=== PATIENT | female | born 1955 | race Caucasian/White ===

== ENCOUNTER 2016-03-30 08:15 | Inpatient (IN) | payer BC ==
--- NOTE | 2016-03-30 08:22 | ED ---
Psychiatric Complaint - HPI Summary HPI Summary: Patient presents with SI due to depression over the holidays. She denies having a current plan but has had thoughts in the past. She says the holidays are always hard for her and that she was in the hospital last year at this time for the same reason. She has a history of migraine and feels like she is beginning to get one now. This is accompanied with nausea. She denies recent illness, fever, chills or bodyaches. - History Of Current Complaint Hx Obtained From: Patient ?: No Onset/Duration: Gradual Onset Timing: Constant Severity Initially: Severe Severity Currently: Severe Character: Depressed Aggravating Factor(s): Recent Stress - Holidays Alleviating Factor(s): Nothing Associated Signs And Symptoms: Positive: Sleep Disturbance Related History: Positive For: Prior Psychiatric Issues Has Suicidal: Reports: Thoughts <Syd Macias - Last Filed: 04/02/16 11:55> <Sharmila Burdick - Last Filed: 04/04/16 07:20> - History Of Current Complaint Chief Complaint: EDMentalHealth Time Seen by Provider: 03/30/16 08:21 - Allergies/Home Medications Allergies/Adverse Reactions: Allergies Allergy/AdvReac Type Severity Reaction Status Date / Time Cyclobenzaprine Allergy Unknown Verified 03/30/16 09:13 Reaction Details Home Medications: Home Medications ALPRAZolam TAB* [Xanax TAB*] 0.5 mg PO BID PRN 03/30/16 [History Confirmed 03/30] Desvenlafaxine (NF) [Pristiq (NF)] 50 mg PO DAILY 03/30/16 [History Confirmed ] Propranolol LA CAP* [Inderal LA CAP*] 80 mg PO DAILY 03/30/16 [History Confirmed 03/30/16] oxyCODONE/Acetamin 10/325(NF) [Percocet 10/325 (NF)] 1 tab PO TID 03/30/16 [ History Confirmed 03/30/16] PMH/Surg Hx/FS Hx/Imm Hx Endocrine/Hematology History: Denies: Hx Diabetes Cardiovascular History: Reports: Hx Hypertension Denies: Hx Congestive Heart Failure GI History: Reports: Hx Gall Bladder Disease - with brea, Hx Irritable Bowel, Other GI Disorders - chronic diarrhea d/t gastric stapling History: Denies: Hx Dialysis, Hx Renal Disease Musculoskeletal History: Reports: Hx Arthritis Sensory History: Reports: Hx Contacts or Glasses Opthamlomology History: Reports: Hx Contacts or Glasses Neurological History: Reports: Hx Headaches, Hx Migraine Psychiatric History: Reports: Hx Anxiety, Hx Depression, Hx Panic Disorder, Hx Post Traumatic Stress Disorder, Hx Inpatient Treatment, Hx Community Mental Health Tx, Hx Suicide Attempt Denies: Hx Eating Disorder, Hx of Violent Episodes Against Others - Surgical History Surgery Procedure, Year, and Place: gastric stapling. cholecystectomy Hx Anesthesia Reactions: No - Immunization History Date of Tetanus Vaccine: Unknown - Family History Known Family History: Positive: Cardiac Disease, Hypertension - Social History Occupation: Unemployed Alcohol Use: None Substance Use Type: Reports: None Smoking Status (MU): Never Smoked Tobacco <Syd Macias - Last Filed: 04/02/16 11:55> Review of Systems Positive: Depressed All Other Systems Reviewed And Are Negative: Yes <Syd Macias - Last Filed: 04/02/16 11:55> Physical Exam Triage Information Reviewed: Yes Vital Signs Reviewed: Yes Appearance: Positive: Well-Appearing, No Pain Distress, Well-Nourished Skin: Positive: Warm, Skin Color Reflects Adequate Perfusion, Dry, Soft Head/Face: Positive: Normal Head/Face Inspection Eyes: Positive: EOMI, BILLIE, Conjunctiva Clear ENT: Positive: Hearing grossly normal Respiratory/Lung Sounds: Positive: Clear to Auscultation, Breath Sounds Present Cardiovascular: Positive: RRR Abdomen Description: Positive: Nontender, Soft. Negative: CVA Tenderness (R), CVA Tenderness (L), Distended, Guarding Bowel Sounds: Positive: Present Musculoskeletal: Positive: Strength/ROM Intact Neurological: Positive: Sensory/Motor Intact, Alert, Oriented to Person Place, Time, NV Bundle Intact Distally Psychiatric: Positive: Affect/Mood Appropriate AVPU Assessment: Alert <Syd Macias - Last Filed: 04/02/16 11:55> Vital Signs On Initial Exam: Initial Vitals Temp Pulse Resp BP Pulse Ox 98.0 F 115 16 144/77 93 03/30/16 08:25 03/30/16 08:25 03/30/16 08:25 03/30/16 08:25 03/30/16 08:25 <Sharmila Burdick - Last Filed: 04/04/16 07:20> Diagnostics - Laboratory Result Diagrams: 03/30/16 08:40 03/30/16 08:40 Lab Statement: Any lab studies that have been ordered have been reviewed, and results considered in the medical decision making process. <Syd Maciasher - Last Filed: 04/02/16 11:55> - Vital Signs Vital Signs Temp Pulse Resp BP Pulse Ox 03/30/16 16:18 99.1 F 78 16 123/73 98 03/30/16 11:42 18 03/30/16 10:00 97.5 F 84 16 127/66 96 03/30/16 08:25 98.0 F 115 16 144/77 93 - Laboratory Lab Results: Lab Results 03/30/16 03/30/16 03/30/16 Range/Units 08:40 08:40 08:40 WBC 6.4 (3.5-10.8) 10^3/ul RBC 4.26 (4.0-5.4) 10^6/ul Hgb 13.5 (12.0-16.0) g/dl Hct 41 (35-47) % MCV 97 (80-97) fL MCH 32 H (27-31) pg MCHC 33 (31-36) g/dl RDW 13 (10.5-15) % Plt Count 267 (150-450) 10^3/ul MPV 7 L (7.4-10.4) um3 Neut % (Auto) 77.4 (38-83) % Lymph % (Auto) 11.5 L (25-47) % [place] % (Auto) 4.7 (1-9) % Eos % (Auto) 1.9 (0-6) % Baso % (Auto) 4.5 H (0-2) % Absolute Neuts (auto) 4.9 (1.5-7.7) 10^3/ul Absolute Lymphs (auto) 0.7 L (1.0-4.8) 10^3/ul Absolute Monos (auto) 0.3 (0-0.8) 10^3/ul Absolute Eos (auto) 0.1 (0-0.6) 10^3/ul Absolute Basos (auto) 0.3 H (0-0.2) 10^3/ul Absolute Nucleated RBC 0 10^3/ul Nucleated RBC % 0 Sodium 136 (133-145) mmol/L Potassium 4.0 (3.5-5.0) mmol/L Chloride 107 (101-111) mmol/L Carbon Dioxide 22 (22-32) mmol/L Anion Gap 7 (2-11) mmol/L BUN 20 (6-24) mg/dL Creatinine 1.11 H (0.51-0.95) mg/dL Est GFR ( Amer) 64.5 (>60) Est GFR (Non-Af Amer) 50.1 (>60) BUN/Creatinine Ratio 18.0 (8-20) Glucose 99 (70-100) mg/dL Calcium 9.2 (8.6-10.3) mg/dL Total Bilirubin 0.50 (0.2-1.0) mg/dL AST 19 (13-39) U/L ALT 13 (7-52) U/L Alkaline Phosphatase 92 (34-104) U/L Total Protein 6.9 (6.4-8.9) g/dL Albumin 4.0 (3.2-5.2) g/dL Globulin 2.9 (2-4) g/dL Albumin/Globulin Ratio 1.4 (1-3) TSH 1.86 (0.34-5.60) mcIU/mL Urine Color Yellow Urine Appearance Cloudy Urine pH 5.0 (5-9) Ur Specific [place] 1.030 (1.010-1.030) Urine Protein 1+(30 mg/dl) H (Negative) Urine Ketones Trace H (Negative) Urine Blood Negative (Negative) Urine Nitrate Negative (Negative) Urine Bilirubin Negative (Negative) Urine Urobilinogen Negative (Negative) Ur Leukocyte Esterase 1+ H (Negative) Urine WBC (Auto) Trace(0-5/hpf) (Absent) Urine RBC (Auto) Absent (Absent) Ur Squamous Epith Cells Present H (Absent) Urine Bacteria Absent (Absent) Hyaline Casts Present H (Absent) Urine Glucose Negative (Negative) Salicylates < 2.50 (<30) mg/dL Urine Opiates Screen (None Detect) Acetaminophen < 15 mcg/mL Ur Barbiturates Screen (None Detect) Ur Phencyclidine Scrn (None Detect) Ur Amphetamines Screen (None Detect) U Benzodiazepines Scrn (None Detect) Urine Cocaine Screen (None Detect) U Cannabinoids Screen (None Detect) Serum Alcohol < 10 (<10) mg/dL 03/30/16 Range/Units 08:40 WBC (3.5-10.8) 10^3/ul RBC (4.0-5.4) 10^6/ul Hgb (12.0-16.0) g/dl Hct (35-47) % MCV (80-97) fL MCH (27-31) pg MCHC (31-36) g/dl RDW (10.5-15) % Plt Count (150-450) 10^3/ul MPV (7.4-10.4) um3 Neut % (Auto) (38-83) % Lymph % (Auto) (25-47) % Deuel % (Auto) (1-9) % Eos % (Auto) (0-6) % Baso % (Auto) (0-2) % Absolute Neuts (auto) (1.5-7.7) 10^3/ul Absolute Lymphs (auto) (1.0-4.8) 10^3/ul Absolute Monos (auto) (0-0.8) 10^3/ul Absolute Eos (auto) (0-0.6) 10^3/ul Absolute Basos (auto) (0-0.2) 10^3/ul Absolute Nucleated RBC 10^3/ul Nucleated RBC % Sodium (133-145) mmol/L Potassium (3.5-5.0) mmol/L Chloride (101-111) mmol/L Carbon Dioxide (22-32) mmol/L Anion Gap (2-11) mmol/L BUN (6-24) mg/dL Creatinine (0.51-0.95) mg/dL Est GFR ( Amer) (>60) Est GFR (Non-Af Amer) (>60) BUN/Creatinine Ratio (8-20) Glucose (70-100) mg/dL Calcium (8.6-10.3) mg/dL Total Bilirubin (0.2-1.0) mg/dL AST (13-39) U/L ALT (7-52) U/L Alkaline Phosphatase (34-104) U/L Total Protein (6.4-8.9) g/dL Albumin (3.2-5.2) g/dL Globulin (2-4) g/dL Albumin/Globulin Ratio (1-3) TSH (0.34-5.60) mcIU/mL Urine Color Urine Appearance Urine pH (5-9) Ur Specific [place] (1.010-1.030) Urine Protein (Negative) Urine Ketones (Negative) Urine Blood (Negative) Urine Nitrate (Negative) Urine Bilirubin (Negative) Urine Urobilinogen (Negative) Ur Leukocyte Esterase (Negative) Urine WBC (Auto) (Absent) Urine RBC (Auto) (Absent) Ur Squamous Epith Cells (Absent) Urine Bacteria (Absent) Hyaline Casts (Absent) Urine Glucose (Negative) Salicylates (<30) mg/dL Urine Opiates Screen None detected (None Detect) Acetaminophen mcg/mL Ur Barbiturates Screen None detected (None Detect) Ur Phencyclidine Scrn None detected (None Detect) Ur Amphetamines Screen Presumptive positive H (None Detect) U Benzodiazepines Scrn Presumptive positive H (None Detect) Urine Cocaine Screen None detected (None Detect) U Cannabinoids Screen None detected (None Detect) Serum Alcohol (<10) mg/dL Result Diagrams: 03/30/16 08:40 03/30/16 08:40 Lab Statement: Any lab studies that have been ordered have been reviewed, and results considered in the medical decision making process. <Sharmila Burdick - Last Filed: 04/04/16 07:20> Re-Evaluation - Re-Evaluation First Eval Re-Evaluation Time: 14:30 - Notified by [facility] unit that patient has a migraine and is requesting percocet. She will be given Sumatriptan. Change: Worse <Syd Macias - Last Filed: 04/02/16 11:55> Course/Dx - Differential Dx/Clinical Impression Differential Diagnosis/HQI/PQRI: Positive: Acute Psychosis, Anxiety, Depression , Schizophrenia, Suicidal Ideation - Physician Notifications Patient Is Medically Stable For: Psych Evaluation <Syd Macias - Last Filed: 04/02/16 11:55> <Sharmila Burdick - Last Filed: 04/04/16 07:20> - Differential Dx/Clinical Impression Provider Diagnosis: Persistent mood [affective] disorder, unspecified Discharge <Syd Macias - Last Filed: 04/02/16 11:55> <Sharmila Burdick - Last Filed: 04/04/16 07:20> - Discharge Plan Condition: Stable Disposition: ADMITTED TO [facility] Attestations Provider Attestation: I was available for consult. This patient was seen by the VERONICA. The patient was not presented to, seen by, or examined by me. - BRYAN <Sharmila Burdick - Last Filed: 04/04/16 07:20>
[2016-03-30 09:11] LABS: Hematocrit 41 % (35-47); Hemoglobin 13.5 g/dl (12.0-16.0); Mean Corpuscular HGB Conc 33 g/dl (31-36); Mean Corpuscular Hemoglobin 32 pg (27-31); Mean Corpuscular Volume 97 fL (80-97); Mean Platelet Volume 7 um3 (7.4-10.4); Red Blood Count 4.26 10^6/ul (4.0-5.4); Red Cell Distribution Width 13 % (10.5-15); White Blood Count 6.4 10^3/ul (3.5-10.8)
[2016-03-30] MEDS ORDERED: Ondansetron ODT TAB* 4 MG PO ONE (09:11)
[2016-03-30] MEDS ORDERED: Acetaminophen TAB* 325 MG PO ONE ×2 (09:11→11:36)
[2016-03-30] MEDS ORDERED: Ibuprofen TAB* 600 MG PO ONE (09:11)
[2016-03-30 09:16] LABS: Urine Bacteria Absent (Absent); Urine Bilirubin Negative (Negative); Urine Glucose Negative (Negative); Urine Nitrite Negative (Negative)
[2016-03-30 09:27] LABS: ALT 13 U/L (7-52); AST 19 U/L (13-39); Alkaline Phosphatase 92 U/L (34-104); Anion Gap 7 mmol/L (2-11); Benzodiazepine Urine Screen Presumptive Positive (None Detect); Blood Urea Nitrogen 20 mg/dL (6-24); CO2 Carbon Dioxide 22 mmol/L (22-32); Calcium 9.2 mg/dL (8.6-10.3); Chloride 107 mmol/L (101-111); EGFR African American 64.5 (>60); EGFR Non-African American 50.1 (>60); Globulin 2.9 g/dL (2-4); Glucose 99 mg/dL (70-100); Sodium 136 mmol/L (133-145); Total Protein 6.9 g/dL (6.4-8.9)
[2016-03-30 09:44] LABS: Acetaminophen < 15 mcg/mL; Alcohol < 10 mg/dL (<10); Salicylate < 2.50 mg/dL (<30)
[2016-03-30 09:54] LABS: TSH (Thyroid Stimulating Horm) 1.86 mcIU/mL (0.34-5.60)
[2016-03-30] MEDS ORDERED: LORazepam TAB(*) 1 MG PO ONE (11:36)
[2016-03-30] MEDS ORDERED: SUMAtriptan TAB* 50 MG PO ONE (14:34)
[2016-03-30] MEDS ORDERED: Nicotine GUM* 2 MG PO PRN (16:01)
[2016-03-30] MEDS ORDERED: Nicotine Inhaler* 10 MG AMP INH PRN (16:01)
[2016-03-30] MEDS ORDERED: Al Hydrox/Mg Hydrox/Simet LIQ* 30 ML UDC PO PRN (16:01)
[2016-03-30] MEDS ORDERED: Mouth Piece, Nicotine* 1 EACH CARTRIDGE INH SCH (16:01)
[2016-03-30] MEDS: Diphenoxylat/Atrop 2.5-0.025M* 1 TAB PO PRN (20:09)
[2016-03-30] MEDS: Zolpidem TAB* 10 MG PO PRN (20:09)
[2016-03-30] MEDS: Gabapentin CAP(*) 400 MG PO SCH (20:10)
[2016-03-31] MEDS: Acetaminophen TAB* 325 MG PO PRN ×3 (04:48→19:15)
[2016-03-31] MEDS: Diphenoxylat/Atrop 2.5-0.025M* 1 TAB PO PRN ×2 (07:45→20:05)
[2016-03-31] MEDS: FLUoxetine CAP* 20 MG PO SCH (07:45)
[2016-03-31] MEDS: buPROPion SR TAB.SR* 150 MG PO SCH (07:46)
[2016-03-31] MEDS: Gabapentin CAP(*) 400 MG PO SCH ×3 (07:46→19:14)
[2016-03-31] MEDS: Vitamin THERAPEUTIC TAB PO SCH (10:18)
[2016-03-31] MEDS: hydrOXYzine HCL TAB* 50 MG PO SCH ×3 (10:36→19:14)
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
--- NOTE | 2016-03-31 13:30 | PN ---
MHU: Group Therapy Note - Service Type Service Type: 34312 Psychotherapy - Met with patient for supportive psychotherapy. Landy describes suicidal rumination in the context of recurring headaches during the past 5 days. She discussed the news of her son' s , describing feeling excited to get to hold a baby again, but current depression and pain depletes her of positive affect or attitudes. Landy terminated discussion to take prn for headache.
--- NOTE | 2016-03-31 15:53 | PN ---
Progress Note - Progress Note Note: Left a VM for pt's PMD Samantha Rubi with request to discuss migraine mgt.
[2016-03-31] MEDS: Zolpidem TAB* 10 MG PO PRN (20:05)
[2016-04-01] MEDS ORDERED: guanFACINE TAB* 1 MG ONE (04:49)
[2016-04-01] MEDS ORDERED: chlorproMAZINE TAB* 100 MG ONE (04:49)
[2016-04-01] MEDS ORDERED: guanFACINE TAB* 1 MG PO PRN (06:00)
[2016-04-01] MEDS ORDERED: guanFACINE TAB* 1 MG PO ONE (06:00)
--- NOTE | 2016-04-01 08:58 | PN ---
Subjective - Subjective Service Type: 12569 Hosp care 15 min low complexity Subjective: Landy says her migraine prevents her from doing anything but lie in bed. Said she really likes Thorazine for calming effect and "sleeping it off." Said she is basically safe, expecting to to more clinical work, and make progress, when headache passes. Objective - Appearance Appearance: Well Developed/Nourished Hygiene: Normal Grooming: Fairly Well Kept - Behavior Psychomotor Activities: Abnormal-Decreased - Attitude and Relatedness Attitude and Relatedness: Cooperative Eye Contact: Good - Speech Quality: Unpressured Latencies: Normal Quantity: Terse - Mood Patient's Decription of Mood: "Okay" - Affect Observed Affect: Non-labile Affect Consistent with: Dysphoria - mild - Thought Process Patient's Thought Process: Coherent, Impoverished Thought Content: No Passive Wish, No Suicidal Planning, No Homicidal Ideation, No Paranoid Ideation - Sensorium Experiencing Hallucinations: No, Sensorium is Clear - Level of Consciousness Level of Consciousness: Alert - Impulse Control Impulse Control: Intact - Insight and Judgement Insight and Judgement: Fair Assessment - Assessment Merits Inpatient Hospitalization: For Stabilization, To Initiate Treatment, For Ongoing Evaluation, For Discharge Planning Inpatient DSM-IV Dx: 1. Borderline personality disorder. 2. Depressive disorder, not otherwise specified. 3. Substance use disorder, not otherwise specified. Clinical Impression: 60-year-old female with borderline personality disorder, history of suicidal behavior, multiple psychiatric hospitalizations, social isolation. She presented in crisis with report of recent loss of medication supply, unexpected positive amphetamine screen on urine-drug test, psychosocial stressors of conflicts with her son, and somatic concerns of recent yeast infection and migraine. She had elevated distress and suicidal ideation. Settling into the unit. Expressing distress around migraine symptoms. I left a for pt's PMD S. Elicia 03/31. Safe on checks, free of active suicidal ideation. Medication management involves restarting the outpatient medication but with lower more typical dose of Wellbutrin, and avoiding drugs of high abuse potential (particularly in light of standard recent "red flags" of stolen medication and failed drug test) so we will not provide Xanax or narcotic analgesics. Plan - Plan Treatment Plan: Name: LANDY BALL Birthdate: 1955 [id number] Continued Medication Management: Continue Outpt Medication Medications: Current Medications Acetaminophen (Tylenol Tab*) 650 mg PO Q4H PRN PRN Reason: PAIN or TEMP > 101 F Last Admin: 03/31/16 19:15 Dose: 650 mg Al Hydrox/Mg Hydrox/Simethicone (Maalox Plus*) 30 ml PO Q4H PRN PRN Reason: INDIGESTION Bupropion HCl (Wellbutrin Sr Tab*) 300 mg PO QAM [facility] Last Admin: 03/31/16 07:46 Dose: 300 mg Chlorpromazine HCl (Thorazine Tab*) 100 mg PO Q2H PRN PRN Reason: AGITATION Device (Nicotine Mouth Piece*) 1 each INH .CARTRIDGE [facility] Diphenoxylate HCl/Atropine (Lomotil Tab*) 2 tab PO BID PRN PRN Reason: DIARRHEA Last Admin: 03/31/16 20:05 Dose: 2 tab Fluoxetine HCl (Prozac Cap*) 20 mg PO DAILY [facility] Last Admin: 03/31/16 07:45 Dose: 20 mg Gabapentin (Neurontin Cap(*)) 400 mg PO TID [facility] Last Admin: 03/31/16 19:14 Dose: 400 mg Hydroxyzine HCl (Atarax Tab*) 50 mg PO TID [facility] Last Admin: 03/31/16 19:14 Dose: 50 mg Multivitamins (Theragran Tab*) 1 tab PO DAILY [facility] Last Admin: 03/31/16 10:18 Dose: Not Given Nicotine (Nicotine Inhaler*) 10 mg INH Q2H PRN PRN Reason: CRAVING Nicotine Polacrilex (Nicotine Gum*) 2 mg PO Q2H PRN PRN Reason: CRAVING Zolpidem Tartrate (Ambien Tab*) 10 mg PO BEDTIME PRN PRN Reason: SLEEP Last Admin: 03/31/16 20:05 Dose: 10 mg - Discharge Plan Discharge Plan: Outpatient Follow Up
[2016-04-01] MEDS: Gabapentin CAP(*) 400 MG PO SCH ×2 (09:48→14:02)
[2016-04-01] MEDS: buPROPion SR TAB.SR* 150 MG PO SCH (09:49)
[2016-04-01] MEDS: hydrOXYzine HCL TAB* 50 MG PO SCH ×2 (09:49→15:03)
[2016-04-01] MEDS: Vitamin THERAPEUTIC TAB PO SCH (09:49)
[2016-04-01] MEDS: FLUoxetine CAP* 20 MG PO SCH (09:49)
[2016-04-01] MEDS: chlorproMAZINE TAB* 100 MG PO PRN ×3 (11:55→18:26)
[2016-04-01] MEDS ORDERED: hydrOXYzine HCL TAB* 50 MG ONE (15:02)
[2016-04-01] MEDS: Diphenoxylat/Atrop 2.5-0.025M* 1 TAB PO PRN (16:42)
[2016-04-01] MEDS: Acetaminophen TAB* 325 MG PO PRN (23:43)
[2016-04-01] MEDS: Zolpidem TAB* 10 MG PO PRN (23:43)
[2016-04-02] MEDS: Gabapentin CAP(*) 400 MG PO SCH ×4 (01:20→20:02)
[2016-04-02] MEDS: hydrOXYzine HCL TAB* 50 MG PO SCH ×4 (01:21→20:03)
[2016-04-02] MEDS: chlorproMAZINE TAB* 100 MG PO PRN ×5 (06:14→20:50)
[2016-04-02] MEDS: buPROPion SR TAB.SR* 150 MG PO SCH (09:31)
[2016-04-02] MEDS: FLUoxetine CAP* 20 MG PO SCH (09:31)
[2016-04-02] MEDS: Vitamin THERAPEUTIC TAB PO SCH (09:32)
[2016-04-02] MEDS: Diphenoxylat/Atrop 2.5-0.025M* 1 TAB PO PRN ×2 (09:33→20:50)
--- NOTE | 2016-04-02 11:27 | PN ---
Subjective - Subjective Service Type: [id number] Hosp care 15 min low complexity Subjective: Landy reports progress: less anxious, less nauseated. Says mood improvement will come later, is satisfied with plan. I let her know about VM exchange with Dr. Rubi, and current guidance to avoid antibiotics. Objective - Appearance Appearance: Well Developed/Nourished Hygiene: Normal Grooming: Fairly Well Kept - Behavior Psychomotor Activities: Abnormal-Decreased - Attitude and Relatedness Attitude and Relatedness: Superficially Cooperative Eye Contact: Good - Speech Quality: Unpressured Latencies: Normal Quantity: Terse - Mood Patient's Decription of Mood: "Okay" - Affect Observed Affect: Non-labile Affect Consistent with: Euthymia - Thought Process Patient's Thought Process: Coherent, Impoverished Thought Content: No Passive Wish, No Suicidal Planning, No Homicidal Ideation, No Paranoid Ideation - Sensorium Experiencing Hallucinations: No, Sensorium is Clear - Level of Consciousness Level of Consciousness: Alert - Impulse Control Impulse Control: Intact - Insight and Judgement Insight and Judgement: Fair Assessment - Assessment Merits Inpatient Hospitalization: For Stabilization, To Initiate Treatment, For Ongoing Evaluation, Consolidate Improvements Inpatient DSM-IV Dx: 1. Borderline personality disorder. 2. Depressive disorder, not otherwise specified. 3. Substance use disorder, not otherwise specified. Clinical Impression: 60-year-old female with borderline personality disorder, history of suicidal behavior, multiple psychiatric hospitalizations, social isolation. She presented in crisis with report of recent loss of medication supply, unexpected positive amphetamine screen on urine-drug test, psychosocial stressors of conflicts with her son, and somatic concerns of recent yeast infection and migraine. She had elevated distress and suicidal ideation. Stabilizing here. Improving, with reduced distress level and anxiety, and milder overt mood symptoms. Continues with somatic concern around migraine symptoms. I left another VM for pt's PMD SYanira Rubi 04/02. Landy is safe on checks, free of active suicidal ideation. Medication management involved restarting the outpatient medication but with lower more typical dose of Wellbutrin, and avoiding drugs of high abuse potential (particularly in light of standard recent "red flags" of stolen medication and failed drug test) - we will not provide Xanax or narcotic analgesics. Plan - Plan Treatment Plan: Name: LANDY BALL Birthdate: 1955 [id number] Continued Medication Management: Continue Outpt Medication Medications: Current Medications Acetaminophen (Tylenol Tab*) 650 mg PO Q4H PRN PRN Reason: PAIN or TEMP > 101 F Last Admin: 04/01/16 23:43 Dose: 650 mg Al Hydrox/Mg Hydrox/Simethicone (Maalox Plus*) 30 ml PO Q4H PRN PRN Reason: INDIGESTION Bupropion HCl (Wellbutrin Sr Tab*) 300 mg PO QAM COUNTS INCLUDE 234 BEDS AT THE [facility] Last Admin: 04/02/16 09:31 Dose: 300 mg Chlorpromazine HCl (Thorazine Tab*) 100 mg PO Q2H PRN PRN Reason: AGITATION Last Admin: 04/02/16 09:33 Dose: 100 mg Device (Nicotine Mouth Piece*) 1 each INH .CARTRIDGE COUNTS INCLUDE 234 BEDS AT THE [facility] Diphenoxylate HCl/Atropine (Lomotil Tab*) 2 tab PO BID PRN PRN Reason: DIARRHEA Last Admin: 04/02/16 09:33 Dose: 2 tab Fluoxetine HCl (Prozac Cap*) 20 mg PO DAILY COUNTS INCLUDE 234 BEDS AT THE [facility] Last Admin: 04/02/16 09:31 Dose: 20 mg Gabapentin (Neurontin Cap(*)) 400 mg PO TID COUNTS INCLUDE 234 BEDS AT THE [facility] Last Admin: 04/02/16 09:31 Dose: 400 mg Hydroxyzine HCl (Atarax Tab*) 50 mg PO TID COUNTS INCLUDE 234 BEDS AT THE [facility] Last Admin: 04/02/16 09:32 Dose: 50 mg Multivitamins (Theragran Tab*) 1 tab PO DAILY COUNTS INCLUDE 234 BEDS AT THE [facility] Last Admin: 04/02/16 09:32 Dose: 1 tab Nicotine (Nicotine Inhaler*) 10 mg INH Q2H PRN PRN Reason: CRAVING Nicotine Polacrilex (Nicotine Gum*) 2 mg PO Q2H PRN PRN Reason: CRAVING Zolpidem Tartrate (Ambien Tab*) 10 mg PO BEDTIME PRN PRN Reason: SLEEP Last Admin: 04/01/16 23:43 Dose: 10 mg - Discharge Plan Discharge Plan: Outpatient Follow Up
[2016-04-02] MEDS: Acetaminophen TAB* 325 MG PO PRN (19:05)
[2016-04-02] MEDS: Zolpidem TAB* 10 MG PO PRN (20:05)
[2016-04-03] MEDS: chlorproMAZINE TAB* 100 MG PO PRN ×6 (01:26→20:19)
[2016-04-03] MEDS: Gabapentin CAP(*) 400 MG PO SCH ×3 (09:39→20:18)
[2016-04-03] MEDS: hydrOXYzine HCL TAB* 50 MG PO SCH ×3 (09:39→20:19)
[2016-04-03] MEDS: FLUoxetine CAP* 20 MG PO SCH (09:39)
[2016-04-03] MEDS: Diphenoxylat/Atrop 2.5-0.025M* 1 TAB PO PRN ×2 (09:40→20:18)
[2016-04-03] MEDS: Vitamin THERAPEUTIC TAB PO SCH (09:40)
[2016-04-03] MEDS: buPROPion SR TAB.SR* 150 MG PO SCH (09:40)
[2016-04-03] MEDS: Acetaminophen TAB* 325 MG PO PRN ×3 (11:26→21:48)
--- NOTE | 2016-04-03 13:11 | PN ---
Subjective - Subjective Service Type: [id number] Hosp care 15 min low complexity Subjective: Landy reports feeling like she's making more progress. Mood/outlook is "okay." She asks for a provider to check her genitals for rash/infection and I agreed to get a consultation. Objective - Appearance Appearance: Well Developed/Nourished Hygiene: Normal Grooming: Disheveled - Behavior Psychomotor Activities: Abnormal-Decreased - Attitude and Relatedness Attitude and Relatedness: Superficially Cooperative Eye Contact: Good - Speech Quality: Unpressured Latencies: Normal Quantity: Terse - Mood Patient's Decription of Mood: "Okay" - Affect Observed Affect: Non-labile Affect Consistent with: Euthymia - Thought Process Patient's Thought Process: Goal Directed, Impoverished Thought Content: No Passive Wish, No Suicidal Planning, No Homicidal Ideation, No Paranoid Ideation - Sensorium Experiencing Hallucinations: No, Sensorium is Clear - Level of Consciousness Level of Consciousness: Alert - Impulse Control Impulse Control: Intact - Insight and Judgement Insight and Judgement: Fair Assessment - Assessment Inpatient DSM-IV Dx: 1. Borderline personality disorder. 2. Depressive disorder, not otherwise specified. 3. Substance use disorder, not otherwise specified. Clinical Impression: 60-year-old female with borderline personality disorder, history of suicidal behavior, multiple psychiatric hospitalizations, social isolation. She presented in crisis with report of recent loss of medication supply, unexpected positive amphetamine screen on urine-drug test, psychosocial stressors of conflicts with her son, and somatic concerns of recent yeast infection and migraine. She had elevated distress and suicidal ideation. Stabilizing here. Improving, with reduced distress level and anxiety, and milder overt mood symptoms. Landy is safe on checks, free of active suicidal ideation. Medication management involved restarting the outpatient medication but with lower more typical dose of Wellbutrin, and avoiding drugs of high abuse potential (particularly in light of standard recent "red flags" of stolen medication and failed drug test) - we will not provide Xanax or narcotic analgesics. Urinary/genital itching continue, with recent bacterial presence in urine - hospitalist consultation requested (Dr. Patel) - her initial guidance also was to restart propranolol for migraine proph. Plan - Plan Treatment Plan: Name: LANDY BALL Birthdate: 1955 [id number] Continued Medication Management: Continue Outpt Medication Medications: Current Medications Acetaminophen (Tylenol Tab*) 650 mg PO Q4H PRN PRN Reason: PAIN or TEMP > 101 F Last Admin: 04/03/16 11:26 Dose: 650 mg Al Hydrox/Mg Hydrox/Simethicone (Maalox Plus*) 30 ml PO Q4H PRN PRN Reason: INDIGESTION Bupropion HCl (Wellbutrin Sr Tab*) 300 mg PO QAM [facility] Last Admin: 04/03/16 09:40 Dose: 300 mg Chlorpromazine HCl (Thorazine Tab*) 100 mg PO Q2H PRN PRN Reason: AGITATION Last Admin: 04/03/16 11:26 Dose: 100 mg Device (Nicotine Mouth Piece*) 1 each INH .CARTRIDGE [facility] Diphenoxylate HCl/Atropine (Lomotil Tab*) 2 tab PO BID PRN PRN Reason: DIARRHEA Last Admin: 04/03/16 09:40 Dose: 2 tab Fluoxetine HCl (Prozac Cap*) 20 mg PO DAILY [facility] Last Admin: 04/03/16 09:39 Dose: 20 mg Gabapentin (Neurontin Cap(*)) 400 mg PO TID [facility] Last Admin: 04/03/16 09:39 Dose: 400 mg Hydroxyzine HCl (Atarax Tab*) 50 mg PO TID [facility] Last Admin: 04/03/16 09:39 Dose: 50 mg Multivitamins (Theragran Tab*) 1 tab PO DAILY [facility] Last Admin: 04/03/16 09:40 Dose: 1 tab Nicotine (Nicotine Inhaler*) 10 mg INH Q2H PRN PRN Reason: CRAVING Nicotine Polacrilex (Nicotine Gum*) 2 mg PO Q2H PRN PRN Reason: CRAVING Zolpidem Tartrate (Ambien Tab*) 10 mg PO BEDTIME PRN PRN Reason: SLEEP Last Admin: 04/02/16 20:05 Dose: 10 mg - Discharge Plan Discharge Plan: Outpatient Follow Up
[2016-04-03] MEDS: Propranolol LA CAP* 80 MG PO SCH (14:52)
[2016-04-03] MEDS: Cyanocobalamin TAB* 500 MCG PO SCH (17:08)
[2016-04-03] MEDS: Zolpidem TAB* 10 MG PO PRN (20:19)
[2016-04-03] MEDS: Amoxicillin/Clavulanate TAB* 500 MG PO SCH (21:49)
[2016-04-03] MEDS: Clotrimazole 1% VAGINAL CREAM* 45 GM VAGINAL SCH (21:51)
--- NOTE | 2016-04-03 22:51 | CONS ---
CONTINUATION ADDENDUM NOW INCLUDED ON THIS REPORT CONSULTATION REPORT: DATE OF CONSULT: 04/03/16 PRIMARY CARE PROVIDER: Dr. Mcrae. PHYSICIAN REQUESTING THE EVALUATION: Dr. Colmenares from Psychiatry. REASON FOR CONSULT: "Genital problem." HISTORY OF PRESENT ILLNESS: Mrs. Zimmerman is a 60-year-old female with a history of recurrent diarrhea, hypertension, personality disorder with depression and suicidal ideation in the past as well as chronic migraines who presented to the hospital and was admitted to our facility in our mental health unit on 03/31/16 for suicidal ideation. For further details of patient's presentation, please see Dr. Colmenares's history and physical dictated at admission. The patient has a history of chronic headaches and today she stated that her headache is actually pretty well controlled. Furthermore, she stated that she stated that she has had problems with genital symptoms that initially involved vaginal discharge that so far almost resolved. She also has some nonspecific further complaints of vaginal dryness and "grittiness." She denies symptoms of dysuria per se. The patient's urine cultures were positive for Enterococcal faecalis of over 100 ,000 colonies at admission. An evaluation was requested in regards to that. PAST MEDICAL HISTORY: 1. Status post gastric bypass surgery. 2. History of chronic diarrhea. 3. History of chronic migraine headaches. 4. History of depression with multiple psychiatric hospitalizations in the past. 5. Treatment for suicidal ideation. 6. Cholecystectomy. 7. Tonsillectomy. CURRENT MEDICATIONS: The patient is receiving during the hospital stay included : 1. Lomotil 2 tablets b.i.d. p.r.n. 2. Fluoxetine 20 mg daily. 3. Gabapentin 400 mg 3 times a day. 4. Nicotine gum and inhaler. 5. Propranolol 80 mg daily. 6. Multivitamin 1 tablet daily. 7. Ambien 10 mg at bedtime p.r.n. 8. Bupropion SR 300 mg q.a.m. 9. Thorazine 100 mg every 2 hours p.r.n. agitation. 10. Hydroxyzine 50 mg 3 times a day scheduled. ALLERGIES TO MEDICATIONS: Include FLEXERIL. FAMILY HISTORY: Positive for heart disease in both parents. SOCIAL HISTORY: The patient lists her son, who lives in [place], as the surrogate. CONTINUATION ADDENDUM: SOCIAL HISTORY: The patient denies smoking or drug use. She has 2 children. She list her son as the surrogate and person to contact . REVIEW OF SYSTEMS: The patient complains of daily headache. Today's headache is "not as bad." She has chronic loose bowel movements after her bypass surgery. She also states that she has dry skin and she calls it as "psoriasis." Otherwise, the rest of review of systems as mentioned in the history of present illness. All the remaining 12 systems were reviewed and were otherwise negative. PHYSICAL EXAM: Vitals: Blood pressure of 108/65, heart rate of 64 and regular , respiratory rate of 16, oxygen saturation 94% on room air, temperature 98.6. General: The patient is a pleasant 60-year-old female, who is in no acute distress. The patient is alert, awake, and oriented x3. HEENT: Head: Atraumatic, normocephalic. Eyes: Pupils are equal and reactive to light and accommodation. Oropharynx is clear. Mucosa moist. Neck: Supple. No JVD. No bruits bilaterally. Cardiovascular: Regular rate and rhythm. No murmurs. Respiratory: Clear to auscultation bilaterally. Abdomen: Soft, nontender. Bowel sounds present in all 4 quadrants. Extremities: There is no edema. Pulses +2 bilaterally. No clubbing or cyanosis. On evaluation of the skin, very dry with lesions that appeared to be more related to pityriasis rosea on the upper back. Neuro Evaluation: Speech is clear. Cranial nerves II through XII grossly intact. Motor strength is 5/5 bilaterally. DIAGNOSTIC STUDIES/LAB DATA: Most recent laboratory data obtained from shows sodium of 136, potassium 4.0, chloride 107, carbon dioxide 22, BUN 20, creatinine 1.1. Liver function tests were unremarkable. TSH of 1.86. CBC: White blood cell count of 6.4, hemoglobin of 13.5, hematocrit of 41, and platelets of 267. Urine cultures were positive for over 100,000 colonies of Enterococcus faecalis. ASSESSMENT AND PLAN: Urinary tract infection in a patient who has rather vague genitourinary symptoms. At this point, I elected to treat the patient with 5- day course of Augmentin according to sensitivities obtained from Microbiology of the patient's urine cultures. In regards to the possibility of yeast infection. At this point, I think it is a good idea to treat the patient at least preventatively with clotrimazole vaginal cream for 7 days on a nightly basis. I explained to the patient how to use the cream and the reason for using it continuously for 7 days. I also suspect the patient may have vaginal dryness due to postmenopausal symptoms and she may need an estrogen cream. For that, I referred her to see an outpatient sharepoint administrator for further evaluation and treatment. In regards to patient's chronic migraine headaches, the patient was today restarted on her propranolol for headache prevention. That is to be continued. At this point, the patient is also on Neurontin on a daily basis and fluoxetine. She does not appear to be in marked discomfort and describes her today's headache as "usual." In regards to her depression and suicidal ideation, I defer to treatment to the psychiatrist. At this point, I will sign off and we will see the patient as needed. Thank you very much for allowing me to see patient in consultation. Please do not hesitate to call with any other questions or problems arise. Approximately 55 minutes were spent on the patient's consult. CC: Dr. Colmenares; Dr. Mcrae * [id number] #: [id number] #: [id number] MARIANO
--- NOTE | 2016-04-03 23:16 | CONS ---
CC: Dr. Colmenares; Dr. Mcrae CONSULTATION REPORT: * ADDENDUM: SOCIAL HISTORY: The patient denies smoking or drug use. She has 2 children. She list her son as the surrogate and person to contact . REVIEW OF SYSTEMS: The patient complains of daily headache. Today's headache is "not as bad." She has chronic loose bowel movements after her bypass surgery. She also states that she has dry skin and she calls it as "psoriasis." Otherwise, the rest of review of systems as mentioned in the history of present illness. All the remaining 12 systems were reviewed and were otherwise negative. PHYSICAL EXAM: Vitals: Blood pressure of 108/65, heart rate of 64 and regular , respiratory rate of 16, oxygen saturation 94% on room air, temperature 98.6. General: The patient is a pleasant 60-year-old female, who is in no acute distress. The patient is alert, awake, and oriented x3. HEENT: Head: Atraumatic, normocephalic. Eyes: Pupils are equal and reactive to light and accommodation. Oropharynx is clear. Mucosa moist. Neck: Supple. No JVD. No bruits bilaterally. Cardiovascular: Regular rate and rhythm. No murmurs. Respiratory: Clear to auscultation bilaterally. Abdomen: Soft, nontender. Bowel sounds present in all 4 quadrants. Extremities: There is no edema. Pulses +2 bilaterally. No clubbing or cyanosis. On evaluation of the skin, very dry with lesions that appeared to be more related to pityriasis rosea on the upper back. Neuro Evaluation: Speech is clear. Cranial nerves II through XII grossly intact. Motor strength is 5/5 bilaterally. DIAGNOSTIC STUDIES/LAB DATA: Most recent laboratory data obtained from shows sodium of 136, potassium 4.0, chloride 107, carbon dioxide 22, BUN 20, creatinine 1.1. Liver function tests were unremarkable. TSH of 1.86. CBC: White blood cell count of 6.4, hemoglobin of 13.5, hematocrit of 41, and platelets of 267. Urine cultures were positive for over 100,000 colonies of Enterococcus faecalis. ASSESSMENT AND PLAN: Urinary tract infection in a patient who has rather vague genitourinary symptoms. At this point, I elected to treat the patient with 5- day course of Augmentin according to sensitivities obtained from Microbiology of the patient's urine cultures. In regards to the possibility of yeast infection. At this point, I think it is a good idea to treat the patient at least preventatively with clotrimazole vaginal cream for 7 days on a nightly basis. I explained to the patient how to use the cream and the reason for using it continuously for 7 days. I also suspect the patient may have vaginal dryness due to postmenopausal symptoms and she may need an estrogen cream. For that, I referred her to see an outpatient alarm operator for further evaluation and treatment. In regards to patient's chronic migraine headaches, the patient was today restarted on her propranolol for headache prevention. That is to be continued. At this point, the patient is also on Neurontin on a daily basis and fluoxetine. She does not appear to be in marked discomfort and describes her today's headache as "usual." In regards to her depression and suicidal ideation, I defer to treatment to the psychiatrist. At this point, I will sign off and we will see the patient as needed. Thank you very much for allowing me to see patient in consultation. Please do not hesitate to call with any other questions or problems arise. Approximately 55 minutes were spent on the patient's consult. [id number]/CPS #: [id number] MARIANO
[2016-04-04] MEDS: chlorproMAZINE TAB* 100 MG PO PRN ×4 (04:02→22:12)
[2016-04-04] MEDS: Acetaminophen TAB* 325 MG PO PRN ×4 (04:03→19:18)
[2016-04-04] MEDS: hydrOXYzine HCL TAB* 50 MG PO SCH ×3 (09:09→20:05)
[2016-04-04] MEDS: Vitamin THERAPEUTIC TAB PO SCH (09:09)
[2016-04-04] MEDS: buPROPion SR TAB.SR* 150 MG PO SCH (09:09)
[2016-04-04] MEDS: Amoxicillin/Clavulanate TAB* 500 MG PO SCH ×2 (09:09→20:05)
[2016-04-04] MEDS: Gabapentin CAP(*) 400 MG PO SCH ×3 (09:10→20:05)
[2016-04-04] MEDS: FLUoxetine CAP* 20 MG PO SCH (09:10)
[2016-04-04] MEDS: Cyanocobalamin TAB* 500 MCG PO SCH (09:10)
[2016-04-04] MEDS: Diphenoxylat/Atrop 2.5-0.025M* 1 TAB PO PRN ×2 (09:14→20:07)
[2016-04-04] MEDS: Propranolol LA CAP* 80 MG PO SCH (10:03)
[2016-04-04] MEDS: Zolpidem TAB* 10 MG PO PRN (20:07)
[2016-04-04] MEDS: Clotrimazole 1% VAGINAL CREAM* 45 GM VAGINAL SCH (22:23)
[2016-04-05] MEDS: Acetaminophen TAB* 325 MG PO PRN ×3 (08:47→18:15)
[2016-04-05] MEDS: Gabapentin CAP(*) 400 MG PO SCH ×3 (08:47→20:05)
[2016-04-05] MEDS: Cyanocobalamin TAB* 500 MCG PO SCH (08:47)
[2016-04-05] MEDS: Vitamin THERAPEUTIC TAB PO SCH (08:48)
[2016-04-05] MEDS: buPROPion SR TAB.SR* 150 MG PO SCH (08:48)
[2016-04-05] MEDS: Amoxicillin/Clavulanate TAB* 500 MG PO SCH ×2 (08:48→23:08)
[2016-04-05] MEDS: FLUoxetine CAP* 20 MG PO SCH (08:48)
[2016-04-05] MEDS: hydrOXYzine HCL TAB* 50 MG PO SCH ×3 (08:48→20:05)
[2016-04-05] MEDS: Diphenoxylat/Atrop 2.5-0.025M* 1 TAB PO PRN ×2 (08:49→20:07)
[2016-04-05] MEDS: Propranolol LA CAP* 80 MG PO SCH (08:50)
[2016-04-05] MEDS: chlorproMAZINE TAB* 100 MG PO PRN ×2 (12:47→18:16)
--- NOTE | 2016-04-05 13:47 | PN ---
Subjective - Subjective Service Type: 62958 Hosp care 15 min low complexity Subjective: I reviewed Dr Colmenares's sign-out and notes since Wednesday. Staff note she was seclusive on Wednesday afternoon. Staff note improved mood and activity level yesterday. Mood this morning has been described as dysphoric and she has been complaining of a headache. She was seen by Medicine Consult on Wednesday. Pt found at [facility] and just got Tylenol for COPPOLA and thorazine for anxiety. We briefly reviewed events leading to hospitalization. Mood is "crappy " b/c her daughter didn't contact her yesterday (her b-day) and it's been exactly 6 years since they last talked. In general, the holidays and her b-day are "tough times of the year." She rates both her depression and anxiety as 8/ 10 (10 being the worst). She is glad she was hospitalized for her b-day. Slept "great" last night. Notes improved appetite and energy level since hospitalized. Reports continued migraine, which she says is a daily occurrence. Denies SI or thoughts of self-harm. Objective - Appearance Appearance: Obese Dysmorphic Features: No Grooming: Fairly Well Kept - Behavior Psychomotor Activities: Normal Exhibits Abnormal Movement: No - Attitude and Relatedness Attitude and Relatedness: Cooperative Eye Contact: Fair - Speech Quality: Unpressured Latencies: Normal Quantity: Terse - Mood Patient's Decription of Mood: "crappy" - Affect Observed Affect: Fair Affect Consistent with: Dysphoria - blunted but smiles - Thought Process Patient's Thought Process: Coherent, Goal Directed, Impoverished Thought Content: No Passive Wish, No Suicidal Planning, No Homicidal Ideation, No Paranoid Ideation - Sensorium Experiencing Hallucinations: No, Sensorium is Clear - Level of Consciousness Level of Consciousness: Alert Orientation: Yes Intact, Yes Orientated to Time, Yes Orientated to Place, Yes Orientated to Person - Impulse Control Impulse Control: Tenuous - Insight and Judgement Insight and Judgement: Poor - Additional Observations Comments: Vital Signs - 24 hr 04/04/16 04/04/16 04/04/16 14:56 17:55 20:05 Temperature Pulse Rate Respiratory 18 18 18 Rate Blood Pressure (mmHg) O2 Sat by Pulse Oximetry 04/04/16 04/04/16 04/05/16 20:07 22:12 00:12 Temperature Pulse Rate Respiratory 18 18 16 Rate Blood Pressure (mmHg) O2 Sat by Pulse Oximetry 04/05/16 04/05/16 04/05/16 02:12 07:37 08:47 Temperature 99.2 F Pulse Rate 61 Respiratory 16 16 16 Rate Blood Pressure 90/44 (mmHg) O2 Sat by Pulse 98 Oximetry 04/05/16 04/05/16 04/05/16 08:49 10:47 12:47 Temperature Pulse Rate Respiratory 16 16 16 Rate Blood Pressure (mmHg) O2 Sat by Pulse Oximetry 04/05/16 14:12 Temperature Pulse Rate Respiratory 14 Rate Blood Pressure (mmHg) O2 Sat by Pulse Oximetry Assessment - Assessment Merits Inpatient Hospitalization: Consolidate Improvements, For Discharge Planning, Pending Safe DC Plan Inpatient DSM-IV Dx: 1. Borderline personality disorder. 2. Depressive disorder, not otherwise specified. 3. Substance use disorder, not otherwise specified. Clinical Impression: 61yo female with a hx of borderline personality d/o, suicidal behavior, multiple psychiatric hospitalizations admitted for SI with increased distress, depression and anxiety. Plan - Plan Treatment Plan: Name: KATT BALL Birthdate: 1955 [id number] - to continue current medication regime. Medications: Current Medications Acetaminophen (Tylenol Tab*) 650 mg PO Q4H PRN PRN Reason: PAIN or TEMP > 101 F Last Admin: 04/05/16 12:47 Dose: 650 mg Al Hydrox/Mg Hydrox/Simethicone (Maalox Plus*) 30 ml PO Q4H PRN PRN Reason: INDIGESTION Amoxicillin/Clavulanate Potassium (Augmentin Tab*) 500 mg PO BID [facility] Stop: 04/08/16 23:59 Last Admin: 04/05/16 08:48 Dose: 500 mg Bupropion HCl (Wellbutrin Sr Tab*) 300 mg PO QAM [facility] Last Admin: 04/05/16 08:48 Dose: 300 mg Chlorpromazine HCl (Thorazine Tab*) 100 mg PO Q2H PRN PRN Reason: AGITATION Last Admin: 04/05/16 12:47 Dose: 100 mg Clotrimazole (Gyne-Lotrimin 1% Vaginal Cream*) 1 applic VAGINAL BEDTIME [facility] Stop: 04/10/16 23:59 Last Admin: 04/04/16 22:23 Dose: 1 applic Cyanocobalamin (Vitamin B12 Tab*) 500 mcg PO DAILY [facility] Last Admin: 04/05/16 08:47 Dose: 500 mcg Device (Nicotine Mouth Piece*) 1 each INH .CARTRIDGE [facility] Diphenoxylate HCl/Atropine (Lomotil Tab*) 2 tab PO BID PRN PRN Reason: DIARRHEA Last Admin: 04/05/16 08:49 Dose: 2 tab Fluoxetine HCl (Prozac Cap*) 20 mg PO DAILY [facility] Last Admin: 04/05/16 08:48 Dose: 20 mg Gabapentin (Neurontin Cap(*)) 400 mg PO TID [facility] Last Admin: 04/05/16 08:47 Dose: 400 mg Hydroxyzine HCl (Atarax Tab*) 50 mg PO TID [facility] Last Admin: 04/05/16 08:48 Dose: 50 mg Multivitamins (Theragran Tab*) 1 tab PO DAILY [facility] Last Admin: 04/05/16 08:48 Dose: 1 tab Nicotine (Nicotine Inhaler*) 10 mg INH Q2H PRN PRN Reason: CRAVING Nicotine Polacrilex (Nicotine Gum*) 2 mg PO Q2H PRN PRN Reason: CRAVING Propranolol HCl (Inderal La Cap*) 80 mg PO DAILY [facility] Last Admin: 04/05/16 08:50 Dose: 80 mg Zolpidem Tartrate (Ambien Tab*) 10 mg PO BEDTIME PRN PRN Reason: SLEEP Last Admin: 04/04/16 20:07 Dose: 10 mg
[2016-04-05] MEDS: Zolpidem TAB* 10 MG PO PRN (20:07)
[2016-04-05] MEDS: Clotrimazole 1% VAGINAL CREAM* 45 GM VAGINAL SCH (20:12)
[2016-04-06] MEDS: Propranolol LA CAP* 80 MG PO SCH (08:16)
[2016-04-06] MEDS: FLUoxetine CAP* 20 MG PO SCH (08:16)
[2016-04-06] MEDS: Gabapentin CAP(*) 400 MG PO SCH ×3 (08:16→20:39)
[2016-04-06] MEDS: Vitamin THERAPEUTIC TAB PO SCH (08:16)
[2016-04-06] MEDS: Amoxicillin/Clavulanate TAB* 500 MG PO SCH ×2 (08:17→20:39)
[2016-04-06] MEDS: hydrOXYzine HCL TAB* 50 MG PO SCH ×3 (08:17→20:39)
[2016-04-06] MEDS: Cyanocobalamin TAB* 500 MCG PO SCH (08:17)
[2016-04-06] MEDS: buPROPion SR TAB.SR* 150 MG PO SCH (08:18)
[2016-04-06] MEDS: Diphenoxylat/Atrop 2.5-0.025M* 1 TAB PO PRN ×2 (08:19→20:40)
[2016-04-06] MEDS: Acetaminophen TAB* 325 MG PO PRN ×3 (09:39→17:50)
[2016-04-06] MEDS: chlorproMAZINE TAB* 100 MG PO PRN ×2 (09:39→13:59)
--- NOTE | 2016-04-06 11:06 | PN ---
Subjective - Subjective Service Type: 95019 Hosp care 15 min low complexity Subjective: Landy notes some ups and downs over the weekend (had mixed feelings of celebrating birthday here, and was ruminating on losses). But notes overall progress in mood, anxiety and somatic concerns. Expects to be ready to go home this week. Agreed 100mg thorazine is good for emergency distress but overkill for routine use. Objective - Appearance Appearance: Well Developed/Nourished Hygiene: Normal Grooming: Well Kept - Behavior Psychomotor Activities: Abnormal-Decreased - Attitude and Relatedness Attitude and Relatedness: Needy Eye Contact: Good - Speech Quality: Unpressured Latencies: Normal Quantity: Appropriate - Mood Patient's Decription of Mood: "Okay" - Affect Observed Affect: Non-labile Affect Consistent with: Dysphoria - mild - Thought Process Patient's Thought Process: Coherent Thought Content: No Passive Wish, No Suicidal Planning, No Homicidal Ideation, No Paranoid Ideation - Sensorium Experiencing Hallucinations: No, Sensorium is Clear - Level of Consciousness Level of Consciousness: Alert - Impulse Control Impulse Control: Intact - Insight and Judgement Insight and Judgement: Fair Assessment - Assessment Merits Inpatient Hospitalization: To Initiate Treatment, For Ongoing Evaluation , Consolidate Improvements, For Discharge Planning Inpatient DSM-IV Dx: 1. Borderline personality disorder. 2. Depressive disorder, not otherwise specified. 3. Substance use disorder, not otherwise specified. Clinical Impression: 60-year-old female with borderline personality disorder, history of suicidal behavior, multiple psychiatric hospitalizations, social isolation. She presented in crisis with report of recent loss of medication supply, unexpected positive amphetamine screen on urine-drug test, psychosocial stressors of conflicts with her son, and somatic concerns of recent yeast infection and migraine. She had elevated distress and suicidal ideation. Stabilized here. Improving, with reduced distress level and anxiety, and milder overt mood symptoms. Landy is safe on checks, free of active suicidal ideation. Medication management involved restarting the outpatient medication but with lower more typical dose of Wellbutrin, and avoiding drugs of high abuse potential (particularly in light of standard recent "red flags" of stolen medication and failed drug test) - we will not provide Xanax or narcotic analgesics. Hospitalist consultation was obtained (Dr. Patel) for urinary symptoms and antibiotics and topical antifungals were started. Plan - Plan Treatment Plan: Name: LANDY BALL Birthdate: 1955 [id number] Continued Medication Management: Continue Outpt Medication Medications: Current Medications Acetaminophen (Tylenol Tab*) 650 mg PO Q4H PRN PRN Reason: PAIN or TEMP > 101 F Last Admin: 04/06/16 09:39 Dose: 650 mg Al Hydrox/Mg Hydrox/Simethicone (Maalox Plus*) 30 ml PO Q4H PRN PRN Reason: INDIGESTION Amoxicillin/Clavulanate Potassium (Augmentin Tab*) 500 mg PO BID [facility] Stop: 04/08/16 23:59 Last Admin: 04/06/16 08:17 Dose: 500 mg Bupropion HCl (Wellbutrin Sr Tab*) 300 mg PO QAM [facility] Last Admin: 04/06/16 08:18 Dose: 300 mg Chlorpromazine HCl (Thorazine Tab*) 100 mg PO Q2H PRN PRN Reason: AGITATION Last Admin: 04/06/16 09:39 Dose: 100 mg Clotrimazole (Gyne-Lotrimin 1% Vaginal Cream*) 1 applic VAGINAL BEDTIME [facility] Stop: 04/10/16 23:59 Last Admin: 04/05/16 20:12 Dose: 1 applic Cyanocobalamin (Vitamin B12 Tab*) 500 mcg PO DAILY [facility] Last Admin: 04/06/16 08:17 Dose: 500 mcg Device (Nicotine Mouth Piece*) 1 each INH .[facility] Diphenoxylate HCl/Atropine (Lomotil Tab*) 2 tab PO BID PRN PRN Reason: DIARRHEA Last Admin: 04/06/16 08:19 Dose: 2 tab Fluoxetine HCl (Prozac Cap*) 20 mg PO DAILY [facility] Last Admin: 04/06/16 08:16 Dose: 20 mg Gabapentin (Neurontin Cap(*)) 400 mg PO TID [facility] Last Admin: 04/06/16 08:16 Dose: 400 mg Hydroxyzine HCl (Atarax Tab*) 50 mg PO TID [facility] Last Admin: 04/06/16 08:17 Dose: 50 mg Multivitamins (Theragran Tab*) 1 tab PO DAILY [facility] Last Admin: 04/06/16 08:16 Dose: 1 tab Nicotine (Nicotine Inhaler*) 10 mg INH Q2H PRN PRN Reason: CRAVING Nicotine Polacrilex (Nicotine Gum*) 2 mg PO Q2H PRN PRN Reason: CRAVING Propranolol HCl (Inderal La Cap*) 80 mg PO DAILY [facility] Last Admin: 04/06/16 08:16 Dose: 80 mg Zolpidem Tartrate (Ambien Tab*) 10 mg PO BEDTIME PRN PRN Reason: SLEEP Last Admin: 04/05/16 20:07 Dose: 10 mg - Discharge Plan Discharge Plan: Outpatient Follow Up
[2016-04-06] MEDS: Zolpidem TAB* 10 MG PO PRN (20:39)
[2016-04-06] MEDS: Clotrimazole 1% VAGINAL CREAM* 45 GM VAGINAL SCH (20:39)
[2016-04-07] MEDS: Acetaminophen TAB* 325 MG PO PRN ×4 (04:21→18:30)
[2016-04-07] MEDS: chlorproMAZINE TAB* 100 MG PO PRN ×3 (04:21→18:30)
[2016-04-07] MEDS: Amoxicillin/Clavulanate TAB* 500 MG PO SCH ×2 (08:26→20:45)
[2016-04-07] MEDS: buPROPion SR TAB.SR* 150 MG PO SCH (08:26)
[2016-04-07] MEDS: Gabapentin CAP(*) 400 MG PO SCH ×3 (08:26→20:45)
[2016-04-07] MEDS: hydrOXYzine HCL TAB* 50 MG PO SCH ×3 (08:26→20:46)
[2016-04-07] MEDS: Vitamin THERAPEUTIC TAB PO SCH (08:27)
[2016-04-07] MEDS: FLUoxetine CAP* 20 MG PO SCH (08:27)
[2016-04-07] MEDS: Cyanocobalamin TAB* 500 MCG PO SCH (08:27)
[2016-04-07] MEDS: Diphenoxylat/Atrop 2.5-0.025M* 1 TAB PO PRN ×2 (08:28→20:47)
[2016-04-07] MEDS: Propranolol LA CAP* 80 MG PO SCH (09:01)
--- NOTE | 2016-04-07 13:45 | PN ---
[facility]: Group Therapy Note - Service Type Service Type: 63040 Group Psychotherapy - Cognitive Behavioral Group Therapy ( CBT):Patient was attentive and participatory in CBT programming this morning, and remained in good behavioral control. Patient expressed positive insights regarding relevant treatment interventions and goals.
[2016-04-07] MEDS: Zolpidem TAB* 10 MG PO PRN (20:48)
[2016-04-07] MEDS: Clotrimazole 1% VAGINAL CREAM* 45 GM VAGINAL SCH (21:40)
[2016-04-08] MEDS: Acetaminophen TAB* 325 MG PO PRN ×2 (03:50→11:17)
[2016-04-08] MEDS: chlorproMAZINE TAB* 25 MG PO PRN ×2 (03:50→09:38)
[2016-04-08 07:43] VITALS: BP 90/55
[2016-04-08] MEDS: Gabapentin CAP(*) 400 MG PO SCH (09:33)
[2016-04-08] MEDS: buPROPion SR TAB.SR* 150 MG PO SCH (09:34)
[2016-04-08] MEDS: Cyanocobalamin TAB* 500 MCG PO SCH (09:34)
[2016-04-08] MEDS: Amoxicillin/Clavulanate TAB* 500 MG PO SCH (09:34)
[2016-04-08] MEDS: hydrOXYzine HCL TAB* 50 MG PO SCH (09:34)
[2016-04-08] MEDS: Propranolol LA CAP* 80 MG PO SCH (09:34)
[2016-04-08] MEDS: FLUoxetine CAP* 20 MG PO SCH (09:34)
[2016-04-08] MEDS: Vitamin THERAPEUTIC TAB PO SCH (09:34)
[2016-04-08] MEDS: Diphenoxylat/Atrop 2.5-0.025M* 1 TAB PO PRN (09:35)
--- NOTE | 2016-04-08 09:47 | DS ---
Subjective - Subjective Service Types: 49121 Hosp DC Day Mgmt simple under 30 min Discharge Date: 04/08/16 Subjective: Landy agreed with discharge, noted sustained progress, and expressed appreciation for care. She denied wishes, current unmanageable emotional pain, suicidal plans. On symptom review she only noted anticipatory anxiety about going home. We reviewed medications (agreed to 7 day Ambien supply, mentioned completed ABX course, and overview of other meds.). She said she sees no barriers to routine care or emergency help. Objective - Appearance Appearance: Obese Hygiene: Normal Grooming: Well Kept - Behavior Psychomotor Activities: Normal - Attitude and Relatedness Attitude and Relatedness: Cooperative Eye Contact: Good - Speech Quality: Unpressured Latencies: Normal Quantity: Terse - Mood Patient's Decription of Mood: "Good" - Affect Observed Affect: Non-labile Affect Consistent with: Euthymia - Thought Process Patient's Thought Process: Coherent, Goal Directed Thought Content: No Passive Wish, No Suicidal Planning, No Homicidal Ideation, No Paranoid Ideation - Sensorium Experiencing Hallucinations: No, Sensorium is Clear - Level of Consciousness Level of Consciousness: Alert - Impulse Control Impulse Control: Intact - Insight and Judgement Insight and Judgement: Fair Treatment Course & Assessment Clinical Course & Impression: 60-year-old female with borderline personality disorder, history of suicidal behavior, multiple psychiatric hospitalizations, social isolation. She presented in crisis with report of recent loss of medication supply, unexpected positive amphetamine screen on urine-drug test, psychosocial stressors of conflicts with her son, and somatic concerns of recent yeast infection and migraine. She had elevated distress and suicidal ideation. 04/08/16 Clear for release. Landy stabilized here. Clinically she is much improved. She attained major reduction in distress level and anxiety, and much milder reported and overt mood symptoms. Impairment is corrected. Landy was safe on checks, free of active suicidal ideation. She struggled with somatic symptoms (nausea/headache/migraine/gential-urinary symptoms) earlier in her course. These all improved. Medication management involved restarting the outpatient medication but with lower more typical dose of Wellbutrin, and avoiding drugs of high abuse potential (particularly in light of standard recent "red flags" of stolen medication and failed drug test) - we did not provide Xanax or narcotic analgesics and recommend against their ongoing use. In compromise with pt. I allowed Ambien and a 7 day Rx. for home use (CSI check Reference #: [id number]). Hospitalist consultation was obtained (Dr. Patel) for urinary symptoms and antibiotics and topical antifungals were started (discussed case again, medical clearance given, 04/08). Pt. completed a 10 dose course of Augmentin. Given her status now, she is appropriate for discharge. Risk concern centered on suicide risk. It is assessed as low acutely on basis of pt's low symptom burden, absence of impairment, and benign recent behavior/ ideation. Chronically in Kandace's case, it is elevated due to her history, profile and conditions. Clear for Discharge: Adequate Clinical Respons, Acceptable Safety Profile, Low Utility of Inpt Care Inpatient DSM-IV Dx: 1. Borderline personality disorder. 2. Depressive disorder, not otherwise specified. 3. Substance use disorder, not otherwise specified. Discharge Planning - Discharge Planning Discharge Plan: Outpatient Follow Up - [facility] Recommendations for Continuing Care: Medication Management, Psychotherapy, Substance Abuse Counseling, Primary Care Followup Medications: Current Medications Bupropion HCl (Wellbutrin Sr Tab*) 300 mg PO QAM [facility] Last Admin: 04/08/16 09:34 Dose: 300 mg Clotrimazole (Gyne-Lotrimin 1% Vaginal Cream*) 1 applic VAGINAL BEDTIME [facility] Stop: 04/10/16 23:59 Last Admin: 04/07/16 21:40 Dose: 1 applic Cyanocobalamin (Vitamin B12 Tab*) 500 mcg PO DAILY [facility] Last Admin: 04/08/16 09:34 Dose: 500 mcg Diphenoxylate HCl/Atropine (Lomotil Tab*) 2 tab PO BID PRN PRN Reason: DIARRHEA Last Admin: 04/08/16 09:35 Dose: 2 tab Fluoxetine HCl (Prozac Cap*) 20 mg PO DAILY [facility] Last Admin: 04/08/16 09:34 Dose: 20 mg Gabapentin (Neurontin Cap(*)) 400 mg PO TID [facility] Last Admin: 04/08/16 09:33 Dose: 400 mg Hydroxyzine HCl (Atarax Tab*) 50 mg PO TID [facility] Last Admin: 04/08/16 09:34 Dose: 50 mg Multivitamins (Theragran Tab*) 1 tab PO DAILY [facility] Last Admin: 04/08/16 09:34 Dose: 1 tab Nicotine (Nicotine Inhaler*) 10 mg INH Q2H PRN PRN Reason: CRAVING Nicotine Polacrilex (Nicotine Gum*) 2 mg PO Q2H PRN PRN Reason: CRAVING Propranolol HCl (Inderal La Cap*) 80 mg PO DAILY [facility] Last Admin: 04/08/16 09:34 Dose: 80 mg Zolpidem Tartrate (Ambien Tab*) 10 mg PO BEDTIME PRN PRN Reason: SLEEP Last Admin: 04/07/16 20:48 Dose: 10 mg Discharge Planning: Prescriptions provided for discharge [x] Yes [] No Follow up care details as per social work arrangements. Patient response to discharge plan: [] eager for discharge [x] agreeable with discharge plan [] ambivalent about discharge [] disagrees with discharge today
== END 2016-04-08 11:45 | disposition home or self-care (01) | DRG 752 ==
LOC: ED 08:15 → BSU 16:35
PROVIDERS: ADMIT Psychiatry & Neurology Psychiatry; ATTEND Psychiatry & Neurology Psychiatry
DX: F60.3 Borderline personality disorder (principal); N39.0 Urinary tract infection, site not specified; F32.9 Major depressive disorder, single episode, unspecified; K58.9 Irritable bowel syndrome, unspecified; F19.90 Other psychoactive substance use, unspecified, uncomplicated; B95.2 Enterococcus as the cause of diseases classified elsewhere; G43.909 Migraine, unspecified, not intractable, without status migrainosus; Z98.84 Bariatric surgery status; Z79.891 Long term (current) use of opiate analgesic; Z79.899 Other long term (current) drug therapy; Z82.49 Family history of ischemic heart disease and other diseases of the circulatory system
CPT/HCPCS: 36415; 80053; 80307; 80320; 80329; 81003; 81015; 84443; 85025; 87077; 87086; 87186; 90853; 96102; 99222; 99231; 99238; 99285; A9270-GY; G0480

== ENCOUNTER 2016-06-18 06:50 | Inpatient (IN) | payer BC ==
[2016-06-18 08:05] LABS: Hematocrit 37 % (35-47); Hemoglobin 12.2 g/dl (12.0-16.0); Mean Corpuscular HGB Conc 33 g/dl (31-36); Mean Corpuscular Hemoglobin 31 pg (27-31); Mean Corpuscular Volume 94 fL (80-97); Mean Platelet Volume 7 um3 (7.4-10.4); Red Blood Count 3.93 10^6/ul (4.0-5.4); Red Cell Distribution Width 15 % (10.5-15); White Blood Count 5.1 10^3/ul (3.5-10.8)
[2016-06-18 08:26] LABS: ALT 10 U/L (7-52); AST 17 U/L (13-39); Albumin 3.9 g/dL (3.2-5.2); Alkaline Phosphatase 91 U/L (34-104); Anion Gap 7 mmol/L (2-11); BUN/Creatinine Ratio 11.9 (8-20); Blood Urea Nitrogen 12 mg/dL (6-24); CO2 Carbon Dioxide 24 mmol/L (22-32); Calcium 9.1 mg/dL (8.6-10.3); Chloride 105 mmol/L (101-111); EGFR African American 71.7 (>60); EGFR Non-African American 55.7 (>60); Glucose 92 mg/dL (70-100); Potassium 4.3 mmol/L (3.5-5.0); Sodium 136 mmol/L (133-145); Total Protein 6.9 g/dL (6.4-8.9)
[2016-06-18 08:32] LABS: Acetaminophen 16 mcg/mL; Alcohol < 10 mg/dL (<10); Salicylate < 2.50 mg/dL (<30)
[2016-06-18 08:42] LABS: TSH (Thyroid Stimulating Horm) 1.66 mcIU/mL (0.34-5.60)
[2016-06-18 08:44] LABS: Benzodiazepine Urine Screen Presumptive Positive (None Detect)
[2016-06-18 08:48] LABS: Urine Bacteria Absent (Absent); Urine Bilirubin Negative (Negative); Urine Glucose Negative (Negative); Urine Nitrite Negative (Negative)
[2016-06-18] MEDS: Gabapentin CAP(*) 400 MG PO SCH (10:00)
[2016-06-18] MEDS ORDERED: Acetaminophen TAB* 325 MG PO ONE (10:07)
[2016-06-18] MEDS ORDERED: ALPRAZolam TAB* 0.5 MG PO ONE (10:07)
[2016-06-18] MEDS ORDERED: Ondansetron ODT TAB* 4 MG PO ONE (14:24)
[2016-06-18] MEDS ORDERED: hydrOXYzine HCL TAB* 25 MG PO ONE (14:24)
[2016-06-18] MEDS ORDERED: Diphenoxylat/Atrop 2.5-0.025M* 1 TAB PO ONE (15:55)
--- NOTE | 2016-06-18 17:15 | ED ---
Arturo Charles Salem, scribed for Luis Carlos Wren MD on 06/18/16 at 0757 . Psychiatric Complaint - HPI Summary HPI Summary: Patient is a 61 y/o female who presents to the ED with SI without a plan. She reports not feeling well for a couple of weeks now. She also reports loss of appetite and trouble sleeping, but denies rhinorrhea, cough, or dysuria. Pt states she is receiving counseling. Pt is medically clear for mental health evaluation @ 0815 - History Of Current Complaint Chief Complaint: EDMentalHealth Time Seen by Provider: 06/18/16 07:34 Hx Obtained From: Patient Onset/Duration: Gradual Onset, Lasting Weeks Severity Initially: Moderate Severity Currently: Moderate Character: Depressed Aggravating Factor(s): Nothing Alleviating Factor(s): Nothing Associated Signs And Symptoms: Positive: Negative Has Suicidal: Reports: Thoughts. Denies: With A Plan - Allergies/Home Medications Allergies/Adverse Reactions: Allergies Allergy/AdvReac Type Severity Reaction Status Date / Time No Known Allergies Allergy Verified 04/06/16 17:10 Home Medications: Home Medications Bupropion HCl [Bupropion HCl Xl] 150 mg PO QPM 06/18/16 [History Confirmed 06/18] Ondansetron HCl [Zofran 8 MG TAB] 8 mg PO BID PRN 06/18/16 [History Confirmed ] Promethazine HCl 25 mg PO BID PRN 06/18/16 [History Confirmed 06/18/16] PMH/Surg Hx/FS Hx/Imm Hx Endocrine/Hematology History: Denies: Hx Diabetes Cardiovascular History: Reports: Hx Hypertension Denies: Hx Angina, Hx Auto Implanted Cardiovert Defib, Hx Cardiac Arrest, Hx Congestive Heart Failure, Hx Pacemaker/ICD Respiratory History: Denies: Hx Asthma, Hx Chronic Obstructive Pulmonary Disease (COPD) GI History: Reports: Hx Gall Bladder Disease - with brea, Hx Irritable Bowel, Other GI Disorders - chronic diarrhea d/t gastric stapling Denies: Hx Cirrhosis, Hx Gastroesophageal Reflux Disease History: Denies: Hx Acute Renal Failure, Hx Dialysis, Hx Renal Disease Musculoskeletal History: Reports: Hx Arthritis Denies: Hx Gout Sensory History: Reports: Hx Contacts or Glasses Denies: Hx Deafness Opthamlomology History: Reports: Hx Contacts or Glasses Neurological History: Reports: Hx Headaches, Hx Migraine Denies: Hx Seizures Psychiatric History: Reports: Hx Anxiety, Hx Depression, Hx Panic Disorder, Hx Post Traumatic Stress Disorder, Hx Inpatient Treatment, Hx Community Mental Health Tx, Hx Suicide Attempt Denies: Hx Eating Disorder, Hx of Violent Episodes Against Others - Surgical History Surgery Procedure, Year, and Place: gastric stapling. cholecystectomy Hx Anesthesia Reactions: No - Immunization History Date of Tetanus Vaccine: Unknown Infectious Disease History: No Infectious Disease History: Denies: Traveled Outside the [place] in Last 30 Days - Family History Known Family History: Positive: Cardiac Disease, Hypertension - Social History Alcohol Use: None Substance Use Type: Reports: None Smoking Status (MU): Never Smoked Tobacco Review of Systems Positive: Other - Trouble sleeping. Loss of appetite. . Negative: Fever Negative: Nasal Discharge Negative: Cough Negative: dysuria All Other Systems Reviewed And Are Negative: Yes Physical Exam - Summary Physical Exam Summary: The patient is well-nourished in no acute distress and in no acute pain. The skin is warm and dry and skin color reflects adequate perfusion. No signs of trauma. HEENT: The head is normocephalic and atraumatic. The pupils are equal and reactive. The conjunctivae are clear and without drainage. Nares are patent and without drainage. Mouth reveals moist mucous membranes and the throat is without erythema and exudate. Neck is supple with full range of motion and non-tender. Cardiovascular: There is no peripheral edema. Abdomen: The abdomen is soft and non-tender. There are normal bowel sounds heard in all four quadrants and there is no organomegaly palpated. Musculoskeletal: Extremities are non-tender with full range of motion. There is good capillary refill. There is no peripheral edema or calf tenderness elicited. Neurological: Patient is alert and oriented to person, place and time. The patient has symmetrical motor strength in all four extremities. Psychiatric: The patient is severely depressed and demonstrates decreased rigor. Triage Information Reviewed: Yes Vital Signs On Initial Exam: Initial Vitals Temp Pulse Resp BP Pulse Ox 98.0 F 87 20 127/83 98 06/18/16 07:03 06/18/16 07:03 06/18/16 07:03 06/18/16 07:03 06/18/16 07:03 Vital Signs Reviewed: Yes Diagnostics - Vital Signs Vital Signs Temp Pulse Resp BP Pulse Ox 06/18/16 07:03 98.0 F 87 20 127/83 98 - Laboratory Lab Results: Lab Results 06/18/16 06/18/16 06/18/16 Range/Units 07:19 07:19 07:45 WBC 5.1 (3.5-10.8) 10^3/ul RBC 3.93 L (4.0-5.4) 10^6/ul Hgb 12.2 (12.0-16.0) g/dl Hct 37 (35-47) % MCV 94 (80-97) fL MCH 31 (27-31) pg MCHC 33 (31-36) g/dl RDW 15 (10.5-15) % Plt Count 270 (150-450) 10^3/ul MPV 7 L (7.4-10.4) um3 Neut % (Auto) 72.7 (38-83) % Lymph % (Auto) 18.6 L (25-47) % Roberts % (Auto) 5.7 (1-9) % Eos % (Auto) 2.0 (0-6) % Baso % (Auto) 1.0 (0-2) % Absolute Neuts (auto) 3.7 (1.5-7.7) 10^3/ul Absolute Lymphs (auto) 0.9 L (1.0-4.8) 10^3/ul Absolute Monos (auto) 0.3 (0-0.8) 10^3/ul Absolute Eos (auto) 0.1 (0-0.6) 10^3/ul Absolute Basos (auto) 0.1 (0-0.2) 10^3/ul Absolute Nucleated RBC 0 10^3/ul Nucleated RBC % 0 Sodium (133-145) mmol/L Potassium (3.5-5.0) mmol/L Chloride (101-111) mmol/L Carbon Dioxide (22-32) mmol/L Anion Gap (2-11) mmol/L BUN (6-24) mg/dL Creatinine (0.51-0.95) mg/dL Est GFR ( Amer) (>60) Est GFR (Non-Af Amer) (>60) BUN/Creatinine Ratio (8-20) Glucose (70-100) mg/dL Calcium (8.6-10.3) mg/dL Total Bilirubin (0.2-1.0) mg/dL AST (13-39) U/L ALT (7-52) U/L Alkaline Phosphatase (34-104) U/L Total Protein (6.4-8.9) g/dL Albumin (3.2-5.2) g/dL Globulin (2-4) g/dL Albumin/Globulin Ratio (1-3) TSH (0.34-5.60) mcIU/mL Urine Color Yellow Urine Appearance Cloudy Urine pH 5.0 (5-9) Ur Specific [place] 1.018 (1.010-1.030) Urine Protein Negative (Negative) Urine Ketones Negative (Negative) Urine Blood Negative (Negative) Urine Nitrate Negative (Negative) Urine Bilirubin Negative (Negative) Urine Urobilinogen Negative (Negative) Ur Leukocyte Esterase 2+ H (Negative) Urine WBC (Auto) 1+(6-10/hpf) H (Absent) Urine RBC (Auto) 2+(6-10/hpf) H (Absent) Ur Squamous Epith Cells Present H (Absent) Urine Bacteria Absent (Absent) Hyaline Casts Present H (Absent) Urine Glucose Negative (Negative) Salicylates (<30) mg/dL Urine Opiates Screen Presumptive positive H (None Detect) Acetaminophen mcg/mL Ur Barbiturates Screen None detected (None Detect) Ur Phencyclidine Scrn None detected (None Detect) Ur Amphetamines Screen None detected (None Detect) U Benzodiazepines Scrn Presumptive positive H (None Detect) Urine Cocaine Screen None detected (None Detect) U Cannabinoids Screen None detected (None Detect) Serum Alcohol (<10) mg/dL 06/18/16 Range/Units 07:45 WBC (3.5-10.8) 10^3/ul RBC (4.0-5.4) 10^6/ul Hgb (12.0-16.0) g/dl Hct (35-47) % MCV (80-97) fL MCH (27-31) pg MCHC (31-36) g/dl RDW (10.5-15) % Plt Count (150-450) 10^3/ul MPV (7.4-10.4) um3 Neut % (Auto) (38-83) % Lymph % (Auto) (25-47) % Roberts % (Auto) (1-9) % Eos % (Auto) (0-6) % Baso % (Auto) (0-2) % Absolute Neuts (auto) (1.5-7.7) 10^3/ul Absolute Lymphs (auto) (1.0-4.8) 10^3/ul Absolute Monos (auto) (0-0.8) 10^3/ul Absolute Eos (auto) (0-0.6) 10^3/ul Absolute Basos (auto) (0-0.2) 10^3/ul Absolute Nucleated RBC 10^3/ul Nucleated RBC % Sodium 136 (133-145) mmol/L Potassium 4.3 (3.5-5.0) mmol/L Chloride 105 (101-111) mmol/L Carbon Dioxide 24 (22-32) mmol/L Anion Gap 7 (2-11) mmol/L BUN 12 (6-24) mg/dL Creatinine 1.01 H (0.51-0.95) mg/dL Est GFR ( Amer) 71.7 (>60) Est GFR (Non-Af Amer) 55.7 (>60) BUN/Creatinine Ratio 11.9 (8-20) Glucose 92 (70-100) mg/dL Calcium 9.1 (8.6-10.3) mg/dL Total Bilirubin 0.50 (0.2-1.0) mg/dL AST 17 (13-39) U/L ALT 10 (7-52) U/L Alkaline Phosphatase 91 (34-104) U/L Total Protein 6.9 (6.4-8.9) g/dL Albumin 3.9 (3.2-5.2) g/dL Globulin 3.0 (2-4) g/dL Albumin/Globulin Ratio 1.3 (1-3) TSH 1.66 (0.34-5.60) mcIU/mL Urine Color Urine Appearance Urine pH (5-9) Ur Specific [place] (1.010-1.030) Urine Protein (Negative) Urine Ketones (Negative) Urine Blood (Negative) Urine Nitrate (Negative) Urine Bilirubin (Negative) Urine Urobilinogen (Negative) Ur Leukocyte Esterase (Negative) Urine WBC (Auto) (Absent) Urine RBC (Auto) (Absent) Ur Squamous Epith Cells (Absent) Urine Bacteria (Absent) Hyaline Casts (Absent) Urine Glucose (Negative) Salicylates < 2.50 (<30) mg/dL Urine Opiates Screen (None Detect) Acetaminophen 16 mcg/mL Ur Barbiturates Screen (None Detect) Ur Phencyclidine Scrn (None Detect) Ur Amphetamines Screen (None Detect) U Benzodiazepines Scrn (None Detect) Urine Cocaine Screen (None Detect) U Cannabinoids Screen (None Detect) Serum Alcohol < 10 (<10) mg/dL Result Diagrams: 06/18/16 07:45 06/18/16 07:45 Lab Statement: Any lab studies that have been ordered have been reviewed, and results considered in the medical decision making process. Course/Dx - Differential Dx/Clinical Impression Differential Diagnosis/HQI/PQRI: Positive: Anxiety, Depression, Suicidal Ideation Provider Diagnosis: Depression, Suicidal ideations Discharge - Discharge Plan Condition: Stable [place] [place]: Samantha Mcrae MD [Primary Care Provider] - The documentation as recorded by the Arturo coulter Salem accurately reflects the service I personally performed and the decisions made by me, Luis Carlos Wren MD.
[2016-06-18] MEDS ORDERED: Nicotine Inhaler* 10 MG AMP INH PRN (17:21)
[2016-06-18] MEDS ORDERED: Acetaminophen TAB* 325 MG ONE (18:43)
[2016-06-18] MEDS: hydrOXYzine HCL TAB* 25 MG PO SCH (21:50)
[2016-06-18] MEDS: Zolpidem TAB* 10 MG PO PRN (21:50)
[2016-06-19] MEDS: Ondansetron TAB* 4 MG PO PRN (07:00)
[2016-06-19] MEDS: FLUoxetine CAP* 20 MG PO SCH (07:29)
[2016-06-19] MEDS: Diphenoxylat/Atrop 2.5-0.025M* 1 TAB PO PRN ×2 (07:30→20:24)
[2016-06-19] MEDS: hydrOXYzine HCL TAB* 25 MG PO SCH ×3 (07:30→20:23)
[2016-06-19] MEDS: Gabapentin CAP(*) 400 MG PO SCH ×3 (07:30→20:23)
[2016-06-19] MEDS: Vitamin THERAPEUTIC TAB PO SCH (07:30)
[2016-06-19] MEDS: Acetaminophen TAB* 325 MG PO PRN ×2 (09:16→13:22)
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
[2016-06-19] MEDS: Propranolol LA CAP* 80 MG PO SCH (12:10)
[2016-06-19] MEDS ORDERED: Fluconazole 100 MG TAB* TAB PO ONE (13:49)
[2016-06-19] MEDS ORDERED: buPROPion SR TAB.SR* 200 MG PO ONE (14:00)
[2016-06-19] MEDS: BuPROPion XL* 150 MG TAB.XL PO SCH (17:57)
[2016-06-19] MEDS: Zolpidem TAB* 10 MG PO PRN (20:24)
[2016-06-20] MEDS: Promethazine TAB* 25 MG PO PRN (05:55)
[2016-06-20] MEDS: Acetaminophen TAB* 325 MG PO PRN ×2 (05:55→13:57)
--- NOTE | 2016-06-20 07:19 | PN ---
Subjective - Subjective Service Type: 73819 Hosp care 15 min low complexity Subjective: Landy cites frustration at her lack of in home support services as the reason she is admitted. She affirms she is safe now. She says she is no longer able to meet her own basic needs at home, doing things like cleaning, and that she isolates for days at a time and sometimes spends the whole day on the couch. She complained of anxiety and asked for extra availability of hydroxyzine on a prn basis. Objective - Appearance Appearance: Obese Hygiene: Normal Grooming: Fairly Well Kept - Behavior Psychomotor Activities: Abnormal-Decreased - Attitude and Relatedness Attitude and Relatedness: Superficially Cooperative Eye Contact: Good - Speech Quality: Unpressured Latencies: Normal Quantity: Terse - Mood Patient's Decription of Mood: "Sad" - Affect Observed Affect: Constricted Affect Consistent with: Dysphoria - Thought Process Patient's Thought Process: Coherent, Goal Directed Thought Content: No Passive Wish, No Suicidal Planning, No Homicidal Ideation, No Paranoid Ideation - Sensorium Experiencing Hallucinations: No, Sensorium is Clear - Level of Consciousness Level of Consciousness: Alert - Impulse Control Impulse Control: Intact - Insight and Judgement Insight and Judgement: Fair Assessment - Assessment Merits Inpatient Hospitalization: For Stabilization, To Initiate Treatment, For Ongoing Evaluation, For Discharge Planning Inpatient DSM-IV Dx: Depressive disorder Clinical Impression: 61-year-old female with borderline personality disorder, history of suicidal behavior, multiple psychiatric hospitalizations, social isolation. She presented to ED by law enforcement reporting an increase in suicidal ideation, citing stress of having to care for herself in the setting of arthritis and more difficulty functioning. Settling into the unit. Safe on checks, free of active suicidal ideation. Continues to report distress and inability to cope, with somatic symptoms as seen previously. Medmgt. continues her regimen, which she interrupted for a few days, and provides a little extra hydroxizine for acute anxiety (PRN). Plan - Plan Treatment Plan: Name: LANDY BALL Birthdate: 1955 [id number] Continued Medication Management: Continue Outpt Medication Medications: Current Medications Acetaminophen (Tylenol Tab*) 650 mg PO Q4H PRN PRN Reason: PAIN Last Admin: 06/20/16 05:55 Dose: 650 mg Bupropion HCl (Wellbutrin Xl *) 150 mg PO QPM [facility] PRN Reason: Protocol Last Admin: 06/19/16 17:57 Dose: 150 mg Bupropion HCl (Wellbutrin Sr Tab*) 300 mg PO DAILY [facility] Diphenoxylate HCl/Atropine (Lomotil Tab*) 2 tab PO BID PRN PRN Reason: DIARRHEA Last Admin: 06/19/16 20:24 Dose: 2 tab Fluoxetine HCl (Prozac Cap*) 20 mg PO DAILY [facility] Last Admin: 06/19/16 07:29 Dose: 20 mg Gabapentin (Neurontin Cap(*)) 400 mg PO TID [facility] Last Admin: 06/19/16 20:23 Dose: 400 mg Hydroxyzine HCl (Atarax Tab*) 50 mg PO TID [facility] Last Admin: 06/19/16 20:23 Dose: 50 mg Hydroxyzine HCl (Atarax Tab*) 25 mg PO Q4H PRN PRN Reason: ANXIETY Multivitamins (Theragran Tab*) 1 tab PO DAILY [facility] Last Admin: 06/19/16 07:30 Dose: 1 tab Nicotine (Nicotine Inhaler*) 10 mg INH Q2H PRN PRN Reason: CRAVING Ondansetron HCl (Zofran Tab*) 8 mg PO BID PRN PRN Reason: NAUSEA Last Admin: 06/19/16 07:00 Dose: 8 mg Promethazine HCl (Phenergan Tab*) 25 mg PO BID PRN PRN Reason: NAUSEA Last Admin: 06/20/16 05:55 Dose: 25 mg Propranolol HCl (Inderal La Cap*) 80 mg PO DAILY [facility] Last Admin: 06/19/16 12:10 Dose: 80 mg Zolpidem Tartrate (Ambien Tab*) 10 mg PO BEDTIME PRN PRN Reason: SLEEP Last Admin: 06/19/16 20:24 Dose: 10 mg - Discharge Plan Discharge Plan: Outpatient Follow Up
[2016-06-20] MEDS: hydrOXYzine HCL TAB* 25 MG PO PRN ×3 (07:38→17:48)
[2016-06-20] MEDS: FLUoxetine CAP* 20 MG PO SCH (09:14)
[2016-06-20] MEDS: Vitamin THERAPEUTIC TAB PO SCH (09:14)
[2016-06-20] MEDS: Gabapentin CAP(*) 400 MG PO SCH ×3 (09:14→20:08)
[2016-06-20] MEDS: buPROPion SR TAB.SR* 150 MG PO SCH (09:15)
[2016-06-20] MEDS: hydrOXYzine HCL TAB* 25 MG PO SCH ×3 (09:16→20:08)
[2016-06-20] MEDS: Propranolol LA CAP* 80 MG PO SCH (09:17)
[2016-06-20] MEDS: Diphenoxylat/Atrop 2.5-0.025M* 1 TAB PO PRN ×2 (09:18→20:09)
[2016-06-20] MEDS: Ondansetron TAB* 4 MG PO PRN (13:57)
[2016-06-20] MEDS: BuPROPion XL* 150 MG TAB.XL PO SCH ×2 (18:44→18:45)
[2016-06-20] MEDS: Zolpidem TAB* 10 MG PO PRN (20:09)
[2016-06-21] MEDS: Acetaminophen TAB* 325 MG PO PRN ×3 (04:02→16:14)
[2016-06-21] MEDS: hydrOXYzine HCL TAB* 25 MG PO PRN ×4 (04:02→18:16)
[2016-06-21] MEDS: Ondansetron TAB* 4 MG PO PRN ×3 (04:02→16:14)
[2016-06-21] MEDS: buPROPion SR TAB.SR* 150 MG PO SCH (08:47)
[2016-06-21] MEDS: Vitamin THERAPEUTIC TAB PO SCH (08:47)
[2016-06-21] MEDS: Diphenoxylat/Atrop 2.5-0.025M* 1 TAB PO PRN ×2 (08:47→20:21)
[2016-06-21] MEDS: Gabapentin CAP(*) 400 MG PO SCH ×4 (08:48→20:19)
[2016-06-21] MEDS: Propranolol LA CAP* 80 MG PO SCH (08:48)
[2016-06-21] MEDS: FLUoxetine CAP* 20 MG PO SCH (08:49)
[2016-06-21] MEDS: hydrOXYzine HCL TAB* 25 MG PO SCH ×4 (08:49→20:19)
[2016-06-21] MEDS: BuPROPion XL* 150 MG TAB.XL PO SCH (18:16)
[2016-06-21] MEDS: Zolpidem TAB* 10 MG PO PRN (20:22)
[2016-06-22] MEDS: Acetaminophen TAB* 325 MG PO PRN ×4 (03:24→17:33)
[2016-06-22] MEDS: Ondansetron TAB* 4 MG PO PRN ×2 (03:24→18:56)
[2016-06-22] MEDS: hydrOXYzine HCL TAB* 25 MG PO PRN ×2 (06:18→15:31)
[2016-06-22] MEDS: Promethazine TAB* 25 MG PO PRN (09:08)
[2016-06-22] MEDS: Vitamin THERAPEUTIC TAB PO SCH (09:09)
[2016-06-22] MEDS: hydrOXYzine HCL TAB* 25 MG PO SCH ×3 (09:10→20:13)
[2016-06-22] MEDS: Propranolol LA CAP* 80 MG PO SCH (09:11)
[2016-06-22] MEDS: buPROPion SR TAB.SR* 150 MG PO SCH (09:11)
[2016-06-22] MEDS: Gabapentin CAP(*) 400 MG PO SCH ×3 (09:11→20:12)
[2016-06-22] MEDS: FLUoxetine CAP* 20 MG PO SCH (09:12)
--- NOTE | 2016-06-22 10:54 | PN ---
Subjective - Subjective Service Type: 88608 Hosp care 15 min low complexity Subjective: Landy reports "feeling shaky inside" and says on that basis she needs hospital care. She denied other concerns. Landy Serra's primary care doctor, called and recommends re-checking Prolactin level (was 79, elevated) and then consider an MRI brain if elevated. Objective - Appearance Appearance: Obese Hygiene: Normal Grooming: Well Kept - Behavior Psychomotor Activities: Normal - Attitude and Relatedness Attitude and Relatedness: Needy Eye Contact: Good - Speech Quality: Unpressured Latencies: Normal Quantity: Appropriate - Mood Patient's Decription of Mood: "Anxious" - Affect Observed Affect: Non-labile Affect Consistent with: Euthymia - Thought Process Patient's Thought Process: Coherent Thought Content: No Passive Wish, No Suicidal Planning, No Homicidal Ideation, No Paranoid Ideation - Sensorium Experiencing Hallucinations: No, Sensorium is Clear - Level of Consciousness Level of Consciousness: Alert - Impulse Control Impulse Control: Intact - Insight and Judgement Insight and Judgement: Fair Assessment - Assessment Merits Inpatient Hospitalization: For Stabilization, To Initiate Treatment, For Ongoing Evaluation, Consolidate Improvements Inpatient DSM-IV Dx: Depressive disorder Clinical Impression: 61-year-old female with borderline personality disorder, history of suicidal behavior, multiple psychiatric hospitalizations, social isolation. She presented to ED by law enforcement reporting an increase in suicidal ideation, citing stress of having to care for herself in the setting of arthritis and more difficulty functioning. Stabilizing on the unit. Is safe on checks, free of active suicidal ideation. Continues to report distress (anxiety now) and inability to cope - overt symptoms are very mild and she is framing anxiety as "inside." Medmgt. continues her regimen, which she interrupted for a few days, and provides a little extra hydroxizine for acute anxiety (PRN). Landy Serra's primary care doctor, recommends re-checking Prolactin level (was 79, elevated) and then consider an MRI brain if elevated. Discharge planning re-establishes pt's connection to case management. Plan - Plan Treatment Plan: Name: LANDY BALL Birthdate: 1955 [id number] Continued Medication Management: Continue Outpt Medication Medications: Current Medications Acetaminophen (Tylenol Tab*) 650 mg PO Q4H PRN PRN Reason: PAIN Last Admin: 06/22/16 09:09 Dose: 650 mg Bupropion HCl (Wellbutrin Xl *) 150 mg PO QPM [facility] PRN Reason: Protocol Last Admin: 06/21/16 18:16 Dose: 150 mg Bupropion HCl (Wellbutrin Sr Tab*) 300 mg PO DAILY [facility] Last Admin: 06/22/16 09:11 Dose: 300 mg Diphenoxylate HCl/Atropine (Lomotil Tab*) 2 tab PO BID PRN PRN Reason: DIARRHEA Last Admin: 06/21/16 20:21 Dose: 2 tab Fluoxetine HCl (Prozac Cap*) 20 mg PO DAILY [facility] Last Admin: 06/22/16 09:12 Dose: 20 mg Gabapentin (Neurontin Cap(*)) 400 mg PO TID [facility] Last Admin: 06/22/16 09:11 Dose: 400 mg Hydroxyzine HCl (Atarax Tab*) 50 mg PO TID [facility] Last Admin: 06/22/16 09:10 Dose: 50 mg Hydroxyzine HCl (Atarax Tab*) 25 mg PO Q4H PRN PRN Reason: ANXIETY Last Admin: 06/22/16 06:18 Dose: 25 mg Multivitamins (Theragran Tab*) 1 tab PO DAILY [facility] Last Admin: 06/22/16 09:09 Dose: 1 tab Nicotine (Nicotine Inhaler*) 10 mg INH Q2H PRN PRN Reason: CRAVING Ondansetron HCl (Zofran Tab*) 8 mg PO BID PRN PRN Reason: NAUSEA Last Admin: 06/22/16 03:24 Dose: 8 mg Promethazine HCl (Phenergan Tab*) 25 mg PO BID PRN PRN Reason: NAUSEA Last Admin: 06/22/16 09:08 Dose: 25 mg Propranolol HCl (Inderal La Cap*) 80 mg PO DAILY [facility] Last Admin: 06/22/16 09:11 Dose: 80 mg Zolpidem Tartrate (Ambien Tab*) 10 mg PO BEDTIME PRN PRN Reason: SLEEP Last Admin: 06/21/16 20:22 Dose: 10 mg - Discharge Plan Discharge Plan: Outpatient Follow Up
--- NOTE | 2016-06-22 14:09 | PN ---
MHU: Group Therapy Note - Service Type Service Type: [id number] Group Psychotherapy - Cognitive Behavioral Group Therapy ( CBT):Patient attended CBT programming this morning and presented with flat affect that did not vary with discussion. Although responsive to direct prompts to respond to questions, patient did not engage in spontaneous conversation.
[2016-06-22] MEDS: BuPROPion XL* 150 MG TAB.XL PO SCH (17:33)
[2016-06-22] MEDS: Diphenoxylat/Atrop 2.5-0.025M* 1 TAB PO PRN (20:12)
[2016-06-22] MEDS: Zolpidem TAB* 10 MG PO PRN (20:14)
[2016-06-23] MEDS: hydrOXYzine HCL TAB* 25 MG PO PRN ×4 (05:26→17:40)
[2016-06-23] MEDS: Acetaminophen TAB* 325 MG PO PRN ×3 (05:27→17:39)
[2016-06-23] MEDS: FLUoxetine CAP* 20 MG PO SCH (08:56)
[2016-06-23] MEDS: Vitamin THERAPEUTIC TAB PO SCH (08:56)
[2016-06-23] MEDS: Gabapentin CAP(*) 400 MG PO SCH ×3 (08:56→20:08)
[2016-06-23] MEDS: Diphenoxylat/Atrop 2.5-0.025M* 1 TAB PO PRN ×2 (08:56→20:09)
[2016-06-23] MEDS: hydrOXYzine HCL TAB* 25 MG PO SCH ×3 (08:56→20:08)
[2016-06-23] MEDS: buPROPion SR TAB.SR* 150 MG PO SCH (08:56)
[2016-06-23] MEDS: Propranolol LA CAP* 80 MG PO SCH (09:10)
--- NOTE | 2016-06-23 10:06 | PN ---
Subjective - Subjective Service Type: [id number] Hosp care 15 min low complexity Subjective: Landy initially refused to meet with me, playfully saying "no, I am busy" But she was only teasing, and did agree to meet. She was directive, saying "no decisions will be made without Manoj here." I tried to explore her concern, but she provided nothing to clarify whether she felt she is not being treated properly, or whether she had concerns about decisions made on her behalf. I reflected back that perhaps she is referring to a discharge decision, and she reacted as if offended, but did not deny; and walked away. Objective - Appearance Appearance: Obese Hygiene: Normal Grooming: Well Kept - Behavior Psychomotor Activities: Normal - Attitude and Relatedness Attitude and Relatedness: Manipulative Eye Contact: Good - Speech Quality: Unpressured Latencies: Short Quantity: Terse - Mood Patient's Decription of Mood: "Irritable" - Affect Observed Affect: Labile Affect Consistent with: Dysphoria - Thought Process Patient's Thought Process: Goal Directed, Impoverished Thought Content: No Passive Wish, No Suicidal Planning, No Homicidal Ideation, No Paranoid Ideation - Sensorium Experiencing Hallucinations: No, Sensorium is Clear - Level of Consciousness Level of Consciousness: Alert - Impulse Control Impulse Control: Intact - Insight and Judgement Insight and Judgement: Poor Assessment - Assessment Merits Inpatient Hospitalization: To Initiate Treatment, For Ongoing Evaluation , Consolidate Improvements, For Discharge Planning, Pending Safe DC Plan Inpatient DSM-IV Dx: Depressive disorder Clinical Impression: 61-year-old female with borderline personality disorder, history of suicidal behavior, multiple psychiatric hospitalizations, social isolation. She presented to ED by law enforcement reporting an increase in suicidal ideation, citing stress of having to care for herself in the setting of arthritis and more difficulty functioning. Stabilized on the unit. Is safe on checks, free of active suicidal ideation. Has continued to report distress and difficulty coping - overt symptoms appear very mild, and she does not appear impaired. Medmgt. continues her regimen, which she interrupted for a few days, and provides a little extra hydroxizine for acute anxiety (PRN). Dr. Mcrae, Landy's primary care doctor, recommended re-checking Prolactin level (was 79, elevated, was 6.4, normal on 06/22). Dr. Crowe said to consider an MRI brain only if elevated. Discharge planning re-establishes pt's connection to case management. At this time Landy is posturing in a way that defers or avoids "decisions" and I suspect is is because she appreciates that she is nearing discharge readiness and wants to delay or avoid it - she is still getting valuable emotional support here and is expecting ongoing subjective support deficits in the community. It is appropriate to involve Manoj as she request but it seems an impractical suggestion that he mediate every clinical or discharge planning conversation. Plan - Plan Treatment Plan: Name: LANDY BALL Birthdate: 1955 [id number] Medications: Current Medications Acetaminophen (Tylenol Tab*) 650 mg PO Q4H PRN PRN Reason: PAIN Last Admin: 06/23/16 05:27 Dose: 650 mg Bupropion HCl (Wellbutrin Xl *) 150 mg PO QPM [facility] PRN Reason: Protocol Last Admin: 06/22/16 17:33 Dose: 150 mg Bupropion HCl (Wellbutrin Sr Tab*) 300 mg PO DAILY [facility] Last Admin: 06/23/16 08:56 Dose: 300 mg Diphenoxylate HCl/Atropine (Lomotil Tab*) 2 tab PO BID PRN PRN Reason: DIARRHEA Last Admin: 06/23/16 08:56 Dose: 2 tab Fluoxetine HCl (Prozac Cap*) 20 mg PO DAILY [facility] Last Admin: 06/23/16 08:56 Dose: 20 mg Gabapentin (Neurontin Cap(*)) 400 mg PO TID [facility] Last Admin: 06/23/16 08:56 Dose: 400 mg Hydroxyzine HCl (Atarax Tab*) 50 mg PO TID [facility] Last Admin: 06/23/16 08:56 Dose: 50 mg Hydroxyzine HCl (Atarax Tab*) 25 mg PO Q4H PRN PRN Reason: ANXIETY Last Admin: 06/23/16 08:55 Dose: 25 mg Multivitamins (Theragran Tab*) 1 tab PO DAILY [facility] Last Admin: 06/23/16 08:56 Dose: 1 tab Nicotine (Nicotine Inhaler*) 10 mg INH Q2H PRN PRN Reason: CRAVING Ondansetron HCl (Zofran Tab*) 8 mg PO BID PRN PRN Reason: NAUSEA Last Admin: 06/22/16 18:56 Dose: 8 mg Promethazine HCl (Phenergan Tab*) 25 mg PO BID PRN PRN Reason: NAUSEA Last Admin: 06/22/16 09:08 Dose: 25 mg Propranolol HCl (Inderal La Cap*) 80 mg PO DAILY [facility] Last Admin: 06/23/16 09:10 Dose: 80 mg Zolpidem Tartrate (Ambien Tab*) 10 mg PO BEDTIME PRN PRN Reason: SLEEP Last Admin: 06/22/16 20:14 Dose: 10 mg - Discharge Plan Discharge Plan: Outpatient Follow Up
[2016-06-23] MEDS: BuPROPion XL* 150 MG TAB.XL PO SCH (17:39)
[2016-06-23] MEDS: Zolpidem TAB* 10 MG PO PRN (20:08)
[2016-06-24] MEDS: hydrOXYzine HCL TAB* 25 MG PO PRN ×2 (01:20→06:03)
[2016-06-24] MEDS: Promethazine TAB* 25 MG PO PRN (01:20)
[2016-06-24] MEDS: Acetaminophen TAB* 325 MG PO PRN ×4 (01:20→17:11)
[2016-06-24] MEDS: Diphenoxylat/Atrop 2.5-0.025M* 1 TAB PO PRN ×2 (08:57→20:16)
[2016-06-24] MEDS: FLUoxetine CAP* 20 MG PO SCH (08:58)
[2016-06-24] MEDS: Propranolol LA CAP* 80 MG PO SCH (08:58)
[2016-06-24] MEDS: hydrOXYzine HCL TAB* 25 MG PO SCH ×3 (08:58→20:15)
[2016-06-24] MEDS: Vitamin THERAPEUTIC TAB PO SCH (08:58)
[2016-06-24] MEDS: Gabapentin CAP(*) 400 MG PO SCH ×3 (08:58→20:15)
[2016-06-24] MEDS: buPROPion SR TAB.SR* 150 MG PO SCH (08:58)
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
--- NOTE | 2016-06-24 12:00 | PN ---
MHU: Group Therapy Note - Service Type Service Type: [id number] Group Psychotherapy - Cognitive Behavioral Group Therapy ( CBT):Patient attended CBT programming this morning and presented with flat affect that did not vary with discussion. Although responsive to direct prompts to respond to questions, patient did not engage in spontaneous conversation.
--- NOTE | 2016-06-24 16:05 | PN ---
Subjective - Subjective Service Type: 05785 Hosp care 15 min low complexity Subjective: Landy reports feeling safe and ready for discharge home tomorrow. She has no physical complaints. Objective - Appearance Appearance: Healthy Appearing Dysmorphic Features: No Hygiene: Normal Grooming: Well Kept - Behavior Psychomotor Activities: Normal Exhibits Abnormal Movement: No - Attitude and Relatedness Attitude and Relatedness: Cooperative Eye Contact: Good - Speech Quality: Unpressured Latencies: Normal Quantity: Appropriate - Mood Patient's Decription of Mood: "Okay" - Affect Observed Affect: Fair Affect Consistent with: Euthymia - Thought Process Patient's Thought Process: Coherent, Goal Directed Thought Content: No Passive Wish, No Suicidal Planning, No Homicidal Ideation, No Paranoid Ideation - Sensorium Experiencing Hallucinations: No, Sensorium is Clear Type of Hallucinations: Visual: No, Auditory: No, Command: No - Level of Consciousness Level of Consciousness: Alert Orientation: Yes Intact, Yes Orientated to Time, Yes Orientated to Place, Yes Orientated to Person - Impulse Control Impulse Control: Intact - Insight and Judgement Insight and Judgement: Fair - Group Participation Particating in Group Activities: Yes - Medication Management Medication Management Adherence: Yes Assessment - Assessment Merits Inpatient Hospitalization: Consolidate Improvements, For Discharge Planning Inpatient DSM-IV Dx: Depressive disorder Clinical Impression: Landy is a 61 year-old woman admitted for report that she would be unable to keep herself safe from urge to cut herself to kill herself. She has reported full remission of SI and has agreed to discharge tomorrow. Plan - Plan Treatment Plan: Name: LANDY BALL Birthdate: 1955 [id number] Continue current meds. Monitor MS and safety. Prepare for discharge tomorrow. Medications: Current Medications Acetaminophen (Tylenol Tab*) 650 mg PO Q4H PRN PRN Reason: PAIN Last Admin: 06/24/16 12:55 Dose: 650 mg Bupropion HCl (Wellbutrin Xl *) 150 mg PO QPM SUBHA PRN Reason: Protocol Last Admin: 06/23/16 17:39 Dose: 150 mg Bupropion HCl (Wellbutrin Sr Tab*) 300 mg PO DAILY SUBHA Last Admin: 06/24/16 08:58 Dose: 300 mg Diphenoxylate HCl/Atropine (Lomotil Tab*) 2 tab PO BID PRN PRN Reason: DIARRHEA Last Admin: 06/24/16 08:57 Dose: 2 tab Fluoxetine HCl (Prozac Cap*) 20 mg PO DAILY [facility] Last Admin: 06/24/16 08:58 Dose: 20 mg Gabapentin (Neurontin Cap(*)) 400 mg PO TID [facility] Last Admin: 06/24/16 12:55 Dose: 400 mg Hydroxyzine HCl (Atarax Tab*) 50 mg PO TID [facility] Last Admin: 06/24/16 12:55 Dose: 50 mg Hydroxyzine HCl (Atarax Tab*) 25 mg PO Q4H PRN PRN Reason: ANXIETY Last Admin: 06/24/16 06:03 Dose: 25 mg Multivitamins (Theragran Tab*) 1 tab PO DAILY [facility] Last Admin: 06/24/16 08:58 Dose: 1 tab Nicotine (Nicotine Inhaler*) 10 mg INH Q2H PRN PRN Reason: CRAVING Ondansetron HCl (Zofran Tab*) 8 mg PO BID PRN PRN Reason: NAUSEA Last Admin: 06/22/16 18:56 Dose: 8 mg Promethazine HCl (Phenergan Tab*) 25 mg PO BID PRN PRN Reason: NAUSEA Last Admin: 06/24/16 01:20 Dose: 25 mg Propranolol HCl (Inderal La Cap*) 80 mg PO DAILY [facility] Last Admin: 06/24/16 08:58 Dose: 80 mg Zolpidem Tartrate (Ambien Tab*) 10 mg PO BEDTIME PRN PRN Reason: SLEEP Last Admin: 06/23/16 20:08 Dose: 10 mg - Discharge Plan Discharge Plan: Outpatient Follow Up
[2016-06-24] MEDS: BuPROPion XL* 150 MG TAB.XL PO SCH (17:11)
[2016-06-24] MEDS: Zolpidem TAB* 10 MG PO PRN (20:15)
[2016-06-25] MEDS: hydrOXYzine HCL TAB* 25 MG PO PRN ×2 (02:09→06:09)
[2016-06-25] MEDS: Acetaminophen TAB* 325 MG PO PRN (02:09)
[2016-06-25 07:52] VITALS: BP 115/61
[2016-06-25] MEDS: buPROPion SR TAB.SR* 150 MG PO SCH (08:27)
[2016-06-25] MEDS: Propranolol LA CAP* 80 MG PO SCH (08:27)
[2016-06-25] MEDS: Diphenoxylat/Atrop 2.5-0.025M* 1 TAB PO PRN (08:27)
[2016-06-25] MEDS: Gabapentin CAP(*) 400 MG PO SCH (08:28)
[2016-06-25] MEDS: hydrOXYzine HCL TAB* 25 MG PO SCH (08:29)
[2016-06-25] MEDS: Vitamin THERAPEUTIC TAB PO SCH (08:30)
[2016-06-25] MEDS: FLUoxetine CAP* 20 MG PO SCH (08:30)
--- NOTE | 2016-06-25 10:53 | DS ---
Subjective - Subjective Service Types: 07148 [facility] Day Mgmt simple under 30 min Discharge Date: 06/25/16 Subjective: Landy reports feeling safe and ready for discharge today, with sustained remission of suicidal ideation. She denies any psychosis or other dangerous symptoms. She reports continued mild anxiety. Objective - Appearance Appearance: Healthy Appearing Dysmorphic Features: No Hygiene: Normal Grooming: Well Kept - Behavior Psychomotor Activities: Normal Exhibits Abnormal Movement: No - Attitude and Relatedness Attitude and Relatedness: Well Related Eye Contact: Good - Speech Quality: Unpressured Latencies: Normal Quantity: Appropriate - Mood Patient's Decription of Mood: "Anxious" - "a little ~" - Affect Observed Affect: Fair Affect Consistent with: Euthymia - Thought Process Patient's Thought Process: Coherent, Goal Directed Thought Content: No Passive Wish, No Suicidal Planning, No Homicidal Ideation, No Paranoid Ideation - Sensorium Experiencing Hallucinations: No, Sensorium is Clear Type of Hallucinations: Visual: No, Auditory: No, Command: No - Level of Consciousness Level of Consciousness: Alert Orientation: Yes Intact, Yes Orientated to Time, Yes Orientated to Place, Yes Orientated to Person - Impulse Control Impulse Control: Intact - Insight and Judgement Insight and Judgement: Fair - Group Participation Particating in Group Activities: No - Medication Management Medication Management Adherence: Yes Treatment Course & Assessment Clinical Course & Impression: Landy is a 61 year-old woman admitted for report that she would be unable to keep herself safe from urge to cut herself to kill herself. She has reported full remission of SI and has agreed to discharge tomorrow. 06.25.16 Landy has for several days now reported sustained remission of suicidal ideation. She reports feeling safe and ready for discharge today. She is cleared for discharge today. She is assessed as at no acutely increased risk of harm to self or others and capable of adequate self-care to avoid harm. She remains at elevated chronic risk of harm due to her chronic mental illness with many psychiatric hospitalizations, and reportedly 4 suicide attempts in the past 6 years. She can reduce her chronic risk by complying with aftercare plans. She will return to care with providers at [facility], and with her PCP for care of her migraines, IBS and hypertension. Merits Inpatient Hospitalization: No Clear for Discharge: Adequate Clinical Respons, Acceptable Safety Profile, Low Utility of Inpt Care Inpatient DSM-IV Dx: Borderline Personality Disorder. Depressive disorder NOS. Substance Use Disorder NOS - Dodge II MR and Personality Disorder: Borderline Personality Disorder - Dodge III Medical Illness: Migraines, IBS, HTN, s/p gastric bypass - Dodge IV Stressors: estrangement from family Family: son supportive but with difficulty maintaining boundaries Primary Support Group: Professional providers - Dodge V EIX-Kgavca-Jiwum: 65 Estimate of Highest-Past Year: 65 Discharge Planning - Discharge Planning Discharge Plan: Outpatient Follow Up Outpatient Program: [facility] Recommendations for Continuing Care: Medication Management, Psychotherapy Medications: Landy reports a good supply at home of the following medications. No substantive changes were made to her medication regimen during this hospitalization. Bupropion HCl (Wellbutrin Xl *) 150 mg PO QPM SUBHA PRN Reason: Protocol Last Admin: 06/24/16 17:11 Dose: 150 mg Bupropion HCl (Wellbutrin Sr Tab*) 300 mg PO DAILY [facility] Last Admin: 06/25/16 08:27 Dose: 300 mg Diphenoxylate HCl/Atropine (Lomotil Tab*) 2 tab PO BID PRN PRN Reason: DIARRHEA Last Admin: 06/25/16 08:27 Dose: 2 tab Fluoxetine HCl (Prozac Cap*) 20 mg PO DAILY [facility] Last Admin: 06/25/16 08:30 Dose: 20 mg Gabapentin (Neurontin Cap(*)) 400 mg PO TID SUBHA Last Admin: 06/25/16 08:28 Dose: 400 mg Hydroxyzine HCl (Atarax Tab*) 50 mg PO TID [facility] Last Admin: 06/25/16 08:29 Dose: 50 mg Ondansetron HCl (Zofran Tab*) 8 mg PO BID PRN PRN Reason: NAUSEA Last Admin: 06/22/16 18:56 Dose: 8 mg Promethazine HCl (Phenergan Tab*) 25 mg PO BID PRN PRN Reason: NAUSEA Last Admin: 06/24/16 01:20 Dose: 25 mg Propranolol HCl (Inderal La Cap*) 80 mg PO DAILY [facility] Last Admin: 06/25/16 08:27 Dose: 80 mg Zolpidem Tartrate CR (Ambien CR Tab*) 12.5 mg PO BEDTIME PRN PRN Reason: SLEEP Discharge Planning: Prescriptions provided for discharge [] Yes [x] No, as she reports a good supply of medications from her outpatient providers. Follow up care details as per social work arrangements. Patient response to discharge plan: [x] eager for discharge [x] agreeable with discharge plan [] ambivalent about discharge [] disagrees with discharge today
== END 2016-06-25 11:00 | disposition home or self-care (01) | DRG 754 ==
LOC: ED 06:50 → BSU 21:03
PROVIDERS: ADMIT Psychiatry & Neurology Psychiatry; ATTEND Psychiatry & Neurology Psychiatry
PROC: GZHZZZZ Group Psychotherapy (ICD-10-PCS; principal; 2016-06-22)
PROC: GZ58ZZZ Individual Psychotherapy, Cognitive-Behavioral (ICD-10-PCS; 2016-06-24)
DX: F32.9 Major depressive disorder, single episode, unspecified (principal); I10 Essential (primary) hypertension; B37.3 Candidiasis of vulva and vagina; F19.90 Other psychoactive substance use, unspecified, uncomplicated; E66.9 Obesity, unspecified; G43.909 Migraine, unspecified, not intractable, without status migrainosus; K58.9 Irritable bowel syndrome, unspecified; F60.3 Borderline personality disorder; Z62.810 Personal history of physical and sexual abuse in childhood; M19.90 Unspecified osteoarthritis, unspecified site; F41.0 Panic disorder [episodic paroxysmal anxiety]; F43.10 Post-traumatic stress disorder, unspecified; Z90.49 Acquired absence of other specified parts of digestive tract; Z98.84 Bariatric surgery status; Z91.5 Personal history of self-harm; Z82.49 Family history of ischemic heart disease and other diseases of the circulatory system; Z88.8 Allergy status to other drugs, medicaments and biological substances; Z68.26 Body mass index [BMI] 26.0-26.9, adult
CPT/HCPCS: 36415; 80053; 80307; 80320; 80329; 81003; 81015; 84146; 84443; 85025; 87086; 90853; 99222; 99231; 99238; A9270-GY; G0480

== ENCOUNTER 2016-11-05 19:44 | Inpatient (IN) | payer BC, MEDICARE, MEDICAID ==
[2016-11-05] MEDS ORDERED: Morphine INJ* 2 MG/ML 1 ML SYRINGE IV ONE (20:39)
[2016-11-05 20:58] LABS: Hematocrit 33 % (35-47); Hemoglobin 10.5 g/dl (12.0-16.0); Mean Corpuscular HGB Conc 32 g/dl (31-36); Mean Corpuscular Hemoglobin 31 pg (27-31); Mean Corpuscular Volume 96 fL (80-97); Mean Platelet Volume 7 um3 (7.4-10.4); Red Blood Count 3.42 10^6/ul (4.0-5.4); Red Cell Distribution Width 15 % (10.5-15); White Blood Count 7.6 10^3/ul (3.5-10.8)
[2016-11-05 21:15] LABS: BUN/Creatinine Ratio 18.1 (8-20); Calcium 8.2 mg/dL (8.6-10.3); EGFR African American 89.9 (>60); EGFR Non-African American 69.9 (>60); Potassium 4.2 mmol/L (3.5-5.0)
--- NOTE | 2016-11-05 21:29 | ED ---
Jyoti Charles Edward, scribed for Edy Milligan MD on 11/05/16 at 2042 . Adult Trauma - HPI Summary HPI Summary: 61 y/o female EVONNE from [facility] c/o severe, sudden onset L shoulder pain s/p fall earlier today. Pt tripped in a parking lot and fell on her L shoulder with immediate onset L shoulder pain. Pt still has pain in the ED. Pt states she has been falling more frequently recently. Per history from [facility], pt denies hitting her head and denies LOC. XR at [place] shows L clavicle fx. - History of Current Complaint Chief Complaint: EDExtremityUpper Stated Complaint: LT SHOULDER INJURY Time Seen by Provider: 11/05/16 20:32 Hx Obtained From: Patient Mechanism of Injury: Fall Loss of Consciousness: no loss of consciousness Onset/Duration: Started Hours Ago Onset Severity: Severe Current Severity: Severe Location: Extremities - L shoulder Associated Signs & Symptoms: Positive: Other: - Falling more frequently recently - Additional Pertinent History Primary Care Physician: SABRA - Allergy/Home Medications Allergies/Adverse Reactions: Allergies Allergy/AdvReac Type Severity Reaction Status Date / Time No Known Allergies Allergy Verified 11/05/16 20:45 Home Medications: Home Medications ALPRAZolam TAB* [Xanax TAB*] 0.5 mg PO TID PRN 11/05/16 [History Confirmed 11/05] Clotrimazole/Betamethasone* [Lotrisone Cream*] 1 applic TOPICAL BID 11/05/16 [ History Confirmed 11/05/16] Diphenoxylat/Atrop 2.5-0.025M* [Lomotil TAB*] 1 tab PO QID MDD 4 11/05/16 [ History Confirmed 11/05/16] FLUoxetine CAP* [Prozac CAP*] 40 mg PO DAILY 11/05/16 [History Confirmed ] Promethazine TAB* [Phenergan TAB*] 25 mg PO BID PRN 11/05/16 [History Confirmed 11/05/16] Ranitidine TAB (NF) [Zantac TAB (NF)] 150 mg PO DAILY 11/05/16 [History Confirmed 11/05/16] hydrOXYzine HCL TAB* [Atarax 25 MG TAB*] 25 mg PO BID 11/05/16 [History Confirmed 11/05/16] oxyCODONE/Acetamin 10/325(NF) [Percocet 10/325 (NF)] 1 tab PO Q6H PRN 11/05/16 [ History Confirmed 11/05/16] PMH/Surg Hx/FS Hx/Imm Hx Previously Healthy: No Endocrine/Hematology History: Denies: Hx Diabetes Cardiovascular History: Reports: Hx Hypertension Denies: Hx Angina, Hx Auto Implanted Cardiovert Defib, Hx Cardiac Arrest, Hx Congestive Heart Failure, Hx Pacemaker/ICD Respiratory History: Denies: Hx Asthma, Hx Chronic Obstructive Pulmonary Disease (COPD) GI History: Reports: Hx Gall Bladder Disease - cholcystectomy in 1992, Hx Irritable Bowel, Other GI Disorders - Gastric Stapling in 1995 Denies: Hx Cirrhosis, Hx Gastroesophageal Reflux Disease History: Denies: Hx Acute Renal Failure, Hx Dialysis, Hx Renal Disease Musculoskeletal History: Reports: Hx Arthritis Denies: Hx Gout Sensory History: Reports: Hx Contacts or Glasses Denies: Hx Deafness, Hx Hearing Aid Opthamlomology History: Reports: Hx Contacts or Glasses Neurological History: Reports: Hx Headaches, Hx Migraine Denies: Hx Seizures Psychiatric History: Reports: Hx Anxiety, Hx Depression, Hx Panic Disorder, Hx Post Traumatic Stress Disorder, Hx Inpatient Treatment, Hx Community Mental Health Tx, Hx Suicide Attempt Denies: Hx Eating Disorder, Hx of Violent Episodes Against Others - Surgical History Surgery Procedure, Year, and Place: gastric stapling- 1995. cholecystectomy- 1992 Hx Anesthesia Reactions: No - Immunization History Date of Tetanus Vaccine: Unknown Infectious Disease History: Denies: Traveled Outside the [place] in Last 30 Days - Family History Known Family History: Positive: Cardiac Disease, Hypertension - Social History Alcohol Use: None Substance Use Type: Reports: None Smoking Status (MU): Never Smoked Tobacco Review of Systems Constitutional: Negative Eyes: Negative ENT: Negative Cardiovascular: Negative Respiratory: Negative Gastrointestinal: Negative Genitourinary: Negative Positive: Arthralgia - L shoulder pain Skin: Negative Neurological: Other - Falling more frequently recently Psychological: Normal All Other Systems Reviewed And Are Negative: Yes Physical Exam Triage Information Reviewed: Yes Vital Signs Reviewed: Yes Appearance: Positive: Pain Distress - mild discomfort, Thin Skin: Positive: Warm Head/Face: Positive: Normal Head/Face Inspection Eyes: Positive: BILLIE ENT: Positive: Hearing grossly normal Neck: Positive: Supple, Other: - obvious lt clavicle deformity Respiratory/Lung Sounds: Positive: Clear to Auscultation, Breath Sounds Present Cardiovascular: Positive: RRR Abdomen Description: Positive: Soft Musculoskeletal: Positive: Other - lt clavicle deformity Diagnostics - Laboratory Result Diagrams: 11/05/16 20:50 11/05/16 20:50 Lab Statement: Any lab studies that have been ordered have been reviewed, and results considered in the medical decision making process. - Radiology CXR Xray Interpretation: Positive (See Comments) - CLAVICLE FRACTURE Radiology Interpretation Completed By: ED Physician Adult Trauma Course/Dx - Course Assessment/Plan: 61 y/o female BIBA from [facility] c/o severe, sudden onset L shoulder pain s/p fall earlier today. Pt tripped in a parking lot and fell on her L shoulder with immediate onset L shoulder pain. Pt still has pain in the ED. Pt states she has been falling more frequently recently. Per history from [facility], pt denies hitting her head and denies LOC. XR done at [place] shows L clavicle fx. CXR IN ED COURSE CONFIRMS CLAVICLE FX. Discussed with Dr. Kraus (ortho) - recommended admission; will see pt in the morning. Dr. Jimenez accepted the pt for admission at 21:50. - Diagnoses Provider Diagnoses: Clavicle fracture - Physician Notifications Discussed Care Of Patient With: Raffy Kraus Time Discussed With Above Provider: 21:45 Instructed by Provider To: Admit As Inpatient Discharge - Discharge Plan Condition: Fair Disposition: ADMITTED TO [facility] The documentation as recorded by the Jyoti coulter Edward accurately reflects the service I personally performed and the decisions made by me, Edy Milligan MD.
--- NOTE | 2016-11-05 21:59 | RAD ---
INDICATION: Left shoulder injury COMPARISON: None TECHNIQUE: PA and lateral views of the chest were obtained. FINDINGS: The heart and mediastinum are normal in size and contour. The lungs are grossly clear. There is no evidence of large pleural effusion. There is a minimally displaced and shortened left clavicle fracture. There is no radiographic evidence of free air beneath the diaphragm IMPRESSION: 1. NO RADIOGRAPHIC EVIDENCE OF ACUTE CARDIOPULMONARY DISEASE. 2. MINIMALLY DISPLACED LEFT CLAVICLE FRACTURE.
[2016-11-05] MEDS: oxyCODONE/Acetamin 5/325 MG* TAB PO PRN (23:41)
[2016-11-05] MEDS: NS 0.9% 1000 ML* 1,000 ML IV SCH (23:42)
[2016-11-06] MEDS: Diphenoxylat/Atrop 2.5-0.025M* 1 TAB PO SCH ×7 (00:03→20:19)
[2016-11-06] MEDS: Zolpidem TAB* 10 MG PO PRN ×2 (00:03→22:05)
--- NOTE | 2016-11-06 00:19 | HP ---
CC: Dr. Samantha Mcrae; Dr. Raffy Kraus * HISTORY AND PHYSICAL: DATE OF ADMISSION: 11/05/16 CHIEF COMPLAINT: Shoulder pain. HISTORY OF PRESENT ILLNESS: The patient is a 61-year-old woman, who was on her way to a mental health visit today at [facility] when she slipped in the parking lot and hit her left shoulder. She said she was just walking very fast and felt she was out of control and tripped when she fell. She did not lose consciousness. She had no chest pain, shortness of breath, or palpitations. She was not lightheaded, but she knew she had done something serious because the pain was excruciating. She went into the mental health unit and called an ambulance and sent her to [facility]. There they found, she had a left clavicular fracture. The pain was 10/10 in severity. Apparently, they called the orthopedist on-call, who asked her to be transferred to [facility]. The orthopedist has asked the hospitalist service to admit the patient. PAST MEDICAL HISTORY: Significant for migraines, depression, anxiety. PAST SURGICAL HISTORY: Significant for a gastric bypass repair with dumping syndrome and chronic diarrhea post surgery. MEDICATIONS: Include: 1. Hydroxyzine 25 mg twice daily. 2. Promethazine 25 mg twice a day as needed. 3. Bupropion 300 mg in the morning and 150 mg in the evening. 4. Zolpidem 12.5 mg at bedtime as needed. 5. Ranitidine 150 mg daily. 6. Lomotil 1 tab 4 times a day. 7. Lotrisone cream to apply topically twice daily. 8. Percocet 10/325 one tab every 6 hours as needed. 9. Fluoxetine 40 mg daily. 10. Gabapentin 400 mg 3 times a day. 11. Alprazolam 0.5 mg 3 times a day as needed. ALLERGIES: She has no known drug allergies. FAMILY HISTORY: Reviewed and noncontributory. SOCIAL HISTORY: No tobacco, alcohol, or recreational drug use. She is on disability. She is . She has 2 children. Her son, Manoj Zimmerman, is her healthcare proxy. REVIEW OF SYSTEMS: A 14-point review of systems was completed with the patient. All pertinent positives and negative are in the history of present illness, otherwise it is negative. PHYSICAL EXAMINATION GENERAL: Pleasant woman lying in bed, in no acute distress. VITAL SIGNS: Heart rate 81 beats per minute, respiratory rate 14 breaths per minute, pulse ox 93%, blood pressure 102/66, temperature 98 degrees. HEENT: Normocephalic and atraumatic. Pupils are equal, round, and reactive to light. Moist mucous membranes. NECK: Supple. No JVD, bruits, palpable thyroid, or lymphadenopathy. CHEST: Decreased breath sounds bilaterally. CARDIOVASCULAR: S1, S2 appreciated. Regular rate and rhythm. ABDOMEN: Positive bowel sounds in all 4 quadrants. Soft, nontender, and nondistended. EXTREMITIES: No cyanosis, clubbing, or edema. Left clavicular fracture. Left arm in sling. NEURO: Alert and oriented x3. Moves all extremities except left shoulder because of pain. SKIN: No rashes or abnormalities. DIAGNOSTIC STUDIES/LAB DATA: White count 7.6, hemoglobin 10.5, hematocrit 33, and platelets are 215. Sodium was 139, potassium 4.2, chloride 109, CO2 25, BUN 15, creatinine 0.83, glucose 92. X-ray from [place] showed left clavicular fracture. ASSESSMENT AND PLAN: 1. Left clavicular fracture. Admit to short stay. Orthopedist to see in the morning. Dilaudid p.r.n. for pain. Zofran p.r.n. for nausea. May or may not need surgery. The patient appears to be a low risk for surgery. RCRI index is only 0.4. 2. Anxiety and depression. Continue current medications. No adjustment necessary at this time. 3. Insomnia. Continue Ambien p.r.n. 4. DVT prophylaxis. Heparin subcu. Hold in the morning if going for surgery. 5. FEN. N.p.o., normal saline 100 cc. 6. The patient is a full code. TIME SPENT: Over 75 minutes was spent on this H and P, more than 40 minutes of which was spent in direct [id number] contact with the patient in evaluation, physical exam, counseling, and coordination of care. [id number]/CPS #: [id number] MTDD
[2016-11-06] MEDS: HYDROmorphone* 1 MG/ML 1 ML SYR IV SLOW PU PRN ×5 (02:38→23:40)
[2016-11-06] MEDS: ALPRAZolam TAB* 0.5 MG PO PRN ×2 (04:51→13:27)
[2016-11-06] MEDS: Heparin VIAL(*) 5000 UNITS/ML VIAL (FIVE THOUSAND) SUBCUT SCH ×3 (04:52→22:05)
[2016-11-06] MEDS ORDERED: Heparin VIAL(*) 5000 UNITS/ML VIAL (FIVE THOUSAND) SUBCUT SCH (06:00)
[2016-11-06] MEDS: Famotidine TAB* 20 MG PO SCH (09:00)
[2016-11-06] MEDS: FLUoxetine CAP* 20 MG PO SCH (09:00)
[2016-11-06] MEDS: hydrOXYzine HCL TAB* 25 MG PO SCH ×2 (09:00→20:20)
[2016-11-06] MEDS: Clotrimazole/Betamethasone CREAM* 15 GM TOPICAL SCH ×2 (09:02→20:24)
[2016-11-06] MEDS: NS 0.9% 1000 ML* 1,000 ML IV SCH ×2 (10:19→20:46)
--- NOTE | 2016-11-06 11:42 | CONS ---
ORTHOPEDIC CONSULTATION DATE OF CONSULT: 11/06/2016. PROVIDER: Dr. Raffy Kraus. CHIEF COMPLAINT: Left shoulder pain. HISTORY OF PRESENT ILLNESS: The patient is a pleasant, 61-year-old female who slipped in a parking lot while at her visit at [facility] and injured her left shoulder and left elbow. She states it was a mechanical fall and denies any loss of consciousness, lightheadedness or dizziness. She was seen at [facility] and then transferred to [facility]. Chest x-ray taken on 11/05/2016 at 2039 showed a minimally displaced left clavicle fracture. PAST MEDICAL HISTORY: Significant for migraines, depression, anxiety, dumping syndrome. PAST SURGICAL HISTORY: Gastric bypass repair with dumping syndrome and chronic diarrhea. MEDICATIONS: 1. Hydralazine 25 mg twice daily. 2. Promethazine 25 mg twice daily as needed. 3. Bupropion 300 mg in the morning, 150 mg in the evening. 4. Zolpidem 12.5 mg p.o. at bedtime prn. 5. Ranitidine 150 mg p.o. daily. 6. Lomotil one tab 4 times daily. 7. Lotrisone cream topically twice daily. 8. Percocet 10/325 one tab every 6 hours as needed. 9. Fluoxetine 40 mg p.o. daily. 10. Gabapentin 400 mg 3 times daily. 11. Alprazolam 0.5 mg 3 times a day as needed. ALLERGIES: No history of known drug allergies. FAMILY HISTORY: Negative for any bone disorders, bleeding disorders, or clotting diseases. SOCIAL HISTORY: No tobacco, alcohol or drug use. Currently on disability. REVIEW OF SYSTEMS: Positive for migraines, chronic diarrhea, generalized osteoarthritis at multiple joints, depression, and anxiety. Negative for cardiopulmonary disease. No history of bleeding disorders or clotting diseases , no history of DVT, no history of neurological complaints. PHYSICAL EXAM: General: Female appearing stated age with anxiety, resting comfortably. Vital Signs: Temperature 98.4, heart rate 92, oxygen rate 16, oxygen saturation 96 percent on room air, blood pressure 122/59. Neuro: Alert and oriented times three. Sensation grossly intact to bilateral upper and lower extremities. Musculoskeletal: Positive dorsiflexion and plantarflexion bilateral lower extremities. No tenderness to palpation throughout the knees, bilateral lower extremities. Upper extremities: Borematic Operator strength 5/5 bilaterally. Full range of motion of all digits. Radial ulnar pulses 2+ bilaterally. Full range of motion of bilateral wrists with no tenderness upon palpation of the wrist. Decreased elbow motion of left extremity due to sling and patient's refusal due to possible shoulder pain. Minimal tenderness diffusely throughout the elbow. No edema noted. No tenderness with palpation of humerus, radius or ulna. Positive tenderness with minimal palpation over mid clavicle region with ecchymosis seen over mid clavicle. Positive edema noted. The patient is able to slightly shrug shoulder; however, refuses to do any other range of motion due to increased pain. DIAGNOSTIC STUDIES/LAB DATA: Chest x-ray taken 11/05/2016 at 2039 shows a left minimally displaced clavicle fracture. CT exam ordered for today. ASSESSMENT AND PLAN: 1. Left clavicular fracture. The patient is currently admitted and is NPO pending surgical fixation which will either occur today or tomorrow by Dr. Kraus. Dr. Kraus met with the patient to discuss the surgery which would include ORIF of the clavicle. A CT examination of the clavicle was ordered today for further evaluation of fracture fragments. The patient was in agreement with this plan. She will remain NPO until early this afternoon to determine if the surgery will be able to occur today. 2. Anxiety/depression: Continue patient's outpatient medications. Continue follow-up as an outpatient with her mental nikki therapist. Social Work was consulted with regards to any psychosocial postoperative issues. 3. DVT prophylaxis: Heparin SQ held prior to surgery. ACOSTA PIMENTEL [id number]/[facility] #: [id number] MARIANO
--- NOTE | 2016-11-06 12:09 | PN ---
Subjective Date of Service: 11/06/16 Interval History: Patient seen this morning after return from CT scan. Reports L shoulder pain, understands plans for surgery either today or tomorrow. Says she has been having episodes of light-headedness that have led to falls, says she has been falling more than once a month and less than once a week. Reports hx of vertigo as well. Family History: Unchanged from Admission Social History: Unchanged from Admission Past Medical History: Unchanged from Admission Objective Active Medications: Alprazolam (Xanax Tab*) 0.5 mg PO TID PRN Betamethasone/Clotrimazole (Lotrisone Cream*) 1 applic TOPICAL BID SUBHA Bupropion HCl (Wellbutrin Xl *) 150 mg PO QPM SUBHA Bupropion HCl (Bupropion Xl*) 300 mg PO QAM SUBHA Diphenoxylate HCl/Atropine (Lomotil Tab*) 1 tab PO QID SUBHA Famotidine (Pepcid Tab*) 20 mg PO DAILY SUBHA Fluoxetine HCl (Prozac Cap*) 40 mg PO DAILY SUBHA Heparin Sodium (Porcine) (Heparin Vial(*)) 5,000 units SUBCUT Q8HR SUBHA Hydromorphone HCl (Dilaudid Iv*) 1 mg IV SLOW PU Q4H PRN Hydroxyzine HCl (Atarax Tab*) 25 mg PO BID SUBHA Sodium Chloride (Ns 0.9% 1000 Ml*) 1,000 mls @ 100 mls/hr IV PER RATE SUBHA Ondansetron HCl (Zofran Inj*) 4 mg IV Q4H PRN Oxycodone/Acetaminophen (Percocet 5/325 Tab*) 2 tab PO Q6H PRN Promethazine HCl (Phenergan Tab*) 25 mg PO BID PRN Zolpidem Tartrate (Ambien Tab*) 10 mg PO BEDTIME PRN Vital Signs 11/05/16 11/05/16 11/05/16 23:00 23:31 23:41 Temperature 98.2 F Pulse Rate 83 84 Respiratory 18 18 18 Rate Blood Pressure 115/59 (mmHg) O2 Sat by Pulse 94 98 Oximetry 11/06/16 11/06/16 11/06/16 00:03 00:28 01:41 Temperature Pulse Rate Respiratory 18 18 16 Rate Blood Pressure (mmHg) O2 Sat by Pulse Oximetry 11/06/16 11/06/16 11/06/16 02:38 03:38 03:54 Temperature 98.4 F Pulse Rate 92 Respiratory 18 16 16 Rate Blood Pressure 122/59 (mmHg) O2 Sat by Pulse 96 Oximetry 11/06/16 11/06/16 11/06/16 04:51 06:41 06:51 Temperature Pulse Rate Respiratory 18 18 18 Rate Blood Pressure (mmHg) O2 Sat by Pulse Oximetry 11/06/16 11/06/16 11/06/16 07:41 08:00 10:19 Temperature Pulse Rate Respiratory 18 18 18 Rate Blood Pressure (mmHg) O2 Sat by Pulse Oximetry 11/06/16 11/06/16 10:59 11:19 Temperature 98.6 F Pulse Rate 84 Respiratory 15 18 Rate Blood Pressure 106/41 (mmHg) O2 Sat by Pulse 95 Oximetry Oxygen Devices in Use Now: None Appearance: Middle-aged, F, laying in bed in NAD Eyes: No Scleral Icterus Ears/Nose/Mouth/Throat: Mucous Membranes Moist Neck: NL Appearance and Movements; NL JVP Respiratory: Symmetrical Chest Expansion and Respiratory Effort, Clear to Auscultation Cardiovascular: NL Sounds; No Murmurs; No JVD, RRR Abdominal: NL Sounds; No Tenderness; No Distention Lymphatic: No Cervical Adenopathy Extremities: - - LUE in sling, bruising on superior L shoulder, able to wiggle fingers on L hand, sensation intact Skin: No Rash or Ulcers Neurological: Alert and Oriented x 3, - - mild tardive dyskinesia Result Diagrams: 11/05/16 20:50 11/05/16 20:50 Assess/Plan/Problems-Billing Assessment: L clavicular fx after fall in a 61 yo F with hx of depression, anxiety, migraines - Patient Problems (1) Closed left clavicular fracture Current Visit: Yes Comment: Appreciate orthopedic assistance, CT done, pending read. Plans for OR later today or tomorrow. [place]. (2) Falls Current Visit: Yes Comment: ?orthostatics or vertigo. Will work-up and get PT eval after surgery. (3) Depression Current Visit: No Comment: Continue home medications. (4) DVT prophylaxis Current Visit: Yes Comment: HSQ Status and Disposition: Change to inpatient for planned surgery
--- NOTE | 2016-11-06 13:10 | RAD ---
Indication: LEFT clavicle fracture. Evaluate for fragments. Comparison: November 05, 2016 radiographs. Technique: Noncontrast CT LEFT clavicle and shoulder. Multiplanar reformation. There is a severely comminuted fracture involving the distal segment of the clavicle without visualized extension to the acromioclavicular articular surface. The fracture is both impacted and with up to one bone width inferior displacement of the dominant distal fragments. The fracture occurs at the expected origin of the coracohumeral clavicular ligaments. No additional fractures evident within the [id number]. Normal sternoclavicular, acromioclavicular, and glenohumeral joint alignment. Negative for LEFT apical pneumothorax. Diffuse soft tissue edema about the dorsal and anterior aspects of the clavicular region. No loculated soft tissue plane hematoma evident. Report: Comminuted impacted displaced nonarticular distal LEFT clavicular fracture with probable compromise of the origin of the coracoclavicular ligaments.
[2016-11-06] MEDS: oxyCODONE/Acetamin 5/325 MG* TAB PO PRN ×2 (13:26→20:19)
[2016-11-06] MEDS: BuPROPion XL* 300 MG TAB.XL PO SCH (13:35)
[2016-11-06] MEDS: BuPROPion XL* 150 MG TAB.XL PO SCH (17:21)
[2016-11-06] MEDS: Sulfacetamide 10 % OPTH.SOL BOTH EYES SCH ×2 (17:24→20:20)
[2016-11-07] MEDS: ALPRAZolam TAB* 0.5 MG PO PRN ×2 (01:34→15:01)
[2016-11-07] MEDS: oxyCODONE/Acetamin 5/325 MG* TAB PO PRN ×3 (02:44→21:35)
[2016-11-07] MEDS: HYDROmorphone* 1 MG/ML 1 ML SYR IV SLOW PU PRN (04:13)
[2016-11-07] MEDS: NS 0.9% 1000 ML* 1,000 ML IV SCH (06:50)
[2016-11-07] MEDS: Heparin VIAL(*) 5000 UNITS/ML VIAL (FIVE THOUSAND) SUBCUT SCH ×3 (07:26→21:34)
[2016-11-07] MEDS ORDERED: Bupivacaine 0.5% W/EPI SDV* 10 ML VIAL INJ ONE (08:29)
[2016-11-07] MEDS ORDERED: Cisatracurium* 2 MG/ML MDV 5 ML ONE (08:33)
[2016-11-07] MEDS ORDERED: Dexamethasone IV* 4 MG/ML 1 ML (4 MG) ONE (08:33)
[2016-11-07] MEDS ORDERED: Ketorolac INJ* 30 MG/ML 1 ML VIAL ONE (08:33)
[2016-11-07] MEDS ORDERED: Ondansetron INJ* 2 MG/ML VIAL ONE ×2 (08:33→12:13)
[2016-11-07] MEDS ORDERED: Propofol* 10 MG/ML 20 ML BTL IV PUSH ONE (08:33)
[2016-11-07] MEDS ORDERED: KETAMINE HCL* 50 MG/ML 10 ML VIAL ONE (08:33)
[2016-11-07] MEDS ORDERED: fentaNYL* 50 MCG/ML 5 ML VIAL (250 MCG VIAL) ONE (08:33)
[2016-11-07] MEDS ORDERED: Lidocaine 2% PF * 5 ML VIAL ONE (08:33)
[2016-11-07] MEDS ORDERED: Midazolam* 1 MG/ML 10 ML VIAL (10 MG) ONE (08:34)
--- NOTE | 2016-11-07 08:44 | PN ---
Progress Note - Progress Note Date of Service: 11/07/16 SOAP: Subjective: Pain in left shoulder. No new complaints. Seen by social work yesterday. I saw the patient yesterday (11/06/16) on the floor, but haven't yet been able to add to Sharon Zhou's note for technical/software reasons. Patient & I discussed yesterday at length treatment for lateral clavicle fractures, non-operative and operative. We discussed that there is a non-union rate as high as 50%, but that many of these are non-painful. I told patient about standard risks/complications of clavicle surgery, told her that she is at greatly increased risk of catastrophic complication of hardware (fracture of clavicle/acromion, nerve/ blood vessel injury) if she falls again onto the left shoulder. She acknowledges that she has fallen regularly, but is willing to use a walker and take any steps necessary to avoid a fall. She is also at risk of acromion wear and rotator cuff injury from the acromion hook plate. She is aware that she will need this plate to be taken out 4-6 months postoperatively, requiring another procedure. I told her my preference in her would be for 6 months post- op. Objective: NAD No dentition LUE: - Ecchymosis about left shoulder. - Wrinkling possible of skin. - TTP clavicle and AC joint - NVID - No TTP humerus, elbow, forearm, wrist Selected Entries 11/07/16 07:39 Temperature 98.7 F Pulse Rate 91 Respiratory 14 Rate Blood Pressure 131/58 (mmHg) O2 Sat by Pulse 94 Oximetry Laboratory Tests 11/05/16 11/05/16 20:50 20:50 WBC 7.6 Hct 33 L Creatinine 0.83 x-rays left clavicle: lateral clavicle fracture, type 2, with displacement. It appears likely that lateral-most fragment is itself comminuted CT left shoulder: lateral clavicle fracture, type 2, with severe comminution and displacement including of lateral-most fragment Assessment: Left lateral clavicle fracture, type 2, severely comminuted Plan: - to OR for ORIF left lateral clavicle fracture with an acromion hook plate - I will have suture/tape in the room to supplement fixation & ligament repair as needed - Sling post-op
[2016-11-07] MEDS: BuPROPion XL* 300 MG TAB.XL PO SCH (09:00)
[2016-11-07] MEDS: Diphenoxylat/Atrop 2.5-0.025M* 1 TAB PO SCH ×4 (09:00→21:32)
[2016-11-07] MEDS: FLUoxetine CAP* 20 MG PO SCH ×2 (09:00→15:01)
[2016-11-07] MEDS: Clotrimazole/Betamethasone CREAM* 15 GM TOPICAL SCH ×2 (09:00→20:30)
[2016-11-07] MEDS: Sulfacetamide 10 % OPTH.SOL BOTH EYES SCH ×3 (09:00→21:34)
[2016-11-07] MEDS: Famotidine TAB* 20 MG PO SCH (09:00)
[2016-11-07] MEDS: hydrOXYzine HCL TAB* 25 MG PO SCH ×2 (09:00→21:33)
[2016-11-07] MEDS ORDERED: Phenylephrine INJ* 10 MG/ML 1 ML VIAL (10 MG) ONE (09:51)
[2016-11-07] MEDS ORDERED: Phenylephrine IV* 40 MCG/ML 10 ML SYRINGE ONE (09:51)
[2016-11-07] MEDS ORDERED: Ondansetron INJ* 2 MG/ML VIAL IV PRN (10:23)
[2016-11-07] MEDS ORDERED: fentaNYL* 50 MCG/ML 2 ML VIAL (100 MCG VIAL) ONE ×3 (12:17→13:30)
[2016-11-07] MEDS: fentaNYL* 50 MCG/ML 2 ML VIAL (100 MCG VIAL) IV PRN ×4 (12:18→13:12)
[2016-11-07] MEDS ORDERED: diPHENhydraMINE IV* 50 MG/ML 1 ml VIAL (BENADRYL) ONE (12:37)
[2016-11-07] MEDS ORDERED: DiMENhydriNATE IV* 50 MG/ML VIAL IV PUSH ONE (12:45)
[2016-11-07] MEDS: Gabapentin CAP(*) 400 MG PO SCH ×2 (14:52→21:32)
[2016-11-07] MEDS: Cephalexin CAP* 500 MG PO SCH ×2 (14:53→21:32)
--- NOTE | 2016-11-07 15:01 | RAD ---
CPT II Codes: 6045F INDICATION: Left clavicle fracture. 37 seconds of fluoroscopy time was used. Fluoroscopic services provided for referring physician for internal fixation of a depressed left clavicle fracture. 10 spot images are reviewed. IMPRESSION: Fluoroscopic services provided for referring physician for internal fixation left clavicle fracture.
--- NOTE | 2016-11-07 15:36 | PN ---
Subjective Date of Service: 11/07/16 Interval History: Patient seen after operative repair. Feeling well, not much pain. Had lunch. Family History: Unchanged from Admission Social History: Unchanged from Admission Past Medical History: Unchanged from Admission Objective Active Medications: Alprazolam (Xanax Tab*) 0.5 mg PO TID PRN Betamethasone/Clotrimazole (Lotrisone Cream*) 1 applic TOPICAL BID SUBHA Bupropion HCl (Wellbutrin Xl *) 150 mg PO QPM SUBHA Bupropion HCl (Bupropion Xl*) 300 mg PO QAM SUBHA Cephalexin HCl (Keflex Cap*) 500 mg PO TID SUBHA Diphenoxylate HCl/Atropine (Lomotil Tab*) 1 tab PO QID SUBHA Famotidine (Pepcid Tab*) 20 mg PO DAILY SUBHA Fluoxetine HCl (Prozac Cap*) 40 mg PO DAILY SUBHA Gabapentin (Neurontin Cap(*)) 400 mg PO TID SUBHA Heparin Sodium (Porcine) (Heparin Vial(*)) 5,000 units SUBCUT Q8HR SUBHA Hydromorphone HCl (Dilaudid Iv*) 1 mg IV SLOW PU Q4H PRN Hydroxyzine HCl (Atarax Tab*) 25 mg PO BID SUBHA Sodium Chloride (Ns 0.9% 1000 Ml*) 1,000 mls @ 100 mls/hr IV PER RATE SUBHA Ondansetron HCl (Zofran Inj*) 4 mg IV Q4H PRN Oxycodone/Acetaminophen (Percocet 5/325 Tab*) 2 tab PO Q6H PRN Promethazine HCl (Phenergan Tab*) 25 mg PO BID PRN Sulfacetamide Sodium (Sulamyd 10% Opth*) 1 drop BOTH EYES TID SUBHA Zolpidem Tartrate (Ambien Tab*) 10 mg PO BEDTIME PRN Vital Signs 11/07/16 11/07/16 11/07/16 01:34 02:44 03:34 Temperature Pulse Rate Respiratory 20 18 16 Rate Blood Pressure (mmHg) O2 Sat by Pulse Oximetry 11/07/16 11/07/16 11/07/16 12:44 12:45 13:00 Temperature 99.1 F Pulse Rate 101 99 Respiratory 16 16 16 Rate Blood Pressure 130/72 139/74 (mmHg) O2 Sat by Pulse 96 94 Oximetry 11/07/16 11/07/1611/07/17 14:53 15:01 15:05 Temperature 99.2 F Pulse Rate 107 Respiratory 16 18 16 Rate Blood Pressure 118/77 (mmHg) O2 Sat by Pulse 96 Oximetry Oxygen Devices in Use Now: None Appearance: Middle-aged, F, laying in bed in NAD Eyes: No Scleral Icterus Ears/Nose/Mouth/Throat: Mucous Membranes Moist Neck: NL Appearance and Movements; NL JVP Respiratory: Symmetrical Chest Expansion and Respiratory Effort, Clear to Auscultation Cardiovascular: NL Sounds; No Murmurs; No JVD, RRR Abdominal: NL Sounds; No Tenderness; No Distention Lymphatic: No Cervical Adenopathy Extremities: - - LUE in a sling, dressing in place, c/d/i Skin: No Rash or Ulcers Neurological: Alert and Oriented x 3 Result Diagrams: 11/05/16 20:50 11/05/16 20:50 Assess/Plan/Problems-Billing Assessment: L clavicular fx after fall in a 61 yo F with hx of depression, anxiety, migraines - Patient Problems (1) Closed left clavicular fracture Current Visit: Yes Comment: Appreciate orthopedic assistance, OR with Dr. Shore on 11/07 for ORIF with acromion hook plate. PT ordered. Post-op sling. (2) Falls Current Visit: Yes Comment: ?orthostatics or vertigo. PT eval pending. (3) Depression Current Visit: No Comment: Continue home medications. (4) DVT prophylaxis Current Visit: Yes Comment: HSQ Status and Disposition: Inpatient
[2016-11-07] MEDS: BuPROPion XL* 150 MG TAB.XL PO SCH (17:26)
[2016-11-07] MEDS: Promethazine TAB* 25 MG PO PRN (19:13)
[2016-11-07] MEDS: Zolpidem TAB* 10 MG PO PRN (21:35)
[2016-11-07] MEDS: Ondansetron INJ* 2 MG/ML VIAL IV PRN (21:37)
[2016-11-08] MEDS: ALPRAZolam TAB* 0.5 MG PO PRN ×2 (01:26→11:03)
[2016-11-08] MEDS: oxyCODONE/Acetamin 5/325 MG* TAB PO PRN ×4 (03:42→22:03)
[2016-11-08 07:11] LABS: Hematocrit 27 % (35-47); Hemoglobin 8.7 g/dl (12.0-16.0)
[2016-11-08 07:24] LABS: BUN/Creatinine Ratio 17.9 (8-20); Calcium 8.2 mg/dL (8.6-10.3); EGFR African American 115.1 (>60); EGFR Non-African American 89.5 (>60); Potassium 3.9 mmol/L (3.5-5.0)
[2016-11-08] MEDS: Ondansetron INJ* 2 MG/ML VIAL IV PRN (07:30)
[2016-11-08] MEDS: Heparin VIAL(*) 5000 UNITS/ML VIAL (FIVE THOUSAND) SUBCUT SCH ×3 (07:30→21:49)
--- NOTE | 2016-11-08 07:39 | OP ---
OPERATIVE REPORT: DATE OF OPERATION: 11/07/16 DATE OF : 55 SURGEON: Raffy Kraus MD [facility] TECHNICIAN: ACOSTA Roberto A physician delinquent tax collector assistant was required through the length of this procedure for retraction and manipulation. ANESTHESIOLOGIST: Andrea Rivera MD ANESTHESIA: General anesthesia, local anesthesia with 7 cc of 0.5% Marcaine with epinephrine. PRE-OP DIAGNOSIS: Left lateral clavicle fracture, displaced. POST-OP DIAGNOSIS: Left lateral clavicle fracture, displaced. OPERATIVE PROCEDURE: Open reduction internal fixation, left lateral clavicle fracture with an acromion hook plate. INDICATIONS: The patient is a 61-year-old woman, who lives alone, with a psychiatric history as well as a history of substance abuse, who presented as a transfer from [facility] late on the night of , 11/05/16. The patient slipped in a parking lot on 11/05/16 while at her visit at the [facility]. She landed on her left shoulder and it hurt. There was a much swelling and bruising that developed. The patient went to the [facility] Emergency Department. I was on-call on the evening of 11/05/16 for [facility] and [facility]. I received a call from the physician delinquent tax collector assistant in the emergency department at [facility]. She shared the images and clinical scenario with me. I recommended that the patient be discharged home and follow up with me as an outpatient. The physician delinquent tax collector assistant then shared with me concerns, multiple, regarding sending the patient home. This included concerns about the patient's safety and debility to take care of herself while one arm would be in a sling given that she lives alone and has had some functional issues in the past. Another concern was that she not be sent home with narcotics as that she could conceivably take too many of them as that was a suggested behavior by the ER physician delinquent tax collector assistant. There were also some psychiatric concerns just because the patient has had some psychiatric admissions in the past. For these reasons, I suggested that the patient be transferred from [facility] to [facility] so that she could be examined by the hospitalist service regarding any medical or psychiatric concerns and so that the following day, 02/12, my team and I could evaluate her shoulder for the appropriate nonoperative versus operative treatment. The patient was indeed transferred from emergency department to emergency department. She was then admitted to the hospitalist service. On 11/06/16, ACOSTA Marrufo, from my team obtained a history and physical of the patient. I also saw the patient that day, although I have not been able to add my physical exam and plan to ACOSTA Marrufo, for some reason, technical glitch. The patient's surgery was scheduled for the morning of 11/07/16. Hardware, special, acromion hook plates had to be obtained for procedure. When I saw the patient on 11/06/16, we discussed nonoperative and operative management of the patient's type 2, displaced, lateral clavicle fracture. I described a 50% nonunion rate with this fracture but that most of the time especially in older patients, the nonunions are not painful. I also went to great length to describe risks and potential complications of the procedure, including nerve and blood vessel injury, acromion fracture. I spoke to the patient about the possibility of a fall postoperatively causing severe damage including nerve or blood vessel injury, clavicle refracture, or acromion fracture. The patient was very interested in surgery, acknowledged the risks, but wanted to proceed despite them. She acknowledged my concern that this injury might become much worse if she were to fall again on to this left shoulder. The patient was adamant that she would use any assistive device necessary to avoid a postoperative fall. I obtained a preoperative CT scan on 11/06/16. My rationale for this was that I suspected a good deal of comminution in the lateral most fragment of the clavicle, making a standard clavicle plate with coracoclavicular tape fixation an unlikely solution. However, I was hoping for any excuse to do this procedure as it would not require a second procedure. CT scan confirmed my suspicion based on x-ray that the lateral most fragment of the clavicle was indeed severely comminuted. This, in my mind, necessitated an acromion hook plate rather than a standard superior clavicle plate with coracoclavicular tape fixation. The patient was optimized and cleared for surgery by the hospitalist service. The patient also acknowledged that she would require a second procedure to remove the acromion hook plate, 4 to 6 months postoperatively, it would be my preference for it to stay for 6 months given her age. ANTIBIOSIS: 2 g Ancef IV. IV FLUIDS: See Anesthesia note. COMPLICATIONS: None. ESTIMATED BLOOD LOSS: Minimal. IMPLANTS: Synthes 7-hole plate, acromion hook with 2 nonlocking and 5 locking screws placed through the plate. DESCRIPTION OF PROCEDURE: Preoperative written consent was obtained in preoperative holding. I reviewed many of the possible risks and complications, many of which were mentioned above in this dictation. Operative extremity was marked in preoperative holding. The patient was taken back to the operating room and placed supine on the operating room table. The patient was placed in a beach chair position with a head attachment to the table. Three pillows were placed underneath her thighs. The head of the table was elevated and the table was also placed in to Trendelenburg. The body was well secured with a belt. A contralateral right arm bruno was placed. The neck and head rested in a comfortable position with regards to flexion and extension. The head was slightly turned towards the right with some lateral rotation, but it was comfortably placed with a head rest. C-arm was brought in from directly behind the operative left shoulder. A good AP view of the left clavicle and several oblique views were obtained. C-arm was brought out. The left shoulder was prepped and draped. A surgical time- out was performed. Antibiotic had been infused. Using a marking pen, I marked the different clavicle fracture fragments as well as the acromion as I palpated them through the skin. I then marked my surgical incision, over the superior aspect of the clavicle and acromion, transverse in shape but with an S shape to it, slight. Deep knife was continued through the superficial subcutaneous tissue. I then used Bovie electrocautery to continue dissection through deltotrapezial fascia on to clavicle. Hemostasis was acquired with the Bovie electrocautery as I went through subcutaneous, platysmal , and deltotrapezial fascial layers. I encountered the medial most clavicular fragment that had displaced superiorly. I encountered several other clavicular fragments more laterally. These seemed too small for a standard superior clavicle plate. I used a spinal needle to rajiv where I thought the acromioclavicular joint was to minimize any dissection overlying this joint. I placed a spinal needle through what I thought was the acromioclavicular joint and then I brought the C- arm in. C- arm confirmed that the spinal needle was placed in the AC joint. This was an important marker, anatomical, and stayed in place for most of the surgical procedure. I then opened up the fracture site, irrigated it, debrided a minimal fibrous tissue interposed with small rongeur. I was able to manually reduce the different bone fragments mostly by pushing down on the medial most clavicular fracture fragment. I then made my slit in the deltotrapezial fascia, just posterior to the acromioclavicular joint and to the distal most, lateral most clavicle. This would be the space through which the hook component of the acromial hook plate would be passed. I then placed sizers on the clavicle. I sized with the 12-mm, 15-mm, and 18-mm offset acromial hook plates. 12 mm was clearly not deep enough as it did not allow the 4-hole sizing guide to sit flat on the clavicle. I brought the C-arm in to determine quality of reduction with the 15- and 18-mm plates. I decided that the reduction was better with the 15-mm offset plate and felt that I was able to reduce the plate to bone nicely. Note that this reduction with the 15- mm offset plate did require significant superior translation through the humerus and inferior translatory force on the clavicular sizing plate to attain that reduction. This was certainly a reis reduction and at times it was difficult to see any lucency of clavicle on C-arm imaging. Once I had decided to pick a 15-mm offset plate, I judged what length plate to choose. Options include 4 through 7-hole plates. I chose the 7-hole plate as it would give me 4 holes medial to the medial most fracture line. I was certain that it would provide 3 and thought that it would most likely provide a 4th screw, medial to the medial most fracture, although each one of these holes in the plate actually does have an option for nonlocking or locking screws. Plate was opened. Plate was placed. A robust reduction maneuver was performed by myself and physician delinquent tax collector assistant. Plate was put into place and a nonlocking screw was placed through the plate medially. C-arm was brought in and then AP and multiple oblique views were obtained of the clavicle. They showed excellent reduction, excellent plate placement on the clavicle as well as on the undersurface of the acromion. It should be noted that when I was trialing different plates, when I trialed both the 15- and the 18-mm offset guides, I found that the shoulder range of motion passively was somewhat limited. While external rotation was proximally 80 and internal rotation approximately 70 degrees, I found forward flexion to be limited to approximately 90 degrees. However, when I then took the guides off the clavicle and tested the patient's passive range of motion without hardware, the forward flexion was the same. It was limited to approximately 90 degrees of forward flexion, possibly symptomatic of pre-existing left shoulder stiffness. After confirming good plate placement with [address], I then placed an additional nonlocking screw medial to the medial most fracture line. I then filled in the plate with 2 more locking screws medial and 3 locking screws lateral. I then obtained final films, a true AP, multiple oblique views, and axillary lateral or the closest to an axillary lateral, I could obtain given the C-arm position. It showed excellent reduction of clavicle and acromioclavicular joint as well as excellent placement of plate. The hook of the plate appeared nicely snug against the undersurface of the chromium, which will minimize the possibility of any rotator cuff injury. I then did a range of motion testing with the final plate in place. Surprisingly, while the external and internal rotation were similar to previous , approximately 80 and 70 degrees, the forward flexion of the shoulder had improved compared to its baseline without hardware or with the sizing guides. I obtained approximately 130 to 140 degrees of forward flexion. It should be noted on x-ray that the second spinal needle was placed at one point in the procedure. This was to confirm that the lateral most part of the plate was nowhere near the acromioclavicular joint itself and this was indeed confirmed. Irrigation. There were no obvious coracoclavicular ligaments or others that needed repairing. I then closed the deltotrapezial fascial layer with figure-of -8 stitches using Vicryl 0 suture. I placed some more superficial figure-of-8 stitches in the more superficial deltotrapezial fascia and platysma using Vicryl 2- 0 sutures. I then closed the subcutaneous tissue with buried simple stitches using Vicryl 3-0 suture. We closed the subcuticular layer with a running stitch using Monocryl 4-0 suture. Mastisol was applied followed by Steri-Strips. 4x4's and then a Tegaderm. The patient's left shoulder was placed in an UltraSling sling. The patient was awakened and extubated. Transferred to a sling. She was transferred to PACU. DISPOSITION: The patient was to be returned to the inpatient short surgery stay for when medically stable. Percocet as needed for pain control. Keflex antibiosis for 7 days orally to prevent infection. Sling left upper extremity at all times except for range of motion exercises occasionally, elbow, forearm, wrist, and fingers left arm. Dressing is to stay in place for 3 days and then be changed daily for 7 days. With regards to her disposition, a Social Work consult had been called preoperatively and the trimming caser on the floor had seen the patient preoperatively, although I asked for repeat consults and I came by and spoke to the nursing staff on the floor and told them that from a surgical standpoint, the patient could be discharged immediately following surgery and that her exit from the hospital will depend on her functional status and independence whether she is able to go home with services, without services, or to a skilled nursing facility. I will see the patient in 10 to 14 days postoperatively in clinic. [id number]/[facility] #: [id number] MARIANO
--- NOTE | 2016-11-08 08:18 | PN ---
Progress Note - Progress Note Date of Service: 11/08/16 SOAP: Subjective: Doing well. L shoulder aches. She has been moving it a little bit in the sling. Objective: LUE: - Sling in place - Dressing c/d/i, no drainage - NVID including RA pulse + except decrease sensation just distal to incision as expected Selected Entries 11/08/16 04:14 Temperature 97.6 F Pulse Rate 75 Respiratory 16 Rate Blood Pressure 111/60 (mmHg) O2 Sat by Pulse 92 Oximetry Laboratory Tests 11/05/16 11/08/16 20:50 06:41 Hct 33 L 27 L Assessment: POD 1 L lateral clavicle fracture ORIF Social/psych issues Plan: - Reviewed postop instructions with the patient - Percocet prn while in the hospital. Patient should be sent home on Tylenol and Naproxen as she has a history of narcotic abuse. - Case management/social work looking a disposition possibilities - PT/OT consult today. Patient requests walker for balance and I would like instruction on her moving her elbow/forearm/wrist to prevent stiffness - Continue ASA as per preop - Keflex as prophylaxis
[2016-11-08] MEDS: FLUoxetine CAP* 20 MG PO SCH (08:25)
[2016-11-08] MEDS: Gabapentin CAP(*) 400 MG PO SCH ×3 (08:26→21:49)
[2016-11-08] MEDS: Diphenoxylat/Atrop 2.5-0.025M* 1 TAB PO SCH ×4 (08:26→21:48)
[2016-11-08] MEDS: Famotidine TAB* 20 MG PO SCH (08:27)
[2016-11-08] MEDS: hydrOXYzine HCL TAB* 25 MG PO SCH ×2 (08:27→21:48)
[2016-11-08] MEDS: Cephalexin CAP* 500 MG PO SCH ×3 (08:27→21:49)
[2016-11-08] MEDS: Sulfacetamide 10 % OPTH.SOL BOTH EYES SCH ×2 (08:28→13:42)
[2016-11-08] MEDS: BuPROPion XL* 300 MG TAB.XL PO SCH (09:46)
[2016-11-08] MEDS: Clotrimazole/Betamethasone CREAM* 15 GM TOPICAL SCH ×2 (09:48→20:14)
--- NOTE | 2016-11-08 14:39 | PN ---
Subjective Date of Service: 11/08/16 Interval History: Patient seen this afternoon. Pain well controlled, worked with PT earlier today , did well but reports lots of fatigue afterwards. Now with migraine. Very concerned about going home, wondering if she will be able to take care of herself. She is hoping 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s can be arranged. Family History: Unchanged from Admission Social History: Unchanged from Admission Past Medical History: Unchanged from Admission Objective Active Medications: Alprazolam (Xanax Tab*) 0.5 mg PO TID PRN Betamethasone/Clotrimazole (Lotrisone Cream*) 1 applic TOPICAL BID SUBHA Bupropion HCl (Wellbutrin Xl *) 150 mg PO QPM SUBHA Bupropion HCl (Bupropion Xl*) 300 mg PO QAM SUBHA Cephalexin HCl (Keflex Cap*) 500 mg PO TID SUBHA Diphenoxylate HCl/Atropine (Lomotil Tab*) 1 tab PO QID SUBHA Famotidine (Pepcid Tab*) 20 mg PO DAILY SUBHA Fluoxetine HCl (Prozac Cap*) 40 mg PO DAILY SUBHA Gabapentin (Neurontin Cap(*)) 400 mg PO TID SUBHA Heparin Sodium (Porcine) (Heparin Vial(*)) 5,000 units SUBCUT Q8HR SUBHA Hydromorphone HCl (Dilaudid Iv*) 1 mg IV SLOW PU Q4H PRN Hydroxyzine HCl (Atarax Tab*) 25 mg PO BID SUBHA Ondansetron HCl (Zofran Inj*) 4 mg IV Q4H PRN Oxycodone/Acetaminophen (Percocet 5/325 Tab*) 2 tab PO Q6H PRN Promethazine HCl (Phenergan Tab*) 25 mg PO BID PRN Sulfacetamide Sodium (Sulamyd 10% Opth*) 1 drop BOTH EYES TID SUBHA Zolpidem Tartrate (Ambien Tab*) 10 mg PO BEDTIME PRN Vital Signs 11/07/16 11/07/16 11/07/16 17:44 19:25 20:27 Temperature 98.0 F 98.1 F Pulse Rate 82 86 Respiratory 17 16 16 Rate Blood Pressure 119/62 107/76 (mmHg) O2 Sat by Pulse 95 97 Oximetry 11/08/16 11/08/16 11/08/16 11:16 11:47 13:03 Temperature 98.1 F Pulse Rate 75 Respiratory 16 16 18 Rate Blood Pressure 99/86 (mmHg) O2 Sat by Pulse 97 Oximetry Oxygen Devices in Use Now: None Appearance: Middle-aged, F, laying in bed in NAD Eyes: No Scleral Icterus Ears/Nose/Mouth/Throat: Mucous Membranes Moist Neck: NL Appearance and Movements; NL JVP Respiratory: Symmetrical Chest Expansion and Respiratory Effort, Clear to Auscultation Cardiovascular: NL Sounds; No Murmurs; No JVD, RRR Abdominal: NL Sounds; No Tenderness; No Distention Lymphatic: No Cervical Adenopathy Extremities: No Edema, - - LUE in sling, dressing in place, cryounit Skin: No Rash or Ulcers Neurological: Alert and Oriented x 3 Result Diagrams: 11/08/16 06:41 11/08/16 06:41 Assess/Plan/Problems-Billing Assessment: L clavicular fx after fall in a 61 yo F with hx of depression, anxiety, migraines - Patient Problems (1) Closed left clavicular fracture Current Visit: Yes Comment: Appreciate orthopedic assistance, OR with Dr. Shore on 11/07 for ORIF with acromion hook plate. Post-op sling. PT eval done, OT eval pending. Post-op anemia, monitor CBC. (2) Falls Current Visit: Yes Comment: ?orthostatics or vertigo. Did well with PT. Check orthostatics. (3) Depression Current Visit: No Comment: Continue home medications. (4) DVT prophylaxis Current Visit: Yes Comment: HSQ Status and Disposition: Inpatient, awaiting OT eval
[2016-11-08] MEDS: Promethazine TAB* 25 MG PO PRN (15:15)
[2016-11-08] MEDS: BuPROPion XL* 150 MG TAB.XL PO SCH (18:37)
[2016-11-08] MEDS: HYDROmorphone* 1 MG/ML 1 ML SYR IV SLOW PU PRN (18:53)
[2016-11-08] MEDS: Zolpidem TAB* 10 MG PO PRN (21:49)
[2016-11-09] MEDS: oxyCODONE/Acetamin 5/325 MG* TAB PO PRN ×4 (03:27→22:20)
[2016-11-09] MEDS: Sulfacetamide 10 % OPTH.SOL BOTH EYES SCH ×4 (03:40→20:13)
[2016-11-09] MEDS: Heparin VIAL(*) 5000 UNITS/ML VIAL (FIVE THOUSAND) SUBCUT SCH ×3 (05:46→22:05)
[2016-11-09] MEDS: HYDROmorphone* 1 MG/ML 1 ML SYR IV SLOW PU PRN ×2 (05:47→10:01)
[2016-11-09] MEDS: Ondansetron INJ* 2 MG/ML VIAL IV PRN ×3 (06:06→19:16)
[2016-11-09 06:45] LABS: Hematocrit 30 % (35-47); Hemoglobin 9.4 g/dl (12.0-16.0)
[2016-11-09] MEDS: Diphenoxylat/Atrop 2.5-0.025M* 1 TAB PO SCH ×4 (08:47→20:12)
[2016-11-09] MEDS: Cephalexin CAP* 500 MG PO SCH ×3 (08:48→20:12)
[2016-11-09] MEDS: Gabapentin CAP(*) 400 MG PO SCH ×3 (08:48→20:12)
[2016-11-09] MEDS: Famotidine TAB* 20 MG PO SCH (08:50)
[2016-11-09] MEDS: hydrOXYzine HCL TAB* 25 MG PO SCH ×2 (08:51→20:12)
[2016-11-09] MEDS: FLUoxetine CAP* 20 MG PO SCH (08:51)
[2016-11-09] MEDS: BuPROPion XL* 300 MG TAB.XL PO SCH (08:51)
[2016-11-09] MEDS: Clotrimazole/Betamethasone CREAM* 15 GM TOPICAL SCH ×2 (08:55→20:13)
--- NOTE | 2016-11-09 09:56 | PN ---
Progress Note - Progress Note Date of Service: 11/09/16 SOAP: Subjective: []Patient seen at bedside. Sling donned on LUE. Cryo on. Having some more pain in left shoulder region today but overall tolerable. Denies SOB, CP, dizziness. Objective: [] Laboratory Results - last 24 hr 11/09/16 06:19 Hgb 9.4 L Hct 30 L Vital Signs Temp 98.2 F 11/09/16 07:36 Pulse 83 11/09/16 07:36 Resp 16 11/09/16 08:48 BP 134/60 11/09/16 07:36 Pulse Ox 93 11/09/16 07:36 Intake & Output 11/08/16 11/09/16 11/09/16 18:59 06:59 18:59 Intake Total 900 860 Output Total 1550 600 Balance -650 260 Intake: Oral 900 860 Output: Urine 1550 600 Left UE dressings removed, scant old bloody drainage on 4x4s, moderate ecchymosis, mild diffuse edema, steri strips intact without active drainage moving all digits well, sensation intact distally, 2+ radial pulse LUE new 2x2s and tega derm applied to clavicular incision Assessment: []s/p ORIF left clavicle POD #2 Plan: []Awaiting coordination with out patient residential case manager for discharge disposition NWB LUE Cane RUE for balance AROM LUE out of sling BID to prevent stiffness
[2016-11-09] MEDS: ALPRAZolam TAB* 0.5 MG PO PRN ×2 (10:11→14:22)
--- NOTE | 2016-11-09 13:15 | PN ---
Subjective Date of Service: 11/09/16 Interval History: Patient seen this afternoon. Was unsteady with PT and she has concerns about going home, agreeable to rehab. She says she is not sure what causes her instability, reports hx of vertigo but never had sensation of room-spinning/ nausea. She denies EtOH use but apparently her bilingual case manager thinks her falls are due to substance abuse, possibly EtOH in addition to prescribed narcotics. Family History: Unchanged from Admission Social History: Unchanged from Admission Past Medical History: Unchanged from Admission Objective Active Medications: Alprazolam (Xanax Tab*) 0.5 mg PO TID PRN Betamethasone/Clotrimazole (Lotrisone Cream*) 1 applic TOPICAL BID SUBHA Bupropion HCl (Wellbutrin Xl *) 150 mg PO QPM SUBHA Bupropion HCl (Bupropion Xl*) 300 mg PO QAM SUBHA Cephalexin HCl (Keflex Cap*) 500 mg PO TID SUBHA Diphenoxylate HCl/Atropine (Lomotil Tab*) 1 tab PO QID SUBHA Famotidine (Pepcid Tab*) 20 mg PO DAILY SUBHA Fluoxetine HCl (Prozac Cap*) 40 mg PO DAILY SUBHA Gabapentin (Neurontin Cap(*)) 400 mg PO TID SUBHA Heparin Sodium (Porcine) (Heparin Vial(*)) 5,000 units SUBCUT Q8HR SUBHA Hydromorphone HCl (Dilaudid Iv*) 1 mg IV SLOW PU Q4H PRN Hydroxyzine HCl (Atarax Tab*) 25 mg PO BID SUBHA Ondansetron HCl (Zofran Inj*) 4 mg IV Q4H PRN Oxycodone/Acetaminophen (Percocet 5/325 Tab*) 2 tab PO Q6H PRN Promethazine HCl (Phenergan Tab*) 25 mg PO BID PRN Sulfacetamide Sodium (Sulamyd 10% Opth*) 1 drop BOTH EYES TID SUBHA Zolpidem Tartrate (Ambien Tab*) 10 mg PO BEDTIME PRN Vital Signs 11/08/16 11/08/16 11/08/16 13:40 13:41 15:39 Temperature 98.3 F Pulse Rate 87 Respiratory 16 18 16 Rate Blood Pressure 101/40 (mmHg) O2 Sat by Pulse 98 Oximetry 11/09/16 11/09/16 11/09/16 07:36 08:47 08:48 Temperature 98.2 F Pulse Rate 83 Respiratory 14 16 16 Rate Blood Pressure 134/60 (mmHg) O2 Sat by Pulse 93 Oximetry 11/09/16 11/09/16 11/09/16 11:47 11:50 12:11 Temperature Pulse Rate 73 Respiratory 14 16 18 Rate Blood Pressure 102/52 (mmHg) O2 Sat by Pulse 92 Oximetry Oxygen Devices in Use Now: None Appearance: Middle-aged, F, laying in chair in NAD Eyes: No Scleral Icterus Ears/Nose/Mouth/Throat: Mucous Membranes Moist Neck: NL Appearance and Movements; NL JVP Respiratory: Symmetrical Chest Expansion and Respiratory Effort, Clear to Auscultation Cardiovascular: NL Sounds; No Murmurs; No JVD, RRR Abdominal: NL Sounds; No Tenderness; No Distention Lymphatic: No Cervical Adenopathy Extremities: - - LUE in sling Neurological: Alert and Oriented x 3 Result Diagrams: 11/09/16 06:19 11/08/16 06:41 Assess/Plan/Problems-Billing Assessment: L clavicular fx after fall in a 61 yo F with hx of depression, anxiety, migraines - Patient Problems (1) Closed left clavicular fracture Current Visit: Yes Comment: Appreciate orthopedic assistance, OR with Dr. Shore on 11/07 for ORIF with acromion hook plate. Post-op sling. Will need KATE. (2) Falls Current Visit: Yes Comment: Orthostatics negative. Will get CT head, check B12. ?chronic EtOH use. (3) Depression Current Visit: No Comment: Continue home medications. (4) DVT prophylaxis Current Visit: Yes Comment: HSQ Status and Disposition: Inpatient, will need KATE
[2016-11-09] MEDS: Promethazine TAB* 25 MG PO PRN (14:22)
--- NOTE | 2016-11-09 15:14 | RAD ---
HISTORY: Recurrent falls, imbalance issues COMPARISONS: None TECHNIQUE: Multiple contiguous axial CT scans were obtained of the head without intravenous contrast. FINDINGS: HEMORRHAGE/INFARCT: There is no hemorrhage or acute infarct. MASSES/SHIFT: There is no mass or shift. EXTRA-AXIAL SPACES: There are no extra-axial fluid collections. SULCI AND VENTRICLES: The sulci and ventricles are normal in size and position for the patient's stated age. CEREBRUM: There are no focal parenchymal abnormalities. BRAINSTEM: There are no focal parenchymal abnormalities. CEREBELLUM: There are no focal parenchymal abnormalities. VESSELS: The vessels are grossly normal. PARANASAL SINUSES: The paranasal sinuses are clear. ORBITS: The orbits are unremarkable. BONES AND SOFT TISSUE: No bone or soft tissue abnormalities are noted. OTHER: None IMPRESSION: NO ACUTE INTRACRANIAL PATHOLOGY.
[2016-11-09] MEDS: BuPROPion XL* 150 MG TAB.XL PO SCH (17:37)
[2016-11-09] MEDS: Zolpidem TAB* 10 MG PO PRN (20:15)
[2016-11-10] MEDS: oxyCODONE/Acetamin 5/325 MG* TAB PO PRN ×5 (02:55→22:09)
[2016-11-10] MEDS: Ondansetron INJ* 2 MG/ML VIAL IV PRN ×3 (02:55→18:58)
[2016-11-10 05:00] LABS: Hematocrit 27 % (35-47)
[2016-11-10] MEDS: Heparin VIAL(*) 5000 UNITS/ML VIAL (FIVE THOUSAND) SUBCUT SCH ×3 (05:39→22:08)
[2016-11-10] MEDS: ALPRAZolam TAB* 0.5 MG PO PRN ×3 (05:49→17:31)
[2016-11-10] MEDS: Diphenoxylat/Atrop 2.5-0.025M* 1 TAB PO SCH ×4 (07:32→20:19)
[2016-11-10] MEDS: Cephalexin CAP* 500 MG PO SCH ×3 (07:32→20:19)
[2016-11-10] MEDS: FLUoxetine CAP* 20 MG PO SCH (07:32)
[2016-11-10] MEDS: Gabapentin CAP(*) 400 MG PO SCH ×3 (07:32→20:20)
[2016-11-10] MEDS: BuPROPion XL* 300 MG TAB.XL PO SCH (07:33)
[2016-11-10] MEDS: Famotidine TAB* 20 MG PO SCH (07:33)
[2016-11-10] MEDS: hydrOXYzine HCL TAB* 25 MG PO SCH ×2 (07:33→20:21)
[2016-11-10] MEDS: Sulfacetamide 10 % OPTH.SOL BOTH EYES SCH ×3 (07:34→20:19)
[2016-11-10] MEDS: Clotrimazole/Betamethasone CREAM* 15 GM TOPICAL SCH ×2 (07:37→20:34)
--- NOTE | 2016-11-10 09:26 | PN ---
Progress Note - Progress Note Date of Service: 11/10/16 SOAP: Subjective: []Patient seen OOB in chair, finishing breakfast. Complains of some pain left shoulder, also had a migraine earlier today. Percocet given for shoulder pain and migraine. Alluding that she wants something stronger for the shoulder. Objective: [] Vital Signs Temp 98.0 F 11/10/16 07:44 Pulse 75 11/10/16 07:44 Resp 18 11/10/16 08:00 BP 103/57 11/10/16 07:44 Pulse Ox 94 11/10/16 08:00 Intake & Output 11/09/16 11/10/16 11/10/16 18:59 06:59 18:59 Intake Total 360 860 Output Total 400 700 300 Balance -40 160 -300 Intake: Oral 360 860 Output: Urine 400 700 300 Laboratory Results - last 24 hr 11/09/16 11/10/16 06:19 04:51 Hgb 9.0 L Hct 27 L Vitamin B12 429 Sling donbrandie BEATTY Left clavicle dressing remains completely dry +ecchymosis around incision remains neuro intact distally with 2+ radial pulse, full sensation and easy movement of all fingers, no edema Assessment: []s/p ORIF left clavicle POD #3 Plan: []PT/OT, out of sling daily to work on ROM as ordered CT head negative in w/u of frequent unsteadiness and falls Do not recommend stronger narcotics w current history of probable substance abuse SNF rehab placement- ortho stable Follow up with Dr. Kraus 7-10 days
[2016-11-10] MEDS ORDERED: Senna TAB PO PRN (09:37)
[2016-11-10] MEDS ORDERED: Magnesium Hydroxide LIQ* 30 ML UDC PO PRN (09:37)
[2016-11-10] MEDS: Docusate CAP* 100 MG PO SCH ×2 (10:26→20:21)
--- NOTE | 2016-11-10 12:45 | DS ---
CC: Dr. Samantha Mcrae; Dr. Kraus; [facility] * DATE OF ADMISSION: 11/05/2016. DATE OF DISCHARGE: 11/10/2016. DISCHARGE DIAGNOSES: 1. Left clavicular fracture, status post ORIF in 11/07/2016. 2. Frequent falls. SECONDARY DIAGNOSES: 1. Migraines. 2. Depression. 3. Anxiety. 4. 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 5. Chronic pain. MEDICATIONS: 1. Sulfacetamide 10% one drop to both eyes 3 times a day. 2. Hydroxyzine 25 mg p.o. b.i.d. 3. Promethazine 25 mg p.o. b.i.d. as needed for nausea. 4. Bupropion XL 150 mg p.o. q.p.m. 5. Bupropion SR 300 mg p.o. q.a.m. 6. Ranitidine 150 mg p.o. daily. 7. Fluoxetine 40 mg p.o. daily. 8. Alprazolam 0.5 mg p.o. t.i.d. as needed for anxiety. 9. Zolpidem 12.5 mg p.o. at bedtime as needed for insomnia. 10. Gabapentin 400 mg p.o. t.i.d. 11. Oxycodone/acetaminophen 5/325 mg two tablets p.o. q.4 hours as needed for pain, maximum 12 tablets a day. 12. Senna two tablets p.o. at bedtime as needed for constipation. 13. Milk of Magnesia 30 ml p.o. b.i.d. as needed for constipation. 14. Colace 100 mg p.o. b.i.d. 15. Cephalexin 500 mg p.o. t.i.d. to be completed on November 12. HOSPITAL COURSE: Ms. Zimmerman is a 61-year-old lady with a past medical history as stated above who presented to the emergency room on November 05 with complaints of shoulder pain. She was on her way to a mental health visit at [facility] when she slipped in the parking lot and hit her left shoulder. There was no report of loss of consciousness, chest pain, shortness of breath or palpitations. It appeared it was a mechanical fall as she was walking very fast and tripped. She was found to have a left clavicular fracture and transferred to [facility] for Orthopedic evaluation. For more details about her presentation, I refer you to her history and physical. The patient had a chest x-ray that showed a nearly displaced left clavicle fracture. No radiographic evidence of acute cardiopulmonary disease. Upper extremity CT showed a comminuted, impacted, displaced, nonarticular distal left clavicular fracture with probable compromise of the origin of the coracoclavicular ligaments. The patient was seen in consultation by Orthopedics (Dr. Kraus) and the plan was for surgical repair. Dr. Kraus took her to the OR on November 07 and she underwent open reduction internal fixation of the left lateral clavicular fracture with an acromion hook plate. His recommendation was for Cephalexin for antibiotic prophylaxis for five days and this will be completed on November 12. The patient did well postop and her pain was controlled with Percocet. It was felt she would not be able to manage independently at home with her nonweightbearing status on her left upper extremity. She was felt to have PT/ OT needs and was offered a bed at [facility] to continue her rehabilitation process. The patient has a CT of the brain without contrast that showed no acute intracranial pathology. Orthostatic vital signs were also negative. As per Dr. 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 The patient denies alcohol use to me. The patient is medically stable for discharge at this time. PHYSICAL EXAMINATION: General: The patient is a pleasant lady, lying in bed, in no acute distress. Vital Signs: Temperature 98.0, heart rate 84, respiratory rate 18, oxygen saturation 94 percent on room air, blood pressure 103/57. CVS: Normal S1, S2. Regular rate and rhythm. Chest: Breath sounds present bilaterally with no added sounds. Abdomen: Soft, bowel sounds are present. Extremities: Left upper extremity in a sling. She has good pulses, capillary refill on the extremity. No sensory deficit. Neuro: She is alert and oriented times three, able to move all four extremities. DIET: Regular diet. ACTIVITY: Nonweightbearing to the left upper extremity. Other activities as tolerated. DISPOSITION: To [facility] for rehab. STATUS WHILE IN THE HOSPITAL: Inpatient. The patient's initial Percocet dose as an outpatient was 5/325, one tablet p.o. q.6 hours as needed for pain and the idea would be to wean her back down to her usual dose as her pain continues to improve. Please keep in mind this is a summarized version of this patient's hospital stay. If you need more information, please feel free to call me at or please obtain the full medical records. Approximately 45 minutes were spent to complete this discharge. [id number]/[facility] #: [id number] MARIANO
[2016-11-10] MEDS: BuPROPion XL* 150 MG TAB.XL PO SCH (16:13)
[2016-11-10] MEDS: Zolpidem TAB* 10 MG PO PRN (20:19)
[2016-11-11] MEDS: oxyCODONE/Acetamin 5/325 MG* TAB PO PRN ×3 (02:26→10:29)
[2016-11-11] MEDS: Ondansetron INJ* 2 MG/ML VIAL IV PRN ×2 (02:32→06:32)
[2016-11-11] MEDS: Heparin VIAL(*) 5000 UNITS/ML VIAL (FIVE THOUSAND) SUBCUT SCH ×2 (06:27→13:28)
[2016-11-11 07:02] LABS: Hematocrit 29 % (35-47); Hemoglobin 9.2 g/dl (12.0-16.0)
[2016-11-11] MEDS: Clotrimazole/Betamethasone CREAM* 15 GM TOPICAL SCH (08:06)
[2016-11-11] MEDS: Famotidine TAB* 20 MG PO SCH (08:11)
[2016-11-11] MEDS: Gabapentin CAP(*) 400 MG PO SCH ×2 (08:11→13:27)
[2016-11-11] MEDS: Docusate CAP* 100 MG PO SCH (08:11)
[2016-11-11] MEDS: Cephalexin CAP* 500 MG PO SCH ×2 (08:12→13:26)
[2016-11-11] MEDS: FLUoxetine CAP* 20 MG PO SCH (08:12)
[2016-11-11] MEDS: hydrOXYzine HCL TAB* 25 MG PO SCH (08:12)
[2016-11-11] MEDS: BuPROPion XL* 300 MG TAB.XL PO SCH (08:12)
[2016-11-11] MEDS: Sulfacetamide 10 % OPTH.SOL BOTH EYES SCH ×2 (08:12→13:28)
[2016-11-11] MEDS: Diphenoxylat/Atrop 2.5-0.025M* 1 TAB PO SCH ×2 (08:12→13:27)
[2016-11-11] MEDS: Promethazine TAB* 25 MG PO PRN (10:31)
--- NOTE | 2016-11-11 10:35 | PN ---
Progress Note - Progress Note Date of Service: 11/11/16 SOAP: Subjective: []Patient has a bed at [facility], was scheduled for discharge yesterday, but reportedly said "she was not ready to go" and her discharge was held. Now, patient states she "fell" on her right shoulder while reaching for her purse on her nightstand and now has increased left shoulder pain. She is wearing her immobilizer and does not appear to be currently in pain. Objective: [] Vital Signs Temp 98.9 F 11/11/16 07:28 Pulse 79 11/11/16 07:28 Resp 18 11/11/16 10:29 BP 107/59 11/11/16 07:28 Pulse Ox 95 11/11/16 08:00 Intake & Output 11/10/16 11/11/16 11/11/16 18:59 06:59 18:59 Intake Total 1450 1190 100 Output Total 1300 1300 300 Balance 150 -110 -200 Intake: Oral 1450 1190 100 Output: Urine 1300 1300 300 Other: # Bowel Movements 0 Laboratory Results - last 24 hr 11/11/16 06:50 Hgb 9.2 L Hct 29 L Left clavicle dressings remain dry, ecchymosis and edema are improving no obvious deformity at left clavicle continues to have full ROM of her fingers without edema sensation and circulation intact Assessment: []s/p ORIF Left clavicle POD #4 Plan: []Will order STAT portable clavicle xray, if remains satisfactory , she [facility]. Follow up with Dr. Shore in 7- 10 days in office.
[2016-11-11] MEDS: ALPRAZolam TAB* 0.5 MG PO PRN (11:02)
--- NOTE | 2016-11-11 11:22 | RAD ---
HISTORY: Status post left clavicle internal fixation, history of traumatic clavicle fracture COMPARISONS: October 28, 2016 VIEWS: 2, frontal and frontal oblique views of left clavicle FINDINGS: BONE DENSITY: Normal. BONES: The patient is status post internal fixation of the left clavicle. There is no hardware failure or osteolysis. JOINTS: There is no arthropathy. ALIGNMENT: There is no dislocation. SOFT TISSUES: Unremarkable. OTHER FINDINGS: None. IMPRESSION: STATUS POST LEFT CLAVICLE INTERNAL FIXATION
--- NOTE | 2016-11-11 11:31 | PN ---
Progress Note - Progress Note Date of Service: 11/11/16 Note: Xray of the left clavicle shows fracture to be well aligned and well fixated without change in position. She may be discharged to rehab from the orthopedic standpoint.
[2016-11-11 12:40] VITALS: BP 112/55
== END 2016-11-11 13:40 | DRG 320 ==
LOC: ED 19:44 → SSU 22:49 → OBSVTOIN 11-06 12:11
PROVIDERS: ADMIT Internal Medicine; ATTEND Internal Medicine
PROC: 0PSB04Z Reposition Left Clavicle with Internal Fixation Device, Open Approach (ICD-10-PCS; principal; 2016-11-07 08:00)
DX: S42.032A Displaced fracture of lateral end of left clavicle, initial encounter for closed fracture (principal); I10 Essential (primary) hypertension; W01.0XXA Fall on same level from slipping, tripping and stumbling without subsequent striking against object, initial encounter; G43.909 Migraine, unspecified, not intractable, without status migrainosus; K52.89 Other specified noninfective gastroenteritis and colitis; G47.00 Insomnia, unspecified; K58.9 Irritable bowel syndrome, unspecified; F41.0 Panic disorder [episodic paroxysmal anxiety]; F43.10 Post-traumatic stress disorder, unspecified; R29.6 Repeated falls; D64.9 Anemia, unspecified; M15.9 Polyosteoarthritis, unspecified; F31.9 Bipolar disorder, unspecified; R74.0 Nonspecific elevation of levels of transaminase and lactic acid dehydrogenase [LDH]; G89.29 Other chronic pain; Y92.481 Parking lot as the place of occurrence of the external cause; Z98.84 Bariatric surgery status; Z90.49 Acquired absence of other specified parts of digestive tract; Z91.5 Personal history of self-harm; Z82.49 Family history of ischemic heart disease and other diseases of the circulatory system; Z87.898 Personal history of other specified conditions
CPT/HCPCS: 36415; 70450; 71020; 76000; 80048; 82607; 85014; 85018; 85025; 94760; A9270-GY; C1713; C1776; G0378; J0690; J1100; J1170; J1200; J1644; J1885; J2250; J2270; J2405; J2704; J3010

== ENCOUNTER 2016-11-15 07:22 | Emergency (ER) | payer BC, MEDICARE, MEDICAID ==
[2016-11-15] MEDS ORDERED: HYDROmorphone* 1 MG/ML 1 ML SYR IV ONE ×3 (07:37→09:31)
[2016-11-15] MEDS ORDERED: Ondansetron INJ* 2 MG/ML VIAL IV ONE (07:37)
[2016-11-15] MEDS ORDERED: NS 0.9% 1000 ML* 1,000 ML IV SCH (07:45)
[2016-11-15 07:59] LABS: Hematocrit 32 % (35-47); Hemoglobin 10.5 g/dl (12.0-16.0); Mean Corpuscular HGB Conc 33 g/dl (31-36); Mean Corpuscular Hemoglobin 31 pg (27-31); Mean Corpuscular Volume 94 fL (80-97); Red Blood Count 3.35 10^6/ul (4.0-5.4); Red Cell Distribution Width 16 % (10.5-15)
[2016-11-15 08:10] LABS: Add Diff/Slide Review? Manual Diff Added; Comments Flag Yes
[2016-11-15 08:13] LABS: ALT 14 U/L (7-52); Albumin 3.6 g/dL (3.2-5.2); Alkaline Phosphatase 95 U/L (34-104); BUN/Creatinine Ratio 15.1 (8-20); Blood Urea Nitrogen 11 mg/dL (6-24); C Reactive Protein 9.25 mg/L (< 5.00); CO2 Carbon Dioxide 27 mmol/L (22-32); Chloride 105 mmol/L (101-111); Creatine Kinase 57 U/L (10-223); EGFR African American 104.2 (>60); Globulin 2.8 g/dL (2-4); Glucose 83 mg/dL (70-100); Sodium 136 mmol/L (133-145); Total Protein 6.4 g/dL (6.4-8.9)
[2016-11-15 08:14] LABS: Troponin I 0.01 ng/mL (<0.04)
[2016-11-15 08:44] LABS: Eosinophils % 5 % (0-6); Neutrophil % 59 % (38-83); Reactive Lymph % 1 % (0-6)
[2016-11-15 08:45] LABS: Add Path Review? YES; RBC Morphology Normal (Normal)
[2016-11-15 08:50] LABS: Anion Gap 4 mmol/L (2-11)
[2016-11-15 08:54] LABS: Mean Platelet Volume 7 um3 (7.4-10.4)
[2016-11-15] MEDS ORDERED: Iohexol 350* (CONTRAST) 500 ML MDV IV ONE (09:43)
--- NOTE | 2016-11-15 10:22 | RAD ---
INDICATION: Chest pain. Short of breath. Evaluate for pulmonary embolus. Elevated d-dimer. Recent left clavicular fracture. COMPARISON: Chest x-ray 2016 TECHNIQUE: Axial source images were obtained from the thoracic inlet to the hemidiaphragms following administration of [address] angiographic technique was utilized. Coronal and sagittal reconstructed images were acquired. CHEST FINDINGS: Neck/thyroid: The visualized neck to include the thyroid appear normal. Chest wall: There are subacute, nondisplaced, left seventh through ninth rib fractures. There is open reduction internal fixation of the recent left clavicular fracture. The history and imaging findings can account for elevated d-dimer. There is no supraclavicular, infraclavicular, or axillary lymphadenopathy. Lungs : There is a solitary, 1 cm, right upper lobe mass there are no focal infiltrates. The pulmonary interstitium appears normal. There are no endobronchial lesions. Cardiomediastinal structures: There is no CT evidence of acute pulmonary embolic disease. The heart is normal in size. There is no pericardial effusion. There is no evidence of aortic aneurysm or dissection. There is mild distal adenopathy with lymph nodes measuring up to 1.5 cm. These are located in the aorticopulmonary window, pretracheal, and subcarinal locations.. The esophagus appears normal. Pleura : There are no pleural-based masses or effusions. Other: Limited views the upper abdomen show cholecystectomy. There is bariatric surgery. IMPRESSION: 1. No CT evidence of acute pulmonary embolic disease. 2. Mild mediastinal lymphadenopathy. 3. Solitary 1 cm right upper lobe mass. The bronchogenic carcinoma is not excluded. In light of the mediastinal lymphadenopathy and the small size of the lesion, consider PET imaging. 4. Subacute left-sided rib fractures. ORIF left clavicular fracture. 5. Cholecystectomy. Bariatric surgery.
--- NOTE | 2016-11-15 11:34 | RAD ---
INDICATION: ORIF left clavicular fracture COMPARISON: CTA chest same date; left clavicle November 11, 2016 TECHNIQUE: AP and lateral views were obtained. FINDINGS: There is ORIF of the left clavicular fracture without interval change since the recent November 11, 2016 exam. IMPRESSION: ORIF LEFT CLAVICLE. NO EVIDENCE OF HARDWARE FAILURE.
[2016-11-15] MEDS ORDERED: oxyCODONE/Acetamin 5/325 MG* TAB PO ONE (12:21)
--- NOTE | 2016-11-15 14:49 | ED ---
Jyoti Charles Edward, scribed for Epifanio Ortiz MD on 11/15/16 at 0727 . Upper Extremity Pain - HPI Summary HPI Summary: 61 y/o female EVONNE c/o sudden onset, severe L shoulder pain starting at 01:00 this morning, waking the patient up at night. The pain is described as a "twisting" pain, located in her L shoulder. The pain radiates down her L arm. It is rated 10/10 in severity currently. The pain was at a 7/10 yesterday but was getting better since her shoulder surgery 8 days ago. Associated sx: nausea with the pain, SOB aggravated with movement. SHx L shoulder surgery 8 days ago. PMHx L clavicular fx. Pt states this is "the worst pain she's ever had." Pt has been taking Percocet and Ativan since the surgery. Denies PMHx blood clots. - History of Current Complaint Stated Complaint: PAIN IN SHOULDER Time Seen by Provider: 11/15/16 07:24 Hx Obtained From: Patient Onset/Duration: Started Hours Ago, Still Present Severity Initially: Severe Severity Currently: Severe Pain Location: Shoulder - L Associated Signs & Symptoms: Positive: SOB, Nausea - Allergies/Home Medications Allergies/Adverse Reactions: Allergies Allergy/AdvReac Type Severity Reaction Status Date / Time No Known Allergies Allergy Verified 11/05/16 20:45 PMH/Surg Hx/FS Hx/Imm Hx Previously Healthy: No Endocrine/Hematology History: Denies: Hx Bone Marrow Disease, Hx Diabetes, Hx Sickle Cell Disease, Hx Anemia Cardiovascular History: Reports: Hx Hypertension Denies: Hx Angina, Hx Auto Implanted Cardiovert Defib, Hx Cardiac Arrest, Hx Congestive Heart Failure, Hx Pacemaker/ICD Respiratory History: Denies: Hx Asthma, Hx Chronic Obstructive Pulmonary Disease (COPD) GI History: Reports: Hx Gall Bladder Disease - cholcystectomy in 1992, Hx Irritable Bowel, Other GI Disorders - Gastric Stapling in 1995 Denies: Hx Cirrhosis, Hx Gastroesophageal Reflux Disease History: Denies: Hx Acute Renal Failure, Hx Dialysis, Hx Renal Disease Musculoskeletal History: Reports: Hx Arthritis Denies: Hx Gout Sensory History: Reports: Hx Contacts or Glasses Denies: Hx Deafness, Hx Hearing Aid Opthamlomology History: Reports: Hx Contacts or Glasses Neurological History: Reports: Hx Headaches, Hx Migraine Denies: Hx Seizures Psychiatric History: Reports: Hx Anxiety, Hx Depression, Hx Panic Disorder, Hx Post Traumatic Stress Disorder, Hx Inpatient Treatment, Hx Community Mental Health Tx, Hx Schizophrenia, Hx Bipolar Disorder, Hx Suicide Attempt Denies: Hx Eating Disorder, Hx of Violent Episodes Against Others - Surgical History Surgery Procedure, Year, and Place: gastric stapling- 1995. cholecystectomy- 1992 Hx Anesthesia Reactions: No - Immunization History Date of Tetanus Vaccine: Unknown - Family History Known Family History: Positive: Cardiac Disease, Hypertension - Social History Alcohol Use: None Hx Substance Use: No Substance Use Type: Reports: None Hx Tobacco Use: No Smoking Status (MU): Never Smoked Tobacco Review of Systems Constitutional: Negative Eyes: Negative ENT: Negative Cardiovascular: Negative Positive: Shortness Of Breath Positive: Nausea Genitourinary: Negative Positive: Arthralgia - L shoulder pain radiating down the arm. Skin: Negative Neurological: Negative Psychological: Normal All Other Systems Reviewed And Are Negative: Yes Physical Exam Triage Information Reviewed: Yes Vital Signs On Initial Exam: Initial Vitals Temp Pulse Resp BP Pulse Ox 98.5 F 76 18 110/73 94 11/15/16 07:26 11/15/16 07:26 11/15/16 07:26 11/15/16 07:26 11/15/16 07:26 Vital Signs Reviewed: Yes Appearance: Positive: Well-Appearing, Pain Distress - Moderate Skin: Positive: Warm, Skin Color Reflects Adequate Perfusion, Dry, Other - Dressing intact - clean and dry. Head/Face: Positive: Normal Head/Face Inspection Eyes: Positive: EOMI, BILLIE ENT: Positive: Normal ENT inspection Neck: Positive: Supple, Nontender Respiratory/Lung Sounds: Positive: Clear to Auscultation, Breath Sounds Present Cardiovascular: Positive: RRR, Other - Good radial pulses L side. Abdomen Description: Positive: Nontender, Soft Bowel Sounds: Positive: Present Musculoskeletal: Positive: Other - Tender @ whole L clavicle and into the L upper arm Neurological: Positive: Normal, Sensory/Motor Intact, Alert, Oriented to Person Place, Time Psychiatric: Positive: Normal, Affect/Mood Appropriate Diagnostics - Vital Signs Vital Signs Temp Pulse Resp BP Pulse Ox 11/15/16 13:03 18 11/15/16 13:00 74 92 11/15/16 12:30 71 99/60 93 11/15/16 12:00 73 109/60 88 11/15/16 11:30 95/73 11/15/16 11:00 71 92/50 96 11/15/16 10:46 78 90 11/15/16 10:45 100/26 11/15/16 10:40 16 11/15/16 09:00 74 116/60 91 11/15/16 08:51 18 11/15/16 08:30 74 104/56 91 11/15/16 08:00 69 126/64 94 11/15/16 07:55 18 11/15/16 07:53 68 117/60 93 11/15/16 07:33 79 96 11/15/16 07:26 98.5 F 76 18 110/73 94 - Laboratory Lab Results: Lab Results 11/15/16 11/15/16 11/15/16 Range/Units 07:47 07:47 07:47 WBC 8.0 (3.5-10.8) 10^3/ul RBC 3.35 L (4.0-5.4) 10^6/ul Hgb 10.5 L (12.0-16.0) g/dl Hct 32 L (35-47) % MCV 94 (80-97) fL MCH 31 (27-31) pg MCHC 33 (31-36) g/dl RDW 16 H (10.5-15) % Plt Count 328 (150-450) 10^3/ul MPV 7 L (7.4-10.4) um3 Absolute Neuts (auto) 4.1 (1.5-7.7) 10^3/ul Absolute Lymphs (auto) 2.5 (1.0-4.8) 10^3/ul Absolute Monos (auto) 0.8 (0-0.8) 10^3/ul Absolute Eos (auto) 0.4 (0-0.6) 10^3/ul Absolute Basos (auto) 0.1 (0-0.2) 10^3/ul Absolute Nucleated RBC 0 10^3/ul Neutrophils % 59 (38-83) % Lymphocytes % 28 (25-47) % Reactive Lymphs % 1 (0-6) % Monocytes % 6 (0-13) % Eosinophils % 5 (0-6) % Basophils % 1 (0-2) % Normal RBC Morphology Normal (Normal) Hem Pathologist Commnt Pending INR (Anticoag Therapy) 0.94 (0.89-1.11) APTT 23.1 L (26.0-36.3) seconds D-Dimer, Quantitative 783 H (Less Than 230) ng/mL Sodium 136 (133-145) mmol/L Potassium TNP Chloride 105 (101-111) mmol/L Carbon Dioxide 27 (22-32) mmol/L Anion Gap 4 (2-11) mmol/L BUN 11 (6-24) mg/dL Creatinine 0.73 (0.51-0.95) mg/dL Est GFR ( Amer) 104.2 (>60) Est GFR (Non-Af Amer) 81.0 (>60) BUN/Creatinine Ratio 15.1 (8-20) Glucose 83 (70-100) mg/dL Lactic Acid (0.5-2.0) mmol/L Calcium 9.0 (8.6-10.3) mg/dL Total Bilirubin 0.40 (0.2-1.0) mg/dL AST TNP ALT 14 (7-52) U/L Alkaline Phosphatase 95 (34-104) U/L Total Creatine Kinase 57 (10-223) U/L CK-MB (CK-2) 1.2 (0.6-6.3) ng/mL Troponin I 0.01 (<0.04) ng/mL C-Reactive Protein 9.25 H (< 5.00) mg/L Total Protein 6.4 (6.4-8.9) g/dL Albumin 3.6 (3.2-5.2) g/dL Globulin 2.8 (2-4) g/dL Albumin/Globulin Ratio 1.3 (1-3) 11/15/16 11/15/16 Range/Units 07:47 10:50 WBC (3.5-10.8) 10^3/ul RBC (4.0-5.4) 10^6/ul Hgb (12.0-16.0) g/dl Hct (35-47) % MCV (80-97) fL MCH (27-31) pg MCHC (31-36) g/dl RDW (10.5-15) % Plt Count (150-450) 10^3/ul MPV (7.4-10.4) um3 Absolute Neuts (auto) (1.5-7.7) 10^3/ul Absolute Lymphs (auto) (1.0-4.8) 10^3/ul Absolute Monos (auto) (0-0.8) 10^3/ul Absolute Eos (auto) (0-0.6) 10^3/ul Absolute Basos (auto) (0-0.2) 10^3/ul Absolute Nucleated RBC 10^3/ul Neutrophils % (38-83) % Lymphocytes % (25-47) % Reactive Lymphs % (0-6) % Monocytes % (0-13) % Eosinophils % (0-6) % Basophils % (0-2) % Normal RBC Morphology (Normal) Hem Pathologist Commnt INR (Anticoag Therapy) (0.89-1.11) APTT (26.0-36.3) seconds D-Dimer, Quantitative (Less Than 230) ng/mL Sodium (133-145) mmol/L Potassium 4.1 Chloride (101-111) mmol/L Carbon Dioxide (22-32) mmol/L Anion Gap (2-11) mmol/L BUN (6-24) mg/dL Creatinine (0.51-0.95) mg/dL Est GFR ( Amer) (>60) Est GFR (Non-Af Amer) (>60) BUN/Creatinine Ratio (8-20) Glucose (70-100) mg/dL Lactic Acid 0.6 (0.5-2.0) mmol/L Calcium (8.6-10.3) mg/dL Total Bilirubin (0.2-1.0) mg/dL AST 18 ALT (7-52) U/L Alkaline Phosphatase (34-104) U/L Total Creatine Kinase (10-223) U/L CK-MB (CK-2) (0.6-6.3) ng/mL Troponin I (<0.04) ng/mL C-Reactive Protein (< 5.00) mg/L Total Protein (6.4-8.9) g/dL Albumin (3.2-5.2) g/dL Globulin (2-4) g/dL Albumin/Globulin Ratio (1-3) Result Diagrams: 11/15/16 07:47 11/15/16 10:50 Lab Statement: Any lab studies that have been ordered have been reviewed, and results considered in the medical decision making process. - Radiology L CLAVICLE XR Xray Interpretation: Positive (See Comments) - ORIF LEFT CLAVICLE. NO EVIDENCE OF HARDWARE FAILURE. Radiology Interpretation Completed By: Radiologist - CT CHEST/THORAX CTA CT Interpretation: Positive (See Comments) - 1. No CT evidence of acute pulmonary embolic disease. 2. Mild mediastinal lymphadenopathy. 3. Solitary 1 cm right upper lobe mass. The bronchogenic carcinoma is not excluded. In light of the mediastinal lymphadenopathy and the small size of the lesion, consider PET imaging. 4. Subacute left-sided rib fractures. ORIF left clavicular fracture. 5. Cholecystectomy. Bariatric surgery. CT Interpretation Completed By: Radiologist - EKG 1 Cardiac Rate: NL EKG Rhythm: Sinus Rhythm - @ [address] Segment: Normal Ectopy: None EKG Interpretation: 09:31 Re-Evaluation - Re-Evaluation 1 Re-Evaluation Time: 10:45 Comment: Discussed CT results Course/Dx - Course Course Of Treatment: DR KHANNA SAW PATIENT IN ED. PAIN IMPROVED IN ED. - Diagnoses Provider Diagnoses: Shoulder pain - Physician Notifications Discussed Care of Patient With: Raffy Kraus Time Discussed With Above Provider: 10:38 Discharge - Discharge Plan Condition: Stable Disposition: HOME Patient Education Materials: Shoulder Pain (ED) Referrals: Thor SARABIA,Samantha Serrano [Primary Care Provider] - Additional Instructions: FOLLOW UP WITH YOUR DOCTOR. RETURN TO THE EMERGENCY DEPARTMENT FOR ANY WORSENING OF YOUR CONDITION OR QUESTIONS OR CONCERNS. The documentation as recorded by the Jyoti coulter Edward accurately reflects the service I personally performed and the decisions made by me, Epifanio Ortiz MD.
[2016-11-15 15:14] VITALS: BP 109/58
--- NOTE | 2016-11-16 01:46 | CONS ---
CONSULTATION REPORT: DATE OF CONSULT: 11/15/16 - EMERGENCY DEPT REASON FOR CONSULT: Left shoulder pain. HISTORY OF PRESENT ILLNESS: The patient is a 61-year-old woman, 8 days status post 11/07/16 open reduction and internal fixation in the left distal clavicle with an acromion hook plate, performed by me, who presents from [facility], complaining of increased left shoulder pain starting last night in the middle of the night. As I reviewed, the patient was transferred from [facility] to [facility] with the above-mentioned injury because of concerns about the patient's ability to manage the injury at home, a history of narcotic abuse, history of falls and some concerns about the safety of sending the patient home on her own. Therefore, the patient was admitted to [facility] and the procedure was done as an inpatient. Procedure and immediate postoperative course were entirely uncomplicated. The patient was then transferred to [facility]. The patient described sudden onset left shoulder pain at 1 a.m. waking the patient up at night, a twisting type pain about the superior and posterior left shoulder radiating slightly down the left upper arm. When she met the ER staff , she described this as 10/10 in severity. She stated that it was associated with nausea and shortness of breath. She described it to ER staff as the worst pain she has ever had. By the time I saw her, her pain was described as being similar to what it has been postoperatively. No recent falls since the surgery. PAST MEDICAL HISTORY: Migraines, depression, anxiety, chronic pain. PAST SURGICAL HISTORY: Open reduction and internal fixation, left lateral clavicle, 11/07/16, gastric bypass. MEDICATIONS: 1. Sulfacetamide. 2. Hydroxyzine. 3. Promethazine. 4. Bupropion XL. 5. Bupropion SR. 6. Ranitidine. 7. Fluoxetine. 8. Alprazolam. 9. Zolpidem. 10. Gabapentin. 11. Percocet p.r.n. 12. Senna p.r.n. 13. Milk of magnesia p.r.n. 14. Colace. 15. Keflex, completed on 11/12/16, so no longer taking. REVIEW OF SYSTEMS: The patient described some nausea and shortness of breath earlier in the day and overnight secondary to her discomfort. No skipped heartbeat. PHYSICAL EXAM: Vital sings at 7:26 a.m.; temperature 98.5 degrees Fahrenheit, pulse 76, blood pressure 110/73, respirations 18, pulse ox similarly shows 94% on room air. No acute distress, alert and oriented, appropriate mood and affect. Appropriate dress and hygiene. Non-antalgic gait. Well-coordinated bilateral upper and lower extremities. Left upper extremity is in a sling. The left incision was covered with a Tegaderm bandage. I removed this and the incision site is clean, dry and intact. Steri- Strips in place. No gapping of the surgical incision. No significant tenderness to palpation about the surgical incision. No erythema or warmth about the shoulder. One I got the patient to relax, I was able to rotate , range the shoulder to 20 degrees in each direction with no significant pain. Left upper extremity is neurovascularly intact distally with the exception of some decreased sensation just distal to the incision scar. The patient points to the posterosuperior shoulder as the location of her pain in that location. There is no soft tissue swelling or bruising nor is there soft tissue swelling or bruising elsewhere about the left shoulder or upper extremities. The patient seems comfortable in no acute distress whatsoever. DIAGNOSTIC STUDIES/LAB DATA: C-reactive protein 9.25, creatine kinase 57, CK- MB 1.2. White blood cell count 10.3. EKG showed normal sinus rhythm, was interpreted by the emergency department staff. Two x-ray views of the left shoulder or specifically, the left clavicle demonstrate hardware in place, correctly and fracture well reduced. A CT arteriogram was performed to evaluate for pulmonary embolus. It shows no pulmonary embolus. It showed mild mediastinal lymphadenopathy and a solitary 1 cm right upper lobe mass, subacute left-sided rib fractures and a plated clavicle fracture. Describes subacute nondisplaced 7th through 9th rib fractures. ASSESSMENT: 1. Recent left clavicle, lateral, open reduction internal fixation. 2. Chronic pain syndrome. PLAN: 1. Patient reassurance. 2, Continue sling at all times, although come out of it several times a day to move the elbow, forearm and wrist. 3. The patient should follow up with me in clinic approximately 2 weeks postoperatively for x-rays and a wound check. 4. The patient will continue taking Percocet as needed for pain. I have discussed with the ER staff that the patient can supplement this with oxycodone tablet as needed for breakthrough pain. 5. The patient will be discharged from the ED to [facility]. 6. No clear medical or orthopedic cause of the patient's current pain spike. [id number]/[facility] #: [id number] MTDD
== END 2016-11-15 15:14 | disposition home or self-care (01) ==
LOC: ED 07:22
DX: M25.512 Pain in left shoulder (principal); R06.02 Shortness of breath; R11.0 Nausea
CPT/HCPCS: 36415; 71275; 80053; 82550; 82553; 83605; 84484; 85025; 85060; 85379; 85610; 85730; 86140; 93005; 96374; 96375; 99283; A9270-GY; J1170; J2405; Q9967

== ENCOUNTER 2016-12-26 05:50 | Inpatient (IN) | payer BC, MEDICARE, MEDICAID ==
[2016-12-26] MEDS ORDERED: oxyCODONE/Acetamin 5/325 MG* TAB PO ONE ×2 (06:05→10:37)
[2016-12-26] MEDS ORDERED: NS 0.9% 1000 ML* 1,000 ML IV ONE (07:28)
[2016-12-26] MEDS ORDERED: Ketorolac INJ* 30 MG/ML 1 ML VIAL IV ONE (07:28)
--- NOTE | 2016-12-26 07:33 | RAD ---
INDICATION: Left shoulder injury COMPARISON: None TECHNIQUE: Multiple views were obtained. FINDINGS: There is no acute bony change. There is internal fixation of the left clavicle. There is no evidence of hardware failure. IMPRESSION: ORIF LEFT CLAVICULAR FRACTURE. NO EVIDENCE OF HARDWARE FAILURE.
[2016-12-26 08:00] LABS: Hematocrit 34 % (35-47); Hemoglobin 11.3 g/dl (12.0-16.0); Mean Corpuscular HGB Conc 33 g/dl (31-36); Mean Corpuscular Hemoglobin 30 pg (27-31); Mean Corpuscular Volume 90 fL (80-97); Mean Platelet Volume 7 um3 (7.4-10.4); Red Cell Distribution Width 15 % (10.5-15); White Blood Count 5.7 10^3/ul (3.5-10.8)
--- NOTE | 2016-12-26 08:11 | RAD ---
INDICATION: Dizziness COMPARISON: Chest x-ray 2016; CTA chest June 15, 2016 TECHNIQUE: An AP portable view obtained at 0758 hours is submitted. FINDINGS: Bones/Soft Tissues: There are no acute bony findings. There is ORIF of a left clavicle fracture Cardiomediastinal: The cardiomediastinal silhouette is normal. Lungs: There are no infiltrates. There is a 1 cm nodule in the right upper lobe as also described on the recent CT. Pleura: There are no pleural effusions. Other: None IMPRESSION: NO ACUTE FINDINGS. 1 CM RIGHT UPPER LOBE NODULE, UNCHANGED. PLEASE REFER TO EARLIER CT REPORT.
[2016-12-26 08:12] LABS: ALT 12 U/L (7-52); AST 22 U/L (13-39); Albumin 3.4 g/dL (3.2-5.2); Alkaline Phosphatase 105 U/L (34-104); Anion Gap 6 mmol/L (2-11); Blood Urea Nitrogen 9 mg/dL (6-24); C Reactive Protein 3.67 mg/L (< 5.00); CO2 Carbon Dioxide 25 mmol/L (22-32); Calcium 8.6 mg/dL (8.6-10.3); Chloride 107 mmol/L (101-111); Creatine Kinase 86 U/L (10-223); EGFR African American 111.2 (>60); EGFR Non-African American 86.5 (>60); Globulin 2.8 g/dL (2-4); Glucose 93 mg/dL (70-100); Lipase 30 U/L (11.0-82.0); Magnesium 1.8 mg/dL (1.9-2.7); Sodium 138 mmol/L (133-145); Total Protein 6.2 g/dL (6.4-8.9)
[2016-12-26 08:15] LABS: Troponin I 0.01 ng/mL (<0.04)
[2016-12-26 08:17] LABS: Acetaminophen < 15 mcg/mL; Alcohol < 10 mg/dL (<10)
--- NOTE | 2016-12-26 08:25 | RAD ---
INDICATION: Dizziness. Fall. COMPARISON: CT brain November 09, 2016 TECHNIQUE: Noncontrast axial source images were acquired from the skull base to the vertex. FINDINGS: Ventricles/sulci: The ventricles and cisterns are normal in size and configuration for age. Brain parenchyma: There is no acute focal parenchymal finding, evidence of intracranial mass, or intracranial mass effect. There is a subtle hypodensity in the anterior limb of the internal capsule on the right which could be secondary to a prior vascular insult. This is unchanged. Intracranial hemorrhage:None. Extra-axial spaces: There are no abnormal extra axial fluid collections or evidence of extra-axial mass. Calvarium: There is no calvarial fracture or other calvarial abnormality. Scalp: There is no evidence of scalp or extracalvarial soft tissue abnormality. Paranasal sinuses/mastoid: The paranasal sinuses and mastoid air cells are clear. Other: None. IMPRESSION: No acute findings.
[2016-12-26 08:32] LABS: TSH (Thyroid Stimulating Horm) 0.82 mcIU/mL (0.34-5.60)
[2016-12-26 09:00] LABS: Urine Bacteria Absent (Absent); Urine Bilirubin Negative (Negative); Urine Glucose Negative (Negative); Urine Nitrite Negative (Negative)
[2016-12-26] MEDS ORDERED: Gabapentin CAP(*) 400 MG PO ONE (10:36)
[2016-12-26] MEDS ORDERED: oxyCODONE/Acetamin 5/325 MG* TAB PO PRN (12:29)
[2016-12-26] MEDS ORDERED: Magnesium Sulfate 2 GM IV* 2 GM/50 ML BAG IVPB ONE (13:42)
[2016-12-26] MEDS: Gabapentin CAP(*) 400 MG PO SCH ×2 (13:59→20:29)
[2016-12-26] MEDS ORDERED: Sulfacetamide 10 % OPTH.SOL SCH (14:00)
[2016-12-26] MEDS: ALPRAZolam TAB* 0.5 MG PO PRN ×2 (14:33→20:27)
[2016-12-26] MEDS: Heparin VIAL(*) 5000 UNITS/ML VIAL (FIVE THOUSAND) SUBCUT SCH ×2 (14:36→21:28)
--- NOTE | 2016-12-26 15:43 | HP ---
CC: Dr. Rosario * HISTORY AND PHYSICAL: DATE OF ADMISSION: 12/26/16 PRIMARY CARE PROVIDER: Dr. Mcrae ATTENDING PHYSICIAN WHILE IN THE HOSPITAL: Elvia Orozco DO * (report dictated by Murphy Gray NP) CHIEF COMPLAINT: Fall. HISTORY OF PRESENT ILLNESS: Ms. Zimmerman is a 61-year-old female patient that in the middle of October was here with a fall thought maybe secondary to substance use. 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 She did not pass out. She had no chest pain prior to or after, but she fell and landed right on her left shoulder. She became anxious, was concerned, was able to get her phone and call 911 because she was instructed by her orthopedist that if she were to have any injury to this extremity, she should have it evaluated immediately, so she came into the ER today. She says that she has a significant amount of pain in the left shoulder which is the operative arm. She denies having any abdominal pain. She says that she does feel pretty anxious. She does state that the last couple of days she has had a headache, migraine, which she normally takes Percocet and Phenergan for and when she does get her migraines, she becomes nauseated and she has been having difficult times taking her pain medications. She again was evaluated in the ED. There was concern that the patient felt that she was not safe to go home. She signed half-way care paperwork and we were asked to evaluate for admission. PAST MEDICAL HISTORY: Significant for: 1. Migraines. 2. Depression. 3. Anxiety. 4. Chronic pain. PAST SURGICAL HISTORY: 1. She has had a gastric bypass with revision. 2. She has had an ORIF of the left clavicle. HOME MEDICATIONS: According to the last discharge and the patient states they have not changed since then included: 1. Bupropion 150 mg at bedtime and 300 mg in the morning. 2. Xanax 0.5 mg p.o. t.i.d. as needed. 3. Senna 2 tablets p.o. at bedtime as needed. 4. Zantac 150 mg p.o. daily. 5. Phenergan 25 mg p.o. b.i.d. as needed. 6. Milk of mag 30 mL p.o. b.i.d. as needed. 7. Neurontin 400 mg t.i.d. 8. Prozac 40 mg daily. 9. Colace 100 mg p.o. b.i.d. 10. Percocet 2 tablets every 4 hours as needed. 11. Atarax 25 mg p.o. b.i.d. 12. Ambien 12.5 mg p.o. at bedtime as needed. 13. Sulfacetamide 10% ophthalmic solution 1 drop t.i.d. to both eyes. ALLERGIES TO MEDICATIONS: Include no known drug allergies. FAMILY HISTORY: Both her parents had a heart attack. SOCIAL HISTORY: She does not smoke. She does not drink. She lives alone. Surrogate decision maker is her son, Manoj. REVIEW OF SYSTEMS: There is no documented fever. She denied any significant weight change. There was no double vision. She denies having any ear discharge. There was no rhinorrhea. No sore throat. No thyroid enlargement. Denies having any chest pain. There was no orthopnea. No nausea. No vomiting. No dysuria. There was no frequency. There was no loss of consciousness. There was no pruritus and no skin ulcerations. Review of 14 systems completed, all others were negative. PHYSICAL EXAMINATION GENERAL: At this time, Ms. Zimmerman is a 61-year-old female patient. She is sitting in the hospital bed. She does not appear to be in any acute distress. VITAL SIGNS: Blood pressure 141/68, pulse 84, respirations 18, O2 sat 96%, temperature 98.3. HEENT: Head is atraumatic, normocephalic. Eyes: EOMs are intact. Sclerae anicteric, not pale. NECK: Supple. Throat: Oral mucosa appears to be moist. No oropharyngeal erythema. LUNGS: Clear to auscultation. No wheezes, rales or rhonchi. HEART: Sounds S1 and S2. Regular rate and rhythm. No murmurs, rubs or gallops. ABDOMEN: Soft, flat. Nontender. Bowel sounds are present. EXTREMITIES: Pulses 2+ throughout. Distal CSM checks were intact to the left upper extremity. She had 5/5 strength with her handgrips bilaterally. She had no peripheral edema. NEUROLOGIC: She is awake, alert, she is oriented x3. Technology Adoption Manager are equal. She had no gross focal deficits. SKIN: Intact. She does have an incision to the left shoulder which is again well healed, approximated and clean, dry and intact. No erythema. LABORATORY DATA/IMAGING: Her labs today revealed WBC of 5.7, RBC of 3.0, hemoglobin 11.3, hematocrit 34, platelet count 269,000. INR 0.91, PTT of 31.3. Sodium was 138, potassium 4, chloride of 107, bicarb 25, BUN was 9, creatinine of 0.69, glucose 93, lactate 0.6, calcium 8.6, mag 1.8, total bilirubin 0.3, AST 22, ALT 12. Alk phos 105. CK 86, CK-MB 1. Troponin 0.01. BNP 52, albumin was 3.4. Urine showed 3+ leukocyte esterase, 1+ wbc. Toxicology was negative. She had multiple imaging in the ED. She had a brain CT obtained today which revealed no acute findings. She did have a chest x-ray as well which revealed no acute findings, 1 cm right upper lobe nodule unchanged. Please refer to prior CT imaging. She had a shoulder x-ray today as well, which showed ORIF left clavicular fracture and no evidence of hardware failure. Old medical records reviewed. ASSESSMENT AND PLAN: Ms. Zimmerman is a 61-year-old female patient presenting to our emergency department today with complaints of mechanical fall. While there , there was difficulty with pain control. In addition to this, there were safety issues for the patient. She felt like she was unsafe to go home and because of this, the patient requested being sent to the nursing facility. We were asked to evaluate the patient in admission. She will be admitted under half-way care for: 1. Status post fall. Again, it sounds like this is a mechanical fall. I do think that she will need evaluation from PT/OT which I did place for the patient. She will need continued followup with Orthopedics. We can touch base with Dr. Kraus on Wednesday at this point, as the x-ray appears to be benign. We will continue with pain control with her Percocet and we will continue again PT/OT efforts. 2. Migraines. Continue her meds as prescribed. She takes Percocet and Phenergan, I have ordered. 3. Anxiety, depression. Continue meds as prescribed. 4. History of chronic pain. I have ordered her medications. 5. DVT prophylaxis. She is high risk and will be placed on heparin subcu for prophylaxis. 6. Code status. Full code. 7. Low magnesium. I will replace this. TIME SPENT: Time spent on the admission was 60 minutes, greater than half the time was spent face to face with the patient obtaining my history and physical, the other half of the time was spent on going over the plan of care with the patient and implementing the plan of care. I did discuss the plan of care with my attending Dr. Orozco, she is in agreement. MURPHY GRAY, RENA [id number]/[facility] #: [id number] MARIANO
[2016-12-26] MEDS: BuPROPion XL* 150 MG TAB.XL PO SCH (16:46)
[2016-12-26] MEDS: oxyCODONE/Acetamin 5/325 MG* TAB PO PRN ×2 (16:46→20:28)
[2016-12-26] MEDS: Promethazine TAB* 25 MG PO PRN (18:34)
[2016-12-26] MEDS: Docusate CAP* 100 MG PO SCH (20:26)
[2016-12-26] MEDS: Zolpidem TAB* 10 MG PO PRN (20:27)
[2016-12-26] MEDS: hydrOXYzine HCL TAB* 25 MG PO SCH (20:28)
[2016-12-27] MEDS: oxyCODONE/Acetamin 5/325 MG* TAB PO PRN ×6 (01:48→21:59)
[2016-12-27] MEDS: Heparin VIAL(*) 5000 UNITS/ML VIAL (FIVE THOUSAND) SUBCUT SCH ×3 (06:04→21:59)
[2016-12-27] MEDS: ALPRAZolam TAB* 0.5 MG PO PRN ×3 (06:04→20:42)
[2016-12-27 06:11] LABS: Hematocrit 34 % (35-47); Hemoglobin 11.1 g/dl (12.0-16.0); Mean Corpuscular HGB Conc 32 g/dl (31-36); Mean Corpuscular Hemoglobin 30 pg (27-31); Mean Corpuscular Volume 92 fL (80-97); Mean Platelet Volume 7 um3 (7.4-10.4); Red Blood Count 3.75 10^6/ul (4.0-5.4); Red Cell Distribution Width 15 % (10.5-15)
[2016-12-27 06:38] LABS: BUN/Creatinine Ratio 14.3 (8-20); Calcium 8.5 mg/dL (8.6-10.3); EGFR African American 80.8 (>60); EGFR Non-African American 62.8 (>60)
[2016-12-27] MEDS: FLUoxetine CAP* 20 MG PO SCH (08:53)
[2016-12-27] MEDS: Gabapentin CAP(*) 400 MG PO SCH ×3 (08:53→20:42)
[2016-12-27] MEDS: Famotidine TAB* 20 MG PO SCH (08:53)
[2016-12-27] MEDS: hydrOXYzine HCL TAB* 25 MG PO SCH ×2 (08:54→20:42)
[2016-12-27] MEDS: BuPROPion XL* 300 MG TAB.XL PO SCH (08:54)
[2016-12-27] MEDS: Docusate CAP* 100 MG PO SCH ×2 (08:56→20:42)
[2016-12-27] MEDS: Diphenoxylat/Atrop 2.5-0.025M* 1 TAB PO PRN (09:00)
[2016-12-27] MEDS: Promethazine TAB* 25 MG PO PRN (10:20)
--- NOTE | 2016-12-27 15:57 | PN ---
Subjective Date of Service: 12/27/16 Interval History: Patient has no acute complaints overnight. Patient states he pain is stable and the current regimen is adequate. Patient understands that she is still admitted longterm and would like to talk to Dr Shore tomorrow before she goes home. Patient states she has a migraine which has been going on since and has been diminishing and has switched sides of he head from the right to the left which usually means it is almost complete in her experience. Family History: Unchanged from Admission Social History: Unchanged from Admission Past Medical History: Unchanged from Admission Objective Active Medications: Acetaminophen (Tylenol Tab*) 650 mg PO Q4H PRN PRN Reason: FEVER/PAIN Alprazolam (Xanax Tab*) 0.5 mg PO TID PRN PRN Reason: ANXIETY Last Admin: 12/27/16 13:58 Dose: 0.5 mg Bupropion HCl (Wellbutrin Xl *) 150 mg PO QPM [facility] PRN Reason: Protocol Last Admin: 12/26/16 16:46 Dose: 150 mg Bupropion HCl (Bupropion Xl*) 300 mg PO QAM [facility] Last Admin: 12/27/16 08:54 Dose: 300 mg Diphenoxylate HCl/Atropine (Lomotil Tab*) 2 tab PO BID PRN PRN Reason: DIARRHEA Last Admin: 12/27/16 09:00 Dose: 2 tab Docusate Sodium (Colace Cap*) 100 mg PO BID [facility] Last Admin: 12/27/16 08:56 Dose: Not Given Famotidine (Pepcid Tab*) 20 mg PO DAILY [facility] PRN Reason: Protocol Last Admin: 12/27/16 08:53 Dose: 20 mg Fluoxetine HCl (Prozac Cap*) 40 mg PO DAILY [facility] Last Admin: 12/27/16 08:53 Dose: 40 mg Gabapentin (Neurontin Cap(*)) 400 mg PO TID [facility] Last Admin: 12/27/16 13:58 Dose: 400 mg Heparin Sodium (Porcine) (Heparin Vial(*)) 5,000 units SUBCUT Q8HR [facility] Last Admin: 12/27/16 13:59 Dose: 5,000 units Hydroxyzine HCl (Atarax Tab*) 25 mg PO BID [facility] Last Admin: 12/27/16 08:54 Dose: 25 mg Ondansetron HCl (Zofran Inj*) 4 mg IV Q6H PRN PRN Reason: NAUSEA Oxycodone/Acetaminophen (Percocet 5/325 Tab*) 2 tab PO Q4H PRN PRN Reason: PAIN Last Admin: 12/27/16 13:57 Dose: 2 tab Promethazine HCl (Phenergan Tab*) 25 mg PO BID PRN PRN Reason: NAUSEA Last Admin: 12/27/16 10:20 Dose: 25 mg Zolpidem Tartrate (Ambien Tab*) 10 mg PO BEDTIME PRN PRN Reason: INSOMNIA Last Admin: 12/26/16 20:27 Dose: 10 mg Vital Signs 12/26/16 12/26/16 12/26/16 15:50 16:46 19:10 Temperature 98.1 F Pulse Rate 70 Respiratory 16 18 16 Rate Blood Pressure 113/59 (mmHg) O2 Sat by Pulse 94 Oximetry 12/26/16 12/26/16 12/26/16 20:00 20:11 20:27 Temperature 98.0 F Pulse Rate 73 Respiratory 16 18 106 Rate Blood Pressure 99/48 (mmHg) O2 Sat by Pulse 97 Oximetry 12/26/16 12/26/16 12/26/16 20:28 20:29 22:27 Temperature Pulse Rate Respiratory 16 16 16 Rate Blood Pressure (mmHg) O2 Sat by Pulse Oximetry 12/26/16 12/26/16 12/27/16 22:28 23:42 00:00 Temperature 98.3 F Pulse Rate 81 Respiratory 16 16 Rate Blood Pressure 98/49 (mmHg) O2 Sat by Pulse 95 95 Oximetry 12/27/16 12/27/16 12/27/16 01:48 03:26 03:48 Temperature 98.2 F Pulse Rate 80 Respiratory 16 16 16 Rate Blood Pressure 102/35 (mmHg) O2 Sat by Pulse 95 Oximetry 12/27/16 12/27/16 12/27/16 06:04 06:05 08:00 Temperature Pulse Rate Respiratory 18 18 20 Rate Blood Pressure (mmHg) O2 Sat by Pulse Oximetry 12/27/16 12/27/16 12/27/16 08:30 08:45 08:53 Temperature 98.2 F 97.8 F Pulse Rate 72 71 Respiratory 14 14 20 Rate Blood Pressure 97/75 93/51 (mmHg) O2 Sat by Pulse 95 96 Oximetry 10/04/1412/27/16 12/27/16 09:00 09:19 09:58 Temperature Pulse Rate Respiratory 20 18 Rate Blood Pressure (mmHg) O2 Sat by Pulse 96 Oximetry 12/27/16 12/27/16 12/27/16 11:50 12:00 13:57 Temperature 99.3 F Pulse Rate 71 Respiratory 18 14 20 Rate Blood Pressure 91/58 (mmHg) O2 Sat by Pulse 96 Oximetry 12/27/16 13:58 Temperature Pulse Rate Respiratory 20 Rate Blood Pressure (mmHg) O2 Sat by Pulse Oximetry Oxygen Devices in Use Now: None Appearance: Patient is a 61yo female who appears stated age and is anxiously sitting in the bed with constant fidgeting movement. Eyes: No Scleral Icterus, PERRLA Ears/Nose/Mouth/Throat: NL Teeth, Lips, Gums, Clear Oropharnyx, Mucous Membranes Moist Neck: NL Appearance and Movements; NL JVP, Trachea Midline Respiratory: Symmetrical Chest Expansion and Respiratory Effort, Clear to Auscultation Cardiovascular: NL Sounds; No Murmurs; No JVD, No Edema Abdominal: NL Sounds; No Tenderness; No Distention, No Hepatosplenomegaly Lymphatic: No Cervical Adenopathy Extremities: No Edema, No Clubbing, Cyanosis Skin: No Rash or Ulcers, - - Well healed surgical incision over left clavicle without deformity or inflammation or ecchymosis. Severe pain with palpation. Neurological: Alert and Oriented x 3, NL Sensation, NL Muscle Strength and Tone Result Diagrams: 12/27/16 05:56 12/27/16 05:56 Additional Lab and Data: 12/26/16 12/26/16 12/26/16 07:32 07:32 07:32 WBC RBC Hgb Hct MCV MCH MCHC RDW Plt Count MPV Neut % (Auto) Lymph % (Auto) [place] % (Auto) Eos % (Auto) Baso % (Auto) Absolute Neuts (auto) Absolute Lymphs (auto) Absolute Monos (auto) Absolute Eos (auto) Absolute Basos (auto) Absolute Nucleated RBC Nucleated RBC % INR (Anticoag Therapy) 0.91 APTT 31.3 Sodium 138 Potassium 4.0 Chloride 107 Carbon Dioxide 25 Anion Gap 6 BUN 9 Creatinine 0.69 Est GFR ( Amer) 111.2 Est GFR (Non-Af Amer) 86.5 BUN/Creatinine Ratio 13.0 Glucose 93 Lactic Acid Calcium 8.6 Magnesium 1.8 L Total Bilirubin 0.30 AST 22 ALT 12 Alkaline Phosphatase 105 H Total Creatine Kinase 86 CK-MB (CK-2) 1.0 Troponin I 0.01 C-Reactive Protein 3.67 B-Natriuretic Peptide 52 Total Protein 6.2 L Albumin 3.4 Globulin 2.8 Albumin/Globulin Ratio 1.2 Lipase 30 TSH 0.82 Urine Color Urine Appearance Urine pH Ur Specific [place] Urine Protein Urine Ketones Urine Blood Urine Nitrate Urine Bilirubin Urine Urobilinogen Ur Leukocyte Esterase Urine WBC (Auto) Urine RBC (Auto) Ur Squamous Epith Cells Urine Bacteria Urine Glucose Acetaminophen < 15 Serum Alcohol < 10 12/26/16 12/26/16 12/26/16 07:32 07:32 08:06 WBC 5.7 RBC 3.80 L Hgb 11.3 L Hct 34 L MCV 90 MCH 30 MCHC 33 RDW 15 Plt Count 269 MPV 7 L Neut % (Auto) 69.5 Lymph % (Auto) 20.3 L [place] % (Auto) 7.9 Eos % (Auto) 1.9 Baso % (Auto) 0.4 Absolute Neuts (auto) 3.9 Absolute Lymphs (auto) 1.1 Absolute Monos (auto) 0.4 Absolute Eos (auto) 0.1 Absolute Basos (auto) 0 Absolute Nucleated RBC 0 Nucleated RBC % 0 INR (Anticoag Therapy) APTT Sodium Potassium Chloride Carbon Dioxide Anion Gap BUN Creatinine Est GFR ( Amer) Est GFR (Non-Af Amer) BUN/Creatinine Ratio Glucose Lactic Acid 0.6 Calcium Magnesium Total Bilirubin AST ALT Alkaline Phosphatase Total Creatine Kinase CK-MB (CK-2) Troponin I C-Reactive Protein B-Natriuretic Peptide Total Protein Albumin Globulin Albumin/Globulin Ratio Lipase TSH Urine Color Yellow Urine Appearance Clear Urine pH 7.0 Ur Specific [place] 1.010 Urine Protein Negative Urine Ketones Negative Urine Blood Negative Urine Nitrate Negative Urine Bilirubin Negative Urine Urobilinogen Negative Ur Leukocyte Esterase 3+ H Urine WBC (Auto) 1+(6-10/hpf) H Urine RBC (Auto) Trace(0-2/hpf) Ur Squamous Epith Cells Present H Urine Bacteria Absent Urine Glucose Negative Acetaminophen Serum Alcohol 12/26/16 12/27/16 12/27/16 16:46 05:56 05:56 WBC 8.0 RBC 3.75 L Hgb 11.1 L Hct 34 L MCV 92 MCH 30 MCHC 32 RDW 15 Plt Count 272 MPV 7 L Neut % (Auto) 79.1 Lymph % (Auto) 14.7 L [place] % (Auto) 4.4 Eos % (Auto) 1.4 Baso % (Auto) 0.4 Absolute Neuts (auto) 6.3 Absolute Lymphs (auto) 1.2 Absolute Monos (auto) 0.4 Absolute Eos (auto) 0.1 Absolute Basos (auto) 0 Absolute Nucleated RBC 0 Nucleated RBC % 0 INR (Anticoag Therapy) APTT 33.9 Sodium 140 Potassium 4.0 Chloride 108 Carbon Dioxide 28 Anion Gap 4 BUN 13 Creatinine 0.91 Est GFR ( Amer) 80.8 Est GFR (Non-Af Amer) 62.8 BUN/Creatinine Ratio 14.3 Glucose 83 Lactic Acid Calcium 8.5 L Magnesium Total Bilirubin AST ALT Alkaline Phosphatase Total Creatine Kinase CK-MB (CK-2) Troponin I C-Reactive Protein B-Natriuretic Peptide Total Protein Albumin Globulin Albumin/Globulin Ratio Lipase TSH Urine Color Urine Appearance Urine pH Ur Specific [place] Urine Protein Urine Ketones Urine Blood Urine Nitrate Urine Bilirubin Urine Urobilinogen Ur Leukocyte Esterase Urine WBC (Auto) Urine RBC (Auto) Ur Squamous Epith Cells Urine Bacteria Urine Glucose Acetaminophen Serum Alcohol Assess/Plan/Problems-Billing Assessment: Patient is S/P fall on previously repaired clavicle with increased pain but no damage per CT scan. Patient is admitted longterm because she would like to talk to Dr. Shore tomorrow. - Patient Problems (1) Closed left clavicular fracture Current Visit: No Status: Acute Code(s): S42.002A - FRACTURE OF UNSP PART OF LEFT CLAVICLE, INIT FOR CLOS FX SNOMED Code(s): 77362340 Comment: No signs of deformity or damage on exam or CT scan. Will hopefully see Dr. Shore tomorrow and then be able to feel safe with discharge home. (2) Falls Current Visit: No Status: Acute Comment: Most recent fall mechanical with a significant workup showing no new injury. Status and Disposition: Patient is longterm and will hopefully be able to be discharged tomorrow.
[2016-12-27] MEDS: BuPROPion XL* 150 MG TAB.XL PO SCH (17:49)
[2016-12-27] MEDS: Zolpidem TAB* 10 MG PO PRN (21:59)
[2016-12-28] MEDS: Promethazine TAB* 25 MG PO PRN ×2 (00:34→10:59)
[2016-12-28] MEDS: oxyCODONE/Acetamin 5/325 MG* TAB PO PRN ×5 (01:59→20:22)
[2016-12-28] MEDS: Ondansetron INJ* 2 MG/ML VIAL IV PRN (04:05)
[2016-12-28] MEDS: ALPRAZolam TAB* 0.5 MG PO PRN ×2 (05:14→13:18)
[2016-12-28] MEDS: Heparin VIAL(*) 5000 UNITS/ML VIAL (FIVE THOUSAND) SUBCUT SCH ×3 (05:54→20:23)
[2016-12-28] MEDS: BuPROPion XL* 300 MG TAB.XL PO SCH (10:58)
[2016-12-28] MEDS: Famotidine TAB* 20 MG PO SCH (10:59)
[2016-12-28] MEDS: hydrOXYzine HCL TAB* 25 MG PO SCH ×2 (10:59→20:22)
[2016-12-28] MEDS: FLUoxetine CAP* 20 MG PO SCH (10:59)
[2016-12-28] MEDS: Gabapentin CAP(*) 400 MG PO SCH ×3 (11:00→20:22)
[2016-12-28] MEDS: Docusate CAP* 100 MG PO SCH ×2 (11:01→20:22)
[2016-12-28] MEDS: Diphenoxylat/Atrop 2.5-0.025M* 1 TAB PO PRN (11:10)
[2016-12-28] MEDS: BuPROPion XL* 150 MG TAB.XL PO SCH (17:42)
--- NOTE | 2016-12-28 18:18 | PN ---
Subjective Date of Service: 12/28/16 Interval History: Talked with patient and she states she is still insisting on talking with Dr. Shore in person before she will make a decision on Home vs [facility] vs SNF. Patient states this is because of decreased ROM and increased pain in shoulder. Patient insists this meeting be in person. Talked to Dr. Shore and he said he will attempt to get in to see the patient, but will see her at the latest on Wednesday. Patient states she would like to stay long term care until she sees him even if it means waiting until wednesday. Patient is very anxious about making this decision. Patient fell in the morning when getting up without help because her "legs gave out from under her" and hit tailbone and left leg but has no new complaints or pain. Family History: Unchanged from Admission Social History: Unchanged from Admission Past Medical History: Unchanged from Admission Objective Active Medications: Acetaminophen (Tylenol Tab*) 650 mg PO Q4H PRN PRN Reason: FEVER/PAIN Alprazolam (Xanax Tab*) 0.5 mg PO TID PRN PRN Reason: ANXIETY Last Admin: 12/28/16 13:18 Dose: 0.5 mg Bupropion HCl (Wellbutrin Xl *) 150 mg PO QPM [facility] PRN Reason: Protocol Last Admin: 12/28/16 17:42 Dose: 150 mg Bupropion HCl (Bupropion Xl*) 300 mg PO QAM [facility] Last Admin: 12/28/16 10:58 Dose: 300 mg Diphenoxylate HCl/Atropine (Lomotil Tab*) 2 tab PO BID PRN PRN Reason: DIARRHEA Last Admin: 12/28/16 11:10 Dose: 2 tab Docusate Sodium (Colace Cap*) 100 mg PO BID [facility] Last Admin: 12/28/16 11:01 Dose: Not Given Famotidine (Pepcid Tab*) 20 mg PO DAILY [facility] PRN Reason: Protocol Last Admin: 12/28/16 10:59 Dose: 20 mg Fluoxetine HCl (Prozac Cap*) 40 mg PO DAILY [facility] Last Admin: 12/28/16 10:59 Dose: 40 mg Gabapentin (Neurontin Cap(*)) 400 mg PO TID [facility] Last Admin: 12/28/16 13:18 Dose: 400 mg Heparin Sodium (Porcine) (Heparin Vial(*)) 5,000 units SUBCUT Q8HR [facility] Last Admin: 12/28/16 13:23 Dose: 5,000 units Hydroxyzine HCl (Atarax Tab*) 25 mg PO BID [facility] Last Admin: 12/28/16 10:59 Dose: 25 mg Ondansetron HCl (Zofran Inj*) 4 mg IV Q6H PRN PRN Reason: NAUSEA Last Admin: 12/28/16 04:05 Dose: 4 mg Oxycodone/Acetaminophen (Percocet 5/325 Tab*) 2 tab PO Q4H PRN PRN Reason: PAIN Last Admin: 12/28/16 15:52 Dose: 2 tab Promethazine HCl (Phenergan Tab*) 25 mg PO BID PRN PRN Reason: NAUSEA Last Admin: 12/28/16 10:59 Dose: 25 mg Zolpidem Tartrate (Ambien Tab*) 10 mg PO BEDTIME PRN PRN Reason: INSOMNIA Last Admin: 12/27/16 21:59 Dose: 10 mg Vital Signs 12/27/16 12/27/16 12/27/16 19:49 20:00 20:16 Temperature 98.2 F Pulse Rate 73 Respiratory 18 18 24 Rate Blood Pressure 101/49 (mmHg) O2 Sat by Pulse 99 Oximetry 12/27/16 12/27/16 12/27/16 20:42 21:59 22:42 Temperature Pulse Rate Respiratory 18 16 18 Rate Blood Pressure (mmHg) O2 Sat by Pulse Oximetry 12/27/16 12/27/16 12/28/16 23:45 23:59 01:59 Temperature 98.0 F Pulse Rate 67 Respiratory 16 18 16 Rate Blood Pressure 95/45 (mmHg) O2 Sat by Pulse 96 Oximetry 12/28/16 12/28/16 12/28/16 03:59 05:14 05:55 Temperature Pulse Rate Respiratory 16 16 18 Rate Blood Pressure (mmHg) O2 Sat by Pulse Oximetry 12/28/16 12/28/16 12/28/16 07:14 07:55 07:59 Temperature 98.0 F Pulse Rate 67 Respiratory 16 12 18 Rate Blood Pressure 101/41 (mmHg) O2 Sat by Pulse 98 Oximetry 12/28/16 12/28/16 12/28/16 08:10 10:58 11:00 Temperature 98.0 F Pulse Rate 74 Respiratory 16 16 16 Rate Blood Pressure 102/68 (mmHg) O2 Sat by Pulse Oximetry 12/28/16 12/28/16 12/28/16 11:10 12:58 13:00 Temperature Pulse Rate Respiratory 14 13 12 Rate Blood Pressure (mmHg) O2 Sat by Pulse Oximetry 12/28/16 12/28/16 12/28/16 13:10 13:18 15:18 Temperature Pulse Rate Respiratory 16 16 14 Rate Blood Pressure (mmHg) O2 Sat by Pulse Oximetry 12/28/16 15:52 Temperature Pulse Rate Respiratory 18 Rate Blood Pressure (mmHg) O2 Sat by Pulse Oximetry Oxygen Devices in Use Now: None Appearance: Patient is a 61yo female who appears stated age, is sitting with a left arm immobilizer sling on, is constantly fidgeting and appears visibly anxious. Eyes: No Scleral Icterus, PERRLA Ears/Nose/Mouth/Throat: NL Teeth, Lips, Gums, Clear Oropharnyx, Mucous Membranes Moist Respiratory: Symmetrical Chest Expansion and Respiratory Effort, Clear to Auscultation Cardiovascular: NL Sounds; No Murmurs; No JVD, RRR, No Edema Abdominal: NL Sounds; No Tenderness; No Distention, No Hepatosplenomegaly Extremities: No Edema, No Clubbing, Cyanosis Skin: - - Well healed surgical scar on left clavicle stable from yesterday. Neurological: Alert and Oriented x 3 Result Diagrams: 12/27/16 05:56 12/27/16 05:56 Additional Lab and Data: 12/26/16 12/26/16 12/26/16 07:32 07:32 07:32 WBC RBC Hgb Hct MCV MCH MCHC RDW Plt Count MPV Neut % (Auto) Lymph % (Auto) [place] % (Auto) Eos % (Auto) Baso % (Auto) Absolute Neuts (auto) Absolute Lymphs (auto) Absolute Monos (auto) Absolute Eos (auto) Absolute Basos (auto) Absolute Nucleated RBC Nucleated RBC % INR (Anticoag Therapy) 0.91 APTT 31.3 Sodium 138 Potassium 4.0 Chloride 107 Carbon Dioxide 25 Anion Gap 6 BUN 9 Creatinine 0.69 Est GFR ( Amer) 111.2 Est GFR (Non-Af Amer) 86.5 BUN/Creatinine Ratio 13.0 Glucose 93 Lactic Acid Calcium 8.6 Magnesium 1.8 L Total Bilirubin 0.30 AST 22 ALT 12 Alkaline Phosphatase 105 H Total Creatine Kinase 86 CK-MB (CK-2) 1.0 Troponin I 0.01 C-Reactive Protein 3.67 B-Natriuretic Peptide 52 Total Protein 6.2 L Albumin 3.4 Globulin 2.8 Albumin/Globulin Ratio 1.2 Lipase 30 TSH 0.82 Urine Color Urine Appearance Urine pH Ur Specific [place] Urine Protein Urine Ketones Urine Blood Urine Nitrate Urine Bilirubin Urine Urobilinogen Ur Leukocyte Esterase Urine WBC (Auto) Urine RBC (Auto) Ur Squamous Epith Cells Urine Bacteria Urine Glucose Acetaminophen < 15 Serum Alcohol < 10 12/26/16 12/26/16 12/26/16 07:32 07:32 08:06 WBC 5.7 RBC 3.80 L Hgb 11.3 L Hct 34 L MCV 90 MCH 30 MCHC 33 RDW 15 Plt Count 269 MPV 7 L Neut % (Auto) 69.5 Lymph % (Auto) 20.3 L [place] % (Auto) 7.9 Eos % (Auto) 1.9 Baso % (Auto) 0.4 Absolute Neuts (auto) 3.9 Absolute Lymphs (auto) 1.1 Absolute Monos (auto) 0.4 Absolute Eos (auto) 0.1 Absolute Basos (auto) 0 Absolute Nucleated RBC 0 Nucleated RBC % 0 INR (Anticoag Therapy) APTT Sodium Potassium Chloride Carbon Dioxide Anion Gap BUN Creatinine Est GFR ( Amer) Est GFR (Non-Af Amer) BUN/Creatinine Ratio Glucose Lactic Acid 0.6 Calcium Magnesium Total Bilirubin AST ALT Alkaline Phosphatase Total Creatine Kinase CK-MB (CK-2) Troponin I C-Reactive Protein B-Natriuretic Peptide Total Protein Albumin Globulin Albumin/Globulin Ratio Lipase TSH Urine Color Yellow Urine Appearance Clear Urine pH 7.0 Ur Specific [place] 1.010 Urine Protein Negative Urine Ketones Negative Urine Blood Negative Urine Nitrate Negative Urine Bilirubin Negative Urine Urobilinogen Negative Ur Leukocyte Esterase 3+ H Urine WBC (Auto) 1+(6-10/hpf) H Urine RBC (Auto) Trace(0-2/hpf) Ur Squamous Epith Cells Present H Urine Bacteria Absent Urine Glucose Negative Acetaminophen Serum Alcohol 12/26/16 12/27/16 12/27/16 16:46 05:56 05:56 WBC 8.0 RBC 3.75 L Hgb 11.1 L Hct 34 L MCV 92 MCH 30 MCHC 32 RDW 15 Plt Count 272 MPV 7 L Neut % (Auto) 79.1 Lymph % (Auto) 14.7 L [place] % (Auto) 4.4 Eos % (Auto) 1.4 Baso % (Auto) 0.4 Absolute Neuts (auto) 6.3 Absolute Lymphs (auto) 1.2 Absolute Monos (auto) 0.4 Absolute Eos (auto) 0.1 Absolute Basos (auto) 0 Absolute Nucleated RBC 0 Nucleated RBC % 0 INR (Anticoag Therapy) APTT 33.9 Sodium 140 Potassium 4.0 Chloride 108 Carbon Dioxide 28 Anion Gap 4 BUN 13 Creatinine 0.91 Est GFR ( Amer) 80.8 Est GFR (Non-Af Amer) 62.8 BUN/Creatinine Ratio 14.3 Glucose 83 Lactic Acid Calcium 8.5 L Magnesium Total Bilirubin AST ALT Alkaline Phosphatase Total Creatine Kinase CK-MB (CK-2) Troponin I C-Reactive Protein B-Natriuretic Peptide Total Protein Albumin Globulin Albumin/Globulin Ratio Lipase TSH Urine Color Urine Appearance Urine pH Ur Specific [place] Urine Protein Urine Ketones Urine Blood Urine Nitrate Urine Bilirubin Urine Urobilinogen Ur Leukocyte Esterase Urine WBC (Auto) Urine RBC (Auto) Ur Squamous Epith Cells Urine Bacteria Urine Glucose Acetaminophen Serum Alcohol Assess/Plan/Problems-Billing Assessment: Patient is S/P fall on previously repaired clavicle with increased pain but no damage per X ray. Patient is admitted long term because she would like to talk to Dr. Shore when available despite him saying he is happy with how her shoulder looks on the Xray and the reports from the ED and hospital. - Patient Problems (1) Closed left clavicular fracture Current Visit: No Status: Acute Code(s): S42.002A - FRACTURE OF UNSP PART OF LEFT CLAVICLE, INIT FOR CLOS FX SNOMED Code(s): 97689393 Comment: No signs of deformity or damage on exam or CT scan. Will hopefully see Dr. Shore tomorrow and then be able to feel safe with discharge home. (2) Falls Current Visit: No Status: Acute Comment: New fall today with no new injury from "legs giving out from under her." Leg strength preserved on exam. Possibly related to anxiety. Would recommend STR or assisted living for patient. Status and Disposition: Patient is long term and is currently fixated on talking to Dr. Shore before making any discharge decisions. Will hopefully be able to come into hospital in next couple days and patient will be able to make a decision about discharge.
[2016-12-28] MEDS: Zolpidem TAB* 10 MG PO PRN (20:22)
--- NOTE | 2016-12-28 23:10 | CONS ---
CONSULTATION NOTE: DATE OF CONSULT/DICTATION: 12/28/16 REASON FOR CONSULTATION: The patient requested to see me, recent fall with left shoulder pain. HISTORY: The patient is a 61-year-old woman with a past medical history significant for depression, anxiety, chronic pain and migraines, who is 7 weeks and 1 day status post 11/07/16 open reduction internal fixation left lateral clavicle fracture with an acromial hook plate, performed by me, who presented to [facility] on 12/26/16, two days ago, was admitted to the hospitalist service, and specifically requested to see me, not wanting to be discharged and in fact refusing to be discharged prior to seeing me. Review, the patient lives alone with history of psychiatric problems as well as substance abuse problems. She injured herself on 11/05/16 and the patient could not be admitted to [facility] because of her medical and psychiatric problems. Therefore, she was transferred to [facility] where she was an inpatient. I saw the patient in consultation, discussed nonoperative versus operative treatment and we decided to proceed forward with operative treatment. The procedure occurred on 11/07/16 without complications and the patient was discharged on 11/10/16 to [facility] for rehabilitation stay. The patient has seen me in the office for postoperative followup where I have had no concerns regarding the patient's plate position or wound. The patient was actually scheduled to see me in clinic this morning. She missed that appointment. Epifanio Tomlinson, physician central supply assistant for the hospitalist service, called me this morning and informed me that the patient had been admitted over the weekend after a fall and that she was explicitly requesting to see me. I offered my cell phone number to speak to the patient by phone and the patient refused. She wanted me to see me in person and speak with me about her shoulder. The patient ambulates with a cane. The patient states that on 12/26/16, while reaching to grab her cane while in the vicinity of the toilet, the patient lost her balance and fell, directly on to the left shoulder. The patient called 911 and presented to the emergency department. The patient did not feel that she was safe to go home. Upon being asked about it today, the patient states that her legs just gave out without warning. There was not necessarily a trip or mechanical nature to the fall. The patient felt that she was unsafe and that she would sustain additional falls at home. The patient was admitted for PT and OT evaluations. She was continued on her migraine, anxiety and depression meds. She was placed on heparin subcu for DVT prophylaxis, made full code, magnesium was replaced. The patient was given Toradol for pain control in the emergency department and on the floor, was given Percocet. The patient reports that with physical therapy, her range of motion and level of pain had improved significantly prior to this fall, but that she feels increased pain since the fall as well as decreased range of motion. PAST MEDICAL HISTORY: Migraines, depression, anxiety, chronic pain, substance abuse. PAST SURGICAL HISTORY: Gastric bypass with revision, open reduction and internal fixation, left clavicle with acromion hook plate. HOME MEDICATIONS: 1. Bupropion. 2. Xanax as needed. 3. Senna as needed. 4. Zantac. 5. Phenergan p.r.n. 6. Milk of magnesia p.r.n. 7. Neurontin. 8. Prozac. 9. Colace. 10. Percocet p.r.n. 11. Atarax. 12. Ambien p.r.n. 13. Sulfacetamide 10% ophthalmic solution. ALLERGIES: No known drug allergies. SOCIAL HISTORY: The patient does not smoke, does not drink. Her surrogate decision maker is her son, Manoj. REVIEW OF SYSTEMS: The patient denies any current headache, fever, sweats, chills, chest pain, palpitations, shortness of breath, nausea, vomiting or diarrhea or abdominal pain. PHYSICAL EXAMINATION: Vitals at 8:10 a.m. on 12/28/16 were temperature 98.0 degrees Fahrenheit, pulse 74, respiratory rate 16, blood pressure 102/68, respiratory rate more recently at 3:52 p.m. was 18. No acute distress. The patient appears comfortable. She is lying in a bed on a patient floor. Appropriate dress and hygiene for an inpatient, appropriate mood and affect, I did not assess patient's gait as she was lying supine and then seated in bed. Left shoulder exam shows no significant soft tissue swelling or bruising. The surgical incision scar is barely visible. There is no opening to it or drainage. No significant tenderness to palpation about the fracture site, although there is some generalized mild global tenderness to palpation about the shoulder. Passive range of motion of the shoulder and some discomfort but I was able to get the patient to 120 degrees of forward flexion, 90 degrees of external and 80 degrees of internal rotation. Neurovascularly intact distally. IMAGING STUDIES: I reviewed x-rays of the left shoulder and clavicle from 12/26. They show acromion hook plate in place. There is no clear fracture of the acromion, of course my first worry. There is still lucency visible at the fracture site. Some of the views certainly worried me for possible hook displacement superiorly but other views that were more clearly AP views of the shoulder and clavicle showed hook firmly in place inferior to the acromion. ASSESSMENT: 1. Status post open reduction internal fixation left lateral clavicle fracture with acromion hook plate. 2. Left shoulder contusion. PLAN: 1. Reassurance. I told the patient that the acromion hook plate still appears to be in place. 2. I am concerned about the patient's recurrent falls despite using a cane and her possibility for additional falls on to the left shoulder that might eventually lead to something such as an acromion fracture, for which there is no good treatment, something I have discussed with the patient since preoperative discussions. Therefore, if the patient needs a walker, I think it would be an excellent idea for her to use a walker rather than a cane. I am okay with her being partial weight-bearing, left upper extremity as tolerated by discomfort. 3. The patient can wean out of her sling, left upper extremity as tolerated as she is now over 6 weeks postoperative. 4. I would like to see the patient in clinic in 2 weeks with 2 x-rays of the left clavicle. 5. I discussed the timeline for plate removal, which I told the patient would be 5 to 6 months postoperative after the first procedure. 6. I deferred to the patient, occupational therapy and the hospitalist service regarding placement of this patient, whether her being discharged to home or to a nursing facility would be safest given her multiple medical and psychiatric problems and her current fall risk. [id number]/CPS #: [id number] MARIANO
[2016-12-29] MEDS: oxyCODONE/Acetamin 5/325 MG* TAB PO PRN ×5 (00:59→18:31)
[2016-12-29] MEDS: Promethazine TAB* 25 MG PO PRN (02:43)
[2016-12-29] MEDS: Heparin VIAL(*) 5000 UNITS/ML VIAL (FIVE THOUSAND) SUBCUT SCH ×3 (05:08→20:23)
[2016-12-29 05:30] LABS: Hematocrit 32 % (35-47); Hemoglobin 10.4 g/dl (12.0-16.0); Mean Corpuscular HGB Conc 33 g/dl (31-36); Mean Corpuscular Hemoglobin 30 pg (27-31); Mean Corpuscular Volume 91 fL (80-97); Mean Platelet Volume 7 um3 (7.4-10.4); Red Blood Count 3.46 10^6/ul (4.0-5.4); Red Cell Distribution Width 14 % (10.5-15); White Blood Count 5.7 10^3/ul (3.5-10.8)
[2016-12-29] MEDS: hydrOXYzine HCL TAB* 25 MG PO SCH ×2 (07:40→20:23)
[2016-12-29] MEDS: Famotidine TAB* 20 MG PO SCH (07:40)
[2016-12-29] MEDS: FLUoxetine CAP* 20 MG PO SCH (07:40)
[2016-12-29] MEDS: Gabapentin CAP(*) 400 MG PO SCH ×3 (07:40→20:23)
[2016-12-29] MEDS: BuPROPion XL* 300 MG TAB.XL PO SCH (07:41)
[2016-12-29] MEDS: Docusate CAP* 100 MG PO SCH ×2 (07:41→20:16)
[2016-12-29] MEDS: ALPRAZolam TAB* 0.5 MG PO PRN ×2 (07:52→16:31)
[2016-12-29] MEDS: BuPROPion XL* 150 MG TAB.XL PO SCH (16:31)
[2016-12-29] MEDS: Zolpidem TAB* 10 MG PO PRN (22:23)
[2016-12-30] MEDS: oxyCODONE/Acetamin 5/325 MG* TAB PO PRN ×6 (01:10→23:34)
[2016-12-30] MEDS: Heparin VIAL(*) 5000 UNITS/ML VIAL (FIVE THOUSAND) SUBCUT SCH ×3 (06:09→21:17)
[2016-12-30] MEDS: Docusate CAP* 100 MG PO SCH ×2 (09:52→20:29)
[2016-12-30] MEDS: BuPROPion XL* 300 MG TAB.XL PO SCH (10:10)
[2016-12-30] MEDS: Promethazine TAB* 25 MG PO PRN ×2 (10:10→21:17)
[2016-12-30] MEDS: Gabapentin CAP(*) 400 MG PO SCH ×3 (10:10→20:35)
[2016-12-30] MEDS: ALPRAZolam TAB* 0.5 MG PO PRN ×2 (10:10→18:17)
[2016-12-30] MEDS: Famotidine TAB* 20 MG PO SCH (10:10)
[2016-12-30] MEDS: FLUoxetine CAP* 20 MG PO SCH (10:10)
[2016-12-30] MEDS: hydrOXYzine HCL TAB* 25 MG PO SCH ×2 (10:10→20:35)
[2016-12-30] MEDS: BuPROPion XL* 150 MG TAB.XL PO SCH (18:15)
[2016-12-31] MEDS: oxyCODONE/Acetamin 5/325 MG* TAB PO PRN ×4 (05:39→17:59)
[2016-12-31] MEDS: Heparin VIAL(*) 5000 UNITS/ML VIAL (FIVE THOUSAND) SUBCUT SCH ×3 (05:40→22:06)
[2016-12-31] MEDS: ALPRAZolam TAB* 0.5 MG PO PRN ×3 (05:40→22:07)
[2016-12-31] MEDS: FLUoxetine CAP* 20 MG PO SCH (10:23)
[2016-12-31] MEDS: BuPROPion XL* 300 MG TAB.XL PO SCH (10:24)
[2016-12-31] MEDS: hydrOXYzine HCL TAB* 25 MG PO SCH ×2 (10:24→22:08)
[2016-12-31] MEDS: Famotidine TAB* 20 MG PO SCH (10:24)
[2016-12-31] MEDS: Docusate CAP* 100 MG PO SCH ×2 (10:24→22:12)
[2016-12-31] MEDS: Gabapentin CAP(*) 400 MG PO SCH ×3 (10:25→22:07)
[2016-12-31] MEDS: Ondansetron INJ* 2 MG/ML VIAL IV PRN (14:13)
--- NOTE | 2016-12-31 16:33 | PN ---
Subjective Date of Service: 12/31/16 Interval History: This is a 61 yo female admitted to halfway status after a fall without significant injury who is pending a discharge decision to assisted living, subacute rehab or returning home. Patient was upset that her Ambien was discontinued. Nursing notes reflected a significant change in behavior after administering Ambien the last several nights. She would become confused, impulsive and was extremely unsteady on her feet. After discussion regarding the concerns for her safety, patient was willing to avoid taking additional Percocet after the dinner hour, trialing a lower dose of Ambien and keeping a walker at bedside. She reports that she has trialed multiple alternate medications in past without positive effect. Objective Active Medications: Acetaminophen (Tylenol Tab*) 650 mg PO Q4H PRN PRN Reason: FEVER/PAIN Alprazolam (Xanax Tab*) 0.5 mg PO TID PRN PRN Reason: ANXIETY Last Admin: 12/31/16 12:08 Dose: 0.5 mg Bupropion HCl (Wellbutrin Xl *) 150 mg PO QPM [facility] PRN Reason: Protocol Last Admin: 12/30/16 18:15 Dose: 150 mg Bupropion HCl (Bupropion Xl*) 300 mg PO QAM [facility] Last Admin: 12/31/16 10:24 Dose: 300 mg Diphenoxylate HCl/Atropine (Lomotil Tab*) 2 tab PO BID PRN PRN Reason: DIARRHEA Last Admin: 12/28/16 11:10 Dose: 2 tab Docusate Sodium (Colace Cap*) 100 mg PO BID [facility] Last Admin: 12/31/16 10:24 Dose: 100 mg Famotidine (Pepcid Tab*) 20 mg PO DAILY [facility] PRN Reason: Protocol Last Admin: 12/31/16 10:24 Dose: 20 mg Fluoxetine HCl (Prozac Cap*) 40 mg PO DAILY [facility] Last Admin: 12/31/16 10:23 Dose: 40 mg Gabapentin (Neurontin Cap(*)) 400 mg PO TID [facility] Last Admin: 12/31/16 14:17 Dose: 400 mg Heparin Sodium (Porcine) (Heparin Vial(*)) 5,000 units SUBCUT Q8HR [facility] Last Admin: 12/31/16 14:16 Dose: 5,000 units Hydroxyzine HCl (Atarax Tab*) 25 mg PO BID [facility] Last Admin: 10/05/17 10:24 Dose: 25 mg Ondansetron HCl (Zofran Inj*) 4 mg IV Q6H PRN PRN Reason: NAUSEA Last Admin: 12/31/16 14:13 Dose: 4 mg Oxycodone/Acetaminophen (Percocet 5/325 Tab*) 2 tab PO Q4H PRN PRN Reason: PAIN Last Admin: 12/31/16 14:18 Dose: 2 tab Promethazine HCl (Phenergan Tab*) 25 mg PO BID PRN PRN Reason: NAUSEA Last Admin: 12/30/16 21:17 Dose: 25 mg Zolpidem Tartrate (Ambien Tab*) 5 mg PO BEDTIME PRN PRN Reason: INSOMNIA Vital Signs: Temp Pulse Resp BP Pulse Ox 98.0 F 72 16 98/63 94 12/31/16 07:25 12/31/16 07:25 12/31/16 14:18 12/31/16 07:25 12/31/16 15:36 Oxygen Devices in Use Now: None Appearance: Well appearing 61 yo female in NAD Neurological: Alert and Oriented x 3, NL Muscle Strength and Tone Result Diagrams: 12/29/16 04:52 12/27/16 05:56 Additional Lab and Data: . Assess/Plan/Problems-Billing Assessment: Patient is S/P fall on previously repaired clavicle with increased pain but no damage per X ray. Patient is admitted halfway because she would like to talk to Dr. Shore when available despite him saying he is happy with how her shoulder looks on the Xray and the reports from the ED and hospital. - Patient Problems (1) Closed left clavicular fracture Comment: s/p ORIF 11/07/16 No signs of deformity or damage on exam or CT scan after recent fall Appreciate time and consultation from Dr Shore (2) Falls Comment: Patient has had multiple falls at home and at least one in the hospital Pending DC decision to MASSIEL v KATE Concern for safety with use of Ambien. Patient agrees to lower dose and taking no additional Percocet after 6p Cont PT (3) Depressive disorder (4) DVT prophylaxis Comment: HSQ (5) Full code status Status and Disposition: Patient is halfway. Awaiting decision from patient regarding KATE v MASSIEL v dc to home
[2016-12-31] MEDS: BuPROPion XL* 150 MG TAB.XL PO SCH (17:59)
[2016-12-31] MEDS: Zolpidem TAB* 5 MG PO PRN (22:08)
[2017-01-01] MEDS: Heparin VIAL(*) 5000 UNITS/ML VIAL (FIVE THOUSAND) SUBCUT SCH ×3 (07:07→22:08)
[2017-01-01] MEDS: Famotidine TAB* 20 MG PO SCH (07:57)
[2017-01-01] MEDS: hydrOXYzine HCL TAB* 25 MG PO SCH ×2 (07:57→22:08)
[2017-01-01] MEDS: FLUoxetine CAP* 20 MG PO SCH (07:57)
[2017-01-01] MEDS: BuPROPion XL* 300 MG TAB.XL PO SCH (07:57)
[2017-01-01] MEDS: Gabapentin CAP(*) 400 MG PO SCH ×3 (07:58→22:05)
[2017-01-01] MEDS: oxyCODONE/Acetamin 5/325 MG* TAB PO PRN ×3 (07:58→16:35)
[2017-01-01] MEDS: Docusate CAP* 100 MG PO SCH ×2 (07:58→22:06)
[2017-01-01] MEDS: ALPRAZolam TAB* 0.5 MG PO PRN ×3 (08:05→22:07)
[2017-01-01] MEDS: Promethazine TAB* 25 MG PO PRN (11:05)
[2017-01-01] MEDS: BuPROPion XL* 150 MG TAB.XL PO SCH (16:35)
--- NOTE | 2017-01-01 16:47 | PN ---
Subjective Date of Service: 01/01/17 Interval History: Patient states she feels horrible today with headache and nausea that is not responsive to medication. Patient has been lying with ice pack over face all day. Patient becomes visibly upset whenever discharge is discussed. Family History: Unchanged from Admission Social History: Unchanged from Admission Past Medical History: Unchanged from Admission Objective Active Medications: Acetaminophen (Tylenol Tab*) 650 mg PO Q4H PRN PRN Reason: FEVER/PAIN Alprazolam (Xanax Tab*) 0.5 mg PO TID PRN PRN Reason: ANXIETY Last Admin: 01/01/17 14:35 Dose: 0.5 mg Bupropion HCl (Wellbutrin Xl *) 150 mg PO QPM [facility] PRN Reason: Protocol Last Admin: 01/01/17 16:35 Dose: 150 mg Bupropion HCl (Bupropion Xl*) 300 mg PO QAM [facility] Last Admin: 01/01/17 07:57 Dose: 300 mg Diphenoxylate HCl/Atropine (Lomotil Tab*) 2 tab PO BID PRN PRN Reason: DIARRHEA Last Admin: 12/28/16 11:10 Dose: 2 tab Docusate Sodium (Colace Cap*) 100 mg PO BID [facility] Last Admin: 01/01/17 07:58 Dose: 100 mg Famotidine (Pepcid Tab*) 20 mg PO DAILY [facility] PRN Reason: Protocol Last Admin: 01/01/17 07:57 Dose: 20 mg Fluoxetine HCl (Prozac Cap*) 40 mg PO DAILY [facility] Last Admin: 01/01/17 07:57 Dose: 40 mg Gabapentin (Neurontin Cap(*)) 400 mg PO TID [facility] Last Admin: 01/01/17 14:36 Dose: 400 mg Heparin Sodium (Porcine) (Heparin Vial(*)) 5,000 units SUBCUT Q8HR [facility] Last Admin: 01/01/17 14:37 Dose: 5,000 units Hydroxyzine HCl (Atarax Tab*) 25 mg PO BID [facility] Last Admin: 01/01/17 07:57 Dose: 25 mg Ondansetron HCl (Zofran Inj*) 4 mg IV Q6H PRN PRN Reason: NAUSEA Last Admin: 12/31/16 14:13 Dose: 4 mg Oxycodone/Acetaminophen (Percocet 5/325 Tab*) 2 tab PO Q4H PRN PRN Reason: PAIN Last Admin: 01/01/17 16:35 Dose: 2 tab Promethazine HCl (Phenergan Tab*) 25 mg PO BID PRN PRN Reason: NAUSEA Last Admin: 01/01/17 11:05 Dose: 25 mg Zolpidem Tartrate (Ambien Tab*) 5 mg PO BEDTIME PRN PRN Reason: INSOMNIA Last Admin: 12/31/16 22:08 Dose: 5 mg Vital Signs 12/31/16 12/31/16 12/31/16 17:59 19:59 20:00 Temperature Pulse Rate Respiratory 18 20 20 Rate Blood Pressure (mmHg) O2 Sat by Pulse Oximetry 12/31/16 01/01/17 01/01/17 22:07 00:07 07:16 Temperature 98.2 F Pulse Rate 82 Respiratory 20 18 20 Rate Blood Pressure 127/64 (mmHg) O2 Sat by Pulse 98 Oximetry 01/01/17 01/01/17 01/01/17 07:58 08:00 08:05 Temperature Pulse Rate Respiratory 20 20 20 Rate Blood Pressure (mmHg) O2 Sat by Pulse 98 Oximetry 01/01/17 01/01/17 01/01/17 09:58 12:16 14:16 Temperature Pulse Rate Respiratory 18 16 18 Rate Blood Pressure (mmHg) O2 Sat by Pulse Oximetry 01/01/17 01/01/17 01/01/17 14:35 14:36 16:00 Temperature Pulse Rate Respiratory 18 16 Rate Blood Pressure (mmHg) O2 Sat by Pulse 98 Oximetry 01/01/17 16:35 Temperature Pulse Rate Respiratory 18 Rate Blood Pressure (mmHg) O2 Sat by Pulse Oximetry Oxygen Devices in Use Now: None Appearance: Patient is a 61yo female who appears stated age and is sitting in the hospital bed anxiously. Eyes: No Scleral Icterus, PERRLA Ears/Nose/Mouth/Throat: NL Teeth, Lips, Gums, Clear Oropharnyx, Mucous Membranes Moist Neck: NL Appearance and Movements; NL JVP Respiratory: Symmetrical Chest Expansion and Respiratory Effort, Clear to Auscultation Cardiovascular: NL Sounds; No Murmurs; No JVD, RRR, No Edema Abdominal: NL Sounds; No Tenderness; No Distention, No Hepatosplenomegaly Lymphatic: No Cervical Adenopathy Extremities: No Edema, No Clubbing, Cyanosis Skin: No Rash or Ulcers, - - Well healed surgical incision on Left collarbone without signs of inflammation. Neurological: Alert and Oriented x 3, - - Patient is visibly distraught throughout interview and is making repeated lip smacking movements. Result Diagrams: 12/29/16 04:52 12/27/16 05:56 Additional Lab and Data: . Assess/Plan/Problems-Billing Assessment: Patient is S/P fall on previously repaired clavicle with increased pain but no damage per X ray. Patient is admitted long-term because she would like to talk to Dr. Shore when available despite him saying he is happy with how her shoulder looks on the Xray and the reports from the ED and hospital. - Patient Problems (1) Closed left clavicular fracture Current Visit: No Status: Acute Code(s): S42.002A - FRACTURE OF UNSP PART OF LEFT CLAVICLE, INIT FOR CLOS FX SNOMED Code(s): 32220480 Comment: s/p ORIF 11/07/16 No signs of deformity or damage on exam or CT scan after recent fall Appreciate time and consultation from Dr Shore (2) Falls Current Visit: No Status: Acute Comment: Patient has had multiple falls at home and at least one in the hospital There is a strong home safety plan in place with VNS, PT and social work program coordinator assistance to help her avoid falling. Concern for safety with use of Ambien. Patient agrees to lower dose and taking no additional Percocet after 6p Cont PT (3) Borderline personality disorder Current Visit: No Status: Acute Code(s): F60.3 - BORDERLINE PERSONALITY DISORDER SNOMED Code(s): 78541327 Comment: Patient is exhibiting attention seeking behaviors, possibly related to her daughter's wedding this weekend that she was not invited to. Concern about patient's behavior if she were to return home this weekend. Appreciate Psychiatry Consult. Status and Disposition: Patient is long-term. Will discharge Wednesday to PCP office per patient's request.
[2017-01-01] MEDS: Zolpidem TAB* 5 MG PO PRN (22:08)
[2017-01-01] MEDS: Diphenoxylat/Atrop 2.5-0.025M* 1 TAB PO PRN (22:13)
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
[2017-01-02] MEDS: oxyCODONE/Acetamin 5/325 MG* TAB PO PRN ×3 (05:36→14:30)
[2017-01-02] MEDS: Heparin VIAL(*) 5000 UNITS/ML VIAL (FIVE THOUSAND) SUBCUT SCH ×3 (05:41→23:01)
[2017-01-02] MEDS: Gabapentin CAP(*) 400 MG PO SCH ×3 (08:34→21:00)
[2017-01-02] MEDS: hydrOXYzine HCL TAB* 25 MG PO SCH ×2 (08:34→22:00)
[2017-01-02] MEDS: BuPROPion XL* 300 MG TAB.XL PO SCH (08:34)
[2017-01-02] MEDS: ALPRAZolam TAB* 0.5 MG PO PRN ×3 (08:34→21:00)
[2017-01-02] MEDS: Famotidine TAB* 20 MG PO SCH (08:34)
[2017-01-02] MEDS: FLUoxetine CAP* 20 MG PO SCH (08:34)
[2017-01-02] MEDS: Docusate CAP* 100 MG PO SCH ×3 (08:34→23:00)
[2017-01-02] MEDS: Diphenoxylat/Atrop 2.5-0.025M* 1 TAB PO PRN (15:25)
[2017-01-02] MEDS: BuPROPion XL* 150 MG TAB.XL PO SCH (18:08)
[2017-01-02] MEDS: Acetaminophen TAB* 325 MG PO PRN ×2 (18:08→21:00)
[2017-01-02] MEDS: Zolpidem TAB* 5 MG PO PRN (21:00)
[2017-01-02] MEDS: Promethazine TAB* 25 MG PO PRN (21:00)
[2017-01-02] MEDS ORDERED: Ondansetron ODT TAB* 4 MG SL PRN (21:26)
[2017-01-03] MEDS: oxyCODONE/Acetamin 5/325 MG* TAB PO PRN ×4 (06:01→17:32)
[2017-01-03] MEDS: Heparin VIAL(*) 5000 UNITS/ML VIAL (FIVE THOUSAND) SUBCUT SCH ×3 (06:03→21:44)
[2017-01-03] MEDS: ALPRAZolam TAB* 0.5 MG PO PRN ×2 (06:11→21:42)
[2017-01-03] MEDS: hydrOXYzine HCL TAB* 25 MG PO SCH ×2 (09:33→21:43)
[2017-01-03] MEDS: FLUoxetine CAP* 20 MG PO SCH (09:33)
[2017-01-03] MEDS: Gabapentin CAP(*) 400 MG PO SCH ×3 (09:33→21:42)
[2017-01-03] MEDS: Docusate CAP* 100 MG PO SCH ×2 (09:33→22:57)
[2017-01-03] MEDS: BuPROPion XL* 300 MG TAB.XL PO SCH (09:33)
[2017-01-03] MEDS: Famotidine TAB* 20 MG PO SCH (09:33)
[2017-01-03] MEDS: Promethazine TAB* 25 MG PO PRN (10:52)
--- NOTE | 2017-01-03 15:40 | PN ---
Hospitalist Progress Note Patient in good spirits today, accepts the fact that she will be discharged tomorrow.
[2017-01-03] MEDS: BuPROPion XL* 150 MG TAB.XL PO SCH (17:33)
[2017-01-03] MEDS: Diphenoxylat/Atrop 2.5-0.025M* 1 TAB PO PRN (17:40)
[2017-01-03] MEDS: Zolpidem TAB* 5 MG PO PRN (21:43)
[2017-01-03] MEDS: Acetaminophen TAB* 325 MG PO PRN (21:43)
[2017-01-04] MEDS: oxyCODONE/Acetamin 5/325 MG* TAB PO PRN ×2 (05:28→09:23)
[2017-01-04] MEDS: ALPRAZolam TAB* 0.5 MG PO PRN ×2 (05:28→09:23)
[2017-01-04] MEDS: Heparin VIAL(*) 5000 UNITS/ML VIAL (FIVE THOUSAND) SUBCUT SCH (05:29)
[2017-01-04 08:52] VITALS: BP 101/55
[2017-01-04] MEDS: Gabapentin CAP(*) 400 MG PO SCH (08:53)
[2017-01-04] MEDS: hydrOXYzine HCL TAB* 25 MG PO SCH (08:54)
[2017-01-04] MEDS: Diphenoxylat/Atrop 2.5-0.025M* 1 TAB PO PRN (08:54)
[2017-01-04] MEDS: BuPROPion XL* 300 MG TAB.XL PO SCH (08:55)
[2017-01-04] MEDS: FLUoxetine CAP* 20 MG PO SCH (08:55)
[2017-01-04] MEDS: Famotidine TAB* 20 MG PO SCH (08:55)
[2017-01-04] MEDS: Docusate CAP* 100 MG PO SCH (08:56)
--- NOTE | 2017-01-05 05:11 | DS ---
CC: Dr. Samantha Mcrae * DATE OF ADMISSION: 12/26/16 DATE OF DISCHARGE: 01/04/17 PRIMARY CARE PROVIDER: Dr. Samantha Mcrae. MY ATTENDING WHILE IN THE HOSPITAL: Virginie Richardson MD * (DICTATED BY ACOSTA BALDWIN) PRIMARY DISCHARGE DIAGNOSES: 1. Fall. 2. Mcc Care. 3. Borderline personality disorder. 4. Anxiety. SECONDARY DISCHARGE DIAGNOSES: 1. Migraines. 2. Depression. 3. Chronic pain. STUDIES DONE WHILE IN THE HOSPITAL: Shoulder x-ray read as ORIF of left clavicular fracture, no evidence of hardware failure. Chest x-ray from 12/26/16 read as no acute findings, 1 cm right upper lobe nodule, unchanged. Brain CT read as no acute findings. MEDICATIONS AT DISCHARGE: 1. Bupropion 300 mg p.o. q.a.m. 2. Gabapentin 400 mg p.o. t.i.d. 3. Ambien 12.5 mg p.o. at bedtime. 4. Bupropion 150 mg p.o. q.p.m. 5. Promethazine 25 mg p.o. b.i.d. p.r.n. 6. Zantac 150 mg p.o. daily. 7. Alprazolam 0.5 mg p.o. t.i.d. 8. Hydroxyzine 25 mg p.o. b.i.d. 9. Fluoxetine 40 mg p.o. daily. 10. Sulfacetamide 10% ophthalmic solution 1 drop each eye t.i.d. 11. Docusate 100 mg p.o. b.i.d. 12. Milk of magnesia 30 mg p.o. b.i.d. p.r.n. 13. Senokot 2 tabs p.o. bedtime. 14. Percocet 5/325 mg 2 tabs p.o. q.4 hours as needed for pain. HOSPITAL COURSE: For more detail please see the history and physical from Murphy Gray on 12/26/16. In brief, Ms. Zimmerman is a 61-year-old female with a past medical history significant for migraines, depression, anxiety, chronic pain, and clavicular fracture with ORIF in October, who presented to the Emergency Department on 12/26/16 because of fall and increased pain in her left shoulder. The patient had x-rays done of her shoulder that showed no changes. The patient, however, was convinced that there was something wrong with the surgery and refused to be discharged from the Emergency Department without seeing Dr. Kraus first, her surgeon. Patient was admitted custodially and evaluated by Physical Therapy and Occupational Therapy and deemed to have needs consistent with the need for subacute rehab versus assisted living. Patient was seen by Dr. Kraus, who also reviewed the films of the shoulder, and he stated there was nothing to be done and that her shoulder was musculoskeletally intact, and the increased pain was not of great concern. The patient then took several days conferring with Social Work and her son regarding whether or not she would go into a senior care for short-term rehab or go to assisted living facility. Patient eventually decided against both options as she wanted to go [place] and she would do so at her own pace. Patient was informed she had no other reason to be here and was informed that she will be discharged on Wednesday01/01/17. Patient then absolutely refused to leave stating that she did not want to be home alone and that she was terrified. Psychiatry was consulted and they believe that this anxiety was related to her daughter getting on 01/03/17, and that she would be a danger to herself if sent home on 01/01/17, and that it should probably be okay to be sent home on 01/04/17, as she requested. Hospital and the patient were in agreement with this plan. Patient had an appointment to see primary care doctor, Dr. Mcrae, anyway on 01/04/17 and had no other way to get her prescriptions before then. It had been arranged for the patient to have home physical therapy and occupational therapy as well as a Social Work support and 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s to assist with house work. Patient also was arranged to have a walker. Patient had a previous fall while in the hospital on 12/28/16, sustaining no other injuries. Patient was in good spirits on 01/04/17, and was amenable to discharge. PHYSICAL EXAMINATION ON DAY OF DISCHARGE: General: Patient is a 61-year-old female who appears stated age and is sitting on the exam bed, fully dressed in her cloths, with her left arm in a sling, in no acute distress. Vital Signs: Temperature 98.0, pulse rate 70, respiratory rate 21, oxygen saturation 97% on room air, blood pressure 101/55. HEENT: Head normocephalic, atraumatic. Eyes : Sclerae anicteric. No conjunctival injection. Pharynx not erythematous. Mucous membranes moist. Neck: Supple, nontender. No lymphadenopathy. No carotid bruits auscultated. Cardiac: Regular rate and rhythm. No clicks, murmurs, gallops, or rubs. Dorsalis pedis, posterior tibialis, and radial pulses 2+ bilaterally. No edema. Respiratory: Clear to auscultation bilaterally. No wheezes, rales or rhonchi. Good air exchange bilaterally. Abdomen: Soft, nontender, nondistended, bowel sounds present and normoactive in all 4 quadrants. No hepatosplenomegaly. Skin: Clean, dry, and intact. There is a nicely healed surgical incision over the left clavicle, with no signs of inflammation or infection. There is no ecchymosis or erythema. The patient complains of tenderness over the left deltoid muscle. Neuro: Cranial nerves II through XII grossly intact. Normal gait when using the walker. Psychiatric: Patient is pleasant and cooperative today. No signs of weeping or self-injurious behavior. DISCHARGE PLAN: Patient will be discharged directly to her primary care doctor' s office to receive prescriptions as primary care doctor feels appropriate. Patient will have followup, as described above, with home PT/OT, Social Work, and home healthcare aides. The plan is for the patient to eventually to move to assisted living facility and closer to her son where she will have more support from her family. The patient should follow up with Dr. Kraus in 1 to 2 weeks to follow up on the healing of her wound from her surgery. ACTIVITY: As tolerated using the walker and working with Physical Therapy and Occupational Therapy at home. DIET: Regular. TIME SPENT: Approximately 60 minutes were spent on this discharge, 30 of which was spent [id number] with the patient obtaining history and physical and discussing the treatment plan. This is a brief summary of the hospital course. For more detail please see the complete medical record. ACOSTA BALDWIN [id number]/[facility] [place] #: [id number] MARIANO
--- NOTE | 2017-01-06 04:12 | ED ---
Dora Charles Thomas, scribed for Epifanio Ortiz MD on 12/26/16 at 0618 . Upper Extremity Pain - HPI Summary HPI Summary: The pt is a 61 y/o F presenting to the ED c/o L shoulder pain s/p a fall that occurred this AM at approximately 05:00 when she was returning to her bed from the bathroom. The pain is constant, she describes it as aching, and she rates the pain 10/10. It is aggravated by touch and movement and it is alleviated by nothing. She had surgical repair to the left shoulder about a month ago. She has been in rehab for the last three weeks. She also c/o a migraine COPPOLA that began two days ago that is consistent with her prior migraine symptoms. The last pain medication that she took was Percocet yesterday at 08:30. However, she vomited yesterday at 09:00. She denies any LOC or head trauma. - History of Current Complaint Chief Complaint: Fidelia Stated Complaint: FALL//LEFT ARM PAIN Time Seen by Provider: 12/26/16 06:05 Hx Obtained From: Patient Mechanism Of Injury: Fall From A Standing Position Onset/Duration: Started Hours Ago - fall at approximately 05:00, Still Present Timing: Constant Severity Currently: Severe Pain Location: Shoulder - left Character: Aching Aggravating Factor(s): Movement, Other - Touch Alleviating Factor(s): Nothing Associated Signs & Symptoms: Positive: Vomiting - yesterday at 09:00, Other - Migraine COPPOLA (onset two days ago); NEGATIVE: LOC, head trauma - Allergies/Home Medications Allergies/Adverse Reactions: Allergies Allergy/AdvReac Type Severity Reaction Status Date / Time No Known Allergies Allergy Verified 11/05/16 20:45 PMH/Surg Hx/FS Hx/Imm Hx Previously Healthy: No Endocrine/Hematology History: Denies: Hx Bone Marrow Disease, Hx Diabetes, Hx Sickle Cell Disease, Hx Anemia Cardiovascular History: Reports: Hx Hypertension Denies: Hx Angina, Hx Auto Implanted Cardiovert Defib, Hx Cardiac Arrest, Hx Congestive Heart Failure, Hx Pacemaker/ICD Respiratory History: Denies: Hx Asthma, Hx Chronic Obstructive Pulmonary Disease (COPD) GI History: Reports: Hx Gall Bladder Disease - cholcystectomy in 1992, Hx Irritable Bowel, Other GI Disorders - Gastric Stapling in 1995 Denies: Hx Cirrhosis, Hx Gastroesophageal Reflux Disease History: Denies: Hx Acute Renal Failure, Hx Dialysis, Hx Renal Disease Musculoskeletal History: Reports: Hx Arthritis Denies: Hx Gout Sensory History: Reports: Hx Contacts or Glasses Denies: Hx Deafness, Hx Hearing Aid Opthamlomology History: Reports: Hx Contacts or Glasses Neurological History: Reports: Hx Headaches, Hx Migraine Denies: Hx Seizures Psychiatric History: Reports: Hx Anxiety, Hx Depression, Hx Panic Disorder, Hx Post Traumatic Stress Disorder, Hx Inpatient Treatment, Hx Community Mental Health Tx, Hx Schizophrenia, Hx Bipolar Disorder, Hx Suicide Attempt Denies: Hx Eating Disorder, Hx of Violent Episodes Against Others - Surgical History Surgery Procedure, Year, and Place: gastric stapling- 1995. cholecystectomy- 1992 Hx Anesthesia Reactions: No - Immunization History Date of Tetanus Vaccine: Unknown Infectious Disease History: No Infectious Disease History: Denies: Traveled Outside the [place] in Last 30 Days - Family History Known Family History: Positive: Cardiac Disease, Hypertension - Social History Alcohol Use: None Hx Substance Use: No Substance Use Type: Reports: None Hx Tobacco Use: No Smoking Status (MU): Never Smoked Tobacco Review of Systems Negative: Fever Positive: Vomiting - yesterday at 09:00 Positive: Other - L shoulder pain s/p a fall this AM Neurological: Other - NEGATIVE: LOC, head trauma Positive: Headache - migraine COPPOLA onset two days ago All Other Systems Reviewed And Are Negative: Yes Physical Exam Triage Information Reviewed: Yes Vital Signs On Initial Exam: Initial Vitals Temp Pulse Resp BP Pulse Ox 98.3 F 77 18 137/71 94 12/26/16 05:52 12/26/16 05:52 12/26/16 05:52 12/26/16 05:52 12/26/16 05:52 Vital Signs Reviewed: Yes Appearance: Positive: Well-Appearing, No Pain Distress Skin: Positive: Warm, Skin Color Reflects Adequate Perfusion, Dry Head/Face: Positive: Normal Head/Face Inspection Eyes: Positive: EOMI, BILLIE ENT: Positive: Normal ENT inspection Neck: Positive: Supple, Nontender Respiratory/Lung Sounds: Positive: Clear to Auscultation, Breath Sounds Present Cardiovascular: Positive: RRR Abdomen Description: Positive: Nontender, Soft Bowel Sounds: Positive: Present Musculoskeletal: Positive: Normal, Strength/ROM Intact, Other - She is tender to palpation on her left shoulder Neurological: Positive: Normal, Sensory/Motor Intact, Alert, Oriented to Person Place, Time Psychiatric: Positive: Affect/Mood Appropriate - Sena Coma Scale Coma Scale Total: 15 Diagnostics - Vital Signs Vital Signs Temp Pulse Resp BP Pulse Ox 12/26/16 05:52 98.3 F 77 18 137/71 94 - Laboratory Lab Results: Lab Results 12/26/16 12/26/16 12/26/16 Range/Units 07:32 07:32 07:32 WBC (3.5-10.8) 10^3/ul RBC (4.0-5.4) 10^6/ul Hgb (12.0-16.0) g/dl Hct (35-47) % MCV (80-97) fL MCH (27-31) pg MCHC (31-36) g/dl RDW (10.5-15) % Plt Count (150-450) 10^3/ul MPV (7.4-10.4) um3 Neut % (Auto) (38-83) % Lymph % (Auto) (25-47) % Blount % (Auto) (1-9) % Eos % (Auto) (0-6) % Baso % (Auto) (0-2) % Absolute Neuts (auto) (1.5-7.7) 10^3/ul Absolute Lymphs (auto) (1.0-4.8) 10^3/ul Absolute Monos (auto) (0-0.8) 10^3/ul Absolute Eos (auto) (0-0.6) 10^3/ul Absolute Basos (auto) (0-0.2) 10^3/ul Absolute Nucleated RBC 10^3/ul Nucleated RBC % INR (Anticoag Therapy) 0.91 (0.89-1.11) APTT 31.3 (26.0-36.3) seconds Sodium 138 (133-145) mmol/L Potassium 4.0 (3.5-5.0) mmol/L Chloride 107 (101-111) mmol/L Carbon Dioxide 25 (22-32) mmol/L Anion Gap 6 (2-11) mmol/L BUN 9 (6-24) mg/dL Creatinine 0.69 (0.51-0.95) mg/dL Est GFR ( Amer) 111.2 (>60) Est GFR (Non-Af Amer) 86.5 (>60) BUN/Creatinine Ratio 13.0 (8-20) Glucose 93 (70-100) mg/dL Lactic Acid (0.5-2.0) mmol/L Calcium 8.6 (8.6-10.3) mg/dL Magnesium 1.8 L (1.9-2.7) mg/dL Total Bilirubin 0.30 (0.2-1.0) mg/dL AST 22 (13-39) U/L ALT 12 (7-52) U/L Alkaline Phosphatase 105 H (34-104) U/L Total Creatine Kinase 86 (10-223) U/L CK-MB (CK-2) 1.0 (0.6-6.3) ng/mL Troponin I 0.01 (<0.04) ng/mL C-Reactive Protein 3.67 (< 5.00) mg/L B-Natriuretic Peptide 52 ( - 100) pg/mL Total Protein 6.2 L (6.4-8.9) g/dL Albumin 3.4 (3.2-5.2) g/dL Globulin 2.8 (2-4) g/dL Albumin/Globulin Ratio 1.2 (1-3) Lipase 30 (11.0-82.0) U/L TSH 0.82 (0.34-5.60) mcIU/mL Urine Color Urine Appearance Urine pH (5-9) Ur Specific [place] (1.010-1.030) Urine Protein (Negative) Urine Ketones (Negative) Urine Blood (Negative) Urine Nitrate (Negative) Urine Bilirubin (Negative) Urine Urobilinogen (Negative) Ur Leukocyte Esterase (Negative) Urine WBC (Auto) (Absent) Urine RBC (Auto) (Absent) Ur Squamous Epith Cells (Absent) Urine Bacteria (Absent) Urine Glucose (Negative) Acetaminophen < 15 mcg/mL Serum Alcohol < 10 (<10) mg/dL 12/26/16 12/26/16 12/26/16 Range/Units 07:32 07:32 08:06 WBC 5.7 (3.5-10.8) 10^3/ul RBC 3.80 L (4.0-5.4) 10^6/ul Hgb 11.3 L (12.0-16.0) g/dl Hct 34 L (35-47) % MCV 90 (80-97) fL MCH 30 (27-31) pg MCHC 33 (31-36) g/dl RDW 15 (10.5-15) % Plt Count 269 (150-450) 10^3/ul MPV 7 L (7.4-10.4) um3 Neut % (Auto) 69.5 (38-83) % Lymph % (Auto) 20.3 L (25-47) % Blount % (Auto) 7.9 (1-9) % Eos % (Auto) 1.9 (0-6) % Baso % (Auto) 0.4 (0-2) % Absolute Neuts (auto) 3.9 (1.5-7.7) 10^3/ul Absolute Lymphs (auto) 1.1 (1.0-4.8) 10^3/ul Absolute Monos (auto) 0.4 (0-0.8) 10^3/ul Absolute Eos (auto) 0.1 (0-0.6) 10^3/ul Absolute Basos (auto) 0 (0-0.2) 10^3/ul Absolute Nucleated RBC 0 10^3/ul Nucleated RBC % 0 INR (Anticoag Therapy) (0.89-1.11) APTT (26.0-36.3) seconds Sodium (133-145) mmol/L Potassium (3.5-5.0) mmol/L Chloride (101-111) mmol/L Carbon Dioxide (22-32) mmol/L Anion Gap (2-11) mmol/L BUN (6-24) mg/dL Creatinine (0.51-0.95) mg/dL Est GFR ( Amer) (>60) Est GFR (Non-Af Amer) (>60) BUN/Creatinine Ratio (8-20) Glucose (70-100) mg/dL Lactic Acid 0.6 (0.5-2.0) mmol/L Calcium (8.6-10.3) mg/dL Magnesium (1.9-2.7) mg/dL Total Bilirubin (0.2-1.0) mg/dL AST (13-39) U/L ALT (7-52) U/L Alkaline Phosphatase (34-104) U/L Total Creatine Kinase (10-223) U/L CK-MB (CK-2) (0.6-6.3) ng/mL Troponin I (<0.04) ng/mL C-Reactive Protein (< 5.00) mg/L B-Natriuretic Peptide ( - 100) pg/mL Total Protein (6.4-8.9) g/dL Albumin (3.2-5.2) g/dL Globulin (2-4) g/dL Albumin/Globulin Ratio (1-3) Lipase (11.0-82.0) U/L TSH (0.34-5.60) mcIU/mL Urine Color Yellow Urine Appearance Clear Urine pH 7.0 (5-9) Ur Specific [place] 1.010 (1.010-1.030) Urine Protein Negative (Negative) Urine Ketones Negative (Negative) Urine Blood Negative (Negative) Urine Nitrate Negative (Negative) Urine Bilirubin Negative (Negative) Urine Urobilinogen Negative (Negative) Ur Leukocyte Esterase 3+ H (Negative) Urine WBC (Auto) 1+(6-10/hpf) H (Absent) Urine RBC (Auto) Trace(0-2/hpf) (Absent) Ur Squamous Epith Cells Present H (Absent) Urine Bacteria Absent (Absent) Urine Glucose Negative (Negative) Acetaminophen mcg/mL Serum Alcohol (<10) mg/dL Result Diagrams: 12/29/16 04:52 12/27/16 05:56 Lab Statement: Any lab studies that have been ordered have been reviewed, and results considered in the medical decision making process. - Radiology XR Shoulder Radiology Interpretation Completed By: Radiologist - Results Pending--See [employer] Course/Dx - Course Course Of Treatment: BP noted and advised to follow up with PCP. Medications reviewed. - Diagnoses Provider Diagnoses: Acute on chronic pain Discharge - Discharge Plan Condition: Stable Disposition: OTHER Discharge Disposition Comment: Sign out at shift change to Dr. Mclean, pending XR Shoulder, awaiting dispo The documentation as recorded by the Dora coulter Thomas accurately reflects the service I personally performed and the decisions made by me, Epifanio Ortiz MD.
--- NOTE | 2017-01-06 07:39 | ED ---
Jyoti Charles Edward, scribed for Solomon Mclean MD on 12/26/16 at 0707 . Progress - Progress Note Progress Note: Pt is signed out by Dr. Ortiz at shift change. Pending XR shoulder. - Results/Orders Results/Orders: SHOULDER XR - ORIF LEFT CLAVICULAR FRACTURE. NO EVIDENCE OF HARDWARE FAILURE. CXR - NO ACUTE FINDINGS. 1 CM RIGHT UPPER LOBE NODULE, UNCHANGED. PLEASE REFER TO EARLIER CT REPORT. BRAIN CT - NO ACUTE FINDINGS Course/Dx - Course Course Of Treatment: Test results without significant abnormalities except slight anemia , UA is contaminated. SHOULDER XR - ORIF LEFT CLAVICULAR FRACTURE. NO EVIDENCE OF HARDWARE FAILURE. CXR - NO ACUTE FINDINGS. 1 CM RIGHT UPPER LOBE NODULE, UNCHANGED. PLEASE REFER TO EARLIER CT REPORT. BRAIN CT - NO ACUTE FINDINGS In the ED course, the pt was given Percocet for pain and gabapentin. At this point I discussed the case with the community case manager at 12:16 who recommended we admit the patient to the hospitals services for further workup and management. Dr. Orozco will be admitting the pt to her services. Pt is hemodynamically stable, A&Ox3. - Diagnoses Provider Diagnoses: Acute on chronic pain The documentation as recorded by the Jyoti coulter Edward accurately reflects the service I personally performed and the decisions made by , Solomon Mclean MD.
== END 2017-01-04 10:15 | disposition home health service (06) | DRG 862 ==
LOC: ED 05:50 → MED 12:28
PROVIDERS: ADMIT Hospitalist; ATTEND Internal Medicine
DX: S42.002D Fracture of unspecified part of left clavicle, subsequent encounter for fracture with routine healing (principal); F20.9 Schizophrenia, unspecified; I10 Essential (primary) hypertension; G43.909 Migraine, unspecified, not intractable, without status migrainosus; F32.9 Major depressive disorder, single episode, unspecified; G89.29 Other chronic pain; W18.30XA Fall on same level, unspecified, initial encounter; Y92.002 Bathroom of unspecified non-institutional (private) residence as the place of occurrence of the external cause; Z82.49 Family history of ischemic heart disease and other diseases of the circulatory system; R91.1 Solitary pulmonary nodule; Z90.49 Acquired absence of other specified parts of digestive tract; M19.90 Unspecified osteoarthritis, unspecified site; K58.9 Irritable bowel syndrome, unspecified; F41.0 Panic disorder [episodic paroxysmal anxiety]; F43.10 Post-traumatic stress disorder, unspecified; F60.3 Borderline personality disorder; Y92.239 Unspecified place in hospital as the place of occurrence of the external cause; Z91.5 Personal history of self-harm; Z91.410 Personal history of adult physical and sexual abuse; F11.21 Opioid dependence, in remission; F13.21 Sedative, hypnotic or anxiolytic dependence, in remission; S40.012A Contusion of left shoulder, initial encounter
CPT/HCPCS: 36415; 70450; 71010; 80048; 80053; 80320; 80329; 81003; 81015; 82550; 82553; 83605; 83690; 83735; 83880; 84443; 84484; 85025; 85610; 85730; 86140; 87086; A9270-GY; G0480; J1644; J1885; J2405; J3475

== ENCOUNTER 2017-03-31 18:52 | Emergency (ER) | payer BC, MEDICARE, MEDICAID ==
[2017-03-31] MEDS ORDERED: Ketorolac INJ* 30 MG/ML 1 ML VIAL IV ONE (19:55)
[2017-03-31 21:11] LABS: ABS Basophils 0.1 10^3/ul (0-0.2); ABS Eosinophils 0.1 10^3/ul (0-0.6); ABS Lymphocytes 1.9 10^3/ul (1.0-4.8); ABS Monocytes 0.7 10^3/ul (0-0.8); ABS Neutrophils 6.2 10^3/ul (1.5-7.7); ABS Nucleated RBC 0 10^3/ul; Eosinophil % 0.7 % (0-6); Hematocrit 35 % (35-47); Hemoglobin 11.1 g/dl (12.0-16.0); Lymphocyte % 21.6 % (25-47); Mean Corpuscular HGB Conc 32 g/dl (31-36); Mean Corpuscular Hemoglobin 28 pg (27-31); Mean Corpuscular Volume 88 fL (80-97); Mean Platelet Volume 7 um3 (7.4-10.4); Nucleated Red Blood Cells % 0; Platelet Count 305 10^3/ul (150-450); Red Blood Count 3.92 10^6/ul (4.0-5.4); Red Cell Distribution Width 16 % (10.5-15)
[2017-03-31 21:26] LABS: EGFR Non-African American 63.7 (>60)
[2017-03-31] MEDS ORDERED: Ketorolac INJ* 15 MG/ML 1 ML VIAL IV PUSH ONE (22:00)
[2017-03-31] MEDS: NS 0.9% 1000 ML* 2,000 ML IV ONE (22:05)
[2017-03-31 22:18] LABS: Urine Appearance Cloudy; Urine Blood Negative (Negative); Urine Color Yellow; Urine Ketones Negative (Negative); Urine Protein 1+(30 mg/dL) (Negative); Urine Specific Gravity 1.034 (1.010-1.030); Urine Urobilinogen Negative (Negative)
[2017-03-31] MEDS ORDERED: Levofloxacin TAB* 500 MG PO ONE (23:35)
[2017-04-01] VITALS: BP 119/76
--- NOTE | 2017-04-01 07:18 | RAD ---
INDICATION: Left shoulder pain. COMPARISON: Comparison is made with a prior x-ray study of the left shoulder from December 26, 2016. TECHNIQUE: 4 views of the left shoulder were obtained. FINDINGS: The patient is status post operative reduction and internal fixation of a fracture of the clavicle which appears healed. There is a metallic plate present along the superior aspect of the clavicle and inferior aspect of the acromion transfixed with multiple screws. There is mild superior positioning of the humeral head. The bones are otherwise in normal alignment. No acute fracture is seen. IMPRESSION: POSTSURGICAL CHANGES, NO EVIDENCE FOR ACUTE FINDING.
--- NOTE | 2017-04-03 00:28 | ED ---
Ginny Charles Gabriel, scribed for Lacie Fabian MD on 03/31/17 at 1944 . Upper Extremity Pain - HPI Summary HPI Summary: This patient is a 61 year old F BIBA to [facility] with a chief complaint of left shoulder pain since 3 days ago. The patient rates the pain 9/10 in severity. Patient reports weakness, general malaise, n/v/d, and fatigue. The patient reports falling three times today and landing on her left shoulder all three times. Patient usually ambulates with a cane but has been failing to do so. Patient denies LOC and head trauma. Additionally she reports that she has a large amount of steel in her shoulder that was supposed to be removed by Dr. Kraus but she is ignoring his calls. She keeps repeating that she does not want to talk. - History of Current Complaint Chief Complaint: EDGeneral Stated Complaint: WEAKNESS,LT SHOULDER PAIN Time Seen by Provider: 03/31/17 19:23 Hx Obtained From: Patient Mechanism Of Injury: Fall From A Standing Position Onset/Duration: Started Days Ago - 3, Still Present Timing: Constant Severity Initially: Severe Severity Currently: Severe Pain Location: Shoulder - left Aggravating Factor(s): Other - repeat falls Alleviating Factor(s): Nothing Associated Signs & Symptoms: Positive: Other - weakness, general malaise, n/v/d , and fatigue. - Allergies/Home Medications Allergies/Adverse Reactions: Allergies Allergy/AdvReac Type Severity Reaction Status Date / Time No Known Allergies Allergy Verified 01/26/17 12:37 PMH/Surg Hx/FS Hx/Imm Hx Endocrine/Hematology History: Denies: Hx Bone Marrow Disease, Hx Diabetes, Hx Sickle Cell Disease, Hx Anemia Cardiovascular History: Reports: Hx Hypertension Denies: Hx Angina, Hx Auto Implanted Cardiovert Defib, Hx Cardiac Arrest, Hx Congestive Heart Failure, Hx Pacemaker/ICD Respiratory History: Denies: Hx Asthma, Hx Chronic Obstructive Pulmonary Disease (COPD) GI History: Reports: Hx Gall Bladder Disease - cholcystectomy in 1992, Hx Irritable Bowel, Other GI Disorders - Gastric Stapling in 1995 Denies: Hx Cirrhosis, Hx Gastroesophageal Reflux Disease History: Denies: Hx Acute Renal Failure, Hx Dialysis, Hx Renal Disease Musculoskeletal History: Reports: Hx Arthritis, Other Musculoskeletal History Denies: Hx Back Problems, Hx Gout Sensory History: Reports: Hx Contacts or Glasses Denies: Hx Deafness, Hx Hearing Aid Opthamlomology History: Reports: Hx Contacts or Glasses Neurological History: Reports: Hx Headaches, Hx Migraine Denies: Hx Seizures Psychiatric History: Reports: Hx Anxiety, Hx Depression, Hx Panic Disorder, Hx Post Traumatic Stress Disorder, Hx Inpatient Treatment, Hx Community Mental Health Tx, Hx Schizophrenia, Hx Bipolar Disorder, Hx Suicide Attempt, Other Psychiatric Issues/Disorders - Borderline Personality Denies: Hx Eating Disorder, Hx of Violent Episodes Against Others - Surgical History Surgery Procedure, Year, and Place: gastric stapling- 1995. cholecystectomy- 1992. surgery on broken clavicle - October 2016 Hx Anesthesia Reactions: No - Immunization History Date of Tetanus Vaccine: Unknown Infectious Disease History: No Infectious Disease History: Denies: Traveled Outside the [place] in Last 30 Days - Family History Known Family History: Positive: Cardiac Disease, Hypertension - Social History Alcohol Use: None Hx Substance Use: No Substance Use Type: Reports: None Hx Tobacco Use: No Smoking Status (MU): Never Smoked Tobacco Have You Smoked in the Last Year: No Review of Systems Positive: Fatigue, Other - general malaise Positive: Vomiting, Diarrhea, Nausea Positive: Weakness All Other Systems Reviewed And Are Negative: Yes Physical Exam - Summary Physical Exam Summary: VITAL SIGNS: Reviewed. GENERAL: Patient is a well-developed and nourished female who is lying comfortable in the stretcher. Patient is not in any acute respiratory distress. HEAD AND FACE: No signs of trauma. No ecchymosis, hematomas or skull depressions. No sinus tenderness. EYES: PERRLA, EOMI x 2, No injected conjunctiva, no nystagmus. EARS: Hearing grossly intact. Ear canals and tympanic membranes are within normal limits. MOUTH: Oropharynx within normal limits. NECK: Supple, trachea is midline, no adenopathy, no JVD, no carotid bruit, no c- spine tenderness, neck with full ROM. CHEST: Symmetric, no tenderness at palpation LUNGS: Clear to auscultation bilaterally. No wheezing or crackles. CVS: Regular rate and rhythm, S1 and S2 present, no murmurs or gallops appreciated. ABDOMEN: Soft, non-tender. No rebound no guarding, and no masses palpated. Bowel sounds are normal. ABD distension EXTREMITIES: mild tenderness in left shoulder, Dyskinesia NEURO: Alert and oriented x 3. No acute neurological deficits. Speech is normal and follows commands. SKIN: Dry and warm Triage Information Reviewed: Yes Vital Signs On Initial Exam: Initial Vitals Temp Pulse Resp BP Pulse Ox 97.9 F 88 16 103/64 95 03/31/17 19:12 03/31/17 19:12 03/31/17 19:12 03/31/17 19:12 03/31/17 19:12 Vital Signs Reviewed: Yes - Sena Coma Scale Coma Scale Total: 15 Diagnostics - Vital Signs Vital Signs Temp Pulse Resp BP Pulse Ox 03/31/17 19:12 97.9 F 88 16 103/64 95 - Laboratory Result Diagrams: 03/31/17 21:00 03/31/17 21:00 Lab Statement: Any lab studies that have been ordered have been reviewed, and results considered in the medical decision making process. - Radiology Shoulder xray Radiology Interpretation Completed By: ED Physician - no fracture, no dislocation, and hardware present. Re-Evaluation - Re-Evaluation First Eval Re-Evaluation Time: 23:35 Change: Unchanged Comment: Patient states she wants to be admitted and requests that her hardware be taken out here. Course/Dx - Course Assessment/Plan: This patient is a 61 year old F BIBA to [facility] with a chief complaint of left shoulder pain since 3 days. The patient rates the pain 9/10 in severity. Patient reports weakness, general malaise, n/v/d, and fatigue. The patient reports falling three times today and landing on her left shoulder all three times. Patient usually ambulates with a cane but has been failing to do so. Patient denies LOC and head trauma. Additionally she reports that she has a large amount of steel in her shoulder that was supposed to be removed by Dr. Kraus but she is ignoring his calls. She keeps repeating that she does not want to talk.. Shoulder Xray reveal no fracture, no dislocation, and hardware present. Test results with no significant abnormalities except for a high WBC in her UA. In the ED course the patient was given IV fluids, toradol, and Levaquin. Patient will be discharged with prescription for Levaquin and follow up from Dr. Mcrae. The patient is agreeable with this plan. - Diagnoses Provider Diagnoses: UTI (urinary tract infection), Left shoulder pain Discharge - Discharge Plan Condition: Stable Disposition: HOME Prescriptions: Levofloxacin TAB* [Levaquin TAB*] 500 mg PO DAILY #7 tab Referrals: Thor SARABIA,Samantha Serrano [Primary Care Provider] - The documentation as recorded by the Ginny coulter Gabriel accurately reflects the service I personally performed and the decisions made by me, Lacie Fabian MD.
== END 2017-03-31 23:57 | disposition home or self-care (01) ==
LOC: ED 18:52
DX: N39.0 Urinary tract infection, site not specified (principal); M25.512 Pain in left shoulder; R53.1 Weakness; R11.2 Nausea with vomiting, unspecified; R19.7 Diarrhea, unspecified; R53.83 Other fatigue
CPT/HCPCS: 36415; 80053; 81003; 81015; 82150; 83605; 83690; 85025; 85730; 86140; 87086; 96361; 96374; 96375; 99283; J1885

== ENCOUNTER 2017-04-07 13:56 | Inpatient (IN) | payer BC, MEDICARE, MEDICAID ==
--- NOTE | 2017-04-07 14:46 | ED ---
Altered Mental Status - HPI Summary HPI Summary: Patient presents to ED from EMS with AMS. Unknown onset. Last known well is unknown. She was seen in her apartment complex walking the halls and talking to people who were not there. PMHx includes borderlines personality disorder, depression, multiple suicide attempts, anxiety and migraines. She recently sustained a fall with a clavicle fracture. She was prescribed Percoset and continues to take her xanax and ambien as prescribed. She states she has been feeling ill recently with vomiting episodes and diarrhea. Denies recent travel or different food intake. Denies any pain. On exam, she is very tangential and is unable to follow commands. She is talking to people who are not present , but when asked, she admits she has been doing this recently. First she notes she has not taken her medications since she is out, however upon further questioning she states she has taken all of her medications as prescribed. Denies COPPOLA. Denies falls or hitting her head or LOC. She has been admitted to [facility] by Dr. Simon in the past for suicidal attempts as well as admissions for pain not well controlled with PO meds on detention admission. Recently lifetime care was ceased for caring for her (per patient. ) Emergency Contacts is her son, Manoj Zimmerman. ([phone]) PCP is Dr. Mcrae ([phone]). - History Of Current Complaint Chief Complaint: EDGeneral Stated Complaint: AMS Time Seen by Provider: 04/07/17 14:10 Hx Obtained From: Patient, EMS Hx From Patient Unobtainable Due To: Altered Mental Status Onset/Duration: Unknown Severity Initially: Moderate Severity Currently: Moderate Character: Confusion Aggravating Factor(s): Medication Change Alleviating Factor(s): Nothing Associated Signs And Symptoms: Positive: Nausea, Vomiting, Recently Depressed Has Suicidal: Demonstrates Gesture, Has Prior Attempt(s) - Risk Factors Cardiac Risk Factors: Negative - Allergies/Home Medications Allergies/Adverse Reactions: Allergies Allergy/AdvReac Type Severity Reaction Status Date / Time No Known Allergies Allergy Verified 01/26/17 12:37 Home Medications: Home Medications BuPROPion XL* [Bupropion XL*] 300 mg PO QAM 04/07/17 [History Confirmed 04/07/17 ] Clotrimazole 1% CREAM* [Clotrimazole 1%*] 1 applic TOPICAL BID 04/07/17 [ History Confirmed 04/07/17] Diphenoxylate W/ Atropine [Lomotil 2.5-0.025 mg] 2 tab PO BID 04/07/17 [History Confirmed 04/07/17] Gabapentin CAP(*) [Neurontin 400 mg CAP(*)] 400 mg PO QID 04/07/17 [History Confirmed 04/07/17] buPROPion SR TAB* [Wellbutrin SR TAB*] 150 mg PO DAILY 04/07/17 [History Confirmed 04/07/17] oxyCODONE/Acetamin 5/325 MG* [Percocet 5/325 TAB*] 2 tab PO Q6HR MDD 12 tabs 01/13 [History Confirmed 04/07/17] PMH/Surg Hx/FS Hx/Imm Hx Previously Healthy: Yes Endocrine/Hematology History: Denies: Hx Bone Marrow Disease, Hx Diabetes, Hx Sickle Cell Disease, Hx Anemia Cardiovascular History: Reports: Hx Hypertension Denies: Hx Angina, Hx Auto Implanted Cardiovert Defib, Hx Cardiac Arrest, Hx Congestive Heart Failure, Hx Pacemaker/ICD Respiratory History: Denies: Hx Asthma, Hx Chronic Obstructive Pulmonary Disease (COPD) GI History: Reports: Hx Gall Bladder Disease - cholcystectomy in 1992, Hx Irritable Bowel, Other GI Disorders - Gastric Stapling in 1995 Denies: Hx Cirrhosis, Hx Gastroesophageal Reflux Disease History: Denies: Hx Acute Renal Failure, Hx Dialysis, Hx Renal Disease Musculoskeletal History: Reports: Hx Arthritis, Other Musculoskeletal History Denies: Hx Back Problems, Hx Gout Sensory History: Reports: Hx Contacts or Glasses Denies: Hx Deafness, Hx Hearing Aid Opthamlomology History: Reports: Hx Contacts or Glasses Neurological History: Reports: Hx Headaches, Hx Migraine Denies: Hx Seizures Psychiatric History: Reports: Hx Anxiety, Hx Depression, Hx Panic Disorder, Hx Post Traumatic Stress Disorder, Hx Inpatient Treatment, Hx Community Mental Health Tx, Hx Schizophrenia, Hx Bipolar Disorder, Hx Suicide Attempt, Other Psychiatric Issues/Disorders - Borderline Personality Denies: Hx Eating Disorder, Hx of Violent Episodes Against Others - Surgical History Surgery Procedure, Year, and Place: gastric stapling- 1995. cholecystectomy- 1992. surgery on broken clavicle - October 2016 Hx Anesthesia Reactions: No - Immunization History Date of Tetanus Vaccine: Unknown Hx Pertussis Vaccination: No Immunizations Up to Date: Unable to Obtain/Confirm Infectious Disease History: Yes Infectious Disease History: Denies: Traveled Outside the [place] in Last 30 Days - Family History Known Family History: Positive: Cardiac Disease, Hypertension - Social History Occupation: Unemployed Lives: Alone Alcohol Use: None Hx Substance Use: No Substance Use Type: Reports: None Hx Tobacco Use: No Smoking Status (MU): Never Smoked Tobacco Have You Smoked in the Last Year: No Review of Systems Constitutional: Negative Negative: Fever, Fatigue, Skin Diaphoresis Eyes: Negative ENT: Negative Negative: Palpitations, Chest Pain Negative: Shortness Of Breath, Cough Positive: Vomiting, Nausea Genitourinary: Negative Positive: no symptoms reported, see HPI Skin: Negative Positive: Other - altered - unable to answer simple questions All Other Systems Reviewed And Are Negative: Yes Physical Exam Triage Information Reviewed: Yes Vital Signs On Initial Exam: Initial Vitals Temp Pulse Resp BP Pulse Ox 99.1 F 88 16 135/68 96 04/07/17 13:58 04/07/17 13:58 04/07/17 13:58 04/07/17 13:58 04/07/17 13:58 Completion Of Physical Exam Limited Due To: Altered Mental Status Appearance: Positive: Well-Appearing Skin: Positive: Skin Color Reflects Adequate Perfusion, Dry - dry and chapped lips Head/Face: Positive: Normal Head/Face Inspection Eyes: Positive: Other: - mydriasis Neck: Positive: Supple, No Lymphadenopathy Respiratory/Lung Sounds: Positive: Clear to Auscultation, Breath Sounds Present Cardiovascular: Positive: RRR, Pulses are Symmetrical in both Upper and Lower Extremities Musculoskeletal: Positive: Normal, Strength/ROM Intact Neurological: Positive: Abnormal Gait, Disoriented, Slurred Speech, Facial Symmetry. Negative: Alert, Oriented to Person Place, Time, Reflexes Intact, Facial Droop Psychiatric: Positive: Anxious, Depressed AVPU Assessment: Verbal (Reponds To) - Sena Coma Scale Best Eye Response: 3 - To Speech Best Motor Response: 5 - Purposeful Movement Best Verbal Response: 4 - Confused Coma Scale Total: 14 Diagnostics - Vital Signs Vital Signs Temp Pulse Resp BP Pulse Ox 04/07/17 13:58 99.1 F 88 16 135/68 96 - Laboratory Result Diagrams: 04/07/17 15:10 04/07/17 15:10 Lab Statement: Any lab studies that have been ordered have been reviewed, and results considered in the medical decision making process. Altered Mental Statu Course/Dx - Course Course Of Treatment: D/t her recent medication additions, is likely and probable she has sustained an overdose/sedation with her xanan and percoset and ambien medications. Labs obtained. EKG shows normal sinus rhythm. Considered given narcan, but patient remains easily arousable, is able to follow commands but is unable to answer questions correctly. Multiple attempts previously of suicidal attempts. I have recommended a psych consult and possible admission for medication management. However, she denies SI/HI. She admits to depression today, but states she has no thoughts of wanting to harm herself today, but is unsure about yesterday, etc. Labs obtained and WNL with a slight anemia which is chronic. She appears to be dehydrated on PE and she is given PO fluids. She remains tangential and continues to talk to people who are not in the room and is giving different answers to questions previously asked. She is cleared for MHU at this time. Mental health cleared for home and patient is discharged in improved condition. - Diagnoses Differential Diagnosis/HQI/PQRI: Medication Reaction, Metabolic Disorder Discharge Diagnoses: Altered mental status Discharge - Discharge Plan Condition: Improved Disposition: HOME
[2017-04-07 15:26] LABS: ABS Basophils 0.1 10^3/ul (0-0.2); ABS Eosinophils 0.2 10^3/ul (0-0.6); ABS Monocytes 0.8 10^3/ul (0-0.8); ABS Neutrophils 2.9 10^3/ul (1.5-7.7); ABS Nucleated RBC 0 10^3/ul; Eosinophil % 2.8 % (0-6); Hematocrit 33 % (35-47); Hemoglobin 10.8 g/dl (12.0-16.0); Lymphocyte % 33.2 % (25-47); Mean Corpuscular HGB Conc 32 g/dl (31-36); Mean Corpuscular Hemoglobin 28 pg (27-31); Mean Corpuscular Volume 88 fL (80-97); Mean Platelet Volume 7 um3 (7.4-10.4); Nucleated Red Blood Cells % 0; Platelet Count 308 10^3/ul (150-450); Red Cell Distribution Width 17 % (10.5-15)
[2017-04-07 15:49] LABS: Urine Appearance Clear; Urine Blood Negative (Negative); Urine Color Straw; Urine Ketones Negative (Negative); Urine Protein Negative (Negative); Urine Specific Gravity 1.005 (1.010-1.030); Urine Urobilinogen Negative (Negative)
[2017-04-08] MEDS ORDERED: Acetaminophen TAB* 325 MG PO ONE (00:46)
[2017-04-08] MEDS ORDERED: Potassium Chloride LIQUID* 20 MEQ PACKET PO ONE (01:51)
[2017-04-08] MEDS ORDERED: Nicotine GUM* 2 MG PO PRN (03:16)
[2017-04-08] MEDS ORDERED: Nicotine Inhaler* 10 MG AMP INH PRN (03:16)
[2017-04-08] MEDS ORDERED: Mouth Piece, Nicotine* 1 EACH CARTRIDGE INH SCH (03:16)
[2017-04-08] MEDS ORDERED: Al Hydrox/Mg Hydrox/Simet LIQ* 30 ML UDC PO PRN (03:16)
[2017-04-08] MEDS ORDERED: Acetaminophen TAB* 325 MG PO PRN (03:16)
[2017-04-08] MEDS ORDERED: Zolpidem TAB* 10 MG PO PRN (03:18)
[2017-04-08] MEDS ORDERED: hydrOXYzine HCL TAB* 50 MG PO PRN (03:19)
[2017-04-08] MEDS ORDERED: Gabapentin CAP(*) 100 MG PO SCH (03:20)
[2017-04-08] MEDS ORDERED: Promethazine TAB* 25 MG PO PRN (03:30)
[2017-04-08] MEDS ORDERED: ALPRAZolam TAB* 0.5 MG PO PRN (03:32)
[2017-04-08] MEDS: Diphenoxylat/Atrop 2.5-0.025M* 1 TAB PO SCH ×2 (03:45→09:34)
[2017-04-08] MEDS: oxyCODONE/Acetamin 5/325 MG* TAB PO SCH ×2 (03:45→09:37)
[2017-04-08 08:01] VITALS: BP 143/80
[2017-04-08] MEDS ORDERED: Vitamin THERAPEUTIC TAB PO SCH (09:00)
[2017-04-08] MEDS ORDERED: Gabapentin CAP(*) 400 MG PO SCH (09:00)
[2017-04-08] MEDS ORDERED: Clotrimazole 1% CREAM* 30 GM TOPICAL SCH (09:00)
[2017-04-08] MEDS ORDERED: BuPROPion XL* 300 MG TAB.XL PO SCH (09:00)
[2017-04-08] MEDS ORDERED: FLUoxetine CAP* 20 MG PO SCH (09:00)
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
--- NOTE | 2017-04-09 06:45 | DS ---
DISCHARGE SUMMARY: DATE OF ADMISSION: 04/08/17 DATE OF DISCHARGE: 04/08/17 DISCHARGE DIAGNOSES: Are as follows: [place] I: Delirium secondary to acute influenza, opioid use disorder by history, benzodiazepine use disorder by history. [place] II: Borderline personality disorder. [place] III: Acute influenza, migraine headaches, irritable bowel syndrome, history of left clavicular fracture, mild anemia, chronic constipation. [place] IV: Moderate primary support stressors. [place] V: At the time of admission was 55 and at the time of discharge is 60. CONDITION AT THE TIME OF DISCHARGE: Improved. The patient is no longer displaying signs or symptoms of delirium. She is alert, oriented, scores well on a mini- mental state exam, losing only points for floor number and delayed recall. She has been safe on all checks and has been steadfastly denying suicidal or homicidal ideations. She is tolerating her medications quite well and we have confirmed that she has close followup in the community. The patient is appropriately requesting discharge and we feel that she could be safely treated in a less restrictive setting. MENTAL STATUS EXAM: At the time of discharge, the patient is an aging white female with dyed red hair. She is clean, well groomed, wearing a patient gown. She is sitting with appropriate posture, makes good eye contact. Speech has a normal rate, tone and volume. Mood appears to be euthymic with a full affect. Thought process is linear and goal directed. Thought content is significant for her desire to be discharged from the hospital. She denies suicidal or homicidal ideations. She denies auditory or visual hallucinations. Insight and judgment appear to be fair given her willingness to follow up with outpatient treatment in the community. Cognitively, she is awake and alert with what would appear to be an average intellect. She scores 28 out of 30 points on a mini-mental state exam, losing one point for unawareness of what floor we are on and losing an additional point for delayed recall. DISCHARGE INSTRUCTIONS: To the patient are as follows: A. Medications: She takes: 1. Phenergan 25 mg p.o. daily as a p.r.n. for nausea. 2. Percocet 5/325 two tablets every 6 hours as needed for pain. 3. Atarax 50 mg p.o. b.i.d. as a p.r.n. for anxiety. 4. Lomotil 2 tablets p.o. b.i.d. 5. Xanax 0.5 mg p.o. t.i.d. as a p.r.n. for anxiety. 6. Wellbutrin SR 150 mg p.o. daily. 7. Wellbutrin XL 300 mg p.o. q.a.m. 8. Ambien CR 12.5 mg p.o. every nightly as a p.r.n. for insomnia. 9. Prozac 40 mg p.o. daily. 10. Clotrimazole 1% cream apply topically b.i.d. 11. Neurontin 400 mg p.o. q.i.d. B. Diet is regular. C. Activities: As tolerated. The patient is a nonsmoker. There are no laboratory or diagnostic studies pending at the time of discharge. D. Followup care: The patient will be seen by her primary care provider, Dr. Mcrae on Wednesday on April 13. In addition, she has a followup with her [facility] therapist, Bebo scheduled for the 21 of April. E. Substance abuse followup is nonapplicable. HOSPITAL COURSE: Part A: Reason for admission: The patient is a 62-year-old white female with a history of borderline personality disorder and multiple hospitalizations here at [facility], who was brought to the hospital on a 9.41 legal status by the [facility] after her neighbors called 911 because the patient had been acting strangely. According to the patient, her neighbors are new to the apartment complex and do not know her and she was frustrated that they had called the ambulance to come get her. She does admit that she may have been walking up and down her apartment's hallway "talking to myself without anyone being there." She appeared to be labile in our emergency facility, although being calm and attentive at times. She could become tearful , shaking and sobbing and they did not feel that she warranted admission home. She was somewhat paranoid, stating that she felt the staff was going to send her to the [facility] in [place]. When I met with her, her mentation appeared to be significantly improved. She was able to answer almost all questions rationally and scored 28/30 total points on the mini-mental state exam. She is future oriented stating that she is looking forward to being with her son and her granddaughter. She denied suicidal or homicidal ideations and she attributed her confused behavior to having severe viral influenza the past 2 weeks and becoming dehydrated. We did notice that she had a dry appearance and recommended increased fluid intake. Part B: Psychiatric treatment rendered: The patient was admitted to the adult behavioral health unit where she was placed on q.15 minute checks for her own safety. She was calm and cooperative throughout her brief hospital stay and safe on all checks. She continues to deny any thoughts of harming herself and by the time I met with her, she appeared back to her psychiatric baseline which is known to me due to prior work with this patient. We confirmed her appointment with her primary care provider as well as with the [facility]. We did not see any rationale for further psychiatric treatment given the fact that the patient was behaving normally and did not appear to have any barriers to safely taking care of herself in the community setting. We did not change her medications, but rather kept her on the regimen that she takes on an outpatient basis. She is not requiring any prescriptions at the time of discharge. [id number]/[facility] #: [id number] MTDYanique
== END 2017-04-08 11:50 | disposition home or self-care (01) | DRG 756 ==
LOC: ED 13:56 → BSU 04-08 04:29
PROVIDERS: ADMIT Psychiatry & Neurology Psychiatry; ATTEND Psychiatry & Neurology Psychiatry
DX: F05 Delirium due to known physiological condition (principal); F20.9 Schizophrenia, unspecified; F60.3 Borderline personality disorder; G43.909 Migraine, unspecified, not intractable, without status migrainosus; I10 Essential (primary) hypertension; K58.9 Irritable bowel syndrome, unspecified; M19.90 Unspecified osteoarthritis, unspecified site; F41.0 Panic disorder [episodic paroxysmal anxiety]; F43.10 Post-traumatic stress disorder, unspecified; F31.9 Bipolar disorder, unspecified; R40.2362 Coma scale, best motor response, obeys commands, at arrival to emergency department; R40.2132 Coma scale, eyes open, to sound, at arrival to emergency department; R40.2242 Coma scale, best verbal response, confused conversation, at arrival to emergency department; K59.09 Other constipation; J11.1 Influenza due to unidentified influenza virus with other respiratory manifestations; M25.512 Pain in left shoulder; D64.9 Anemia, unspecified; Z56.0 Unemployment, unspecified; Z91.5 Personal history of self-harm; Z90.49 Acquired absence of other specified parts of digestive tract; Z82.49 Family history of ischemic heart disease and other diseases of the circulatory system; Z98.84 Bariatric surgery status; Z91.410 Personal history of adult physical and sexual abuse
CPT/HCPCS: 36415; 80053; 80307; 80320; 80329; 81003; 81015; 82140; 83605; 83735; 84443; 84484; 85025; 87086; 93005; A9270-GY; G0480

== ENCOUNTER 2017-04-21 13:01 | Day surgery (SDC) | payer BC, MEDICARE, MEDICAID ==
[~2017-04-21 13:01] MED LIST: Buffered Lidocaine 0.9% SYRIN* 5 ML/SYR SYRINGE INTRADERM ONE
[2017-04-21] MEDS ORDERED: Buffered Lidocaine 0.9% SYRIN* 5 ML/SYR SYRINGE ONE (13:22)
[2017-04-21] MEDS ORDERED: ceFAZolin 2 GM PREMIX (*) 2 GM/50 ML BAG IVPB ONE (13:22)
[2017-04-21] MEDS ORDERED: Propofol* 10 MG/ML 20 ML BTL IV PUSH ONE (17:12)
[2017-04-21] MEDS ORDERED: fentaNYL* 50 MCG/ML 2 ML VIAL (100 MCG VIAL) ONE ×2 (17:13→19:21)
[2017-04-21] MEDS ORDERED: Midazolam* 1 MG/ML 2 ML VIAL (2 MG) ONE (17:13)
[2017-04-21] MEDS ORDERED: Atracurium* 10 MG/ML 10 ML VIAL ONE (17:14)
[2017-04-21] MEDS ORDERED: Bupivacaine 0.5% SDV PF* 10-30ML VIAL ONE (17:15)
[2017-04-21] MEDS ORDERED: Dexamethasone IV* 4 MG/ML 1 ML (4 MG) ONE (17:39)
[2017-04-21] MEDS ORDERED: Ondansetron INJ* 2 MG/ML VIAL IV PRN (18:22)
[2017-04-21] MEDS ORDERED: Naloxone* 0.4 MG/ML 1 ML VIAL IV PRN (18:22)
[2017-04-21] MEDS ORDERED: HYDROmorphone INJ* 1 MG/ML CARPUJECT SYRINGE IV PRN (18:22)
[2017-04-21] MEDS ORDERED: Ondansetron INJ* 2 MG/ML VIAL ONE ×2 (18:23→18:57)
[2017-04-21] MEDS: fentaNYL* 50 MCG/ML 2 ML VIAL (100 MCG VIAL) IV PRN ×4 (19:23→19:30)
[2017-04-21] MEDS ORDERED: oxyCODONE/Acetamin 5/325 MG* TAB ONE (19:55)
[2017-04-21] MEDS: oxyCODONE/Acetamin 5/325 MG* TAB PO PRN ×2 (19:58→20:00)
--- NOTE | 2017-04-21 20:16 | RAD ---
Indication: Hardware removal. 2 views of the left clavicle demonstrates removal of hardware through the distal clavicle. AC joint arthritis is noted. IMPRESSION: Postoperative changes with removal of left clavicular hardware.
[2017-04-21 21:31] VITALS: BP 114/78
--- NOTE | 2017-04-26 04:28 | OP ---
DATE OF OPERATION: 04/21/17 - [facility] DATE OF : 55 SURGEON: Raffy Kraus MD POKE IN: ACOSTA Munoz. A physician assistant manager airside operations was required for this case for assistance with positioning, retraction, instrumentation and closure. ANESTHESIOLOGIST: Link Lim MD ANESTHESIA: General anesthesia, local anesthesia, 10 cc of 0.5% Marcaine without epinephrine. PRE-OP DIAGNOSES: 1. Status post 11/07/16 open reduction internal fixation, left lateral clavicle fracture with clavicle hook plate. 2. Retained hardware, left clavicle hook plate. 3. Possible unhooking of plate or erosion through acromion of plate. POST-OP DIAGNOSES: 1. Status post 11/07/16 open reduction internal fixation, left lateral clavicle fracture with clavicle hook plate. 2. Retained hardware, left clavicle hook plate. 3. No clear evidence of either unhooking of plate or erosion acromion. OPERATIVE PROCEDURE: Removal of hardware, deep, left shoulder, clavicle hook plate. ANTIBIOTICS: Ancef 2 g IV. IV FLUIDS: 1100 cc crystalloid. COMPLICATIONS: None. SPECIMENS: Synthes clavicle hook plate x1 with screws. IMPLANTS: None. ESTIMATED BLOOD LOSS: Minimal. INDICATIONS FOR PROCEDURE: The patient is a 62-year-old woman, now just over 5 months status post 11/07/16 open reduction internal fixation, left lateral clavicle fracture with clavicle hook plate. The patient's pre and postoperative courses were significant for a psychiatric history as well as a history of substance abuse that made it slightly more difficult to follow up with the patient postoperatively and is involved by making some telephone calls to her. However, the patient presented for history and physical and clinic note on 04/12/17. She agreed to removal of hardware. The patient described some minimal soreness of the shoulder in a specific position of cross body adduction. We discussed even before the first surgery that this plate would need to be removed between 4 to 6 months postoperatively. Why was the plate placed? for a displaced left lateral clavicle fracture. I discussed the risk and benefits of both nonoperative and operative management and the patient had opted for operative treatment. The patient's initial surgery was significant for I think an inpatient procedure. This was for a variety of reasons. See my history and physical and prior clinic notes. The patient and I discussed risks and potential complications of surgery including bleeding, infection, nerve or blood vessel injury, shoulder pain, stiffness, osteoarthritis, acromial erosion. DESCRIPTION OF PROCEDURE: Preoperative written consent was obtained from the patient. Operative extremity was marked in preoperative holding. The patient was taken back to the operating room and placed supine on a regular operating room table. The patient was sedated and intubated. The patient was changed into a beach chair position. The left shoulder was prepped and draped. Time- out was performed. A mini C-arm what was available. I did not take images until I had removed the hardware. I took the shoulder through a range of motion with the patient asleep and it was not clear whether there was any difficulty with the plate laterally. Surgical time-out was performed. I made the skin incision, following the prior surgical incision scar. It is relatively bloodless filled. I dissected down with knife to the patient's clavicle and clavicle plate. I debrided the superior surface of the plate with a knife and then with a periosteal elevator and curette and mini rongeur. I visualized the entire aspect of the plate which was superior to the clavicle. The hook was still deep to the acromion. I soaked the acromion and did not perceive a clear defect of the acromion. I did not take the shoulder through a full range of motion at this point, but at least with the patient in the beach chair position, there was no unhooking of the lateral hook and no superiorization of the hook through any clear acromion erosion. I removed screws. I then removed plate. I reviewed any fibrous tissue along the superior aspect of the clavicle with a rongeur. I used a curette to curette out the screw holes in the clavicle. The lateral clavicle appeared stable with manipulation. The clavicle versus the acromion seen by the clavicle may have superiorize just a little bit. I again palpated the acromion. I did not feel clear defect of the acromion. Irrigation. I performed some dissection of the deltotrapezial fascia of the clavicle to allow more mobilization and a nice closure superior to bone. I then closed the deltotrapezial fascia with [id number]-cx-[id number] stitches using Vicryl 0 suture. Closure of the subcutaneous tissue then with Vicryl 2-0 suture and buried simple stitches. Closure of the skin with a subcuticular layer running closure using Monocryl 4.0 suture. Mastisol followed by Steri- Strips. Tegaderm. The patient placed back into a simple sling. Prior to dressing being applied, I applied some local anesthetic, 10 cc about the incision site. The patient was awaken and extubated and brought to the PACU. DISPOSITION: The patient was discharged home after the procedure. The patient will follow up with me 10 to 14 days postoperatively for a wound check. We checked with the patient's recent narcotic prescribing. Another physician recently considered prescribing a hydrocodone based product, but then decided against it based on the Percocet that the patient had recently been prescribed. We telephoned another doctor's office and the pharmacy to find out exactly what supply of narcotics the patient has. The patient has enough Percocet with her current level of taking of it to last another 9 or so days, so we held off on issuing anymore narcotic pain medicine. We told the patient she could wean out of the sling as tolerated. [id number]/[facility] #: [id number] MARIANO
== END 2017-04-21 20:55 | disposition home or self-care (01) ==
LOC: OR 13:01
PROVIDERS: ATTEND Orthopaedic Surgery
DX: S42.032D Displaced fracture of lateral end of left clavicle, subsequent encounter for fracture with routine healing (principal); Z47.2 Encounter for removal of internal fixation device; I10 Essential (primary) hypertension; F41.8 Other specified anxiety disorders; D64.9 Anemia, unspecified; W18.30XD Fall on same level, unspecified, subsequent encounter; Y92.481 Parking lot as the place of occurrence of the external cause
CPT/HCPCS: 88300; A9270-GY; J0690; J1100; J2250; J2405; J2704; J3010

== ENCOUNTER 2017-06-16 11:21 | Day surgery (SDC) | payer BC, MEDICARE, MEDICAID ==
[2017-06-16] MEDS ORDERED: Buffered Lidocaine 0.9% SYRIN* 5 ML/SYR SYRINGE ONE (12:28)
--- NOTE | 2017-06-16 13:33 | PN ---
Progress Note - Progress Note Date of Service: 06/16/17 - Pulm note Note: Pt seen and examined at bedside. Pt was scheduled for EBUS/bronchoscopy today. Pt was seen [address] chest with increasing RUL lung mass and mediastinal and hilar adenoapthy. Pt also reported significant wt loss. Pt was taken to ED recently by her care givers,unclear whether she had CT brain. She was having episodes concerning for TIA as per family. She has h/o similar episodes, had CT brain in the past that was negative for acute pathology. Active Medications Generic Name Dose Route Start Last Admin Trade Name Freq PRN Reason Stop Dose Admin Lactated Ringer's 1,000 mls @ 125 mls/hr 06/16/17 06:00 Lactated Ringers 1000 Ml Bag* IV PER RATE SUBHA Lidocaine/Sodium Bicarbonate 0.2 ml 06/15/17 10:38 Buffered Lidocaine 0.9% Syrin* INTRADERM 06/15/17 10:39 ONCE ONE Vital Signs Temp Pulse Resp BP Pulse Ox 98.8 F 80 18 138/66 93 06/16/17 11:56 06/16/17 11:56 06/16/17 11:56 06/16/17 11:56 06/16/17 11:56 O/E: Pt in NAD, alert, awake HEENT:PERRLA, No JVD Lungs:Clear to auscultation b/l CVS: S1, S2+, regular Skin:No rash or bruise Neuro:No focal defecits No new labs CT brain:pending I/R: 62 y o f non-smoker with increasing RUL lung mass, mediastinal and hilar adenopathy, significant wt loss concerning for malignancy Pt with spacing out/Zoning out episodes- need to r/o acute neurological issue Pt having CT brain with and without contrast Will have to cancel procedure if CT brain is positive Bronchoscopy/EBUS procedure was discussed in detail with pt Risks associated with procedure were thoroughly discussed Risk of general anesthesia was also discussed Pt is agreeable to procedure Pt is DNR and would like to reinstate it for the procedure
[2017-06-16] MEDS ORDERED: Iohexol 300* (CONTRAST) 10 ML SDV IV ONE (13:50)
--- NOTE | 2017-06-16 14:12 | RAD ---
HISTORY: Rule out brain mass, TIA symptoms, possible lung cancer COMPARISONS: December 26, 2016 TECHNIQUE: Multiple contiguous axial CT scans were obtained of the head with and without intravenous contrast. FINDINGS: HEMORRHAGE/INFARCT: There is no hemorrhage or acute infarct. MASSES/SHIFT: There is no mass or shift. EXTRA-AXIAL SPACES: There are no extra-axial fluid collections. SULCI AND VENTRICLES: The sulci and ventricles are normal in size and position for the patient's stated age. CEREBRUM: There are no focal parenchymal abnormalities. BRAINSTEM: There are no focal parenchymal abnormalities. CEREBELLUM: There are no focal parenchymal abnormalities. VESSELS: There is calcification of the cavernous segments of the internal carotid arteries bilaterally and of the distal vertebral arteries bilaterally. PARANASAL SINUSES: The paranasal sinuses are clear. ORBITS: The orbits are unremarkable. BONES AND SOFT TISSUE: No bone or soft tissue abnormalities are noted. OTHER: There is no abnormal enhancement. IMPRESSION: 1. NO ACUTE INTRACRANIAL PATHOLOGY. 2. NO ABNORMAL ENHANCEMENT, VASOGENIC EDEMA, OR SPACE-OCCUPYING LESION TO SUGGEST METASTATIC DISEASE TO THE BRAIN.
[2017-06-16] MEDS ORDERED: fentaNYL* 50 MCG/ML 2 ML VIAL (100 MCG VIAL) ONE (14:21)
[2017-06-16] MEDS ORDERED: Succinylcholine* 20 MG/ML 10 ML VIAL ONE (14:22)
[2017-06-16] MEDS ORDERED: Propofol* 10 MG/ML 20 ML BTL IV PUSH ONE (14:22)
[2017-06-16] MEDS ORDERED: Dexamethasone IV* 4 MG/ML 1 ML (4 MG) ONE (14:22)
[2017-06-16] MEDS ORDERED: Acetaminophen TAB* 325 MG PO PRN (16:09)
[2017-06-16] MEDS ORDERED: fentaNYL* 50 MCG/ML 2 ML VIAL (100 MCG VIAL) IV PRN (16:09)
[2017-06-16] MEDS ORDERED: Naloxone* 0.4 MG/ML 1 ML VIAL IV PRN (16:09)
[2017-06-16 17:16] VITALS: BP 100/82
--- NOTE | 2017-06-17 12:51 | PRO ---
BRONCHOSCOPY REPORT: DATE OF PROCEDURE: 06/16/17 - [facility] PROCEDURE PERFORMED: Bronchoscopy with endobronchial ultrasound-guided fine needle aspiration from station 7, R4, R10 lymph nodes and endobronchial biopsy from right lower lobe mucosal lesion. PREPROCEDURAL DIAGNOSIS: Right lung mass. POSTPROCEDURAL DIAGNOSIS: Mediastinal adenopathy ANESTHESIA: General anesthesia. ANESTHESIOLOGIST: Dr. Kline. DESCRIPTION OF PROCEDURE: Informed consent was obtained from the patient prior to the procedure after all the risks and benefits were thoroughly explained. The patient was also having TIA symptoms recently and underwent CT of the brain to rule out any intracranial abnormality, which was not seen. The patient was noted to have increasing right lung mass with mediastinal and hilar adenopathy. Informed consent was obtained from the patient prior to the procedure after all the risks and benefits including risk of pneumothorax and mediastinitis was thoroughly discussed. Appropriate time out was agreed on by attending staff prior to the procedure. Flexible Olympus bronchoscope was inserted through ET tube for airway inspection. No endobronchial lesions were noted on the left side. Thick mucus was noted and was suctioned out. Bronchoscope was then advanced into the right bronchial tree. No endobronchial lesions were noted in the right upper lobe. There was mucosal irregularity without obvious endobronchial lesion near the takeoff of middle lobe and lower lobe bronchus at the level of main stem. Olympus bronchoscope was then withdrawn and EBUS bronchoscope was inserted. Station 7 lymph node appeared to be enlarged and was sampled with 5 passes. Rapid on-site evaluation did not confirm malignant cells. R4 lymph node was accessed with 4 passes. There was evidence of abnormal cells in one of the passes. Rest of the specimen was placed in CytoLyt. R10 was accessed with 4 passes also. Rapid on- site evaluation revealed lymphatic tissue, malignant cells were not ascertained due to blood clot. Rest of the specimen was placed in CytoLyt. Endobronchial biopsies were obtained with 3 passes from right main stem lesion in right lower lobe area and was placed in formalin. The patient tolerated the procedure well and was extubated and seen in Recovery in optimal condition. [id number] #: [id number] MTDD
== END 2017-06-16 17:35 | disposition home or self-care (01) ==
LOC: OR 11:21
PROVIDERS: ATTEND Internal Medicine
DX: R59.0 Localized enlarged lymph nodes (principal); F32.9 Major depressive disorder, single episode, unspecified; G89.29 Other chronic pain; Z79.899 Other long term (current) drug therapy; M19.90 Unspecified osteoarthritis, unspecified site
CPT/HCPCS: 70470; 88172; 88173; 88177; 88305; J0330; J1100; J2704; J3010; Q9967

== ENCOUNTER 2017-07-13 12:24 | Emergency (ER) | payer BC, MEDICARE, MEDICAID ==
[2017-07-13 13:28] LABS: ABS Basophils 0 10^3/ul (0-0.2); ABS Eosinophils 0.1 10^3/ul (0-0.6); ABS Monocytes 0.4 10^3/ul (0-0.8); ABS Neutrophils 1.6 10^3/ul (1.5-7.7); ABS Nucleated RBC 0 10^3/ul; Eosinophil % 4.6 % (0-6); Hematocrit 32 % (35-47); Hemoglobin 10.1 g/dl (12.0-16.0); Lymphocyte % 29.9 % (25-47); Mean Corpuscular HGB Conc 32 g/dl (31-36); Mean Corpuscular Hemoglobin 29 pg (27-31); Mean Corpuscular Volume 89 fL (80-97); Mean Platelet Volume 7.1 um3 (7.4-10.4); Nucleated Red Blood Cells % 0; Platelet Count 246 10^3/ul (150-450); Red Blood Count 3.53 10^6/ul (4.0-5.4); Red Cell Distribution Width 18 % (10.5-15); White Blood Count 3.2 10^3/ul (3.5-10.8)
[2017-07-13] MEDS ORDERED: NS 0.9% 1000 ML* 1,000 ML IV ONE (13:30)
[2017-07-13] MEDS ORDERED: Ketorolac INJ* 30 MG/ML 1 ML VIAL IV PUSH ONE (13:32)
[2017-07-13] MEDS ORDERED: Metoclopramide IV* 5 MG/ML 2 ML VIAL IV ONE (13:32)
[2017-07-13 13:46] LABS: EGFR Non-African American 74.8 (>60)
--- OUTSIDE RECORDS SUMMARY | 2017-07-13 14:10 | XMS REPORT ---
:1955 External Reference #:[id number] Author Organization [facility] Address [address] [address] Phone [phone] Care Team Providers Name Role Phone Samantha Mcrae MD Primary Care Physician Unavailable Payers Type Date Identification Numbers Payment Provider Subscriber Commercial Effective: Policy Number: [id number] [employer]ets Drew Ball 2012 PayID: [id number] [address] [address] [place] [address] Medigap Part B Policy Number: [id number] Medicare Landy Ball PayID: [id number] [address] [place] [address] Medigap Part B Policy Number: [id number] Medicaid Landy Ball Group Name: 1 1 [address] PayID: [id number] [place] [address] Problems Description No Information Family History Date Family Member(s) Problem(s) Comments General Diabetes General Heart Disease General Rheumatoid Arthritis General Migraine General Lung Cancer Grandmother, who did not smoke, aunt Father Kidney failure Father due to CO () Mother due to CO () Social History Type Date Description Comments Marital Status Lives With 3 dogs When stays with best friend Lives With 1 cat When stays with best friend Lives With Best friend Sometimes Lives With Alone Sometimes Occupation Disabled 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, 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, 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 Cigarette Use Never Smoked Cigarettes ETOH Use Denies alcohol use Smoking Patient has never smoked Recreational Drug Use Denies Drug Use Smoking Second hand smoke Daily Caffeine Occasional soda Exercise Type/Frequency Does not exercise Allergies, Adverse Reactions, Alerts Date Description Reaction Status Severity Comments 11/26/2016 NKDA active Medications Medication Date Status Form Strength Qnty SIG Indications Ordering Provider Prednisone 07/13/ Active Tablets 10mg 360tab 30mg D86.2 Guerline 2018 s daily for MD Ming 2 weeks, 20mg daily for 4 weeks, 10 mg daily weekly Xanax / Active Tablets 0.5mg by mouth Unknown 0000 three times a day as needed Bupropion HCL 00/ Active Tablets ER 300mg 1 by Unknown ER (SR) 0000 12HR mouth every morning Fluoxetine HCL / Active Capsules 40mg 1 by Unknown 0000 mouth every day Gabapentin / Active Capsules take one Unknown 0000 capsule by mouth three times a day (states taking 2x per day 06/14/17) Lomotil / Active Tablets 2.5-0.025m 1 tab by Unknown 0000 g mouth three times a day as needed Percocet / Active Tablets 5-325mg 1-2 by Unknown 0000 mouth every 4-6 hours as needed pain Promethazine / Active Solution 25mg/ml as needed Unknown HCL 0000 Zolpidem / Active Tablets ER 12.5mg 1 by Unknown Tartrate ER 0000 mouth at bedtime as needed Bupropion HCL / Hx Tablets ER 150mg 1 by Unknown ER (SR) 0000 - 12HR mouth 11/26/ every day 2017 Docusate Sodium / Hx Capsules 100mg 1 by Unknown 0000 - mouth as needed 2018 Hydroxyzine HCL / Hx Tablets 25mg 1-2 Unknown 0000 - tablets 06/13/ by mouth 2017 every 6-8 hours as needed for pruritis. Ranitidine HCL / Hx Capsules 150mg 1 by Unknown 0000 - mouth 06/13/ twice a 2018 day Vital Signs Date Vital Result Comment 07/13/2017 Height 62 inches 5'2" Weight 140.00 lb per pt Heart Rate 66 /min BP Systolic Sitting 130 mmHg BP Diastolic Sitting 80 mmHg Respiratory Rate 14 /min O2 % BldC Oximetry 97 % On Ra BMI (Body Mass Index) 25.6 kg/m2 06/22/2017 Height 62 inches 5'2" Weight 138.38 lb Heart Rate 66 /min BP Systolic Sitting 110 mmHg Lue regular cuff BP Diastolic Sitting 68 mmHg Lue regular cuff Respiratory Rate 12 /min O2 % BldC Oximetry 98 % BMI (Body Mass Index) 25.3 kg/m2 06/14/2017 Height 62 inches 5'2" Weight 139.00 lb Heart Rate 76 /min BP Systolic Sitting 130 mmHg Lue reg cuff BP Diastolic Sitting 86 mmHg Lue reg cuff O2 % BldC Oximetry 97 % On Ra BMI (Body Mass Index) 25.4 kg/m2 Neck Circumference in inches 13.25 04/12/2017 Height 62 inches 5'2" Weight 155.00 lb Heart Rate 80 /min BP Systolic Recheck 138 mmHg BP Diastolic Recheck 88 mmHg Respiratory Rate 16 /min Body Temperature 98.2 F BMI (Body Mass Index) 28.3 kg/m2 02/08/2017 Height 62 inches 5'2" Weight 159.00 lb Heart Rate 72 /min BP Systolic Recheck 126 mmHg BP Diastolic Recheck 84 mmHg Respiratory Rate 16 /min Body Temperature 98.0 F BMI (Body Mass Index) 29.1 kg/m2 11/26/2016 Height 62 inches 5'2" Weight 148.00 lb Heart Rate 86 /min Respiratory Rate 16 /min Body Temperature 97.1 F Pain Level 6 BMI (Body Mass Index) 27.1 kg/m2 Results Test Date Test Result H/L Range Note Leukemia/Lymphoma 07/08/2017 Path Interpret 9-15 (SEE NOTE) 1 Flow Marker Laboratory test 07/08/2017 Cytology Non-Coil Winder Hand SEE RESULT BELOW 2 finding Laboratory test 07/07/2017 Cytology Non-Coil Winder Hand SEE RESULT BELOW 3 finding Laboratory test 06/30/2017 Point of Care 102 mg/dL High 70-100 4 finding Glucose Platelet Count 06/28/2017 Platelet Count 198 10^3/uL 150-450 Mean Platelet Volume 7.3 um3 Low 7.4-10.4 Laboratory test 06/28/2017 Partial Thrombo Time 31.8 seconds 26.0-36.3 finding PTT Inr/Protime 06/28/2017 Inr 1.00 0.77-1.02 Laboratory test 06/16/2017 Surgical Pathology SEE RESULT BELOW 5 finding Laboratory test 06/16/2017 Cytology Non-Coil Winder Hand SEE RESULT BELOW 6 finding Laboratory test 04/21/2017 Surgical Pathology SEE RESULT BELOW 7 finding 1 FINAL DIAGNOSIS: Specimen Source: Left neck lymph node Flow cytometry immunophenotypic analysis: No immunophenotypic abnormality identified. Interpretative data: Lymphocytes: 55% of WBCs B-cells: 20% of lymphocytes with no evidence of Or lambda light chain restriction or other immunophenotypic abnormality. T-cells/NK cells: No aberrant population detected. Markers tested: CD3, CD5, CD7, CD10, CD19, CD20, CD23, CD45, kappa surface light chains, lambda surface light chains, 7-AAD. Quality Assessment: Acceptable Viability: Acceptable Viable lymphocytes (7-AAD): 99% Specimen received within validated guidelines. A Messer-Giemsa stained slide prepared from the flow cytometry specimen was examined for quality purposes. Electronically signed by: Manoj Richard MD 07/12/17 1457 Technical component performed by: [facility] [employer] [address] [address] Brand Marketing Intern: Epifanio Swanson II, MD, PhD. 2 SEE RESULT BELOW Name: LANDY BALL : [address]: Guerline Lai MD Acct: [id number] Unit: [id number] AGE: 62 Location: Re07/08/17 SEX: F Status: REG REF SPEC: [id number] LEONARDO: 07/08/17-[address]: Guerline Lai MD REQ: [id number] RECD: 07/08/17-4325 STATUS: SELVIN CALVIN DR: Eitan Sauceda MD _ ORDERED: FNA-IMG GUID BX/2, CY ADEQ-ADDL P, LEVEL 4/2, CYTO ADEQ-1ST P/2, IMMUNO- IMMUNO-ADDL Flow cytometry has been performed at [place], [place]. The testing reveals: FINAL DIAGNOSIS: Specimen Source: Left neck lymph node Flow cytometry immunophenotypic analysis: No immunophenotypic abnormality identified. Interpretative data: Lymphocytes: 55% of WBCs B-cells: 20% of lymphocytes with no evidence of Or lambda light chain restriction or other immunophenotypic abnormality. T-cells/NK cells: No aberrant population detected. Markers tested: CD3, CD5, CD7, CD10, CD19, CD20, CD23, CD45, kappa surface light chains, lambda surface light chains, 7-AAD. Quality Assessment: Acceptable Viability: Acceptable Viable lymphocytes (7-AAD): 99% Specimen received within validated guidelines. A Messer-Giemsa stained slide prepared from the flow cytometry specimen was examined for quality purposes. Electronically signed by: Manoj Richard MD 07/12/17 145 Technical component performed by: [place] [address] Brand Marketing Intern: Epifanio Swanson II, MD, PhD. CONTINUED ON NEXT PAGE DEPARTMENT OF PATHOLOGY, [address] [place] [address] Manoj Richard M.D. Director CLIA # [id number] RUN DATE: 07/13/17 [facility] LAB LIVE PAGE 2 Patient: LANDY BALL [id number] (Continued) ADDENDUM (Continued) Addendum Signed (signature on file) Debbie Rodrigues MD 1205 FINAL DIAGNOSIS 1) Cervical lymph node, ultrasound-guided fine needle aspiration: -- Benign lymphoid tissue. -- No evidence of neoplasia identified. 2) Right ischium, CT-guided fine needle aspiration: -- Bone marrow with apparently preserved trilineage hematopoiesis. -- No evidence of neoplasia identified. COMMENT: A cell block was prepared in the evaluation of each specimen. Smears and cell blocks reveal similar findings. Immunohistochemical stains, with appropriately reacting controls, were performed with the following results: Pankeratin negative CD68 scattered positive cells There is no evidence of malignancy in the sampled material. The findings were discussed with Dr. Lai. #1. LYMPH NODE - US GUIDED CERVICAL LYMPH NODE FINE NEEDLE ASPIRATION, #2. PELVIC - CT GUIDED ISCHIUM FINE NEEDLE ASPIRATION CLINICAL HISTORY Enlarged lymph nodes, diseases of liver. CONTINUED ON NEXT PAGE DEPARTMENT OF PATHOLOGY, [address] [place] [address] Manoj Richard M.D. Director [facility] # [id number] RUN DATE: 07/13/17 [facility] LAB LIVE PAGE 3 Patient: CHUY BALLNDA [id number] (Continued) IMMEDIATE INTERPRETATION (Continued) IMMEDIATE INTERPRETATION 1) Pass 1-inadequate, pass 2, and 3-adequate 2) All passes adequate GROSS DESCRIPTION #1) Ultrasound guided, fine needle aspiration x 3 passes with 6 Alcohol fixed slide(s), 1 Air dried slide(s), needle rinse in formalin for cell block labeled [id number]# 1 and Specimen sent to [facility] for Flow cytometry [place], [place] on 07/08/17 by [id number] at 1522. #2) CT Guided, fine needle aspiration x 4 passes with 3 Alcohol fixed slide(s ), 7 Air dried slide(s), 1 core Biopsy and 2 cell blocks labeled [id number]#2A, [id number]#2M and [id number]#2 CORE. Signed (signature on file) Debbie Rodrigues MD 1144 END OF REPORT DEPARTMENT OF PATHOLOGY, [address] [place] [address] Manoj Richard M.D. Director [facility] # [id number] 3 SEE RESULT BELOW Name: LANDY BALL : [address]: Guerline Lai MD Acct: [id number] Unit: [id number] AGE: 62 Location: LAB Re07/07/17 SEX: F Status: REG REF SPEC: [id number] LEONARDO: 07/07/17-[address]: Guerline aLi MD REQ: [id number] RECD: 07/07/17 STATUS: SELVIN CALVIN DR: Manoj Mcrae MD _ ORDERED: FNA INTERP RPT, FNA BY PALP, LEVEL 4, CYTO ADEQ-1ST P FINAL DIAGNOSIS Left upper neck node, fine needle aspiration by palpation: -- Benign- lymphoid tissue with rare epithelioid granulomatous elements. See comment. -- No evidence of neoplasia identified. Comment: The aspirate smears are amply cellular demonstrate abundant mixed lymphoid tissue and a few scattered epithelioid granulomatous elements. No evidence of primary hematopoietic or metastatic neoplasia is identified. The findings are nonspecific but sarcoidal lymphadenitis cannot be excluded. This may be coincidental to the radiologic findings in the lung, bones and liver. Correlation with clinical and imaging findings suggested. Additional studies is warranted. A cell block was prepared in the evaluation of this specimen. Smears and cell block reveal similar findings. A. NECK LEFT - LEFT UPPER NECK NODE FINE NEEDLE ASPIRATION BY PALPATION CLINICAL HISTORY 5 mm left upper neck node. CONTINUED ON NEXT PAGE DEPARTMENT OF PATHOLOGY, [address] [place] [address] Manoj Richard M.D. Director [facility] # [id number] RUN DATE: 07/08/17 [facility] LAB LIVE PAGE 2 Patient: LANDY BALL [id number] (Continued) IMMEDIATE INTERPRETATION (Continued) IMMEDIATE INTERPRETATION All passes adequate GROSS DESCRIPTION Fine needle aspiration by palpation x 3 passes with 5 Alcohol fixed slide(s) , 5 Air dried slide(s). and needle rinse in formalin for cell block. Signed (signature on file) Manoj Richard MD 1524 END OF REPORT DEPARTMENT OF PATHOLOGY, [address] [place] [address] Manoj Richard M.D. Director [facility] # [id number] 4 [employer] Program Specialist: [id number] 5 SEE RESULT BELOW Name: LANDY BALL : [address]: Guerline Lai MD Acct: [id number] Unit: [id number] AGE: 62 Location: OR Re06/16/17 SEX: F [place] [facility] [place]: [id number] LEONARDO: 06/16/17- [facility] DR: Guerline Lai MD REQ: [id number] RECD: 06/16/17 STATUS: SOUT _ ORDERED: LEVEL 4 FINAL DIAGNOSIS Lung, right lower lobe, endobronchial biopsy: -- Denuded respiratory mucosa with no evidence of neoplasia. PRE-OPERATIVE DIAGNOSIS Other disorder of lung enlarged lymph GROSS DESCRIPTION The specimen is received in formalin labeled, Right Lower Lobe Endobronchial Biopsy, and consists of a 0.5 x 0.2 x 0.1 cm aggregate of lowery-white irregular soft tissue fragments admixed with scant red-brown blood clot. Entirely submitted in one cassette. Signed (signature on file) Debbie Rodrigues MD 0939 END OF REPORT DEPARTMENT OF PATHOLOGY, [address] [place] [address] Manoj Richard M.D. Director [facility] # [id number] 6 SEE RESULT BELOW Name: LANDY BALL : [address]: Guerline Lai MD Acct: [id number] Unit: [id number] AGE: 62 Location: OR Re06/16/17 SEX: F Status: DEP SDC SPEC: [id number] LEONARDO: 06/16/17-[address]: Guerline Lai MD REQ: [id number] RECD: 06/16/17-1552 STATUS: SOUT _ ORDERED: FNA-IMG GUID BX/3, CY ADEQ-ADDL P/6, LEVEL 4/3, CYTO ADEQ-1ST P/3 FINAL DIAGNOSIS 1. Lymph node, Station 7, Endobronchial ultrasound-guided fine needle aspiration: --Benign reactive bronchial epithelium and lymphoid tissue. --No evidence of malignancy identified. 2. Lymph node, R4, Endobronchial ultrasound-guided fine needle aspiration: --Benign reactive bronchial epithelium and lymphoid tissue. --No evidence of malignancy identified. 3. Lymph node, R10, Endobronchial ultrasound-guided fine needle aspiration: --Benign reactive bronchial epithelium and lymphoid tissue. --No evidence of malignancy identified. A cell block was prepared in the evaluation of this specimen. Smears and cell block reveal similar findings. #1. LYMPH NODE - ENDOBRONCHIAL US GUIDED FINE NEEDLE ASPIRATION STATION 7, #2. LYMPH NODE - ENDOBRONCHIAL US GUIDED FINE NEEDLE ASPIRATION R4, #3. LYMPH NODE - ENDOBRONCHIAL US GUIDED FINE NEEDLE ASPIRATION R10 CONTINUED ON NEXT PAGE DEPARTMENT OF PATHOLOGY, [address] [place] [address] Manoj Richard M.D. Director [facility] # [id number] RUN DATE: 06/17/17 [facility] LAB LIVE PAGE 2 Patient: LATA BALLA [id number] (Continued) CLINICAL HISTORY (Continued) CLINICAL HISTORY 1. Station 7 lymph node. 2. R4 lymph node. 3. R10 lymph node. IMMEDIATE INTERPRETATION 1. Pass 1-5 inadequate, pass 6-adequate 2. Pass 1, 3 4 adequate, pass 2 ?inadequate 3. Pass 1-3 adequate, pass 4-inadequate GROSS DESCRIPTION 1. Endobronchial ultrasound-guided fine needle aspiration x 6 passes, 6 alcohol fixed slides, 6 air dried slides and needle rinse in formalin for cell block. 2. Endobronchial ultrasound-guided fine needle aspiration x 4 passes, 4 alcohol fixed slides, 4 air dried slides and needle rinse in formalin for cell block. 3. Endobronchial ultrasound-guided fine needle aspiration x 4 passes, 4 alcohol fixed slides, 7 air dried slides and needle rinse in formalin for cell block. Signed (signature on file) Manoj Richard MD 1426 END OF REPORT DEPARTMENT OF PATHOLOGY, [address] [place] [address] Manoj Richard M.D. Director [place] # [id number] 7 SEE RESULT BELOW Name: LANDY BALL : [address]: Raffy Kraus MD Acct: [id number] Unit: [id number] AGE: 62 Location: OR Re04/21/17 SEX: F Status: MARILYNN BOYERC SPEC: [id number] LEONARDO: 04/21/17- SUBM DR: Raffy Kraus MD REQ: [id number] RECD: 04/21/17 STATUS: SOUT _ ORDERED: LEVEL 1 FINAL DIAGNOSIS Clavicle, left, hardware removal: Foreign body (orthopedic hardware) (Gross diagnosis). PRE-OPERATIVE DIAGNOSIS Status post open reduction internal fixation left clavicle retained hardware GROSS DESCRIPTION The specimen is received fresh labeled, Hardware Left Clavicle, and consists of a 12.0 by up to 2.2 x 0.3 cm silver metallic irregular plate with multiple ovoid holes. The following inscription is identified: L [id number] 241.105 [id number]. Received separately in the same container are seven silver metallic threaded Jose-headed screws ranging from 1.2 x 0.3 cm to 1.6 x 0.3 cm. Per established hospital medical staff protocol, no tissue is submitted. Gross only. Signed (signature on file) Debbie Rodrigues MD 1125 END OF REPORT * ML=Testing performed at Main Lab DEPARTMENT OF PATHOLOGY, [address] [place] [address] Manoj Richard M.D. Director [facility] # [id number] Procedures Date CPT Code Description Status 06/16/2017 90469 Endobronchial Ultrasound=>3 Completed 04/21/201763724 Removal Implant Deep Wire,Screw Nail,Dhruv Or Plate Completed 04/21/201728201 Removal Implant Deep Wire,Screw Nail,Dhruv Or Plate Completed 11/07/2016 27550 Open TX Of Clavicular FX, Incl Intrnl Fixation When Completed Performed 11/07/2016 81705 Open TX Of Clavicular FX, Incl Intrnl Fixation When Completed Performed Encounters Type Date Location Provider CPT E/M Dx Office Visit 07/13/2017 [facility] [place] [address] R59.0 11:45a Services Of [facility] J98.4 D86.2 R41.82 Office Visit 06/22/2017 12:00p [facility] [place] [address] J98.4 Services Of [facility] R59.0 Office Visit 06/16/2017 3:53p [facility] [place] [address] J98.4 Services Of [facility] R59.0 J98.4 Office Visit 06/16/2017 1:00p [facility] [place] [address] J98.4 Services Of [facility] J98.4 R59.0 R59.0 Office Visit 06/14/2017 2:30p [facility] [place] [address] Z77.22 Services Of [facility] J98.4 R59.0 Office Visit 04/12/2017 10:45a [facility] Raffy Esposito [address]603 S42.032D Of [facility] At [facility]ong Kraus MD Office Visit 02/08/2017 10:30a [facility] Raffy Esposito 42699 S42.002D Of [facility] At Yong Kraus MD S42.032D Office Visit 01/04/2017 2:20p [facility] [place] [address] G89.29 Hospitalists W19.xxxA F33.9 F41.9 Office Visit 01/01/2017 2:19p [facility] [place] 38612 G89.29 Hospitalists W19.xxxA F33.9 Office Visit 12/31[facility]2016 [facility] [address] G89.29 [facility]oc, [facility] Hospitalists F33.9 W19.xxxA F41.9 Office Visit 12/28/2016 11:06a [facility] [place] [address]64 G89.29 Hospitalists W19.xxxA F41.9 Office Visit 12/27/2016 12:51p [facility] [place] [address]60 G89.29 Hospitalists W19.xxxA F33.9 F41.9 Office Visit 12/26/2016 12:50p [facility] Saad [place], [address]21 G89.29 Assoc, Hospitalists N.P. W19.xxxA F33.9 F41.9 Office Visit 11/25/2016 9:30a [facility] Ingrid Farooq, RENA 09378 W01.190A M79.602 R29.6 Office Visit 11/17/2016 3:00p [facility] Shivani Patel M.D. 24738 W19.xxxA M17.0 F41.9 Office Visit 11/10/2016 9:08a [facility] Virginie Matt, 51290 S42.001A Assoc, Hospitalists Romaine R29.6 F33.41 F41.9 Office Visit 11/09/2016 9:07a [facility] Jseliza Burdick, 79411 S42.001A Assoc,pc Hospitalists R29.6 F41.9 F33.41 Office Visit 11/08/2016 9:07a [facility] Js Burdick, 81657 S42.001A Assoc,pc Hospitalists R29.6 F41.9 F33.41 Office Visit 11/07/2016 9:07a [facility] Jseliza Burdick, 03127 S42.001A Assoc,pc Hospitalists R29.6 F41.9 F33.41 Office Visit 11/06/2016 9:06a [facility] Jseliza Burdick, 21849 S42.001A Assoc, Hospitalists R29.6 F33.41 F41.9 Office Visit 11/06/2016 1:48p [facility] Raffy Esposito 47612 S42.032A Of Shikha Kraus MD W01.0xxA Office Visit 11/06/2016 1:27p [facility] [place] 09871 S42.032A Of Shikha W19.xxxA Office Visit 11/05/2016 9:06a [facility] Crispin Jimenez M.D. 57621 S42.001A Assoc, Hospitalists Office Visit 04/03/2016 12:54p [facility] Shivani Patel, 58090 N30.00 Assoc, Hospitalists Romaien R45.851 Office Visit 03/17/2015 12:48p [facility] [place] [address] H83.01 Assoc,pc Hospitalists I10 F32.9 F41.9 Office Visit 03/16/2015 12:46p [facility] Saad [place], 47112 H83.01 Assoc,pc Hospitalists N.P. I10 F32.9 F41.9 Office Visit 09/27/2014 10:56a [facility] Assoc,pc Martha Hayes, N.P. 15404 790.4 Hospitalists 780.52 296.20 401.9 Office Visit 11/23/2013 2:15p [facility] [place], [address] 346.91 Services Of Brenden Gavin 339.3 311 Plan of Care 07/13/2017 - Guerline Lai, MDR59.0 Localized enlarged lymph nodesFollow up:6 txizgY76.4 Other disorders of lungD86.2 Sarcoidosis of lung with sarcoidosis of lymph nodesNew Medication:Prednisone 10 mgR41.82 Altered mental status, unspecified
--- OUTSIDE RECORDS SUMMARY | 2017-07-13 14:10 | XMS REPORT ---
:1955 External Reference #:[id number] Author Organization [facility] Address [address] [facility] [address] [place] [address] Phone [phone] Care Team Providers Name Role Phone Samantha Mcrae MD Primary Care Physician Unavailable Payers Type Date Identification Numbers Payment Provider Subscriber Commercial Effective: Policy Number: [id number] Facets Drew Ball 2012 PayID: [id number] [address] [address] [place] [address] Medigap Part B Policy Number: [id number] Medicare Landy Ball PayID: [id number] [address] [place] [address] Medigap Part B Policy Number: [id number] Medicaid Landy Ball Group Name: 1 1 [address] PayID: [id number] [place] [address] Problems Description No Information Family History Date Family Member(s) Problem(s) Comments General Diabetes General Heart Disease General Rheumatoid Arthritis General Migraine General Lung Cancer Grandmother, who did not smoke, aunt Father Kidney failure Father due to MD () Mother due to MD () Social History Type Date Description Comments Marital Status Lives With 3 dogs When stays with best friend Lives With 1 cat When stays with best friend Lives With Best friend Sometimes Lives With Alone Sometimes Occupation Disabled 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, 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, 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 Cigarette Use Never Smoked Cigarettes ETOH Use Denies alcohol use Smoking Patient has never smoked Recreational Drug Use Denies Drug Use Smoking Second hand smoke Daily Caffeine Occasional soda Exercise Type/Frequency Does not exercise Allergies, Adverse Reactions, Alerts Date Description Reaction Status Severity Comments 11/26/2016 NKDA active Medications Medication Date Status Form Strength Qnty SIG Indications Ordering Provider Xanax 0 Active Tablets 0.5mg by mouth Unknown 000 three times a day as needed Bupropion HCL 0 Active Tablets ER 300mg 1 by Unknown ER (SR) 000 12HR mouth every morning Fluoxetine HCL Active Capsules 40mg 1 by Unknown 000 mouth every day Gabapentin 0 Active Capsules take one Unknown 000 capsule by mouth three times a day (states taking 2x per day 06/14/17) Lomotil 0 Active Tablets 2.5-0.025m 1 tab by Unknown 000 g mouth three times a day as needed Percocet 0 Active Tablets 5-325mg 1-2 by Unknown 000 mouth every 4-6 hours as needed pain Promethazine Active Solution 25mg/ml as needed Unknown HCL 000 Zolpidem Active Tablets ER 12.5mg 1 by Unknown Tartrate ER 000 mouth at bedtime as needed Bupropion HCL 0 Hx Tablets ER 150mg 1 by Unknown ER (SR) 000 - 12HR mouth every day 017 Docusate Sodium Hx Capsules 100mg 1 by Unknown 000 - mouth as needed 018 Hydroxyzine HCL 0 Hx Tablets 25mg 1-2 Unknown 000 - tablets by mouth 018 every 6-8 hours as needed for pruritis. 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 Director [facility] # [id number] 2 SEE RESULT BELOW Name: LANDY BALL : [address]: Guerline Lai MD Acct: [id number] Unit: [id number] AGE: 62 Location: OR Re06/16/17 SEX: F Status: DEP SDC SPEC: [id number] LEONARDO: 06/16/17-14[address] [facility] [address]: Guerline Lai MD REQ: [id number] RECD: 06/16/17 STATUS: SOUT _ ORDERED: FNA-IMG GUID BX/3, [...] CONTINUED ON NEXT PAGE DEPARTMENT OF PATHOLOGY, [address] [place] [address] Manoj Richard M.D. Director [facility] # [id number] RUN DATE: 06/17/17 [facility] LAB LIVE PAGE 2 Patient: LANDY BALL [id number] (Continued) CLINICAL HISTORY (Continued) CLINICAL HISTORY 1. [...] 1426 END OF REPORT DEPARTMENT OF PATHOLOGY, [address] [place] [address] Manoj Richard M.D. Director [facility] # [id number] 3 SEE RESULT BELOW Name: LANDY BALL : [address]: Raffy Kraus MD Acct: [id number] Unit: [id number] AGE: 62 Location: OR Re04/21/17 SEX: F Status: DEP SD SPEC: [id number] LEONARDO: 04/21/17- [facility] DR: Raffy Kraus MD REQ: [id number] RECD: 04/21/17 STATUS: SOUT _ ORDERED: LEVEL [...] holes. The following inscription is identified: L [id number]. Received separately in the same container are seven silver metallic threaded Jose-headed screws ranging from 1.2 x 0.3 cm to 1.6 x 0.3 cm. Per established hospital medical staff protocol, no tissue is submitted. Gross only. Signed (signature on file) Debbie Rodrigues MD 1125 END OF REPORT * ML=Testing performed at Main Lab DEPARTMENT OF PATHOLOGY, [address] [place] [address] Manoj Richard M.D. Director [facility] # [id number] Procedures Date CPT Code Description Status 04/21/201724462 Removal Implant Deep Wire,Screw Nail,Dhruv Or Plate Completed 04/21/201790425 Removal Implant Deep Wire,Screw Nail,Dhruv Or Plate Completed 11/07/2016 56806 Open TX Of Clavicular FX, Incl Intrnl Fixation When Completed Performed 11/07/2016 96482 Open TX Of Clavicular FX, Incl Intrnl Fixation When Completed Performed Encounters Type Date Location Provider CPT E/M Dx Office Visit 06/22/2017 [facility] [address] J98.4 12:00p Services Of Surgeon Chief R59.0 Office Visit 06/16/2017 3:53p [facility] [place] [address] J98.4 Services Of Surgeon Chief R59.0 Office Visit 06/14/2017 2:30p [facility] [place] [address] Z77.22 Services Of Surgeon Chief J98.4 R59.0 Office Visit 04/12/2017 10:45a [facility] Raffy Esposito 68192 S42.032D Of Surgeon Chief At Yong Kraus MD Office Visit 02/08/2017 10:30a [facility] Raffy Esposito 91323 S42.002D Of Surgeon Chief At Yong Kraus MD S42.032D Office Visit 01/04/2017 2:20p [facility] Assoc,ACOSTA [place] 16255 G89.29 Hospitalists W19.xxxA F33.9 F41.9 Office Visit 01/01/2017 2:[facility]p [facility] [address]151 G89.29 Hospitalists W19.xxxA F33.9 Office Visit 12/31/2016 2:19p [facility] Maksim Rodriguez, 60945 G89.29 Assoc,pc PA Hospitalists F33.9 W19.xxxA F41.9 Office Visit 12/28/2016 11:06a [facility] Assoc,pc A[place]STA [place] [address]4513 G89.29 Hospitalists W19.xxxA F41.9 Office Visit 12/27/2016 12:51p [facility] Assoc,pc [place] 23008 G89.29 Hospitalists W19.xxxA F33.9 F41.9 Office Visit 12/26/2016 12:50p [facility] Saad Gray, 52565 G89.29 Assoc, Hospitalists N.P. W19.xxxA F33.9 F41.9 Office Visit 11/25/2016 9:30a [facility] [place] [address] W01.190A M79.602 R29.6 Office Visit 11/17/2016 3:00p [facility] Shivani Patel M.D. 76849 W19.xxxA M17.0 F41.9 Office Visit 11/10/2016 9:08a [facility] Virginie Gutierrez, 12497 S42.001A Assrita, Hospitalemilia Gavin R29.6 F33.41 F41.9 Office Visit 11/09/2016 9:07a [facility] Js Burdick, 11605 S42.001A Assoc, Hospitalists R29.6 F41.9 F33.41 Office Visit 11/08/2016 9:07a [facility] Js Burdick, 02322 S42.001A Assoc,pc Hospitalists R29.6 F41.9 F33.41 Office Visit 11/07/2016 9:07a [facility] Js Burdick, 20861 S42.001A Assoc, Hospitalists R29.6 F41.9 F33.41 Office Visit 11/06/2016 9:06a [facility] Js Burdick, 49489 S42.001A Assoc,pc Hospitalists R29.6 F33.41 F41.9 Office Visit 11/06/2016 1:48p [facility] Services Raffy F 69873 S42.032A Of Shikha Kraus MD W01.0xxA Office Visit 11/06/2016 1:27p [facility] ACOSTA Marrufo 34574 S42.032A Of Shikha W19.xxxA Office Visit 11/05/2016 9:06a [facility] Crispin Jimenez M.D. 47874 S42.001A Assoc,pc Hospitalists Office Visit 04/03/2016 12:54p [facility] Shivani Gastonhn, 50480 N30.00 Assoc, Hospitalists Romaine R45.851 Office Visit 03/17/2015 12:48p [facility] [place] [address] H83.01 Assoc, Hospitalists I10 F32.9 F41.9 Office Visit 03/16/2015 12:46p [facility] Saad Isaac, 85716 H83.01 Assoc, Hospitalists N.P. I10 F32.9 F41.9 Office Visit 09/27/2014 10:56a [facility], Martha Hayes, N.P. 93769 790.4 Hospitalists 780.52 296.20 401.9 Office Visit 11/23/2013 2:15p [facility] [place]one, 61015 346.91 [facility] Romaine 339.3 311 Plan of Care Future Appointment(s):07/09/2017 11:30 am - Guerline Lai MD at [facility]06/22/2017 - Guerline Lai MDJ98.4 Other disorders of lungNew Xrays:Biopsy Soft Tissue Neck/ThoraxPET/Ctroutine Skull/Thigh IniFollow up:2 jpxphF31.0 Localized enlarged lymph nodes
--- OUTSIDE RECORDS SUMMARY | 2017-07-13 14:10 | XMS REPORT ---
:1955 External Reference #:[id number] Author Organization [facility] Address [address] [facility] [address] [place] [address] Phone [phone] Care Team Providers Name Role Phone Samantha Mcrae MD Primary Care Physician Unavailable Payers Type Date Identification Numbers Payment Provider Subscriber Commercial Effective: Policy Number: [id number] Facets Drew Ball 2012 PayID: [id number] [address] [address] [place] [address] [facility] Part B Policy Number: [id number] Medicare Landy Ball PayID: [id number] [address] [place] [address] Problems Description No Information Family History Date Family Member(s) Problem(s) Comments General Diabetes General Heart Disease General Rheumatoid Arthritis General Migraine General Lung Cancer Grandmother, who did not smoke, aunt Father Kidney failure Father due to CA () Mother due to CA () Social History Type Date Description Comments Marital Status Lives With 3 dogs When stays with best friend Lives With 1 cat When stays with best friend Lives With Best friend Sometimes Lives With Alone Sometimes Occupation Disabled 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 Ranitidine HCL 0 Hx Capsules 150mg 1 by Unknown 000 - mouth twice a 018 day Vital Signs Date Vital Result Comment 06/14/2017 Height 62 inches 5'2" Weight 139.00 [...] Test Result H/L Range Note Laboratory test 04/21/2017 Surgical Pathology SEE RESULT BELOW 1 finding 1 SEE RESULT BELOW Name: LANDY BALL : [address]: Raffy Kraus MD Acct: [id number] Unit: [id number] AGE: 62 Location: OR Re04/21/17 SEX: F Status: DEP [facility] SPEC: [id number] LEONARDO: 04/21/17- [facility] DR: Raffy Kraus MD REQ: [id number] RECD: 04/21/17 STATUS: SOUT _ ORDERED: LEVEL [...] holes. The following inscription is identified: L [id number] [id number]. Received separately in the same container are seven silver metallic threaded Jose-headed screws ranging from 1.2 x 0.3 cm to 1.6 x 0.3 cm. Per established hospital medical staff protocol, no tissue is submitted. Gross only. Signed (signature on file) Debbie Rodrigues MD 1125 END OF REPORT * ML=Testing performed at Main Lab DEPARTMENT OF PATHOLOGY, [address] [place] [address] Manoj Richard M.D. Director [facility] # [id number] Procedures Date CPT Code Description Status 04/21/201767068 Removal Implant Deep Wire,Screw Nail,Dhruv Or Plate Completed 04/21/201756119 Removal Implant Deep Wire,Screw Nail,Dhruv Or Plate Completed 11/07/2016 17356 Open TX Of Clavicular FX, Incl Intrnl Fixation When Completed Performed 11/07/2016 98686 Open TX Of Clavicular FX, Incl Intrnl Fixation When Completed Performed Encounters Type Date Location Provider CPT E/M Dx Office Visit 06/14/2017 Pul[facility] [address] J98.4 2:30p Services Of [facility] Hand R59.0 Office Visit 04/12/2017 10:45a [facility]opedic Services Raffy Esposito 57381 S42.032D Of Brenden At Yong Kraus MD Office Visit 02/08/2017 10:30a [facility] Raffy Esposito 17307 S42.002D Of [place] [facility] Hand At Yong Kraus MD S42.032D Office Visit 01/04/2017 2:[facility]p [facility] [place] 28630 G89.29 Hospitalists W19.xxxA F33.9 F41.9 Office Visit 01/01/2017 2:19p [facility], ACOSTA [place] 21617 G89.29 Hospitalists W19.xxxA F33.9 Office Visit 12/31/2016 2:19p [facility] Maksim Rodriguez, 06065 G89.29 Assoc, ACOSTA Hospitalists F33.9 W19.xxxA F41.9 Office Visit 12/28/2016 11:06a [facility],pc A[place] 19958 G89.29 Hospitalists W19.xxxA F41.9 Office Visit 12/27/2016 12:51p [facility] Assoc,ACOST[place] [address]8550 G89.29 Hospitalists W19.xxxA F33.9 F41.9 Office Visit 12/26/2016 12:50p [facility] Saad Gray, 42023 G89.29 Assoc, Hospitalists N.P. W19.xxxA F33.9 F41.9 Office Visit 11/25/2016 9:30a [facility] Ingrid Farooq, SHINGLE GRADER 77257 W01.190A M79.602 R29.6 Office Visit 11/17/2016 3:00p [facility] Shivani Patel M.D. 28255 W19.xxxA M17.0 F41.9 Office Visit 11/10/2016 9:08a [facility] Virginie Gutierrez, 15092 S42.001A Assoc, Hospitalemilia Gavin R29.6 F33.41 F41.9 Office Visit 11/09/2016 9:07a [facility] Js Burdick, 88164 S42.001A Assoc, Hospitalists R29.6 F41.9 F33.41 Office Visit 11/08/2016 9:07a [facility] Js Burdick 24431 S42.001A Assoc, Hospitalists R29.6 F41.9 F33.41 Office Visit 11/07/2016 9:07a [facility] Js Burdick 48392 S42.001A Assoc, Hospitalists R29.6 F41.9 F33.41 Office Visit 11/06/2016 9:06a [facility] Js Burdick, 82365 S42.001A Assoc,pc Hospitalists R29.6 F33.41 F41.9 Office Visit 11/06/2016 1:48p Orthopedic Services Raffy F 33808 S42.032A Of Shikha Kraus MD W01.0xxA Office Visit 11/06/2016 1:27p [facility] Services A[place]STA Marrufo 65467 S42.032A Of Shikha W19.xxxA Office Visit 11/05/2016 9:06a [facility] Crispin Jimenez M.D. 48264 S42.001A Assoc,pc Hospitalists Office Visit 04/03/2016 12:54p [facility] Shivani Patel, 66452 N30.00 Assoc, Hospitalists Romaine R45.851 Office Visit 03/17/2015 12:48p [facility] Ingrid Farooq, SHINGLE GRADER 69447 H83.01 Assoc, Hospitalists I10 F32.9 F41.9 Office Visit 03/16/2015 12:46p [facility] Saad Gray, 42892 H83.01 Assoc, Hospitalists N.P. I10 F32.9 F41.9 Office Visit 09/27/2014 10:56a [facility] Assoc, Martha Hayes, N.P. 50853 790.4 Hospitalists 780.52 296.20 401.9 Office Visit 11/23/2013 2:15p [facility] Minor Hansen, 86866 346.91 Services Of Brenden Gavin 339.3 311 Plan of Care 06/14/2017 - Guerline Lai MDJ98.4 Other disorders of lungNew Orders: Endobronchial Ultrasound (Ebus)Follow up:1 weekR59.0 Localized enlarged lymph nodes
--- NOTE | 2017-07-13 14:29 | RAD ---
INDICATION: Headache and confusion. COMPARISON: Comparison is made to prior CT of the brain from June 16, 2017. Correlation is also made with a prior study from December 26, 2016. TECHNIQUE: Contiguous axial sections of the brain were obtained from the skull base to the vertex without contrast. FINDINGS: The ventricles, cisterns and sulci are within normal limits. There are small areas of decreased attenuation present within the region of the caudate nuclei which are unchanged most consistent with old lacunar infarcts. No other focal abnormality or mass effect is seen. There is no evidence for hemorrhage. No significant focal osseous abnormality is seen. The visualized portion of the paranasal sinuses and mastoid air cells appear clear. IMPRESSION: 1. NO EVIDENCE FOR ACUTE FINDING. 2. 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
[2017-07-13 15:45] LABS: Urine Appearance Clear; Urine Blood Negative (Negative); Urine Color Yellow; Urine Ketones Negative (Negative); Urine Protein Negative (Negative); Urine Specific Gravity 1.008 (1.010-1.030); Urine Urobilinogen Negative (Negative)
--- NOTE | 2017-07-13 18:48 | ED ---
Maliha Charles Julia, scribed for Mehdi Beal MD on 07/13/17 at 1330 . Complex/Multi-Sys Presentation - HPI Summary HPI Summary: This patient is a 62 year old F presenting to [facility] with a chief complaint of weakness, nausea, and vomiting for the past two days with worsening nausea today. Patient reports a diffuse headache for the past week. Patient denies urinary symptoms, bowel symptoms, and abdominal pain. The patient rates the pain 8/10 in severity. Pt takes Percocet for a hx of headaches. She is not seen at pain management. She states her last Percocet was yesterday morning. - History Of Current Complaint Chief Complaint: EDWeakness Time Seen by Provider: 07/13/17 13:20 Hx Obtained From: Patient Onset/Duration: Lasting Days Timing: Constant Location: Pain At: - headache Character: Typical Headache Associated Signs And Symptoms: Positive: Weakness, Headache, Nausea, Vomiting Related History: Similar Episode/Diagnosed As: - headaches/migraines - Allergies/Home Medications Allergies/Adverse Reactions: Allergies Allergy/AdvReac Type Severity Reaction Status Date / Time chocolate flavor Allergy Severe migraine Verified 07/13/17 15:25 sodium nitrite Allergy Severe migraine Verified 07/13/17 15:25 dust Allergy Severe migraine Uncoded 07/08/17 13:57 Home Medications: Home Medications ALPRAZolam TAB* [Xanax TAB*] 0.5 mg PO TID PRN 07/13/17 [History Confirmed 07/13] BuPROPion XL* [Bupropion XL*] 300 mg PO QAM 07/13/17 [History Confirmed 07/13/17 ] Clotrimazole 1% CREAM* [Clotrimazole 1%*] 1 applic TOPICAL BID 07/13/17 [ History Confirmed 07/13/17] Diazepam TAB(*) [Valium TAB(*)] 5 mg PO BID PRN 07/13/17 [History Confirmed ] Erythromycin OPTH OINT* [Erythromycin 0.5% OPTH OINT*] 1 applic BOTH EYES TID PRN 07/13/17 [History Confirmed 07/13/17] buPROPion SR TAB* [Wellbutrin SR TAB*] 150 mg PO DAILY 07/13/17 [History Confirmed 07/13/17] hydrOXYzine HCL TAB* [Atarax 25 MG TAB*] 50 mg PO BID PRN 07/13/17 [History Confirmed 07/13/17] oxyCODONE/Acetamin 10/325(NF) [Percocet 10/325 (NF)] 1 tab PO BID PRN 07/13/17 [ History Confirmed 07/13/17] PMH/Surg Hx/FS Hx/Imm Hx Endocrine/Hematology History: Reports: Hx Anemia - since surgery 1995 Denies: Hx Bone Marrow Disease, Hx Diabetes, Hx Sickle Cell Disease Cardiovascular History: Reports: Hx Hypertension Denies: Hx Angina, Hx Auto Implanted Cardiovert Defib, Hx Cardiac Arrest, Hx Congestive Heart Failure, Hx Pacemaker/ICD, Other Cardiovascular Problems/ Disorders Respiratory History: Denies: Hx Asthma, Hx Chronic Obstructive Pulmonary Disease (COPD), Other Respiratory Problems/Disorders GI History: Reports: Hx Gall Bladder Disease - cholcystectomy in 1992, Hx Irritable Bowel - dumping syndrome Denies: Hx Cirrhosis, Hx Gastroesophageal Reflux Disease, Other GI Disorders History: Denies: Hx Acute Renal Failure, Hx Dialysis, Hx Renal Disease Musculoskeletal History: Reports: Hx Arthritis - psoriatic arthritis hands, elbows Denies: Hx Back Problems, Hx Gout, Other Musculoskeletal History Sensory History: Reports: Hx Contacts or Glasses - glasses Denies: Hx Deafness, Hx Hearing Aid Opthamlomology History: Reports: Hx Contacts or Glasses - glasses Neurological History: Reports: Hx Headaches, Hx Migraine, Hx Nerve Disease, Hx Seizures - was in hospital for passing out sometimes dosent make sence talking, Other Neuro Impairments/Disorders - psoriatic arthritis, Psychiatric History: Reports: Hx Anxiety, Hx Depression, Hx Panic Disorder, Hx Post Traumatic Stress Disorder, Hx Inpatient Treatment, Hx Community Mental Health Tx, Hx Schizophrenia, Hx Bipolar Disorder, Hx Suicide Attempt, Other Psychiatric Issues/Disorders - Borderline Personality Denies: Hx Eating Disorder, Hx of Violent Episodes Against Others - Cancer History Hx Chemotherapy: No - Surgical History Surgery Procedure, Year, and Place: gastric stapling- 1995. cholecystectomy- 1992. surgery on broken clavicle - October 2016. 196, tonsilectomy Hx Anesthesia Reactions: No - Immunization History Date of Tetanus Vaccine: Unknown Infectious Disease History: No Infectious Disease History: Denies: Traveled Outside the [place] in Last 30 Days Comment Only: History Other Infectious Disease - patient reporting flu s/s for past several weeks - Family History Known Family History: Positive: Cardiac Disease, Hypertension - Social History Alcohol Use: None Hx Substance Use: No Substance Use Type: Reports: None Hx Tobacco Use: No Smoking Status (MU): Never Smoked Tobacco Have You Smoked in the Last Year: No Review of Systems Gastrointestinal: Other - no bowel symptoms Positive: Vomiting, Nausea. Negative: Abdominal Pain, Diarrhea Positive: no symptoms reported Positive: Weakness All Other Systems Reviewed And Are Negative: Yes Physical Exam - Summary Physical Exam Summary: Appearance: no pain distress, appears intoxicated and drowsy Skin: warm, dry, reflects adequate perfusion, widespread psoriasis on back Head/face: normal Eyes: EOMI, BILLIE ENT: normal Neck: supple, non-tender Respiratory: CTA, breath sounds present Cardiovascular: RRR, pulses symmetrical Abdomen: non-tender, soft Bowel Sounds: present Musculoskeletal: normal, strength/ROM intact Neuro: sensory motor intact, pt is drowsy but A&Ox3 with any focal neurological deficits, NIH score 0 Triage Information Reviewed: Yes Vital Signs On Initial Exam: Initial Vitals Temp Pulse Resp BP Pulse Ox 97.8 F 67 16 106/94 97 07/13/17 12:26 07/13/17 12:26 07/13/17 12:26 07/13/17 12:26 07/13/17 12:26 Vital Signs Reviewed: Yes Diagnostics - Vital Signs Vital Signs Temp Pulse Resp BP Pulse Ox 07/13/17 12:26 97.8 F 67 16 106/94 97 - Laboratory Lab Results: Lab Results 07/13/17 Range/Units 13:16 WBC 3.2 L (3.5-10.8) 10^3/ul RBC 3.53 L (4.0-5.4) 10^6/ul Hgb 10.1 L (12.0-16.0) g/dl Hct 32 L (35-47) % MCV 89 (80-97) fL MCH 29 (27-31) pg MCHC 32 (31-36) g/dl RDW 18 H (10.5-15) % Plt Count 246 (150-450) 10^3/ul MPV 7.1 L (7.4-10.4) um3 Neut % (Auto) 51.1 (38-83) % Lymph % (Auto) 29.9 (25-47) % [place] % (Auto) 13.2 H (0-7) % Eos % (Auto) 4.6 (0-6) % Baso % (Auto) 1.2 (0-2) % Absolute Neuts (auto) 1.6 (1.5-7.7) 10^3/ul Absolute Lymphs (auto) 1.0 (1.0-4.8) 10^3/ul Absolute Monos (auto) 0.4 (0-0.8) 10^3/ul Absolute Eos (auto) 0.1 (0-0.6) 10^3/ul Absolute Basos (auto) 0 (0-0.2) 10^3/ul Absolute Nucleated RBC 0 10^3/ul Nucleated RBC % 0 Result Diagrams: 07/13/17 13:16 07/13/17 13:16 Lab Statement: Any lab studies that have been ordered have been reviewed, and results considered in the medical decision making process. - CT Brain CT Interpretation Completed By: Radiologist - 1. NO EVIDENCE FOR ACUTE FINDING. 2. 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 ED Physician has reviewed this report. - EKG 1227 Cardiac Rate: Bradycardia - 59 BPM EKG Rhythm: Sinus Rhythm ST Segment: Normal EKG Interpretation: normal axis, normal interval Re-Evaluation - Re-Evaluation 1 Re-Evaluation Time: 16:05 Change: Improved - Headache is gone. Pt still appers intoxicated and is slurring speech. Second Eval Change: Improved - following disposition to observation pt has sobered. She tells the hospitalist that she would like to go home. She is now ambulating and tells us she took valium from a friend. She wants to go home. She will require a safe ride home, and will have her son come. I made it clear that she could stay and further sober here AND that she should not take valium. She states she wants to get into Assisted Living, but near [place] where her son lives. Social work consult placed. Complex Multi-Symp Course/Dx Course Of Treatment: pt with chronic pain on gabapentin and opiates. Drowsy here but oriented. Appears under the effect of medications. Son states hx of same. Pt had reported percocet 1d ago and no benzos. +benzo screen, assume she is Rx this -- and that she is overusing it. Will require observation -- lives alone, has chronically unstable gait. With benzo, unknown time until sobering. No revealing findings otherwise on evaluation. - Diagnoses Differential Diagnoses/HQI/PQRI: Metabolic Abnormality, Sepsis, Urinary Tract Infection Provider Diagnoses: Substance use disorder, Drug intoxication with delirium - Physician Notifications Discussed Care Of Patient With: Virginie Gutierrez - hospitalist Instructed by Provider To: Admit As Inpatient Discharge - Sign-Out/Discharge Documenting (check all that apply): Discharge - Discharge Plan Condition: Fair Disposition: HOME Patient Education Materials: Polysubstance Abuse (ED) Referrals: Thor SARABIA,Samantha Serrano [Primary Care Provider] - Additional Instructions: Do not take Valium. Seek placement in assisted living or get help dosing your medications. Do not drive. Return if worse or other concerns. Call your doctor in the morning for follow up. - Billing Disposition and Condition Condition: FAIR Disposition: HOME The documentation as recorded by the Maliha coulter Julia accurately reflects the service I personally performed and the decisions made by me, Mehdi Beal MD.
[2017-07-13 19:08] VITALS: BP 108/69
== END 2017-07-13 19:05 | disposition home or self-care (01) ==
LOC: ED 12:24
DX: F19.90 Other psychoactive substance use, unspecified, uncomplicated (principal); F10.129 Alcohol abuse with intoxication, unspecified; R53.1 Weakness; R51 Headache; R11.2 Nausea with vomiting, unspecified
CPT/HCPCS: 36415; 70450; 80053; 80307; 80320; 80329; 81003; 81015; 83605; 83735; 84443; 84484; 85025; 87086; 93005; 96374; 96375; 99284; G0480; J1885; J2765

== ENCOUNTER 2017-09-09 18:57 | Emergency (ER) | payer BC, MEDICARE, MEDICAID ==
--- OUTSIDE RECORDS SUMMARY | 2017-09-09 19:45 | XMS REPORT ---
:1955 External Reference #:[id number] Author Organization [facility] Address [address] [address] Phone [phone] Care Team Providers Name Role Phone Samantha Mcrae MD Primary Care Physician Unavailable Payers Type Date Identification Numbers Payment Provider Subscriber Commercial Effective: Policy Number: [id number] [employer] Drew Ball 2012 PayID: [id number] [address] [address] [place] [address] Medigap Part B Policy Number: [id number] Medicare Landy Ball PayID: [id number] [address] [place] [address] Medigap Part B Policy Number: [id number] Medicaid Landy Ball Group Name: 1 1 [address] PayID: [id number] [place] [address] Problems Description No Information Family History Date Family Member(s) Problem(s) Comments General Diabetes General Heart Disease General Rheumatoid Arthritis General Migraine General Lung Cancer Grandmother, who did not smoke, aunt Father Kidney failure Father due to [place] () Mother due to [place] () Social History Type Date Description Comments Marital Status Lives With 3 dogs When stays with best friend Lives With 1 cat When stays with best friend Lives With Best friend Sometimes Lives With Alone Sometimes Occupation Disabled 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, 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, 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 Cigarette Use Never Smoked Cigarettes ETOH Use Denies alcohol use Smoking Patient has never smoked Recreational Drug Use Denies Drug Use Smoking Second hand smoke Daily Caffeine Occasional soda Exercise Type/Frequency Does not exercise Allergies, Adverse Reactions, Alerts Date Description Reaction Status Severity Comments 11/26/2016 NKDA active Medications Medication Date Status Form Strength Qnty SIG Indications Ordering Provider Xanax 00/00/ Active Tablets 0.5mg by mouth Unknown 0000 three times a day as needed Bupropion HCL 00/ Active Tablets ER 300mg 1 by Unknown ER (SR) 0000 12HR mouth every morning Fluoxetine HCL / Active Capsules 40mg 1 by Unknown 0000 mouth every day Gabapentin // Active Capsules take one Unknown 0000 capsule [...] ER 0000 mouth at bedtime as needed Prednisone 07/13/ Hx Tablets 10mg 360tab 30mg D86.2 Guerline 2018 - s daily for MD Ming 2 weeks, 2018 20mg daily for 4 weeks, 10 mg daily weekly Bupropion HCL / Hx Tablets ER 150mg 1 by Unknown ER (SR) 0000 - 12HR mouth 11/26/ every day 2016 Docusate Sodium / Hx Capsules 100mg 1 by Unknown 0000 - mouth as needed 2018 Hydroxyzine HCL / Hx Tablets 25mg 1-2 Unknown 0000 - tablets 06/13/ by mouth 2018 every 6-8 hours as needed for pruritis. Ranitidine HCL / Hx Capsules 150mg 1 by Unknown 0000 - mouth 06/13/ twice a 2018 day Vital Signs Date Vital Result Comment 08/31/2017 Height 62 inches 5'2" Weight 136.25 lb Heart Rate 92 /min BP Systolic Sitting 102 mmHg Rue regular cuff BP Diastolic Sitting 62 mmHg Rue regular cuff Respiratory Rate 12 /min O2 % BldC Oximetry 93 % BMI (Body Mass Index) 24.9 kg/m2 07/13/2017 Height 62 inches 5'2" Weight 140.00 [...] 1 Flow Marker Laboratory test 07/08/2017 Cytology Non-Reconcilement Clerk SEE RESULT BELOW 2 finding Laboratory test 07/07/2017 Cytology Non-Reconcilement Clerk SEE RESULT BELOW 3 finding Laboratory test 06/30/2017 Point of Care 102 mg/dL High 70-100 4 finding Glucose Platelet Count 06/28/2017 Platelet Count 198 10^3/uL 150-450 Mean Platelet Volume 7.3 um3 Low 7.4-10.4 Laboratory test 06/28/2017 Partial Thrombo Time 31.8 seconds 26.0-36.3 finding PTT Inr/Protime 06/28/2017 Inr 1.00 0.77-1.02 Laboratory test 06/16/2017 Cytology Non-Reconcilement Clerk SEE RESULT BELOW 5 finding Laboratory test 06/16/2017 Surgical Pathology SEE RESULT BELOW 6 finding Laboratory test [...] Electronically signed by: Manoj Richard MD 07/12/17 1451 Technical component performed by: [place] [address] Well Digger: Epifanio Swanson II, MD, PhD. 2 SEE RESULT BELOW Name: LANDY BALL : [address]: Guerline Lai MD Acct: [id number] Unit: [id number] AGE: 62 Location: Re07/08/17 SEX: F Status: REG REF SPEC: [id number] LEONARDO: 07/08/17-[address]: Guerline Lai MD REQ: [id number] RECD: 07/08/171518 STATUS: SELVIN CALVIN DR: Eitan Sauceda MD _ ORDERED: FNA-IMG GUID BX/2, CY ADEQ-ADDL P, LEVEL 4/2, CYTO ADEQ-1ST P/2, IMMUNO- IMMUNO-ADDL Flow cytometry has been performed at [facility], [place], [place]. The testing reveals: FINAL DIAGNOSIS: Specimen [...] Electronically signed by: Manoj Richard MD 07/12/17 1459 Technical component performed by: [place] [address] Well Digger: Epifanio Swanson II, MD, PhD. CONTINUED ON NEXT PAGE DEPARTMENT OF PATHOLOGY, [address] [place] [address] Manoj Richrad M.D. Director [facility] # [id number] RUN DATE: 07/13/17 [facility] LAB LIVE PAGE 2 Patient: LANDY BALL [id number] (Continued) ADDENDUM (Continued) Addendum Signed (signature on [...] CONTINUED ON NEXT PAGE DEPARTMENT OF PATHOLOGY, [address] [place] [address] Manoj Richard M.D. Director JACKY # [id number] RUN DATE: 07/13/17 [facility] LAB LIVE PAGE 3 Patient: LANDY BALL [id number] (Continued) IMMEDIATE INTERPRETATION (Continued) IMMEDIATE INTERPRETATION 1) Pass 1-inadequate, pass 2, and 3-adequate 2) All passes adequate GROSS DESCRIPTION #1) Ultrasound guided, fine needle aspiration x 3 passes with 6 Alcohol fixed slide(s), 1 Air dried slide(s), needle rinse in formalin for cell block labeled [id number]# 1 and Specimen sent to [facility] for Flow cytometry [place], [place] on 07/08/17 by [id number] at 1522. #2) CT Guided, fine needle aspiration x 4 passes with 3 Alcohol fixed slide(s ), 7 Air dried slide(s), 1 core Biopsy and 2 cell blocks labeled [id number]#2A, [id number]#2M and [id number]#2 CORE. Signed (signature on file) Debbie Rodrigues MD 1144 END OF REPORT DEPARTMENT OF PATHOLOGY, [address] [place] [address] Manoj Richard M.D. Director [facility] # [id number] 3 SEE RESULT BELOW Name: LANDY BALL : [address]: Guerline Lai MD Acct: [id number] Unit: [id number] AGE: 62 Location: LAB Re07/07/17 SEX: F Status: REG REF SPEC: [id number] LEONARDO: 07/07/17-[address]: Guerline Lai MD REQ: [id number] RECD: 07/07/17 STATUS: SELVIN CALVIN DR: Manoj [...] CONTINUED ON NEXT PAGE DEPARTMENT OF PATHOLOGY, [facility] [employer] [place], [place] [address] Manoj Richard M.D. Director ROBERTA # [id number] RUN DATE: 07/08/17 [facility] LAB LIVE PAGE 2 Patient: LANDY BALL [id number] (Continued) IMMEDIATE INTERPRETATION (Continued) IMMEDIATE INTERPRETATION All passes adequate GROSS DESCRIPTION Fine needle aspiration by palpation x 3 passes with 5 Alcohol fixed slide(s) , 5 Air dried slide(s). and needle rinse in formalin for cell block. Signed (signature on file) Manoj Richard MD 1524 END OF REPORT DEPARTMENT OF PATHOLOGY, [facility] [employer] [place], [place] [address] Manoj Richard M.D. Director [facility] # [id number] 4 Video Software Engineer: [id number] 5 SEE RESULT BELOW Name: LANDY BALL : [address]: Guerline Lai MD Acct: [id number] Unit: [id number] AGE: 62 Location: OR Re06/16/17 SEX: F Status: MARILYNN [facility] SPEC: [id number] LEONARDO: 06/16/17-1450 [facility] DR: Guerline Lai MD REQ: [id number] RECD: 06/16/17-1552 STATUS: SOUT _ ORDERED: FNA-IMG [...] CONTINUED ON NEXT PAGE DEPARTMENT OF PATHOLOGY, [address] [place] [address] Manoj Richard M.D. Director ROBERTA # [id number] RUN DATE: 06/17/17 [facility] LAB LIVE PAGE 2 Patient: LATA BALLA [id number] (Continued) CLINICAL HISTORY (Continued) CLINICAL HISTORY 1. [...] 1426 END OF REPORT DEPARTMENT OF PATHOLOGY, [address] [place] [address] Manoj Richard M.D. Director [facility] # [id number] 6 SEE RESULT BELOW Name: LANDY BALL : [address]: Guerline Lai MD Acct: [id number] Unit: [id number] AGE: 62 Location: OR Re06/16/17 SEX: F Status: DEP SDC SPEC: [id number] LEONARDO: 06/16/17- SUBM DR: Guerline Lai MD REQ: [id number] RECD: 06/16/17 STATUS: SOUT _ ORDERED: LEVEL [...] 0939 END OF REPORT DEPARTMENT OF PATHOLOGY, [address] [place] [address] Manoj Richard M.D. Director [facility] # [id number] 7 SEE RESULT BELOW Name: ANATLATA COTTRELLA : [address]: Raffy Kraus MD Acct: [id number] Unit: [id number] AGE: 62 Location: OR Re04/21/17 SEX: F Status: MARILYNN SEXTON SPEC: [id number] LEONARDO: 04/21/17- SUBM DR: Raffy Kraus MD REQ: [id number] RECD: 04/21/17 STATUS: SOUT _ ORDERED: LEVEL [...] holes. The following inscription is identified: L [id number]. Received separately in the same container are seven silver metallic threaded Jose-headed screws ranging from 1.2 x 0.3 cm to 1.6 x 0.3 cm. Per established hospital medical staff protocol, no tissue is submitted. Gross only. Signed (signature on file) Debbie Rodrigues MD 1125 END OF REPORT * ML=Testing performed at Main Lab DEPARTMENT OF PATHOLOGY, [address] [place] [address] Manoj Richard M.D. Director [facility] # [id number] Procedures Date CPT Code Description Status 06/16/2017 81416 Endobronchial Ultrasound=>3 Completed 04/21/201726853 Removal Implant Deep Wire,Screw Nail,Dhruv Or Plate Completed 04/21/201709829 Removal Implant Deep Wire,Screw Nail,Dhruv Or Plate Completed 11/07/2016 29517 Open TX Of Clavicular FX, Incl Intrnl Fixation When Completed Performed 11/07/2016 72191 Open TX Of Clavicular FX, Incl Intrnl Fixation When Completed Performed Encounters Type Date Location Provider CPT E/M Dx Office Visit 07/13/2017 [facility] [place] [address] R59.0 11:45a Services Of [employer] J98.4 D86.2 R41.82 Office Visit 06/22/2017 12:00p [facility] [place] [address] J98.4 Services [facility] [employer] R59.0 Office Visit 06/16/2017 3:53p [facility] [place] [address] J98.4 Services Of [employer] R59.0 J98.4 Office Visit 06/16/2017 1:00p [facility] [place] [address] J98.4 Services Of [employer] J98.4 R59.0 R59.0 Office Visit 06/14/2017 2:30p [facility] [place] [address] Z77.22 Services Of [employer] J98.4 R59.0 Office Visit 04/12/2017 10:45a Orthopedic Services Raffy Esposito 00381 S42.032D Of [employer] AT Yong Kraus MD Office Visit 02/08/2017 10:30a [facility] Raffy Esposito 92055 S42.002D Of [employer] AT Yong Kraus MD S42.032D Office Visit 01/04/2017 2:20p [facility] 28619 G89.29 Hospitalists W19.xxxA F33.9 F41.9 Office Visit 01/01/2017 2:19p [facility] [place] 69660 G89.29 Hospitalists W19.xxxA F33.9 Office Visit 12/31/2016 2:19p [facility] Maksim Rodriguez 90791 G89.29 Assoc, ACOSTA Hospitalists F33.9 W19.xxxA F41.9 Office Visit 12/28/2016 11:06a [facility] [place] 63025 G89.29 Hospitalists W19.xxxA F41.9 Office Visit 12/27/2016 12:51p [facility],pc [facility] Sullivan 24504 G89.29 Hospitalists W19.xxxA F33.9 F41.9 Office Visit 12/26/2016 12:50p [facility] Saad Gray, 62759 G89.29 Assoc, Hospitalists Andrey W19.xxxA F33.9 F41.9 Office Visit 11/25/2016 9:30a [facility] Ingrid FarooqRENA 36500 W01.190A M79.602 R29.6 Office Visit 11/17/2016 3:00p [facility] Shivani Patel M.D. 76938 W19.xxxA M17.0 F41.9 Office Visit 11/10/2016 9:08a [facility] Virginie Gutierrez, 15648 S42.001A Assoc, Hospitalists Romaine R29.6 F33.41 F41.9 Office Visit 11/09[facility] [address] S42.001A Assoc, Hospitalists R29.6 F41.9 F33.41 Office Visit 11/08/2016 9:07a [facility] Js Burdick, 33527 S42.001A Assoc, Hospitalists R29.6 F41.9 F33.41 Office Visit 11/07/2016 9:07a [facility] Js Burdick, 11406 S42.001A Assoc, Hospitalists R29.6 F41.9 F33.41 Office Visit 11/06/2016 [facility] 87840 S42.001A Assoc, Hospitalists R29.6 F33.41 F41.9 Office Visit 11/06/2016 1:48p [facility] Raffy Esposito 77377 S42.032A Of Shikha Kraus MD W01.0xxA Office Visit 11/06/2016 1:27p [facility] ACOSTA Marrufo 30191 S42.032A Of Shikha W19.xxxA Office Visit 11/05/2016 9:06a [facility] Crispin Jimenez M.D. 92011 S42.001A Assoc, Hospitalists Office Visit 04/03/2016 12:54p [facility] Shivani Patel, 05545 N30.00 Assoc, Hospitalists Romaine R45.851 Office Visit 03/17/2015 12:48p [facility] Ingrid Farooq, GUN PROFILER 82645 H83.01 Assoc,pc Hospitalists I10 F32.9 F41.9 Office Visit 03/16/2015 12:46p [facility] Saad Gray, 42744 H83.01 Assoc,pc Hospitalists N.P. I10 F32.9 F41.9 Office Visit 09/27/2014 10:56a [facility],pc Martha Hayes, N.P. 57776 790.4 Hospitalists 780.52 296.20 401.9 Office Visit 11/23/2013 2:15p [facility] Minor Hansen, 17240 346.91 Services Of Brenden Gavin 339.3 311 Plan of Care Future Appointment(s):11/02/2017 12:30 pm - Guerline Lai MD at Pulmonology & amp; Sleep Services AT Smjaxtdc25/05/2018 - Guerline Lai, MDD86.2 Sarcoidosis of lung with sarcoidosis of lymph nodesReferral:Jaleel Hall MD, Pulmonary DiseasesFollow up:2 xrmdeeA12.4 Other disorders of lungR59.0 Localized enlarged lymph nodes
[2017-09-09 20:31] LABS: ABS Basophils 0 10^3/ul (0-0.2); ABS Eosinophils 0.1 10^3/ul (0-0.6); ABS Lymphocytes 1.1 10^3/ul (1.0-4.8); ABS Monocytes 0.4 10^3/ul (0-0.8); ABS Neutrophils 2.8 10^3/ul (1.5-7.7); ABS Nucleated RBC 0 10^3/ul; Eosinophil % 2.6 % (0-6); Hematocrit 33 % (35-47); Hemoglobin 10.5 g/dl (12.0-16.0); Lymphocyte % 24.4 % (25-47); Mean Corpuscular HGB Conc 32 g/dl (31-36); Mean Corpuscular Hemoglobin 29 pg (27-31); Mean Corpuscular Volume 91 fL (80-97); Mean Platelet Volume 6.8 um3 (7.4-10.4); Nucleated Red Blood Cells % 0; Platelet Count 265 10^3/ul (150-450); Red Blood Count 3.62 10^6/ul (4.00-5.40); Red Cell Distribution Width 17 % (10.5-15); White Blood Count 4.4 10^3/ul (3.5-10.8)
[2017-09-09 20:37] LABS: Urine Appearance Clear; Urine Blood 1+ (Negative); Urine Color Yellow; Urine Ketones Trace (Negative); Urine Protein Negative (Negative); Urine Specific Gravity 1.012 (1.010-1.030); Urine Urobilinogen Positive (Negative)
[2017-09-09 20:49] LABS: EGFR Non-African American 74.8 (>60)
[2017-09-10] MEDS ORDERED: BuPROPion XL* 150 MG TAB.XL PO ONE (02:45)
[2017-09-10 08:24] VITALS: BP 139/79
--- NOTE | 2017-09-10 19:34 | ED ---
Dany Charles Elizabeth, scribed for Kapil Iniguez MD on 09/09/17 at 1946 . Psychiatric Complaint - HPI Summary HPI Summary: This patient is a 62 year old F BIBA to [facility] with a chief complaint of increased feelings of depression for the past few weeks. Per triage note, patient is s/p suicide attempt where she was asleep for an unknown length of time after taking Xanax and Ambien. The patient reports that this has been a whole week of up-down and should I, should I, should I. Symptoms aggravated by nothing. Symptoms alleviated by nothing. Patient denies decreased appetite and HI. The patient reports that she lives alone but she periodically lived in an assisted living facility after she broke her collarbone. Pt transferred from outside ED for further Psych evaluation. - History Of Current Complaint Chief Complaint: EDOverdose Time Seen by Provider: 09/09/17 19:09 Hx Obtained From: Patient Onset/Duration: Gradual Onset, Lasting Weeks, Still Present, Worse Since - earlier today Timing: Constant Severity Initially: Mild Severity Currently: Moderate Character: Depressed Aggravating Factor(s): Nothing Alleviating Factor(s): Nothing Associated Signs And Symptoms: Negative: Sleep Disturbance, Appetite Change Has Suicidal: Reports: Has Prior Attempt(s) - took Ambien and Xanax earlier today Has Homicidal: Denies: Thoughts - Allergies/Home Medications Allergies/Adverse Reactions: Allergies Allergy/AdvReac Type Severity Reaction Status Date / Time chocolate flavor Allergy Severe migraine Verified 07/13/17 15:25 sodium nitrite Allergy Severe migraine Verified 07/13/17 15:25 dust Allergy Severe migraine Uncoded 07/08/17 13:57 Home Medications: Home Medications ALPRAZolam TAB* [Xanax TAB*] 0.5 mg PO TID PRN 09/09/17 [History Confirmed 09/09] Bupropion XL* [Wellbutrin XL *] 150 mg PO DAILY 09/09/17 [History Confirmed ] Bupropion XL* [Wellbutrin XL *] 300 mg PO QAM 09/09/17 [History Confirmed ] Diphenoxylat/Atrop 2.5-0.025M* [Lomotil TAB*] 1 tab PO .FIVE TIMES DAILY [History Confirmed 09/09/17] Gabapentin CAP(*) [Neurontin 400 mg CAP(*)] 400 mg PO TID 09/09/17 [History Confirmed 09/09/17] Promethazine TAB* [Phenergan TAB*] 25 mg PO BID 09/09/17 [History Confirmed ] Propranolol TAB* [Inderal TAB*] 80 mg PO TID 09/09/17 [History Confirmed ] Zolpidem TAB* [Ambien TAB*] 12.5 mg PO BEDTIME PRN 09/09/17 [History Confirmed 09/09/17] PMH/Surg Hx/FS Hx/Imm Hx Endocrine/Hematology History: Reports: Hx Anemia - since surgery 1995 Denies: Hx Bone Marrow Disease, Hx Diabetes, Hx Sickle Cell Disease Cardiovascular History: Reports: Hx Hypertension Denies: Hx Angina, Hx Auto Implanted Cardiovert Defib, Hx Cardiac Arrest, Hx Congestive Heart Failure, Hx Pacemaker/ICD, Other Cardiovascular Problems/ Disorders Respiratory History: Denies: Hx Asthma, Hx Chronic Obstructive Pulmonary Disease (COPD), Other Respiratory Problems/Disorders GI History: Reports: Hx Gall Bladder Disease - cholcystectomy in 1992, Hx Irritable Bowel - dumping syndrome Denies: Hx Cirrhosis, Hx Gastroesophageal Reflux Disease, Other GI Disorders History: Denies: Hx Acute Renal Failure, Hx Dialysis, Hx Renal Disease Musculoskeletal History: Reports: Hx Arthritis - psoriatic arthritis hands, elbows Denies: Hx Back Problems, Hx Gout, Other Musculoskeletal History Sensory History: Reports: Hx Contacts or Glasses - glasses Denies: Hx Deafness, Hx Hearing Aid Opthamlomology History: Reports: Hx Contacts or Glasses - glasses Neurological History: Reports: Hx Headaches, Hx Migraine, Hx Nerve Disease, Hx Seizures - was in hospital for passing out sometimes dosent make sence talking, Other Neuro Impairments/Disorders - psoriatic arthritis, Psychiatric History: Reports: Hx Anxiety, Hx Depression, Hx Panic Disorder, Hx Post Traumatic Stress Disorder, Hx Inpatient Treatment, Hx Community Mental Health Tx, Hx Schizophrenia, Hx Bipolar Disorder, Hx Suicide Attempt, Other Psychiatric Issues/Disorders - Borderline Personality Denies: Hx Eating Disorder, Hx of Violent Episodes Against Others - Cancer History Hx Chemotherapy: No - Surgical History Surgery Procedure, Year, and Place: gastric stapling- 1995. cholecystectomy- 1992. surgery on broken clavicle - October 2016. 1961, tonsilectomy Hx Anesthesia Reactions: No - Immunization History Date of Tetanus Vaccine: Unknown Infectious Disease History: No Infectious Disease History: Denies: Traveled Outside the [place] in Last 30 Days Comment Only: History Other Infectious Disease - patient reporting flu s/s for past several weeks - Family History Known Family History: Positive: Cardiac Disease, Hypertension - Social History Alcohol Use: None Hx Substance Use: No Substance Use Type: Reports: None Hx Tobacco Use: No Smoking Status (MU): Never Smoked Tobacco Have You Smoked in the Last Year: No Review of Systems Negative: Fever Negative: Epistaxis Negative: Vomiting Positive: Depressed All Other Systems Reviewed And Are Negative: Yes Physical Exam - Summary Physical Exam Summary: Appearance: Well-appearing, no distress, Well-nourished Skin: Warm, color reflects adequate perfusion Head: Normal Head/Face inspection Eyes: Conjunctiva clear ENT: Normal inspection Neck: Supple, no nodes, no JVD. Respiratory: Lungs clear, Normal breath sounds, no respiratory distress Cardio: RRR, No murmur, pulses normal, brisk capillary refill Abdomen: soft, nontender, no guarding, no rebound Bowel sounds: present Musculoskeletal: Strength Intact/ ROM intact. No calf tenderness. No edema. Neuro: Alert, muscle tone normal, facial symmetry, speech normal, sensory/motor intact Psychological: SI, depression, abnormal judgment and thought process Triage Information Reviewed: Yes Vital Signs On Initial Exam: Initial Vitals Temp Pulse Resp BP Pulse Ox 98.2 F 67 16 127/72 96 09/09/17 19:06 09/09/17 19:06 09/09/17 19:06 09/09/17 19:06 09/09/17 19:06 Vital Signs Reviewed: Yes Diagnostics - Vital Signs Vital Signs Temp Pulse Resp BP Pulse Ox 09/09/17 19:06 98.2 F 67 16 127/72 96 - Laboratory Lab Results: Lab Results 09/09/17 09/09/17 09/09/17 Range/Units 20:15 20:15 20:21 WBC 4.4 (3.5-10.8) 10^3/ul RBC 3.62 L (4.00-5.40) 10^6/ul Hgb 10.5 L (12.0-16.0) g/dl Hct 33 L (35-47) % MCV 91 (80-97) fL MCH 29 (27-31) pg MCHC 32 (31-36) g/dl RDW 17 H (10.5-15) % Plt Count 265 (150-450) 10^3/ul MPV 6.8 L (7.4-10.4) um3 Neut % (Auto) 63.1 (38-83) % Lymph % (Auto) 24.4 L (25-47) % Armstrong % (Auto) 9.1 H (0-7) % Eos % (Auto) 2.6 (0-6) % Baso % (Auto) 0.8 (0-2) % Absolute Neuts (auto) 2.8 (1.5-7.7) 10^3/ul Absolute Lymphs (auto) 1.1 (1.0-4.8) 10^3/ul Absolute Monos (auto) 0.4 (0-0.8) 10^3/ul Absolute Eos (auto) 0.1 (0-0.6) 10^3/ul Absolute Basos (auto) 0 (0-0.2) 10^3/ul Absolute Nucleated RBC 0 10^3/ul Nucleated RBC % 0 Sodium (135-145) mmol/L Potassium (3.5-5.0) mmol/L Chloride (101-111) mmol/L Carbon Dioxide (22-32) mmol/L Anion Gap (2-11) mmol/L BUN (6-24) mg/dL Creatinine (0.51-0.95) mg/dL Est GFR ( Amer) (>60) Est GFR (Non-Af Amer) (>60) BUN/Creatinine Ratio (8-20) Glucose (70-100) mg/dL Calcium (8.6-10.3) mg/dL Total Bilirubin (0.2-1.0) mg/dL AST (13-39) U/L ALT (7-52) U/L Alkaline Phosphatase (34-104) U/L Total Protein (6.4-8.9) g/dL Albumin (3.2-5.2) g/dL Globulin (2-4) g/dL Albumin/Globulin Ratio (1-3) TSH (0.34-5.60) mcIU/mL Urine Color Yellow Urine Appearance Clear Urine pH 6.0 (5-9) Ur Specific Jackson 1.012 (1.010-1.030) Urine Protein Negative (Negative) Urine Ketones Trace A (Negative) Urine Blood 1+ A (Negative) Urine Nitrate Negative (Negative) Urine Bilirubin Negative (Negative) Urine Urobilinogen Positive A (Negative) Ur Leukocyte Esterase Negative (Negative) Urine WBC (Auto) Trace(0-5/hpf) (Absent) Urine RBC (Auto) 3+(>10/hpf) A (Absent) Urine Bacteria Absent (Absent) Urine Glucose Negative (Negative) Salicylates (<30) mg/dL Urine Opiates Screen None detected (None Detect) Acetaminophen mcg/mL Ur Barbiturates Screen None detected (None Detect) Ur Phencyclidine Scrn None detected (None Detect) Ur Amphetamines Screen None detected (None Detect) U Benzodiazepines Scrn Presumptive positive A (None Detect) Urine Cocaine Screen None detected (None Detect) U Cannabinoids Screen None detected (None Detect) Serum Alcohol (<10) mg/dL 09/09/17 Range/Units 20:21 WBC (3.5-10.8) 10^3/ul RBC (4.00-5.40) 10^6/ul Hgb (12.0-16.0) g/dl Hct (35-47) % MCV (80-97) fL MCH (27-31) pg MCHC (31-36) g/dl RDW (10.5-15) % Plt Count (150-450) 10^3/ul MPV (7.4-10.4) um3 Neut % (Auto) (38-83) % Lymph % (Auto) (25-47) % Armstrong % (Auto) (0-7) % Eos % (Auto) (0-6) % Baso % (Auto) (0-2) % Absolute Neuts (auto) (1.5-7.7) 10^3/ul Absolute Lymphs (auto) (1.0-4.8) 10^3/ul Absolute Monos (auto) (0-0.8) 10^3/ul Absolute Eos (auto) (0-0.6) 10^3/ul Absolute Basos (auto) (0-0.2) 10^3/ul Absolute Nucleated RBC 10^3/ul Nucleated RBC % Sodium 139 (135-145) mmol/L Potassium 4.0 (3.5-5.0) mmol/L Chloride 108 (101-111) mmol/L Carbon Dioxide 25 (22-32) mmol/L Anion Gap 6 (2-11) mmol/L BUN 14 (6-24) mg/dL Creatinine 0.78 (0.51-0.95) mg/dL Est GFR ( Amer) 96.2 (>60) Est GFR (Non-Af Amer) 74.8 (>60) BUN/Creatinine Ratio 17.9 (8-20) Glucose 105 H (70-100) mg/dL Calcium 8.7 (8.6-10.3) mg/dL Total Bilirubin 0.30 (0.2-1.0) mg/dL AST 13 (13-39) U/L ALT 9 (7-52) U/L Alkaline Phosphatase 105 H (34-104) U/L Total Protein 5.8 L (6.4-8.9) g/dL Albumin 3.2 (3.2-5.2) g/dL Globulin 2.6 (2-4) g/dL Albumin/Globulin Ratio 1.2 (1-3) TSH 1.24 (0.34-5.60) mcIU/mL Urine Color Urine Appearance Urine pH (5-9) Ur Specific Jackson (1.010-1.030) Urine Protein (Negative) Urine Ketones (Negative) Urine Blood (Negative) Urine Nitrate (Negative) Urine Bilirubin (Negative) Urine Urobilinogen (Negative) Ur Leukocyte Esterase (Negative) Urine WBC (Auto) (Absent) Urine RBC (Auto) (Absent) Urine Bacteria (Absent) Urine Glucose (Negative) Salicylates < 2.50 (<30) mg/dL Urine Opiates Screen (None Detect) Acetaminophen < 15 mcg/mL Ur Barbiturates Screen (None Detect) Ur Phencyclidine Scrn (None Detect) Ur Amphetamines Screen (None Detect) U Benzodiazepines Scrn (None Detect) Urine Cocaine Screen (None Detect) U Cannabinoids Screen (None Detect) Serum Alcohol < 10 (<10) mg/dL Result Diagrams: 09/09/17 20:21 09/09/17 20:21 Lab Statement: Any lab studies that have been ordered have been reviewed, and results considered in the medical decision making process. Course/Dx - Course Course Of Treatment: Pt with no acute changes overnight. Awaiting plan of care by Psychiatrist. Assessment/Plan: Pt seen and evaluated by Psychiatry with plan for outpatient f/ u. Pt with disposition prior to sign out by Dr. Beal. - Differential Dx/Clinical Impression Differential Diagnosis/HQI/PQRI: Positive: Acute Psychosis, Anxiety, Bipolar Disorder, Depression, Schizophrenia, Suicide Attempt, Suicidal Ideation, Suicidal Gesture Provider Diagnosis: Depression Discharge - Sign-Out/Discharge Documenting (check all that apply): Discharge/Admit/Transfer Receiving patient FROM: Kapil Iniguez - Discharge Plan Condition: Stable Disposition: HOME Patient Education Materials: Depression (ED) Referrals: Thor SARABIA,Samantha Serrano [Primary Care Provider] - - Billing Disposition and Condition Condition: STABLE Disposition: Home The documentation as recorded by the Dany coulter Elizabeth accurately reflects the service I personally performed and the decisions made by Geetha gallo Omari A, MD.
== END 2017-09-10 08:23 | disposition home or self-care (01) ==
LOC: ED 18:57
DX: F32.9 Major depressive disorder, single episode, unspecified (principal); I10 Essential (primary) hypertension; Z88.8 Allergy status to other drugs, medicaments and biological substances; Z79.899 Other long term (current) drug therapy
CPT/HCPCS: 36415; 80053; 80307; 80320; 80329; 81003; 81015; 84443; 85025; 87086; 99283; G0480

== ENCOUNTER 2017-12-17 08:55 | Inpatient (IN) | payer OTHER, MEDICARE, MEDICAID ==
[2017-12-17 10:50] LABS: ABS Basophils 0 10^3/ul (0-0.2); ABS Eosinophils 0.1 10^3/ul (0-0.6); ABS Monocytes 0.4 10^3/ul (0-0.8); ABS Neutrophils 5.7 10^3/ul (1.5-7.7); ABS Nucleated RBC 0 10^3/ul; Hematocrit 31 % (35-47); Lymphocyte % 14.1 % (25-47); Mean Corpuscular HGB Conc 32 g/dl (31-36); Mean Corpuscular Hemoglobin 28 pg (27-31); Mean Corpuscular Volume 88 fL (80-97); Mean Platelet Volume 7.6 um3 (7.4-10.4); Nucleated Red Blood Cells % 0; Platelet Count 244 10^3/ul (150-450); Red Blood Count 3.56 10^6/ul (4.00-5.40); Red Cell Distribution Width 17 % (10.5-15); White Blood Count 7.3 10^3/ul (3.5-10.8)
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
[2017-12-17] MEDS ORDERED: Aspirin 81 mg CHEW TAB* 81 MG TAB.CHEW PO ONE (10:57)
[2017-12-17] MEDS ORDERED: Nitroglycerin TAB 0.4 MG* 0.4 MG TAB SL ONE (10:57)
[2017-12-17 11:12] LABS: EGFR Non-African American 61.9 (>60)
[2017-12-17 11:28] LABS: Urine Appearance Clear; Urine Blood Negative (Negative); Urine Color Yellow; Urine Ketones Negative (Negative); Urine Protein Negative (Negative); Urine Red Blood Cell Trace(0-2/hpf) (Absent); Urine Urobilinogen Negative (Negative); Urine White Blood Cell Trace(0-5/hpf) (Absent)
--- NOTE | 2017-12-17 11:56 | RAD ---
INDICATION: Chest pain. COMPARISON: Comparison is made with a prior CT of the chest from May 10, 2017 a prior chest x-ray studies from November 05, 2016 and December 26, 2016. TECHNIQUE: A portable view of the chest was obtained. FINDINGS: Cardiac and mediastinal contours appear to be within normal limits. The lungs are underinflated. Again note is made of a 1.5 cm nodular density which projects over the right midlung. This appears similar to the prior chest x-ray studies and was previously examined with CT imaging. The lungs are otherwise clear. No pleural effusion is seen. IMPRESSION: 1. NO EVIDENCE FOR ACUTE FINDING. 2. RIGHT LUNG PULMONARY NODULE UNCHANGED AND BETTER SEEN ON PRIOR CT EXAMS.
[2017-12-17] MEDS ORDERED: Albuterol 2.5 MG/3 ML NEB.SOL* (0.083%) INH PRN (12:33)
[2017-12-17] MEDS ORDERED: Ondansetron INJ* 2 MG/ML VIAL IV PRN (12:33)
[2017-12-17] MEDS ORDERED: Al Hydrox/Mg Hydrox/Simet LIQ* 30 ML UDC PO PRN (12:33)
--- NOTE | 2017-12-17 15:02 | HP ---
AMENDED REPORT NOW INCLUDES COSIGNER DESIGNATION - ESIGNED BEFORE ADJUSTMENT CC: Samantha Mcrae MD * ADMISSION HISTORY AND PHYSICAL: DATE OF ADMISSION: 12/17/17 PATIENT OF ADMITTING HOSPITALIST: Ed Sheffield MD.* (DICTATED BY [place]) PRIMARY CARE PHYSICIAN: Samantha Mcrae MD. CHIEF COMPLAINT: 1. Chest pain. 2. Possible overdose of Tylenol and/or Xanax. 3. Suicidal ideation. ATTENDING HOSPITALIST: While the patient here is Dr. Sheffield. HISTORY OF PRESENT ILLNESS: Mrs. Zimmerman is a 62-year-old female with past medical history significant for arthritis, anemia, and anxiety and depression with prior mental health evaluation due to suicidal ideation and attempts with overdose in the past, who presented to the emergency room today, brought in by ambulance with complaints of confusion. The patient apparently was brought from her house after she was found to be trashing the house around and when she was asked by EMS what was she looking for, she replied "looking for something to hang myself with." She has had history of anxiety and depression in the past with multiple suicidal attempts with overdose. It was not clear how much Tylenol or Xanax she took last night or this morning; however, she tells me that she only took two 500 mg of Tylenol this morning and denied taking any Xanax. She also presented with complaints of chest pain that has been present for months; however, has gotten worse for the past few days due to increased stress in her life. She denies any associated dyspnea, shortness of breath, nausea, diaphoresis, or any other associated symptoms. She was evaluated in the emergency room and had laboratory workup that revealed anemia with hemoglobin of 10 that appears to be at her baseline dated back to March of this year. She also had a chemistry panel that was essentially normal. Her urinalysis and toxicology revealed positive amphetamines and benzodiazepine; however, her serum acetaminophen and salicylates were negative. The patient expressed no suicidal planning at this point; however, she continued to have intermittent suicidal ideation by harming self or overdose on medication. Given the fact that she has intermittent chest pain for a long period of time, troponin was drawn and it was essentially negative. Her EKG today showed no significant ST changes to suggest an acute coronary syndrome; however, given her age, we were asked to see the patient to consider admission for observation and likely to obtain mental health evaluation given her recurrent suicidal ideation. PAST MEDICAL HISTORY: As mentioned above, significant for: 1. Arthritis. 2. Anemia. 3. Anxiety and depression. 4. Suicidal ideation with plans. PAST SURGICAL HISTORY: Significant for: 1. Appendectomy. 2. Cholecystectomy. 3. Gastric bypass. 4. Clavicle fracture, repaired in October 2016. 5. Tonsillectomy as a child. CURRENT MEDICATIONS: Her medications at home include: 1. Xanax 0.5 mg p.o. t.i.d. 2. Wellbutrin 150 mg p.o. daily. 3. Lomotil 2 tablets p.o. b.i.d. 4. Prozac 40 mg p.o. daily. 5. Neurontin 400 mg p.o. q.i.d. 6. Percocet 10/325 one tablet p.o. q.6 hours as needed for pain. 7. Phenergan 25 mg p.o. daily. 8. Trazodone 50 mg p.o. q.h.s. ALLERGIES: Include SODIUM NITRITE and CHOCOLATE FLAVOR as well as DUST. She denies any other drug allergies. FAMILY HISTORY: Reviewed and noncontributory. SOCIAL HISTORY: The patient lives alone. She is and has a son that lives locally, his name is Manoj and he is the healthcare proxy carrier. She has never smoked. Denies alcohol use. She wishes to be a full code. REVIEW OF SYSTEMS: See HPI. Otherwise, 12-point review of systems was examined and it was essentially negative. PHYSICAL EXAMINATION GENERAL: She is a frail, upper middle-aged female, appears comfortable, in no acute distress or discomfort at the time of admission. VITAL SIGNS: Most recent set of vitals was temperature of 98.9, pulse of 72, blood pressure of 100/76, respirations of 20 with O2 sats of 92% on room air. HEENT: Head is normocephalic, atraumatic. Sclerae are anicteric. PERRLA. EOMs intact. Oropharynx is pink and moist. Dentition is absent. NECK: Supple. Trachea midline. No cervical adenopathy or thyromegaly. LUNGS: Clear to auscultation bilaterally. HEART: Regular rate and rhythm. Normal S1 and S2 without rubs, murmurs, or gallops. BACK: With normal curvature and no CVA tenderness. BREASTS: Exam deferred at this time. ABDOMEN: Soft, nontender, nondistended. No hernias, masses, or hepatosplenomegaly. EXTREMITIES: Without cyanosis, clubbing, or edema. RECTAL: Exam deferred at this time. NEUROLOGIC: She is awake, alert, and oriented x4. Mood is stable and she is cooperative. Tongue is midline. Handgrip is equal bilaterally and sensation is intact throughout. LABORATORY WORKUP: CBC with white count of 7,000, hemoglobin 10, hematocrit 31 , and platelets of 244. Chemistry panel with sodium of 140, potassium 3.6, chloride 109, CO2 26, BUN of 13, and creatinine of 0.9, her glucose is 166. Lactic acid 0.8. LFTs within normal limits. TSH is 0.68. Her D-dimer is pending at the time of admission. Urine toxicology as mentioned above, positive for amphetamines and benzodiazepine; it was negative, undetected values for acetaminophen, salicylates and alcohol. ACCESSORY DIAGNOSTIC DATA: Chest x-ray was done in the ED revealing no evidence for acute cardiopulmonary issues, right lung pulmonary nodule unchanged based on prior CT. The patient had evaluation of this lung nodule by Dr. Lai back in June of this year and all biopsies came back negative for malignancies. EKG with sinus rhythm, no ST changes. IMPRESSION: A 62-year-old female with longstanding history of anxiety and depression with prior attempts at overdose as well as history of arthritis and anemia who presents to the emergency room, brought in after she found trashing her home and verbalized desire to commit a suicide as well as chest pain who will be admitted to telemetry unit under hospitalist services for: 1. Chest pain. The patient appears to be stable clinically. Her first troponin was negative and her EKG showed no ST changes. We will trend her troponin, observe her on telemetry overnight. Since she is admitted on Wednesday with stress test not being available over the weekend, there is a possibility that she might stay over and get a stress test done on Wednesday. She has never had any cardiac workup done in the past or any history of coronary artery disease. We will again trend her troponin and repeat her EKG and observe her closely at telemetry unit. 2. Suicidal ideation. The patient had prior episodes of suicidal ideation with plans with overdose and today she expressed desire to hang herself. She denies any suicidal ideation at the time of admission; however, we will continue one-on-one observation and I already contacted psychiatric unit to obtain a formal mental health evaluation for further recommendation regarding her care. I will continue all her home medications including Wellbutrin and trazodone as well as Xanax as needed. 3. Anemia. Appears to be a chronic issue and her hemoglobin and hematocrit has been at her baseline since the beginning of this year. 4. History of lung nodule. This has been worked up by Dr. Lai in the past and all records show that biopsies have been negative and the patient expressed no respiratory symptoms at this time. 5. DVT prophylaxis. She is at moderate risk and we will cover her for the time being with SCDs. 6. Code status. She wishes to be a full code and her healthcare proxy is her son, Manoj, who lives in [place]. TIME SPENT: Approximately 60 minutes was spent admitting this patient for which greater than 50% on taking history, performing physical exam. I went on and discussed the case with my attending who agreed to plan of care and we will follow her up accordingly. [place] [id number]/CPS #: [id number] MTDD
[2017-12-17] MEDS: Gabapentin CAP(*) 400 MG PO SCH ×3 (15:19→22:07)
[2017-12-17] MEDS: oxyCODONE/Acetamin 5/325 MG* TAB PO PRN (15:20)
[2017-12-17] MEDS: ALPRAZolam TAB* 0.5 MG PO PRN ×2 (16:14→22:08)
[2017-12-17] MEDS: Morphine INJ* 2 MG/ML 1 ML SYRINGE (TWO MG - NEW SYRINGE VERSION) IV PRN (19:32)
[2017-12-17] MEDS: Diphenoxylat/Atrop 2.5-0.025M* 1 TAB PO SCH (22:08)
[2017-12-18] MEDS: oxyCODONE/Acetamin 5/325 MG* TAB PO PRN ×3 (01:20→19:29)
[2017-12-18 05:14] LABS: ABS Basophils 0 10^3/ul (0-0.2); ABS Eosinophils 0.2 10^3/ul (0-0.6); ABS Lymphocytes 1.6 10^3/ul (1.0-4.8); ABS Monocytes 0.6 10^3/ul (0-0.8); ABS Nucleated RBC 0 10^3/ul; Eosinophil % 5.5 % (0-6); Hematocrit 29 % (35-47); Hemoglobin 9.5 g/dl (12.0-16.0); Lymphocyte % 35.6 % (25-47); Mean Corpuscular HGB Conc 33 g/dl (31-36); Mean Corpuscular Hemoglobin 29 pg (27-31); Mean Corpuscular Volume 88 fL (80-97); Mean Platelet Volume 7.4 um3 (7.4-10.4); Nucleated Red Blood Cells % 0; Platelet Count 224 10^3/ul (150-450); Red Blood Count 3.28 10^6/ul (4.00-5.40); Red Cell Distribution Width 17 % (10.5-15); White Blood Count 4.5 10^3/ul (3.5-10.8)
[2017-12-18] MEDS: FLUoxetine CAP* 20 MG PO SCH (07:21)
[2017-12-18] MEDS: ALPRAZolam TAB* 0.5 MG PO PRN ×3 (07:21→20:45)
[2017-12-18] MEDS: Gabapentin CAP(*) 400 MG PO SCH ×4 (07:21→20:44)
[2017-12-18] MEDS: Diphenoxylat/Atrop 2.5-0.025M* 1 TAB PO SCH ×2 (07:21→20:45)
[2017-12-18] MEDS: BuPROPion XL* 300 MG TAB.XL PO SCH (07:22)
[2017-12-18] MEDS: Magnesium Hydroxide LIQ* 30 ML UDC PO PRN (07:22)
[2017-12-18] MEDS: Morphine INJ* 2 MG/ML 1 ML SYRINGE (TWO MG - NEW SYRINGE VERSION) IV PRN ×2 (12:43→16:45)
--- NOTE | 2017-12-18 17:48 | PN ---
Subjective Date of Service: 12/18/17 Interval History: Patient states pain in chest is moderate and has been constant, not worse with exertion, with no associated symptoms, for 1 month. Patient states that her [employer] Helper was concerned that this pain was representing pain from lymphadenopathy in her chest from possible sarcoidosis. Patient states she has intermittent SOB and this is being evaluated by multiple pulmonologists and it is believed that this represents sarcoidosis but that was not responsive to steroids. Patient denies F/C, N/V, abdominal pain, dysuria, dizziness, palpitations, or other pain. Patient's speech is tangential and she has episodes of not finishing her sentences. Family History: Unchanged from Admission Social History: Unchanged from Admission Past Medical History: Unchanged from Admission Objective Active Medications: Al Hydrox/Mg Hydrox/Simethicone (Maalox Plus*) 30 ml PO Q6H PRN PRN Reason: INDIGESTION Albuterol (Ventolin 2.5 Mg/3 Ml Neb.Eve*) 2.5 mg INH [id number] AWAKE PRN PRN Reason: sob/wheezing Alprazolam (Xanax Tab*) 0.5 mg PO TID PRN PRN Reason: ANXIETY Last Admin: 12/18/17 14:40 Dose: 0.5 mg Bupropion HCl ([facility]ropion Xl*) [facility] [place] Last Admin: 12/18/17 07:22 Dose: 300 mg Diphenoxylate HCl/Atropine (Lomotil Tab*) 2 tab PO BID [facility] Last Admin: 12/18/17 07:21 Dose: 2 tab Fluoxetine HCl (Prozac Cap*) 40 mg PO QAM [facility] Last Admin: 12/18/17 07:21 Dose: 40 mg Gabapentin (Neurontin Cap(*)) 400 mg PO QID [facility] Last Admin: 12/18/17 16:44 Dose: 400 mg Magnesium Hydroxide (Milk Of Magnesia Liq*) 30 ml PO Q4H PRN PRN Reason: CONSTIPATION Last Admin: 12/18/17 07:22 Dose: 30 ml Morphine Sulfate (Morphine Inj ((Syringe))*) 2 mg IV Q4H PRN PRN Reason: PAIN - SEVERE Last Admin: 12/18/17 16:45 Dose: 2 mg Ondansetron HCl (Zofran Inj*) 4 mg IV Q4H PRN PRN Reason: NAUSEA/VOMITING Oxycodone/Acetaminophen (Percocet 5/325 Tab*) 2 tab PO BID PRN PRN Reason: PAIN Last Admin: 12/18/17 07:20 Dose: 2 tab Trazodone HCl (Desyrel Tab*) 50 mg PO BEDTIME PRN PRN Reason: SLEEP Vital Signs - 8 hr 12/18/17 12/18/17 12/18/17 10:08 10:09 10:10 Temperature Pulse Rate Respiratory 16 16 16 Rate Blood Pressure (mmHg) O2 Sat by Pulse Oximetry 12/18/17 12/18/17 12/18/17 12:42 12:43 13:02 Temperature 98.6 F Pulse Rate 82 Respiratory 18 18 18 Rate Blood Pressure 113/59 (mmHg) O2 Sat by Pulse 95 Oximetry 12/18/17 12/18/17 12/18/17 13:05 13:06 13:17 Temperature Pulse Rate 93 93 Respiratory 16 Rate Blood Pressure 101/59 101/59 (mmHg) O2 Sat by Pulse 89 Oximetry 12/18/17 12/18/17 12/18/17 14:37 14:40 15:23 Temperature 99.0 F Pulse Rate 76 Respiratory 18 18 16 Rate Blood Pressure 115/61 (mmHg) O2 Sat by Pulse 96 Oximetry 12/18/17 12/18/17 12/18/17 16:44 16:45 16:49 Temperature Pulse Rate Respiratory 18 18 18 Rate Blood Pressure (mmHg) O2 Sat by Pulse Oximetry 12/18/17 17:38 Temperature Pulse Rate Respiratory 18 Rate Blood Pressure (mmHg) O2 Sat by Pulse Oximetry Oxygen Devices in Use Now: None Appearance: Patient is a 62yo female who appears stated age and is sitting in the bed in [facility]. Eyes: No Scleral Icterus, PERRLA Ears/Nose/Mouth/Throat: NL Teeth, Lips, Gums, Clear Oropharnyx, Mucous Membranes Moist Neck: NL Appearance and Movements; NL JVP, Trachea Midline Respiratory: Symmetrical Chest Expansion and Respiratory Effort, Clear to Auscultation Cardiovascular: NL Sounds; No Murmurs; No JVD, RRR, No Edema, - - Left side of chest very tender to palpation. Abdominal: NL Sounds; No Tenderness; No Distention, No Hepatosplenomegaly Lymphatic: No Cervical Adenopathy Extremities: No Edema, No Clubbing, Cyanosis Skin: No Rash or Ulcers, No Nodules or Sclerosis Neurological: Alert and Oriented x 3, NL Sensation, NL Muscle Strength and Tone , - - CN II-XII intact. Result Diagrams: 12/18/17 04:51 12/18/17 04:51 Additional Lab and Data: Lab Results Microbiology and Other Data: Microbiology 12/17/17 11:15 Urine Culture - Final Urine Assess/Plan/Problems-Billing Assessment: Patient is a 62yo female with a PMH for Lung nodule concerning for sarcoidosis currently undergoing workup, anxiety, depression, anemia, who is admitted for chest pain rule out with negative troponins and is awaiting psychiatric consultation. - Patient Problems (1) Chest pain Current Visit: Yes Status: Acute Code(s): R07.9 - CHEST PAIN, UNSPECIFIED SNOMED Code(s): 75773291 Comment: - Chest pain still present and constant. - Aching, reproducible with palpation, no associated symptoms - VERONIKA of 0 - No further cardiac evaluation necessary - Continue workup through outpatient wheel braider (2) Lung nodule Current Visit: Yes Status: Acute Code(s): R91.1 - SOLITARY PULMONARY NODULE SNOMED Code(s): 094208203 Comment: - Lung nodule with concerning signs for malignancy but negative biopsy - Concern for Sarcoidosis - Unresponsive to steroids, continue outpatient treatment. Will not give steroids at this time. (3) Anemia Current Visit: Yes Status: Acute Code(s): D64.9 - ANEMIA, UNSPECIFIED SNOMED Code(s): 650874760 Comment: - Stable, normocytic - Check Iron panel, B12, Folate (4) Borderline personality disorder Current Visit: No Status: Acute Code(s): F60.3 - BORDERLINE PERSONALITY DISORDER SNOMED Code(s): 36918247 Comment: - Possible suicidal gestures - Psychiatric consult pending. (5) Depression Current Visit: No Status: Acute Priority: High Onset Date: 03/14/15 Code (s): F32.9 - MAJOR DEPRESSIVE DISORDER, SINGLE EPISODE, UNSPECIFIED SNOMED Code(s): 06459942 Comment: - Continue home medications. (6) DVT prophylaxis Current Visit: No Status: Acute Code(s): LCT5103 - SNOMED Code(s): 633900964 Comment: HSQ (7) Full code status Current Visit: No Status: Acute Code(s): Z78.9 - OTHER SPECIFIED HEALTH STATUS SNOMED Code(s): 954052815 Status and Disposition: Inpatient Pending psychiatric consult.
[2017-12-18] MEDS: traZODone TAB* 50 MG TAB PO PRN (20:45)
[2017-12-19] MEDS: Morphine INJ* 2 MG/ML 1 ML SYRINGE (TWO MG - NEW SYRINGE VERSION) IV PRN ×3 (01:11→15:56)
[2017-12-19 05:28] LABS: ABS Basophils 0 10^3/ul (0-0.2); ABS Eosinophils 0.2 10^3/ul (0-0.6); ABS Lymphocytes 1.4 10^3/ul (1.0-4.8); ABS Monocytes 0.6 10^3/ul (0-0.8); ABS Neutrophils 2.4 10^3/ul (1.5-7.7); ABS Nucleated RBC 0 10^3/ul; Eosinophil % 4.9 % (0-6); Hematocrit 30 % (35-47); Hemoglobin 9.5 g/dl (12.0-16.0); Lymphocyte % 30.3 % (25-47); Mean Corpuscular HGB Conc 32 g/dl (31-36); Mean Corpuscular Hemoglobin 28 pg (27-31); Mean Corpuscular Volume 89 fL (80-97); Mean Platelet Volume 7.6 um3 (7.4-10.4); Nucleated Red Blood Cells % 0.1; Platelet Count 221 10^3/ul (150-450); Red Blood Count 3.37 10^6/ul (4.00-5.40); Red Cell Distribution Width 17 % (10.5-15); White Blood Count 4.7 10^3/ul (3.5-10.8)
[2017-12-19 05:43] LABS: EGFR Non-African American 83.4 (>60)
[2017-12-19] MEDS: Ferrous Sulfate TAB* 325 MG PO SCH (07:43)
[2017-12-19] MEDS: Magnesium Hydroxide LIQ* 30 ML UDC PO PRN (07:43)
[2017-12-19] MEDS: FLUoxetine CAP* 20 MG PO SCH (07:44)
[2017-12-19] MEDS: Gabapentin CAP(*) 400 MG PO SCH ×5 (07:44→21:07)
[2017-12-19] MEDS: Diphenoxylat/Atrop 2.5-0.025M* 1 TAB PO SCH ×2 (07:44→21:07)
[2017-12-19] MEDS: BuPROPion XL* 300 MG TAB.XL PO SCH (07:44)
[2017-12-19] MEDS: oxyCODONE/Acetamin 5/325 MG* TAB PO PRN ×2 (07:44→21:06)
[2017-12-19] MEDS: ALPRAZolam TAB* 0.5 MG PO PRN ×3 (07:45→23:20)
--- NOTE | 2017-12-19 14:58 | CONSULT ---
Identification - Patient Identification Reason for Psychiatric Consultation: Other - Possible Overdose and erratic behavior. -: Patient is a 62 year old, F admitted on 12/17/17. History - Objective HPI: Psychiatry was asked to consult for unspecified erratic behavior, possible OD/ suicidal ideation. Patient has mental illness with multiple psychiatric hospitalizations, currently admitted to medical floor due to acute mental status change and mild L -sided anterior chest pain. During my phone conversation with Mr. Alexia Godfrey also reported that patient was medically cleared bur they don't have a safe discharge plan. Ms. Zimmerman was seen by her bedside. Per patient report she was experiencing Migraine headache and mild chest pain and wasn't able to sleep. May have taken few Tylenol back to back and Ambien as well. During that process spilled pills on the floor and the table flipped. She does not have any recollection of reporting suicidal thoughts /intent or plans. She acknowledges saying that she doesn't wish to live a life like this as she lives alone without any help. She isn't capable of caring for self because of physical limitation. Doesn't eat enough. She also has difficulty managing her complex medications. Although she has a very good continuous pillowcase cutter she failed to get appropriate help for her and she is fearful that bad thing can happen. Says her depression is in good control on current meds. She denies current hallucinations, delusions, SI or HI. She is alert and oriented to time, place and person. Her insight and judgment is fair to good. Exam Appearance: Thin Framed Hygiene: Normal Grooming: Fairly Well Kept Psychomotor Activities: Normal Exhibits Abnormal Movement: No Attitude and Relatedness: Appropriate Eye Contact: Good - Speech Quality: Unpressured Latencies: Normal Quantity: Appropriate Patient's Decription of Mood: "Fine" Observed Affect: Good Affect Consistent with: Euthymia Patient's Thought Process: Coherent, Goal Directed Thought Content: No Passive Wish, No Suicidal Planning, No Homicidal Ideation, No Paranoid Ideation Experiencing Hallucinations: No, Sensorium is Clear Type of Hallucinations: Visual: No, Auditory: No, Command: No Level of Consciousness: Alert Orientation: Yes Intact, Yes Orientated to Time, Yes Orientated to Place, Yes Orientated to Person Impulse Control: Intact Insight and Judgement: Fair Impression - Impression Clinical Impression: This 62 y/o WF with h/o Depression admitted on Medical floor for acute mental status change appears to be at her base line mental status without SI or HI. Her main needs are psychosocial in nature and need to be addressed with social work consult. At this time there is no need to change her current outpatient meds. Also there is no need for inpatient psychiatric care. Please feel free to contact [facility] in case there is further concerns. Merits Inpatient Hospitalization: No Problem List - MHU Problems Type of Problem: Impulse Control Status of Problem: Ruled Out Type of Problem: Attitude and Relatedness Status of Problem: Active Plan - Treatment Plan Continued Medication Management: Continue Outpt Medication Medications: Current Medications Al Hydrox/Mg Hydrox/Simethicone (Maalox Plus*) 30 ml PO Q6H PRN PRN Reason: INDIGESTION Albuterol (Ventolin 2.5 Mg/3 Ml Neb.Eve*) 2.5 mg INH [id number] AWAKE PRN PRN Reason: sob/wheezing Alprazolam (Xanax Tab*) 0.5 mg PO TID PRN PRN Reason: ANXIETY Last Admin: 12/19/17 07:45 Dose: 0.5 mg Bupropion HCl (Bupropion Xl*) 300 mg PO QAM [facility]; Protocol Last Admin: 12/19/17 07:44 Dose: 300 mg Diphenoxylate HCl/Atropine (Lomotil Tab*) 2 tab PO BID [facility] Last Admin: 12/19/17 07:44 Dose: 2 tab Ferrous Sulfate (Ferrous Sulfate Tab*) 325 mg PO DAILY [facility] Last Admin: 12/19/17 07:43 Dose: 325 mg Fluoxetine HCl (Prozac Cap*) 40 mg PO QAM [facility] Last Admin: 12/19/17 07:44 Dose: 40 mg Gabapentin (Neurontin Cap(*)) 400 mg PO QID [facility] Last Admin: 12/19/17 11:44 Dose: 400 mg Magnesium Hydroxide (Milk Of Magnesia Liq*) 30 ml PO Q4H PRN PRN Reason: CONSTIPATION Last Admin: 12/19/17 07:43 Dose: 30 ml Morphine Sulfate (Morphine Inj ((Syringe))*) 2 mg IV Q4H PRN PRN Reason: PAIN - SEVERE Last Admin: 12/19/17 11:44 Dose: 2 mg Ondansetron HCl (Zofran Inj*) 4 mg IV Q4H PRN PRN Reason: NAUSEA/VOMITING Oxycodone/Acetaminophen (Percocet 5/325 Tab*) 2 tab PO BID PRN PRN Reason: PAIN Last Admin: 12/19/17 07:44 Dose: 2 tab Trazodone HCl (Desyrel Tab*) 50 mg PO BEDTIME PRN PRN Reason: SLEEP Last Admin: 12/18/17 20:45 Dose: 50 mg - Discharge Plan Discharge Plan: Outpatient Follow Up Outpatient Program: [facility]
--- NOTE | 2017-12-19 15:54 | PN ---
Subjective Date of Service: 12/19/17 Interval History: Patient is feeling better today. Complains of persistent chest and shoulder pain. States it has worsened overnight. Persistent tenderness to chest and shoulder. Patient complains of headache in her typical pattern. Patient denies SI/HI, F/C, N/V, abdominal pain, dysuria, dizziness. Patient complains of intermittent palpitations but states this has been going on for years. Family History: Unchanged from Admission Social History: Unchanged from Admission Past Medical History: Unchanged from Admission Objective Active Medications: Al Hydrox/Mg Hydrox/Simethicone (Maalox Plus*) 30 ml PO Q6H PRN PRN Reason: INDIGESTION Albuterol (Ventolin 2.5 Mg/3 Ml Neb.Eve*) 2.5 mg INH [id number] AWAKE PRN PRN Reason: sob/wheezing Alprazolam (Xanax Tab*) 0.5 mg PO TID PRN PRN Reason: ANXIETY Last Admin: 12/19/17 07:45 Dose: 0.5 mg Bupropion HCl (Bupropion Xl*) 300 mg PO QAM [facility]; Protocol Last Admin: 12/19/17 07:44 Dose: 300 mg Diphenoxylate HCl/Atropine (Lomotil Tab*) 2 tab PO BID [facility] Last Admin: 12/19/17 07:44 Dose: 2 tab Ferrous Sulfate (Ferrous Sulfate Tab*) 325 mg PO DAILY [facility] Last Admin: 12/19/17 07:43 Dose: 325 mg Fluoxetine HCl (Prozac Cap*) 40 mg PO QAM [facility] Last Admin: 12/19/17 07:44 Dose: 40 mg Gabapentin (Neurontin Cap(*)) 400 mg PO QID [facility] Last Admin: 12/19/17 11:44 Dose: 400 mg Magnesium Hydroxide (Milk Of Magnesia Liq*) 30 ml PO Q4H PRN PRN Reason: CONSTIPATION Last Admin: 12/19/17 07:43 Dose: 30 ml Morphine Sulfate (Morphine Inj ((Syringe))*) 2 mg IV Q4H PRN PRN Reason: PAIN - SEVERE Last Admin: 12/19/17 11:44 Dose: 2 mg Ondansetron HCl (Zofran Inj*) 4 mg IV Q4H PRN PRN Reason: NAUSEA/VOMITING Oxycodone/Acetaminophen (Percocet 5/325 Tab*) 2 tab PO BID PRN PRN Reason: PAIN Last Admin: 12/19/17 07:44 Dose: 2 tab Trazodone HCl (Desyrel Tab*) 50 mg PO BEDTIME PRN PRN Reason: SLEEP Last Admin: 12/18/17 20:45 Dose: 50 mg Vital Signs - 8 hr 12/19/17 12/19/17 12/19/17 07:48 08:00 09:38 Temperature Pulse Rate 76 Respiratory 16 16 18 Rate Blood Pressure 105/46 (mmHg) O2 Sat by Pulse 97 Oximetry 12/19/17 12/19/17 12/19/17 11:44 12:22 14:40 Temperature 98.9 F Pulse Rate 65 Respiratory 16 16 18 Rate Blood Pressure 105/44 (mmHg) O2 Sat by Pulse 97 Oximetry 12/19/17 15:05 Temperature Pulse Rate Respiratory 18 Rate Blood Pressure (mmHg) O2 Sat by Pulse Oximetry Oxygen Devices in Use Now: None Appearance: Patient is a 62yo female who appears stated age and is sitting in the bed in [facility]. Eyes: No Scleral Icterus, PERRLA Ears/Nose/Mouth/Throat: NL Teeth, Lips, Gums, Clear Oropharnyx, Mucous Membranes Moist Neck: NL Appearance and Movements; NL JVP, Trachea Midline Respiratory: Symmetrical Chest Expansion and Respiratory Effort, Clear to Auscultation Cardiovascular: NL Sounds; No Murmurs; No JVD, RRR, No Edema Abdominal: NL Sounds; No Tenderness; No Distention, No Hepatosplenomegaly Lymphatic: No Cervical Adenopathy Extremities: No Edema, No Clubbing, Cyanosis Skin: No Rash or Ulcers, No Nodules or Sclerosis Neurological: Alert and Oriented x 3, NL Sensation, NL Muscle Strength and Tone , - - Cn II-XII intact. Result Diagrams: 12/19/17 05:15 12/19/17 05:15 Additional Lab and Data: Lab Results Microbiology and Other Data: Microbiology 12/17/17 11:15 Urine Culture - Final Urine Assess/Plan/Problems-Billing Assessment: Patient is a 62yo female with a PMH for Lung nodule concerning for sarcoidosis currently undergoing workup, anxiety, depression, anemia, who is admitted for chest pain rule out with negative troponins and is awaiting psychiatric consultation. - Patient Problems (1) Chest pain Current Visit: Yes Status: Acute Code(s): R07.9 - CHEST PAIN, UNSPECIFIED SNOMED Code(s): 62860983 Comment: - Chest pain still present and constant. - Aching, reproducible with palpation, no associated symptoms - VERONIKA of 0 - Patient had episode of non-sustained VT today. - No obvious provocative factor - X-Ray shoulder - Will not give nitrates at this time due to migraine - Stress test in AM to rule out ischemic etiology of VT. - Continue workup through outpatient healthcare technician (2) Lung nodule Current Visit: Yes Status: Acute Code(s): R91.1 - SOLITARY PULMONARY NODULE SNOMED Code(s): 690007492 Comment: - Lung nodule with concerning signs for malignancy but negative biopsy - Concern for Sarcoidosis - Unresponsive to steroids, continue outpatient treatment. Will not give steroids at this time. (3) Anemia Current Visit: Yes Status: Acute Code(s): D64.9 - ANEMIA, UNSPECIFIED SNOMED Code(s): 885844990 Comment: - Stable, normocytic - Pattern consistent with LUCI. - Start Iron supplementation. (4) Borderline personality disorder Current Visit: No Status: Acute Code(s): F60.3 - BORDERLINE PERSONALITY DISORDER SNOMED Code(s): 78106268 Comment: - Possible suicidal gestures - Psychiatric consult appreciated - No need for inpatient psychiatric hospitalization - Continue home medications. (5) Depression Current Visit: No Status: Acute Priority: High Onset Date: 03/14/15 Code (s): F32.9 - MAJOR DEPRESSIVE DISORDER, SINGLE EPISODE, UNSPECIFIED SNOMED Code(s): 55803634 Comment: - Continue home medications. (6) Non-sustained ventricular tachycardia Current Visit: Yes Status: Acute Code(s): I47.2 - VENTRICULAR TACHYCARDIA SNOMED Code(s): 844829514 Comment: - See above - 7 beats - Consider BB after stress test to control palpitations if no ischemia (7) DVT prophylaxis Current Visit: No Status: Acute Code(s): AUZ6195 - SNOMED Code(s): 992431102 Comment: HSQ (8) Full code status Current Visit: No Status: Acute Code(s): Z78.9 - OTHER SPECIFIED HEALTH STATUS SNOMED Code(s): 577679391 Status and Disposition: Inpatient Pending psychiatric consult.
--- NOTE | 2017-12-19 18:18 | RAD ---
INDICATION: Left shoulder pain COMPARISON: Similar left shoulder radiograph dated March 31, 2017. TECHNIQUE: 4 views of the left shoulder were obtained. FINDINGS: There is been interval removal of the plate and screw fixator overlying the left clavicle that was seen on the previous CT examination. The adequately corticated bones are in normal alignment. Joint spaces appear maintained. No fracture, dislocation or focal bony abnormality is seen. IMPRESSION: Normal radiograph of the left shoulder. If the patient's symptoms persist, follow-up imaging is recommended.
[2017-12-20] MEDS: traZODone TAB* 50 MG TAB PO PRN ×2 (01:50→20:23)
[2017-12-20] MEDS: NS 0.9% 1000 ML* 500 ML IV SCH ×2 (04:17→05:05)
[2017-12-20] MEDS: BuPROPion XL* 300 MG TAB.XL PO SCH (07:59)
[2017-12-20] MEDS: FLUoxetine CAP* 20 MG PO SCH (07:59)
[2017-12-20] MEDS: Gabapentin CAP(*) 400 MG PO SCH ×4 (08:00→20:22)
[2017-12-20] MEDS: Diphenoxylat/Atrop 2.5-0.025M* 1 TAB PO SCH ×2 (08:00→20:23)
[2017-12-20] MEDS: Ferrous Sulfate TAB* 325 MG PO SCH (08:00)
[2017-12-20] MEDS: oxyCODONE/Acetamin 5/325 MG* TAB PO PRN ×2 (08:22→20:22)
[2017-12-20] MEDS: ALPRAZolam TAB* 0.5 MG PO PRN ×2 (08:26→16:54)
[2017-12-20] MEDS: Morphine INJ* 4 MG/ML 1 ML SYRINGE (NEW SYRINGE VERSION) IV PRN ×2 (10:55→15:00)
--- NOTE | 2017-12-20 12:04 | RAD ---
Edited for charges. INDICATION: Chest pain. COMPARISON: There are no relevant prior studies available for comparison. Technique: A single day myocardial perfusion stress study was performed. Initially the resting study was performed. The patient was given an intravenous injection of 10.4 mCi of technetium 99m tetrofosmin and and the heart was imaged in multiple projections. The patient returned later in the day and under the direction of Dr. Hugo, the patient was given intervenous injection of Lexiscan. Subsequently the patient was given intravenous injection of 25.6 mCi of technetium 99m tetrofosmin and the heart was imaged in multiple projections. Images were reconstructed in the axial, sagittal and coronal planes and in a 3- D format. The patient was unable to be positioned for the attenuation corrected images due to claustrophobia limiting the study. FINDINGS: There appears to be normal wall motion and myocardial thickening. The left ventricular ejection fraction was calculated to be 73%. No significant focal perfusion defects are seen. There was no evidence for infarct or ischemia. IMPRESSION: NO EVIDENCE FOR INFARCT OR ISCHEMIA. ASSESSMENT: Low risk. Based on imaging criteria from ACC/AHA 2002 Guideline Update for the Management of Patients With Chronic Stable Angina Table 23. Noninvasive Risk Stratification. MTDD
[2017-12-20] MEDS ORDERED: Regadenoson* 0.4 MG/5 ML SYRINGE ONE (13:07)
--- NOTE | 2017-12-20 15:07 | PN ---
Subjective Date of Service: 12/20/17 Interval History: Ms. Zimmerman is not particularly contributory to our conversation this morning. She offers no complaints and denies chest pain, SOB, diaphoresis, N/V/D. She states she cannot be d/c'd today as she does not have a home to return to. Social work is involved. Family History: Unchanged from Admission Social History: Unchanged from Admission Past Medical History: Unchanged from Admission Objective Active Medications: Al Hydrox/Mg Hydrox/Simethicone (Maalox Plus*) 30 ml PO Q6H PRN Albuterol (Ventolin 2.5 Mg/3 Ml Neb.Eve*) 2.5 mg INH [id number] AWAKE PRN Alprazolam (Xanax Tab*) 0.5 mg PO TID PRN Bupropion HCl (Bupropion Xl*) 300 mg PO QAM [facility]; Protocol Diphenoxylate HCl/Atropine (Lomotil Tab*) 2 tab PO BID [facility] Ferrous Sulfate (Ferrous Sulfate Tab*) 325 mg PO DAILY [facility] Fluoxetine HCl (Prozac Cap*) 40 mg PO QAM [facility] Gabapentin (Neurontin Cap(*)) 400 mg PO QID [facility] Magnesium Hydroxide (Milk Of Magnesia Liq*) 30 ml PO Q4H PRN Morphine Sulfate (Morphine Inj (Syringe)*) 2 mg IV Q4H PRN Ondansetron HCl (Zofran Inj*) 4 mg IV Q4H PRN Oxycodone/Acetaminophen (Percocet 5/325 Tab*) 2 tab PO BID PRN Trazodone HCl (Desyrel Tab*) 50 mg PO BEDTIME PRN Vital Signs - 8 hr 12/20/17 12/20/17 12/20/17 08:00 08:05 08:22 Temperature 98.0 F Pulse Rate 68 Respiratory 14 18 14 Rate Blood Pressure 115/83 (mmHg) O2 Sat by Pulse 97 Oximetry 12/20/17 12/20/17 12/20/17 10:58 11:46 12:55 Temperature 98.1 F Pulse Rate 57 Respiratory 14 18 14 Rate Blood Pressure 101/46 (mmHg) O2 Sat by Pulse 96 Oximetry Oxygen Devices in Use Now: None Appearance: Elderly female laying in bed in no acute distress. Aloof. Eyes: No Scleral Icterus Ears/Nose/Mouth/Throat: Mucous Membranes Moist Neck: NL Appearance and Movements; NL JVP, Trachea Midline Respiratory: Symmetrical Chest Expansion and Respiratory Effort, Clear to Auscultation Cardiovascular: NL Sounds; No Murmurs; No JVD, RRR, No Edema Abdominal: NL Sounds; No Tenderness; No Distention Extremities: No Edema Skin: No Rash or Ulcers Neurological: Alert and Oriented x 3 Lines/Tubes/Other Access: Clean, Dry and Intact Peripheral IV Nutrition: Taking PO's Result Diagrams: 12/19/17 05:15 12/19/17 05:15 Assess/Plan/Problems-Billing Assessment: Ms. Zimmerman is a 62yo female with a PMH for Lung nodule concerning for sarcoidosis currently undergoing workup, anxiety, depression, anemia, who is admitted for chest pain rule out with negative troponins and has had a psychiatric consultation. - Patient Problems (1) Chest pain Current Visit: Yes Status: Acute Priority: High Code(s): R07.9 - CHEST PAIN, UNSPECIFIED SNOMED Code(s): 29382086 Comment: - Chest pain resolved - VERONIKA of 0 - Stress test this morning showed no signs of ischemia or infarction inidcating a low risk (2) Lung nodule Current Visit: Yes Status: Acute Priority: High Code(s): R91.1 - SOLITARY PULMONARY NODULE SNOMED Code(s): 959591156 Comment: - Lung nodule with concerning signs for malignancy but negative biopsy - Concern for Sarcoidosis - Unresponsive to steroids, continue outpatient treatment - Continue outpatient follow up with leadlighter (3) Anemia Current Visit: Yes Status: Acute Priority: High Code(s): D64.9 - ANEMIA, UNSPECIFIED SNOMED Code(s): 162159311 Comment: - Stable, normocytic - Pattern consistent with LUCI - Start iron supplementation (4) Non-sustained ventricular tachycardia Current Visit: Yes Status: Acute Code(s): I47.2 - VENTRICULAR TACHYCARDIA SNOMED Code(s): 226412134 Comment: - No futher episodes noted on tele (5) Borderline personality disorder Current Visit: No Status: Acute Code(s): F60.3 - BORDERLINE PERSONALITY DISORDER SNOMED Code(s): 01878159 Comment: - No need for inpatient psychiatric hospitalization per psych - Continue home medications (6) Depression Current Visit: Yes Status: Acute Priority: High Onset Date: 03/14/15 Code(s): F32.9 - MAJOR DEPRESSIVE DISORDER, SINGLE EPISODE, UNSPECIFIED SNOMED Code(s): 31037068 Comment: - Continue home medications (7) Full code status Current Visit: Yes Status: Acute Code(s): Z78.9 - OTHER SPECIFIED HEALTH STATUS SNOMED Code(s): 571108198 (8) DVT prophylaxis Current Visit: Yes Status: Acute Code(s): TUQ8945 - SNOMED Code(s): 613819923 Comment: - Heparin SQ Status and Disposition: Inpatient. Medically stable for d/c today, but she does not have a safe plan for d/c. She will be d/c'd tomorrow morning.
[2017-12-21] MEDS: ALPRAZolam TAB* 0.5 MG PO PRN (02:30)
[2017-12-21] MEDS: oxyCODONE/Acetamin 5/325 MG* TAB PO PRN (05:18)
[2017-12-21] MEDS: Ferrous Sulfate TAB* 325 MG PO SCH (07:54)
[2017-12-21] MEDS: FLUoxetine CAP* 20 MG PO SCH (07:54)
[2017-12-21] MEDS: Diphenoxylat/Atrop 2.5-0.025M* 1 TAB PO SCH (07:54)
[2017-12-21] MEDS: BuPROPion XL* 300 MG TAB.XL PO SCH (07:55)
[2017-12-21] MEDS: Gabapentin CAP(*) 400 MG PO SCH (07:55)
[2017-12-21 09:06] VITALS: BP 101/46
--- NOTE | 2017-12-22 10:20 | DS ---
CC: Samantha Mcrae MD * DISCHARGE SUMMARY: DATE OF ADMISSION: 12/17/17 DATE OF DISCHARGE: 12/21/17 PRIMARY CARE PROVIDER: Samantha Mcrae MD ATTENDING PHYSICIAN: Dr. Sheffield * (dictated by Yamel Carrion NP) PRIMARY DIAGNOSES: 1. Chest pain. 2. Nonsustained ventricular tachycardia. SECONDARY DIAGNOSES: 1. Lung nodule. 2. Anemia. 3. Borderline personality disorder. 4. Depression. CONSULTATIONS WHILE IN THE HOSPITAL: The patient was seen by Dr. Frazier from psychiatry on 12/19/17. He was asked to consult because of her erratic behavior , possible overdose and suicidal ideation. He determined at that point that her main needs are psychosocial and that would need to be addressed with social work. He did not see the need to change her current outpatient medications and did not feel that there was any need for inpatient psychiatric care. STUDIES WHILE IN THE HOSPITAL: 1. Chest x-ray on 12/17/17, reads as no evidence for acute findings. Right lung pulmonary nodule unchanged and better seen on prior CT exam. 2. Shoulder x-ray on 12/19/17, reads as normal radiograph of the left shoulder. 3. Nuclear stress test on 12/20/17 reads as no evidence for infarct or ischemia. Assessment is low risk. DISCHARGE MEDICATIONS: New home medications: 1. Ferrous sulfate 325 mg p.o. daily. Continued home medications: 1. Alprazolam 0.5 mg p.o. t.i.d. p.r.n. 2. Bupropion 450 mg p.o. daily. 3. Lomotil 2 tabs p.o. b.i.d. 4. Fluoxetine 40 mg p.o. daily. 5. Gabapentin 400 mg p.o. 4 times a day. 6. Percocet 10/325 1 tab p.o. b.i.d. p.r.n. 7. Phenergan 25 mg p.o. daily p.r.n. 8. Trazodone 50 mg p.o. at bedtime p.r.n. HISTORY OF PRESENT ILLNESS AND HOSPITAL COURSE: Ms. Zimmerman is a 62-year-old female with past medical history of anemia, anxiety, depression, suicidal ideations, and attempted overdose who was brought in to the emergency room on with confusion. Please see the history and physical by ACOSTA Pang for a complete summary of the events leading up to this hospitalization but in short, the patient was found to be thrashing around her home, and was not particularly coherent. She had a workup in the emergency room revealing anemia , essentially at her baseline. Her toxicology revealed positive amphetamines and benzodiazepines. The patient denied any suicidal ideations, however, she did admit to recent chest pain, present for "months" that has gotten particularly worse in the last few days. Her EKG showed no acute changes. However, because of her risk factors, she was admitted to the hospital. During this hospitalization, the patient continued to have constant moderate pain, not worse on exertion with no associated symptoms. The pain was noted to be reproducible with tenderness to palpation of the left chest and shoulder. She also complained of a near constant headache, which she reported with her typical pattern. On 12/19/17, the patient was noted to have 7 beats of V-tach. There were no further episodes, but the decision was made to do a stress test. Her stress test on 12/20/17 indicated a low risk assessment. Her anemia has remained consistent with her baseline. Her lung nodule is chronic and has been followed by Dr. Lai as an outpatient. The patient was medically stable for discharge on 12/20/17 after her stress test, though apparently because of her erratic behavior prior to admission, she could not return to her apartment and therefore was homeless. Social work was consulting to find her a safe discharge plan. As of the morning of discharge, the patient continues to have tenderness to palpation of the left shoulder. It is also painful with movement of her left arm. Ms. Zimmerman is stable for discharge home today. Vital signs are as follows: Temp 97.2, heart rate 62, respiratory rate 18, oxygen saturation 92%, blood pressure 101/46. DISCHARGE PLAN: Ms. Zimmerman will be discharged to home with help of social work. Activity will be as tolerated. Diet is regular as tolerated. She should be taking ferrous sulfate as an outpatient for her anemia, though her medications are otherwise unchanged. She should follow up with her primary care provider in 4 to 7 days. She should also follow up with the [facility] with her normal mental health counselor. The patient should return to the emergency room or nearest hospital for any worsening of symptoms, shortness of breath, lightheadedness, dizziness, chest pain, high fevers, chills, night sweats, loss of consciousness or any other worrisome signs or symptoms. The patient is understanding of the discharge plan and instructions. This is a summarized report of a complex medical history and hospital stay. For further details, please see the entire medical record. TIME SPENT: Approximately 45 minutes were spent on this discharge; greater than half of that time spent [id number] with the patient discussing discharge plans and instructions. YAMEL CARRION MACHINIST/MACHINE BUILDER [id number]/CPS #: [id number] MARIANO
== END 2017-12-21 10:15 | disposition home or self-care (01) | DRG 313 ==
LOC: ED 08:55 → MEDTELE 12:33 → OBSVTOIN 12-19 15:02
PROVIDERS: ADMIT Student in an Organized Health Care Education/Training Program; ATTEND Internal Medicine
DX: R07.9 Chest pain, unspecified (principal); I47.2 Ventricular tachycardia; R45.851 Suicidal ideations; R91.1 Solitary pulmonary nodule; D64.9 Anemia, unspecified; F60.3 Borderline personality disorder; F32.9 Major depressive disorder, single episode, unspecified; M25.512 Pain in left shoulder; M25.511 Pain in right shoulder; M19.90 Unspecified osteoarthritis, unspecified site; Z98.84 Bariatric surgery status; Z79.899 Other long term (current) drug therapy; Z91.018 Allergy to other foods; Z91.048 Other nonmedicinal substance allergy status
CPT/HCPCS: 36415; 71045; 78452; 80048; 80053; 80061; 80307; 80320; 80329; 81003; 81015; 82607; 82728; 82746; 83540; 83550; 83605; 83735; 84443; 84484; 85025; 85379; 87086; 93005; 93017; 99285; A9270-GY; A9502; G0378; G0480; J2270; J2785

== ENCOUNTER 2018-10-28 12:59 | Emergency (ER) | payer OTHER, MEDICARE, MEDICAID ==
[2018-10-28] MEDS ORDERED: NS 0.9% 1000 ML** 1,000 ML IV ONE (13:07)
[2018-10-28 14:47] LABS: ABS Eosinophils 0.1 10^3/ul (0-0.6); ABS Lymphocytes 0.4 10^3/ul (1.0-4.8); ABS Monocytes 0.3 10^3/ul (0-0.8); ABS Neutrophils 3.1 10^3/ul (1.5-7.7); Eosinophil % 1.5 %; Hematocrit 30 % (35-47); Hemoglobin 9.8 g/dL (12.0-16.0); Lymphocyte % 10.1 %; Mean Corpuscular HGB Conc 33 g/dL (31-36); Mean Corpuscular Hemoglobin 26 pg (27-31); Mean Corpuscular Volume 81 fL (80-97); Nucleated Red Blood Cells % 0.1; Platelet Count 259 10^3/uL (150-450); Red Blood Count 3.75 10^6 /uL (3.70-4.87); Red Cell Distribution Width 17 % (10-15); White Blood Count 3.8 10^3/uL (3.5-10.8)
[2018-10-28 14:58] LABS: ALT 13 U/L (7-52); AST 22 U/L (13-39); Albumin 3.5 g/dL (3.2-5.2); Albumin/Globulin Ratio 1.2 (1-3); Alkaline Phosphatase 142 U/L (34-104); BUN/Creatinine Ratio 21.3 (8-20); Blood Urea Nitrogen 16 mg/dL (6-24); CO2 Carbon Dioxide 24 mmol/L (22-32); EGFR African American 94.4 (>60); Glucose 112 mg/dL (70-100); Potassium 4.5 mmol/L (3.5-5.0); Sodium 142 mmol/L (135-145); Total Protein 6.5 g/dL (6.4-8.9)
[2018-10-28 14:59] LABS: Anion Gap 5 mmol/L (2-11); Chloride 113 mmol/L (101-111)
[2018-10-28 15:17] LABS: Acetaminophen < 15 mcg/mL; Alcohol < 10 mg/dL (<10); Salicylate < 2.50 mg/dL (<30)
[2018-10-28 19:21] VITALS: BP 142/79
--- NOTE | 2018-10-29 05:59 | ED ---
Substance Abuse/Use - HPI Summary HPI Summary: This patient is a 63-year-old female who presents to the ED by EMS after taking an unknown amount of Ambien and Percocet. These are prescribed to her. However , she states she awoke to take both to try to get back to sleep and when she looked in the pill bottles, they were both empty. She states she was not trying to overdose, denies any SI. She states she was not trying to harm herself. She isn't worsening fatigue and nausea. Patient is a poor historian. When asked how many of each she had taken, she continues to state "I don't know." When asked when she took the medications, she again states "I don't know." She is unsure if she took the medication last evening or this morning or this afternoon. Denies any other pain or concerns. - History Of Current Complaint Chief Complaint: EDOverdose Stated Complaint: OVERDOSE PER EMS Time Seen by Provider: 10/28/18 13:06 Hx Obtained From: Patient ?: No Ingestion History: Type/Name Of Drug - ambien and percoset Overdose Characteristics: Oral Timing Of Abuse: Binge Use Severity Initially: Moderate Severity Currently: Mild Aggravating Factor(s): Nothing Alleviating Factor(s): Nothing Associated Signs And Symptoms: Negative - Allergies/Home Medications Allergies/Adverse Reactions: Allergies Allergy/AdvReac Type Severity Reaction Status Date / Time chocolate flavor Allergy Severe migraine Verified 10/28/18 13:20 onion Allergy Severe Headache Verified 10/28/18 13:20 sodium nitrite Allergy Severe migraine Verified 10/28/18 13:20 dust Allergy Severe migraine Uncoded 07/08/17 13:57 Home Medications: Home Medications Fremanezumab-Vfrm [Ajovy] 225 mg SUBCUT MONTHLY 10/28/18 [History Confirmed 05/17] PMH/Surg Hx/FS Hx/Imm Hx Previously Healthy: Yes Endocrine/Hematology History: Reports: Hx Anemia - since surgery 1995 Denies: Hx Blood Disorders, Hx Blood Transfusions, Hx Bone Marrow Disease, Hx Diabetes, Hx Sickle Cell Disease Cardiovascular History: Reports: Hx Hypertension Denies: Hx Aneurysm, Hx Angina, Hx Angioplasty, Hx Auto Implanted Cardiovert Defib, Hx Cardiac Arrest, Hx Cardiomegaly, Hx Congestive Heart Failure, Hx Coronary Artery Disease, Hx Hypercholesterolemia, Hx Hypotension, Hx Myocardial Infarction, Hx Pacemaker/ICD, Hx Peripheral Vascular Disease, Hx Valvular Heart Disease, Other Cardiovascular Problems/Disorders Respiratory History: Reports: Hx Seasonal Allergies Denies: Hx Asthma, Hx Chronic Bronchitis, Hx Chronic Obstructive Pulmonary Disease (COPD), Hx Lung Cancer, Hx Pneumonia, Other Respiratory Problems/ Disorders GI History: Reports: Hx Gall Bladder Disease - cholcystectomy in 1992, Hx Irritable Bowel - dumping syndrome, Hx Jaundice Denies: Hx Cirrhosis, Hx Crohn's Disease, Hx Diverticulosis, Hx Gastroesophageal Reflux Disease, Hx Gastrointestinal Bleed, Hx Hiatal Hernia, Hx Obstructive Bowel, Hx Ileostomy, Hx Pyloric Stenosis, Hx Ulcer, Other GI Disorders History: Denies: Hx Acute Renal Failure, Hx Dialysis, Hx Renal Disease Musculoskeletal History: Reports: Hx Arthritis - psoriatic arthritis hands, elbows Denies: Hx Back Problems, Hx Gout, Hx Orthopedic Injury, Hx Osteoporosis, Hx Scoliosis, Hx Tendonitis, Other Musculoskeletal History Sensory History: Reports: Hx Contacts or Glasses - glasses, Hx Vision Problem, Hx Hearing Problem Denies: Hx Eye Injury, Hx Eye Prosthesis, Hx Glaucoma, Hx Legally Blind, Hx Macular Degeneration, Hx Deafness, Hx Hearing Aid Opthamlomology History: Reports: Hx Contacts or Glasses - glasses, Hx Vision Problem Denies: Hx Eye Injury, Hx Eye Prosthesis, Hx Glaucoma, Hx Legally Blind, Hx Macular Degeneration Neurological History: Reports: Hx Headaches, Hx Migraine, Hx Nerve Disease, Hx Seizures - was in hospital for passing out sometimes dosent make sence talking, Other Neuro Impairments/Disorders - psoriatic arthritis, Denies: Hx Dementia, Hx Developmental Delay, Hx Spinal Cord Injury, Hx Transient Ischemic Attacks (TIA) Psychiatric History: Reports: Hx Anxiety, Hx Depression, Hx Panic Disorder, Hx Post Traumatic Stress Disorder, Hx Inpatient Treatment, Hx Community Mental Health Tx, Hx Schizophrenia, Hx Bipolar Disorder, Hx Suicide Attempt, Other Psychiatric Issues/Disorders - Borderline Personality Denies: Hx Eating Disorder, Hx of Violent Episodes Against Others - Cancer History Hx Chemotherapy: No - Surgical History Surgery Procedure, Year, and Place: gastric stapling- 1995. cholecystectomy- 1992. surgery on broken clavicle - October 2016. 1960, tonsilectomy Hx Anesthesia Reactions: No - Immunization History Date of Tetanus Vaccine: Unknown Hx Pertussis Vaccination: No Immunizations Up to Date: Yes Infectious Disease History: No Infectious Disease History: Denies: Hx Clostridium Difficile, Hx Hepatitis, Hx Human Immunodeficiency Virus (HIV), Hx of Known/Suspected MRSA, Hx Shingles, Hx Tuberculosis, Hx Known/ Suspected VRE, Hx Known/Suspected VRSA, Traveled Outside the [place] in Last 30 Days Comment Only: History Other Infectious Disease - patient reporting flu s/s for past several weeks - Family History Known Family History: Positive: Cardiac Disease, Hypertension - Social History Occupation: Unemployed Lives: Alone Alcohol Use: None Hx Substance Use: No Substance Use Type: Reports: None Substance Use Comment - Amount & Last Used: history of opiate and benzo dependence, history of overdose. Hx Tobacco Use: No Smoking Status (MU): Never Smoked Tobacco Have You Smoked in the Last Year: No Review of Systems Positive: Fatigue. Negative: Fever, Chills, Skin Diaphoresis Negative: Dental Pain Negative: Chest Pain Negative: Shortness Of Breath, Cough Positive: Nausea. Negative: Abdominal Pain, Vomiting, Diarrhea Genitourinary: Negative Positive: no symptoms reported, see HPI Negative: Arthralgia, Myalgia Positive: Weakness. Negative: Headache, Paresthesia, Numbness, Syncope Negative: Anxious, Depressed All Other Systems Reviewed And Are Negative: Yes Physical Exam Triage Information Reviewed: Yes Vital Signs On Initial Exam: Initial Vitals Temp Pulse Resp BP Pulse Ox 97.4 F 82 16 149/82 95 10/28/18 13:06 10/28/18 13:06 10/28/18 13:06 10/28/18 13:06 10/28/18 13:06 Vital Signs Reviewed: Yes Completion Of Physical Exam Limited Due To: Altered Mental Status - appears to be a poor historian. seems to be confused at baseline, Other Appearance: Positive: Cachectic Skin: Positive: Skin Color Reflects Adequate Perfusion Head/Face: Positive: Normal Head/Face Inspection Eyes: Positive: Conjunctiva Clear Neck: Positive: Supple, No Lymphadenopathy Respiratory/Lung Sounds: Positive: Clear to Auscultation, Breath Sounds Present Cardiovascular: Positive: RRR, Pulses are Symmetrical in both Upper and Lower Extremities Musculoskeletal: Positive: Strength/ROM Intact Neurological: Positive: Slurred Speech Psychiatric: Positive: Affect/Mood Appropriate Diagnostics - Vital Signs Vital Signs Temp Pulse Resp BP Pulse Ox 10/28/18 19:19 97.2 F 94 16 142/79 98 10/28/18 19:00 31 10/28/18 18:40 71 27 142/79 96 10/28/18 18:10 80 17 145/82 96 10/28/18 18:00 69 11 97 10/28/18 17:40 70 13 139/73 97 10/28/18 17:10 68 19 132/75 97 10/28/18 17:00 74 16 96 10/28/18 16:40 71 14 139/76 95 10/28/18 16:10 80 13 142/81 96 10/28/18 16:00 83 13 96 10/28/18 15:40 86 22 145/79 96 10/28/18 15:10 82 14 138/78 96 10/28/18 15:00 83 19 96 10/28/18 14:40 81 13 147/82 96 10/28/18 14:36 97 10/28/18 14:10 80 13 146/77 97 10/28/18 14:01 80 23 154/87 96 10/28/18 13:40 22 141/82 10/28/18 13:13 141/74 10/28/18 13:10 81 149/82 94 10/28/18 13:06 97.4 F 82 16 149/82 95 - Laboratory Lab Results: Lab Results 10/28/18 10/28/18 10/28/18 Range/Units 14:33 14:33 14:33 WBC 3.8 (3.5-10.8) 10^3/uL RBC 3.75 (3.70-4.87) 10^6 /uL Hgb 9.8 L (12.0-16.0) g/dL Hct 30 L (35-47) % MCV 81 (80-97) fL MCH 26 L (27-31) pg MCHC 33 (31-36) g/dL RDW 17 H (10-15) % Plt Count 259 (150-450) 10^3/uL MPV 7.0 L (7.4-10.4) fL Neut % (Auto) 81.1 % Lymph % (Auto) 10.1 % Dunn % (Auto) 6.6 % Eos % (Auto) 1.5 % Baso % (Auto) 0.7 % Absolute Neuts (auto) 3.1 (1.5-7.7) 10^3/ul Absolute Lymphs (auto) 0.4 L (1.0-4.8) 10^3/ul Absolute Monos (auto) 0.3 (0-0.8) 10^3/ul Absolute Eos (auto) 0.1 (0-0.6) 10^3/ul Absolute Basos (auto) 0.0 (0-0.2) 10^3/ul Absolute Nucleated RBC 0.0 10^3/ul Nucleated RBC % 0.1 Sodium 142 (135-145) mmol/L Potassium 4.5 (3.5-5.0) mmol/L Chloride 113 H (101-111) mmol/L Carbon Dioxide 24 (22-32) mmol/L Anion Gap 5 (2-11) mmol/L BUN 16 (6-24) mg/dL Creatinine 0.75 (0.51-0.95) mg/dL Est GFR ( Amer) 94.4 (>60) Est GFR (Non-Af Amer) 78.0 (>60) BUN/Creatinine Ratio 21.3 H (8-20) Glucose 112 H (70-100) mg/dL Lactic Acid 0.6 (0.5-2.0) mmol/L Calcium 8.0 L (8.6-10.3) mg/dL Total Bilirubin 0.30 (0.2-1.0) mg/dL AST 22 (13-39) U/L ALT 13 (7-52) U/L Alkaline Phosphatase 142 H (34-104) U/L Total Protein 6.5 (6.4-8.9) g/dL Albumin 3.5 (3.2-5.2) g/dL Globulin 3.0 (2-4) g/dL Albumin/Globulin Ratio 1.2 (1-3) Salicylates < 2.50 (<30) mg/dL Acetaminophen < 15 mcg/mL Serum Alcohol < 10 (<10) mg/dL Result Diagrams: 10/28/18 14:33 10/28/18 14:33 Lab Statement: Any lab studies that have been ordered have been reviewed, and results considered in the medical decision making process. Course/Dx - Course Course Of Treatment: During the course of treatment, the patient is evaluated for a possible overdose of Percocet and Ambien. Unsure how many medications of each she had taken. She states both Bill puddles were empty, however they only had a few in each. She states she called the ambulance as she had some nausea and fatigue and was concerned with an overdose. She denies any SI. She denies any feeling of wanting to harm herself. Poison control was called who observed a 6 hour observation window and an EKG. EKG was obtained which shows a normal sinus rhythm. Labs obtained which show no abnormalities. Patient was unable to give a urine sample. Patient remained stable and on the monitor during the 6 hour observation with no complaints. After first evaluation, patient denies any pain, nausea, heart racing, headache, shortness of breath or chest pain. After approximately 2-3 hours, she is given to the something to eat and patient is eating and drinking well. EOMI/PERRLA. Lungs CTA. RRR. No LAD. Pt is discharged with polysubstance abuse/overuse. - Diagnoses Provider Diagnoses: Polysubstance abuse Discharge - Sign-Out/Discharge Documenting (check all that apply): Patient Departure Patient Received Moderate/Deep Sedation with Procedure: No - Discharge Plan Condition: Stable Disposition: HOME Patient Education Materials: Polysubstance Abuse (ED) Referrals: No Primary Care Phys,NOPCP [Primary Care Provider] - Additional Instructions: Please return to the ED for any worsening symptoms We have observed you in the ED for 6 hours and you continue to deny any symptoms We feel you are OK for discharge home and you have agreed to not take ambien and percoset together As well as, take only the prescribed amount - Billing Disposition and Condition Condition: STABLE Disposition: Home
== END 2018-10-28 16:42 | disposition home or self-care (01) ==
LOC: ED 12:59
DX: F19.10 Other psychoactive substance abuse, uncomplicated (principal); D64.9 Anemia, unspecified; I10 Essential (primary) hypertension
CPT/HCPCS: 36415; 80053; 80320; 80329; 83605; 85025; 93005; 96360; 96361; 99284; G0480

== ENCOUNTER → 2018-10-28 19:58 | Emergency (ER) | payer OTHER, MEDICARE ==
--- NOTE | 2018-10-28 21:42 | ED ---
Medical Screening - HPI Summary HPI Summary: 63 year old female presents after being discharged with being hungry. she was just seen for narcotic overdose and was discharge after 6 hours. States she is a little bit nauseous and very hungry. States she was dizzy but that has resolved. Denies any chest pressures or shortness of breath. No other complaints. patient states that she doesn't want to wait for cab in waiting room. She denies any suicidal or homicidal ideation. Has no other complaints. - History of Current Complaint Chief Complaint: EDDizziness Stated Complaint: DIZZINESS/NAUSEA PER PT Time Seen by Provider: 10/28/18 21:12 PMH/Surg Hx/FS Hx/Imm Hx Endocrine/Hematology History: Reports: Hx Anemia - since surgery 1995 Denies: Hx Blood Disorders, Hx Blood Transfusions, Hx Bone Marrow Disease, Hx Diabetes, Hx Sickle Cell Disease Cardiovascular History: Reports: Hx Hypertension Denies: Hx Aneurysm, Hx Angina, Hx Angioplasty, Hx Auto Implanted Cardiovert Defib, Hx Cardiac Arrest, Hx Cardiomegaly, Hx Congestive Heart Failure, Hx Coronary Artery Disease, Hx Hypercholesterolemia, Hx Hypotension, Hx Myocardial Infarction, Hx Pacemaker/ICD, Hx Peripheral Vascular Disease, Hx Valvular Heart Disease, Other Cardiovascular Problems/Disorders Respiratory History: Reports: Hx Seasonal Allergies Denies: Hx Asthma, Hx Chronic Bronchitis, Hx Chronic Obstructive Pulmonary Disease (COPD), Hx Lung Cancer, Hx Pneumonia, Other Respiratory Problems/ Disorders GI History: Reports: Hx Gall Bladder Disease - cholcystectomy in 1992, Hx Irritable Bowel - dumping syndrome, Hx Jaundice Denies: Hx Cirrhosis, Hx Crohn's Disease, Hx Diverticulosis, Hx Gastroesophageal Reflux Disease, Hx Gastrointestinal Bleed, Hx Hiatal Hernia, Hx Obstructive Bowel, Hx Ileostomy, Hx Pyloric Stenosis, Hx Ulcer, Other GI Disorders History: Denies: Hx Acute Renal Failure, Hx Dialysis, Hx Renal Disease Musculoskeletal History: Reports: Hx Arthritis - psoriatic arthritis hands, elbows Denies: Hx Back Problems, Hx Gout, Hx Orthopedic Injury, Hx Osteoporosis, Hx Scoliosis, Hx Tendonitis, Other Musculoskeletal History Sensory History: Reports: Hx Contacts or Glasses - glasses, Hx Vision Problem, Hx Hearing Problem Denies: Hx Eye Injury, Hx Eye Prosthesis, Hx Glaucoma, Hx Legally Blind, Hx Macular Degeneration, Hx Deafness, Hx Hearing Aid Opthamlomology History: Reports: Hx Contacts or Glasses - glasses, Hx Vision Problem Denies: Hx Eye Injury, Hx Eye Prosthesis, Hx Glaucoma, Hx Legally Blind, Hx Macular Degeneration Neurological History: Reports: Hx Headaches, Hx Migraine, Hx Nerve Disease, Hx Seizures - was in hospital for passing out sometimes dosent make sence talking, Other Neuro Impairments/Disorders - psoriatic arthritis, Denies: Hx Dementia, Hx Developmental Delay, Hx Spinal Cord Injury, Hx Transient Ischemic Attacks (TIA) Psychiatric History: Reports: Hx Anxiety, Hx Depression, Hx Panic Disorder, Hx Post Traumatic Stress Disorder, Hx Inpatient Treatment, Hx Community Mental Health Tx, Hx Schizophrenia, Hx Bipolar Disorder, Hx Suicide Attempt, Other Psychiatric Issues/Disorders - Borderline Personality Denies: Hx Eating Disorder, Hx of Violent Episodes Against Others - Cancer History Hx Chemotherapy: No - Surgical History Surgery Procedure, Year, and Place: gastric stapling- 1995. cholecystectomy- 1992. surgery on broken clavicle - October 2016. 1960, tonsilectomy Hx Anesthesia Reactions: No - Immunization History Date of Tetanus Vaccine: Unknown Infectious Disease History: No Infectious Disease History: Denies: Hx Clostridium Difficile, Hx Hepatitis, Hx Human Immunodeficiency Virus (HIV), Hx of Known/Suspected MRSA, Hx Shingles, Hx Tuberculosis, Hx Known/ Suspected VRE, Hx Known/Suspected VRSA, Traveled Outside the [place] in Last 30 Days Comment Only: History Other Infectious Disease - patient reporting flu s/s for past several weeks - Family History Known Family History: Positive: Cardiac Disease, Hypertension - Social History Alcohol Use: None Hx Substance Use: No Substance Use Type: Reports: None Substance Use Comment - Amount & Last Used: history of opiate and benzo dependence, history of overdose. Hx Tobacco Use: No Smoking Status (MU): Never Smoked Tobacco Have You Smoked in the Last Year: No Review of Systems Negative: Fever Negative: Chest Pain Negative: Shortness Of Breath Positive: Other - hungry All Other Systems Reviewed And Are Negative: Yes Physical Exam Triage Information Reviewed: Yes Vital Signs On Initial Exam: Initial Vitals Temp Pulse Resp BP Pulse Ox 97.1 F 71 18 122/77 96 10/28/18 20:02 10/28/18 20:02 10/28/18 20:02 10/28/18 20:02 10/28/18 20:02 Vital Signs Reviewed: Yes Appearance: Positive: Well-Appearing Skin: Positive: Warm, Dry Head/Face: Positive: Normal Head/Face Inspection Eyes: Positive: Normal, Conjunctiva Clear ENT: Positive: Pharynx normal Respiratory/Lung Sounds: Positive: Clear to Auscultation, Breath Sounds Present Cardiovascular: Positive: Normal, RRR Musculoskeletal: Positive: Normal Neurological: Positive: Normal Psychiatric: Positive: Normal Diagnostics - Vital Signs Vital Signs Temp Pulse Resp BP Pulse Ox 10/28/18 20:02 97.1 F 71 18 122/77 96 - Laboratory Lab Statement: Any lab studies that have been ordered have been reviewed, and results considered in the medical decision making process. Course/Dx - Course Course Of Treatment: 63 year old female presents after being discharged with being hungry. she was just seen for narcotic overdose and was discharge after 6 hours. States she is a little bit nauseous and very hungry. States she was dizzy but that has resolved. Denies any chest pressures or shortness of breath. No other complaints. patient states that she doesn't want to wait for cab in waiting room. She denies any suicidal or homicidal ideation. Has no other complaints. On exam has a normal physical exam. Gave sandwich and feeling better. told est care with primary. Patient understands agrees plan. - Diagnoses Provider Diagnoses: Encounter for medical screening examination Discharge - Sign-Out/Discharge Documenting (check all that apply): Patient Departure Patient Received Moderate/Deep Sedation with Procedure: No - Discharge Plan Condition: Good Disposition: HOME Referrals: [facility] [place] [facility] [Outside] Additional Instructions: establish care with primary Return to ED if develop any new or worsening symptoms - Billing Disposition and Condition Condition: GOOD Disposition: Home
[2018-10-28 21:55] VITALS: BP 118/76
== END | disposition home or self-care (01) ==
LOC: ED 19:58
DX: Z00.00 Encounter for general adult medical examination without abnormal findings (principal); R42 Dizziness and giddiness; R11.0 Nausea; I10 Essential (primary) hypertension
CPT/HCPCS: 99281

== ENCOUNTER 2019-08-26 09:40 | Inpatient (IN) ==
[2019-08-26] MEDS: NS 0.9% 1000 ml BAG 1,000 ML IV SCH ×2 (13:26→23:15)
[2019-08-26] MEDS: Azithromycin IV(*) 250 MG in NS 0.9% 250 ml 250 ML IVPB SCH (13:36)
[2019-08-26 14:46] LABS: ABS Lymphocytes 0.3 10^3/ul (1.0-4.8); ABS Monocytes 0.3 10^3/ul (0-0.8); Hematocrit 24 % (35-47); Hemoglobin 7.8 g/dL (12.0-16.0); Lymphocyte % 4.8 %; Mean Corpuscular HGB Conc 32 g/dL (31-36); Mean Corpuscular Hemoglobin 28 pg (27-31); Mean Corpuscular Volume 86 fL (80-97); Mean Platelet Volume 7.6 fL (7.4-10.4); Nucleated Red Blood Cells % 0.2; Platelet Count 187 10^3/uL (150-450); Red Blood Count 2.83 10^6 /uL (3.70-4.87); Red Cell Distribution Width 19 % (10-15); White Blood Count 6.8 10^3/uL (3.5-10.8)
[2019-08-26 14:54] LABS: Activated Partial Thrombo Time 26.4 seconds (26.0-38.0); INR 1.03 (0.82-1.09)
[2019-08-26 15:15] LABS: Troponin I 0.01 ng/mL (<0.03)
[2019-08-26 15:18] LABS: ALT 20 U/L (7-52); Albumin/Globulin Ratio 1.1 (1-3); Alkaline Phosphatase 139 U/L (34-104); BUN/Creatinine Ratio 28.8 (8-20); Blood Urea Nitrogen 15 mg/dL (6-24); CO2 Carbon Dioxide 22 mmol/L (22-32); Calcium 7.8 mg/dL (8.6-10.3); Chloride 111 mmol/L (101-111); EGFR African American 143.7 (>60); EGFR Non-African American 118.7 (>60); Globulin 2.8 g/dL (2-4); Glucose 160 mg/dL (70-100); Sodium 137 mmol/L (135-145); Total Protein 5.8 g/dL (6.4-8.9)
[2019-08-26] MEDS: cefTRIAXone ADVAN VIAL 1 GM in NS 0.9% 50 ML 50 ML IVPB SCH (15:24)
[2019-08-26] MEDS: Heparin 5000 UNITS/ML VIAL(*) 1 ml vial SUBCUT SCH ×2 (15:24→21:14)
[2019-08-26 15:41] LABS: Anion Gap 4 mmol/L (2-11)
[2019-08-26 16:58] LABS: Urine Appearance Clear; Urine Bilirubin Negative (Negative); Urine Blood Negative (Negative); Urine Color Yellow; Urine Glucose Negative (Negative); Urine Ketones Trace (Negative); Urine Nitrite Negative (Negative); Urine Protein 1+(30 mg/dL) (Negative); Urine Specific Gravity 1.025 (1.010-1.030); Urine Urobilinogen Negative (Negative)
[2019-08-26 16:59] LABS: Urine Bacteria Absent (Absent); Urine Red Blood Cell 1+(3-5/hpf) (Absent); Urine Squamous Epithelial Cell Present (Absent); Urine White Blood Cell Trace(0-5/hpf) (Absent)
[2019-08-26] MEDS: metroNIDAZOLE IV 500 MG/100ML 500 MG/100 ML BAG IVPB SCH (17:40)
[2019-08-26 17:49] LABS: Potassium Redraw 4.2 mmol/L (3.5-5.0)
[2019-08-27] MEDS: metroNIDAZOLE IV 500 MG/100ML 500 MG/100 ML BAG IVPB SCH ×3 (01:50→16:41)
[2019-08-27] MEDS ORDERED: Furosemide 40 mg/4 ml IV VIAL ONE (02:41)
[2019-08-27] MEDS ORDERED: Furosemide 40 mg/4 ml IV VIAL IV SLOW PU ONE (03:00)
[2019-08-27 04:13] LABS: Hematocrit 29 % (35-47); Hemoglobin 9.4 g/dL (12.0-16.0); Mean Corpuscular HGB Conc 32 g/dL (31-36); Mean Corpuscular Hemoglobin 27 pg (27-31); Mean Corpuscular Volume 84 fL (80-97); Platelet Count 254 10^3/uL (150-450); Red Blood Count 3.47 10^6 /uL (3.70-4.87); Red Cell Distribution Width 18 % (10-15); White Blood Count 12.1 10^3/uL (3.5-10.8)
[2019-08-27 04:29] LABS: BUN/Creatinine Ratio 28.8 (8-20); Calcium 7.8 mg/dL (8.6-10.3); EGFR African American 124.2 (>60); EGFR Non-African American 102.6 (>60); Potassium 3.8 mmol/L (3.5-5.0)
[2019-08-27] MEDS: Heparin 5000 UNITS/ML VIAL(*) 1 ml vial SUBCUT SCH ×3 (05:18→21:08)
[2019-08-27] MEDS ORDERED: Ondansetron 4 mg VIAL 2 MG/ML 2 ml VIAL ONE (05:43)
[2019-08-27] MEDS: Ondansetron 4 mg VIAL 2 MG/ML 2 ml VIAL IV PRN (05:45)
[2019-08-27] MEDS: Azithromycin IV(*) 250 MG in NS 0.9% 250 ml 250 ML IVPB SCH (13:02)
[2019-08-27] MEDS: Hydrocortisone INJ 100 MG/2ML 2 ML VIAL IV SCH ×2 (13:05→20:19)
[2019-08-27] MEDS: cefTRIAXone ADVAN VIAL 1 GM in NS 0.9% 50 ML 50 ML IVPB SCH (15:21)
[2019-08-27] MEDS ORDERED: Furosemide 20 mg/2 ml IV VIAL ONE (16:35)
[2019-08-28] MEDS: metroNIDAZOLE IV 500 MG/100ML 500 MG/100 ML BAG IVPB SCH ×3 (00:47→16:20)
[2019-08-28] MEDS: Heparin 5000 UNITS/ML VIAL(*) 1 ml vial SUBCUT SCH ×3 (05:48→21:30)
[2019-08-28] MEDS: Hydrocortisone INJ 100 MG/2ML 2 ML VIAL IV SCH ×3 (05:48→21:30)
[2019-08-28] MEDS: oxyCODONE/Acetamin 5/325 mg TAB PO PRN ×2 (08:49→16:20)
[2019-08-28] MEDS ORDERED: Furosemide 40 mg/4 ml IV VIAL IV SLOW PU ONE (11:56)
[2019-08-28] MEDS: Azithromycin IV(*) 250 MG in NS 0.9% 250 ml 250 ML IVPB SCH (12:24)
[2019-08-28] MEDS: NS 0.9% 1000 ml BAG 1,000 ML IV SCH (12:26)
[2019-08-28] MEDS: cefTRIAXone ADVAN VIAL 1 GM in NS 0.9% 50 ML 50 ML IVPB SCH (14:00)
[2019-08-29] MEDS: NS 0.9% 1000 ml BAG 1,000 ML IV SCH (00:47)
[2019-08-29] MEDS: metroNIDAZOLE IV 500 MG/100ML 500 MG/100 ML BAG IVPB SCH ×3 (00:47→16:38)
[2019-08-29] MEDS: oxyCODONE/Acetamin 5/325 mg TAB PO PRN ×2 (04:12→16:51)
[2019-08-29] MEDS: Hydrocortisone INJ 100 MG/2ML 2 ML VIAL IV SCH ×3 (04:15→20:02)
[2019-08-29 05:01] LABS: ABS Lymphocytes 0.5 10^3/ul (1.0-4.8); ABS Monocytes 0.6 10^3/ul (0-0.8); Eosinophil % 0.2 %; Hematocrit 28 % (35-47); Hemoglobin 8.9 g/dL (12.0-16.0); Lymphocyte % 5.6 %; Mean Corpuscular HGB Conc 32 g/dL (31-36); Mean Corpuscular Hemoglobin 27 pg (27-31); Mean Corpuscular Volume 85 fL (80-97); Nucleated Red Blood Cells % 0.1; Platelet Count 233 10^3/uL (150-450); Red Blood Count 3.25 10^6 /uL (3.70-4.87); Red Cell Distribution Width 18 % (10-15); White Blood Count 8.7 10^3/uL (3.5-10.8)
[2019-08-29 05:17] LABS: Albumin 2.6 g/dL (3.2-5.2); BUN/Creatinine Ratio 37.5 (8-20); Calcium 7.4 mg/dL (8.6-10.3); EGFR African American 157.6 (>60); EGFR Non-African American 130.2 (>60); Globulin 2.5 g/dL (2-4); Potassium 3.7 mmol/L (3.5-5.0); Total Bilirubin 0.2 mg/dL (0.2-1.0); Total Protein 5.1 g/dL (6.4-8.9)
[2019-08-29] MEDS: Heparin 5000 UNITS/ML VIAL(*) 1 ml vial SUBCUT SCH ×3 (05:56→21:00)
[2019-08-29] MEDS ORDERED: Furosemide 40 mg/4 ml IV VIAL IV SLOW PU ONE (08:15)
[2019-08-29] MEDS ORDERED: Furosemide 20 mg/2 ml IV VIAL ONE ×2 (08:20→08:24)
[2019-08-29] MEDS: Azithromycin IV(*) 250 MG in NS 0.9% 250 ml 250 ML IVPB SCH (13:33)
[2019-08-29] MEDS: cefTRIAXone ADVAN VIAL 1 GM in NS 0.9% 50 ML 50 ML IVPB SCH (13:42)
[2019-08-30] MEDS: metroNIDAZOLE IV 500 MG/100ML 500 MG/100 ML BAG IVPB SCH ×3 (00:06→16:16)
[2019-08-30] MEDS: Ondansetron 4 mg VIAL 2 MG/ML 2 ml VIAL IV PRN ×2 (03:15→20:39)
[2019-08-30 04:16] LABS: ABS Lymphocytes 0.4 10^3/ul (1.0-4.8); ABS Monocytes 0.4 10^3/ul (0-0.8); Eosinophil % 0.4 %; Hematocrit 28 % (35-47); Hemoglobin 8.9 g/dL (12.0-16.0); Lymphocyte % 4.7 %; Mean Corpuscular HGB Conc 32 g/dL (31-36); Mean Corpuscular Hemoglobin 27 pg (27-31); Mean Corpuscular Volume 85 fL (80-97); Mean Platelet Volume 6.7 fL (7.4-10.4); Platelet Count 257 10^3/uL (150-450); Red Blood Count 3.34 10^6 /uL (3.70-4.87); Red Cell Distribution Width 19 % (10-15); White Blood Count 7.9 10^3/uL (3.5-10.8)
[2019-08-30 04:37] LABS: Albumin 2.7 g/dL (3.2-5.2); Albumin/Globulin Ratio 1.1 (1-3); BUN/Creatinine Ratio 32.6 (8-20); Calcium 7.7 mg/dL (8.6-10.3); EGFR African American 165.5 (>60); EGFR Non-African American 136.8 (>60); Globulin 2.4 g/dL (2-4); Potassium 3.5 mmol/L (3.5-5.0); Total Bilirubin 0.3 mg/dL (0.2-1.0); Total Protein 5.1 g/dL (6.4-8.9)
[2019-08-30] MEDS: Heparin 5000 UNITS/ML VIAL(*) 1 ml vial SUBCUT SCH ×3 (05:06→21:00)
[2019-08-30] MEDS: Hydrocortisone INJ 100 MG/2ML 2 ML VIAL IV SCH ×2 (05:07→16:16)
[2019-08-30] MEDS: oxyCODONE/Acetamin 5/325 mg TAB PO PRN (05:15)
[2019-08-30] MEDS ORDERED: Morphine 2 MG/ML SYRINGE IV PRN (14:10)
[2019-08-30] MEDS: Azithromycin IV(*) 250 MG in NS 0.9% 250 ml 250 ML IVPB SCH (14:26)
[2019-08-30] MEDS: cefTRIAXone ADVAN VIAL 1 GM in NS 0.9% 50 ML 50 ML IVPB SCH (14:27)
[2019-08-30] MEDS ORDERED: Furosemide 40 mg/4 ml IV VIAL IV SLOW PU ONE (15:04)
[2019-08-30] MEDS ORDERED: Lorazepam PYXIS KEY PRN (16:29)
[2019-08-30] MEDS: LORazepam 2 mg VIAL 1 ml IV PUSH PRN (20:38)
[2019-08-30] MEDS: Morphine 2 MG/ML SYRINGE IV PRN (20:38)
[2019-08-31] MEDS: Morphine 2 MG/ML SYRINGE IV PRN ×4 (00:44→17:04)
[2019-08-31] MEDS: metroNIDAZOLE IV 500 MG/100ML 500 MG/100 ML BAG IVPB SCH ×3 (00:44→18:22)
[2019-08-31] MEDS: LORazepam 2 mg VIAL 1 ml IV PUSH PRN ×2 (04:05→14:15)
[2019-08-31 04:21] LABS: Hematocrit 29 % (35-47); Hemoglobin 9.3 g/dL (12.0-16.0); Mean Corpuscular HGB Conc 33 g/dL (31-36); Mean Corpuscular Hemoglobin 27 pg (27-31); Mean Corpuscular Volume 84 fL (80-97); Mean Platelet Volume 6.8 fL (7.4-10.4); Platelet Count 279 10^3/uL (150-450); Red Blood Count 3.41 10^6 /uL (3.70-4.87); Red Cell Distribution Width 18 % (10-15); White Blood Count 8.6 10^3/uL (3.5-10.8)
[2019-08-31 04:37] LABS: Albumin 2.7 g/dL (3.2-5.2); Albumin/Globulin Ratio 1.1 (1-3); BUN/Creatinine Ratio 44.2 (8-20); Calcium 7.6 mg/dL (8.6-10.3); EGFR African American 178.9 (>60); EGFR Non-African American 147.8 (>60); Globulin 2.5 g/dL (2-4); Potassium 3.2 mmol/L (3.5-5.0); Total Bilirubin 0.3 mg/dL (0.2-1.0); Total Protein 5.2 g/dL (6.4-8.9)
[2019-08-31] MEDS: Hydrocortisone INJ 100 MG/2ML 2 ML VIAL IV SCH (04:57)
[2019-08-31] MEDS: Ondansetron 4 mg VIAL 2 MG/ML 2 ml VIAL IV PRN (04:58)
[2019-08-31] MEDS: Heparin 5000 UNITS/ML VIAL(*) 1 ml vial SUBCUT SCH ×3 (05:03→21:49)
[2019-08-31 05:06] LABS: ABS Eosinophils 0.2 10^3/ul (0-0.6); ABS Lymphocytes 0.7 10^3/ul (1.0-4.8); ABS Monocytes 0.5 10^3/ul (0-0.8); Eosinophil % 1.9 %; Lymphocyte % 7.8 %; Nucleated Red Blood Cells % 0.1
[2019-08-31 05:59] LABS: Magnesium 1.9 mg/dL (1.9-2.7)
[2019-08-31] MEDS ORDERED: methylPREDNISolone 125 mg 2 ML VIAL IV ONE (09:42)
[2019-08-31] MEDS: Azithromycin IV(*) 250 MG in NS 0.9% 250 ml 250 ML IVPB SCH (12:14)
[2019-08-31] MEDS: cefTRIAXone ADVAN VIAL 1 GM in NS 0.9% 50 ML 50 ML IVPB SCH (14:14)
[2019-08-31] MEDS ORDERED: Propofol 10 mg/ml 100 ML BTL 100 ML ONE (16:02)
[2019-08-31] MEDS ORDERED: Succinylcholine 200 mg VIAL 20 mg/ml 10 ml VIAL (200 mg) ONE ×2 (16:03→16:40)
[2019-08-31] MEDS ORDERED: Lorazepam PYXIS KEY ONE (16:35)
[2019-08-31] MEDS ORDERED: LORazepam 2 mg VIAL 1 ml ONE (16:35)
[2019-08-31] MEDS ORDERED: Etomidate 40 mg/20 ml (2 MG/ML) 20 ml VIAL (40 mg) ONE (16:40)
[2019-08-31] MEDS ORDERED: Midazolam 10 mg/10 ml VIAL 1 mg/ml 10 ml VIAL (10 mg) ONE (16:40)
[2019-08-31] MEDS: Midazolam IV for DRIP 100 MG in NS 0.9% 100 ml BAG 80 ML IV SCH (17:45)
[2019-08-31] MEDS: methylPREDNISolone SOD 40 mg/ml 1 ml VIAL IV SCH (18:22)
[2019-08-31] MEDS: Pantoprazole VIAL 40 MG VIAL IV SCH (18:22)
[2019-08-31] MEDS: Chlorhexidine MOUTHWASH 0.12% 15 ML UDC SWISH SPIT SCH ×2 (18:22→21:49)
[2019-08-31] MEDS: KCL 20 MEQ/100 ML IVPREMIX 20 MEQ/100 ML BAG IV SCH ×2 (19:47→21:49)
[2019-08-31] MEDS: Propofol 10 mg/ml 100 ML BTL 100 ML IV SCH (22:10)
[2019-09-01] MEDS: methylPREDNISolone SOD 40 mg/ml 1 ml VIAL IV SCH ×4 (00:14→17:53)
[2019-09-01] MEDS: metroNIDAZOLE IV 500 MG/100ML 500 MG/100 ML BAG IVPB SCH ×2 (00:14→09:06)
[2019-09-01] MEDS: Chlorhexidine MOUTHWASH 0.12% 15 ML UDC SWISH SPIT SCH ×6 (00:14→21:00)
[2019-09-01] MEDS: Morphine 2 MG/ML SYRINGE IV PRN ×3 (00:21→15:59)
[2019-09-01] MEDS: Propofol 10 mg/ml 100 ML BTL 100 ML IV SCH ×4 (04:33→23:18)
[2019-09-01 04:44] LABS: ABS Basophils 0.3 10^3/ul (0-0.2); ABS Lymphocytes 0.3 10^3/ul (1.0-4.8); ABS Monocytes 0.3 10^3/ul (0-0.8); Hematocrit 30 % (35-47); Hemoglobin 9.5 g/dL (12.0-16.0); Lymphocyte % 5.1 %; Mean Corpuscular HGB Conc 32 g/dL (31-36); Mean Corpuscular Hemoglobin 27 pg (27-31); Mean Corpuscular Volume 84 fL (80-97); Nucleated Red Blood Cells % 0.1; Platelet Count 299 10^3/uL (150-450); Red Blood Count 3.56 10^6 /uL (3.70-4.87); Red Cell Distribution Width 18 % (10-15); White Blood Count 6.7 10^3/uL (3.5-10.8)
[2019-09-01 05:01] LABS: BUN/Creatinine Ratio 56.8 (8-20); EGFR African American 174.2 (>60); Magnesium 2.1 mg/dL (1.9-2.7); Phosphorus 1.5 mg/dL (2.5-5.0)
[2019-09-01] MEDS: Heparin 5000 UNITS/ML VIAL(*) 1 ml vial SUBCUT SCH ×3 (05:34→21:00)
[2019-09-01] MEDS: Midazolam IV for DRIP 100 MG in NS 0.9% 100 ml BAG 80 ML IV SCH (07:55)
[2019-09-01] MEDS ORDERED: Artificial Tear OPHTH.OINT 3.5 GM BOTH EYES PRN (11:28)
[2019-09-01] MEDS: NS 0.9% 1000 ml BAG 1,000 ML IV SCH ×2 (13:41→22:36)
[2019-09-01] MEDS: Pantoprazole VIAL 40 MG VIAL IV SCH (16:59)
[2019-09-01] MEDS ORDERED: Potassium Phosphate IV 10 MMOLE in NS 0.9% 250 ml 250 ML IVPB ONE (18:08)
[2019-09-01] MEDS ORDERED: Furosemide 40 mg/4 ml IV VIAL IV ONE (18:09)
[2019-09-01] MEDS: Hydrocortisone INJ 100 MG/2ML 2 ML VIAL IV SCH (19:58)
[2019-09-02] MEDS: Chlorhexidine MOUTHWASH 0.12% 15 ML UDC SWISH SPIT SCH ×6 (01:33→21:39)
[2019-09-02] MEDS: methylPREDNISolone SOD 40 mg/ml 1 ml VIAL IV SCH ×4 (01:34→17:09)
[2019-09-02] MEDS: Midazolam IV for DRIP 100 MG in NS 0.9% 100 ml BAG 80 ML IV SCH (03:01)
[2019-09-02 04:54] LABS: ABS Lymphocytes 0.2 10^3/ul (1.0-4.8); ABS Monocytes 0.2 10^3/ul (0-0.8); Hematocrit 27 % (35-47); Hemoglobin 8.9 g/dL (12.0-16.0); Lymphocyte % 3.1 %; Mean Corpuscular HGB Conc 32 g/dL (31-36); Mean Corpuscular Hemoglobin 27 pg (27-31); Mean Corpuscular Volume 84 fL (80-97); Mean Platelet Volume 7.2 fL (7.4-10.4); Nucleated Red Blood Cells % 0.1; Platelet Count 305 10^3/uL (150-450); Red Blood Count 3.26 10^6 /uL (3.70-4.87); Red Cell Distribution Width 18 % (10-15); White Blood Count 7.6 10^3/uL (3.5-10.8)
[2019-09-02 05:10] LABS: BUN/Creatinine Ratio 66.7 (8-20); Calcium 7.2 mg/dL (8.6-10.3); EGFR African American 200.2 (>60); EGFR Non-African American 165.5 (>60); Phosphorus 3.3 mg/dL (2.5-5.0); Potassium 3.8 mmol/L (3.5-5.0)
[2019-09-02] MEDS: Propofol 10 mg/ml 100 ML BTL 100 ML IV SCH ×3 (06:02→22:48)
[2019-09-02] MEDS: Heparin 5000 UNITS/ML VIAL(*) 1 ml vial SUBCUT SCH ×3 (06:04→21:39)
[2019-09-02] MEDS ORDERED: Albumin Human 25% 12.5 GM/50 ML BTL IV ONE (08:45)
[2019-09-02] MEDS ORDERED: NS 0.9% 100 ml BAG 100 ML ONE (09:18)
[2019-09-02] MEDS ORDERED: KCL 20 MEQ/100 ML IVPREMIX 20 MEQ/100 ML BAG IV ONE (09:30)
[2019-09-02] MEDS: NS 0.9% 1000 ml BAG 1,000 ML IV SCH (09:30)
[2019-09-02] MEDS ORDERED: Calcium Gluconate 2 GM in NS 0.9% 100 ml BAG 100 ML IV ONE (09:30)
[2019-09-02] MEDS: Pantoprazole VIAL 40 MG VIAL IV SCH (17:09)
[2019-09-02] MEDS: LORazepam 2 mg VIAL 1 ml IV PUSH PRN (20:21)
[2019-09-02] MEDS ORDERED: Propofol* 20 ML VIAL - FOR IV LINE PRIMING ONLY SCH (21:00)
[2019-09-02] MEDS ORDERED: Propofol 10 MG/ML 20 ML BTL ONE (21:34)
[2019-09-02] MEDS: Propofol* 20 ML VIAL - FOR IV LINE PRIMING ONLY SCH (22:48)
[2019-09-03] MEDS: methylPREDNISolone SOD 40 mg/ml 1 ml VIAL IV SCH ×4 (00:54→22:45)
[2019-09-03] MEDS: Chlorhexidine MOUTHWASH 0.12% 15 ML UDC SWISH SPIT SCH ×6 (00:56→22:45)
[2019-09-03] MEDS: Propofol 10 mg/ml 100 ML BTL 100 ML IV SCH ×5 (02:52→19:27)
[2019-09-03] MEDS: NS 0.9% 1000 ml BAG 1,000 ML IV SCH ×3 (03:15→23:36)
[2019-09-03 04:44] LABS: ABS Lymphocytes 0.2 10^3/ul (1.0-4.8); ABS Monocytes 0.4 10^3/ul (0-0.8); Eosinophil % 0.1 %; Hematocrit 27 % (35-47); Hemoglobin 8.7 g/dL (12.0-16.0); Lymphocyte % 2.5 %; Mean Corpuscular HGB Conc 32 g/dL (31-36); Mean Corpuscular Hemoglobin 27 pg (27-31); Mean Corpuscular Volume 84 fL (80-97); Mean Platelet Volume 7.6 fL (7.4-10.4); Platelet Count 316 10^3/uL (150-450); Red Blood Count 3.25 10^6 /uL (3.70-4.87); Red Cell Distribution Width 18 % (10-15); White Blood Count 9.7 10^3/uL (3.5-10.8)
[2019-09-03 04:58] LABS: BUN/Creatinine Ratio 61.9 (8-20); Calcium 7.4 mg/dL (8.6-10.3); EGFR African American 183.8 (>60); EGFR Non-African American 151.9 (>60); Magnesium 2.1 mg/dL (1.9-2.7); Phosphorus 2.4 mg/dL (2.5-5.0); Potassium 4.2 mmol/L (3.5-5.0)
[2019-09-03] MEDS: Heparin 5000 UNITS/ML VIAL(*) 1 ml vial SUBCUT SCH ×3 (05:52→22:45)
[2019-09-03] MEDS ORDERED: Calcium Gluconate 2 GM in NS 0.9% 100 ml BAG 100 ML IV ONE (10:56)
[2019-09-03] MEDS: Propofol* 20 ML VIAL - FOR IV LINE PRIMING ONLY SCH (12:14)
[2019-09-03] MEDS: fentaNYL INFUSION 50 MCG/ML 2,500 MCG/50 ML BAG IV SCH (13:57)
[2019-09-03] MEDS: Pantoprazole VIAL 40 MG VIAL IV SCH (17:08)
[2019-09-04] MEDS: Propofol* 20 ML VIAL - FOR IV LINE PRIMING ONLY SCH ×3 (01:00→19:27)
[2019-09-04] MEDS: Propofol 10 mg/ml 100 ML BTL 100 ML IV SCH ×3 (01:20→19:28)
[2019-09-04] MEDS: Chlorhexidine MOUTHWASH 0.12% 15 ML UDC SWISH SPIT SCH ×6 (02:27→21:31)
[2019-09-04 05:21] LABS: ABS Lymphocytes 0.3 10^3/ul (1.0-4.8); ABS Monocytes 0.6 10^3/ul (0-0.8); Hematocrit 29 % (35-47); Hemoglobin 9.1 g/dL (12.0-16.0); Lymphocyte % 1.8 %; Mean Corpuscular HGB Conc 31 g/dL (31-36); Mean Corpuscular Hemoglobin 27 pg (27-31); Mean Corpuscular Volume 85 fL (80-97); Mean Platelet Volume 7.5 fL (7.4-10.4); Platelet Count 287 10^3/uL (150-450); Red Blood Count 3.41 10^6 /uL (3.70-4.87); Red Cell Distribution Width 19 % (10-15); White Blood Count 18.5 10^3/uL (3.5-10.8)
[2019-09-04 05:37] LABS: BUN/Creatinine Ratio 59.5 (8-20); Calcium 7.1 mg/dL (8.6-10.3); EGFR African American 183.8 (>60); EGFR Non-African American 151.9 (>60); Potassium 4.8 mmol/L (3.5-5.0)
[2019-09-04] MEDS: Heparin 5000 UNITS/ML VIAL(*) 1 ml vial SUBCUT SCH ×3 (05:48→21:31)
[2019-09-04] MEDS: fentaNYL INFUSION 50 MCG/ML 2,500 MCG/50 ML BAG IV SCH (06:46)
[2019-09-04] MEDS: NS 0.9% 1000 ml BAG 1,000 ML IV SCH ×2 (10:08→19:29)
[2019-09-04] MEDS: methylPREDNISolone SOD 40 mg/ml 1 ml VIAL IV SCH (12:30)
[2019-09-04] MEDS: Insulin LISPRO 100 units/ml(*) SUBCUT SCH ×2 (12:37→17:54)
[2019-09-04] MEDS: Pantoprazole VIAL 40 MG VIAL IV SCH (17:18)
[2019-09-04] MEDS ORDERED: Piperacillin/Tazobac ADVAN(*) 3.375 GM in NS 0.9% 100 ml BAG 100 ML IV ONE (21:00)
[2019-09-04] MEDS ORDERED: Zosyn per Pharmacy NOTE FOLLOW UP SCH (21:00)
[2019-09-05] MEDS: Insulin LISPRO 100 units/ml(*) SUBCUT SCH ×5 (00:06→23:47)
[2019-09-05] MEDS: methylPREDNISolone SOD 40 mg/ml 1 ml VIAL IV SCH (00:06)
[2019-09-05] MEDS: Chlorhexidine MOUTHWASH 0.12% 15 ML UDC SWISH SPIT SCH ×4 (02:17→14:05)
[2019-09-05] MEDS: Propofol* 20 ML VIAL - FOR IV LINE PRIMING ONLY SCH ×3 (02:17→12:21)
[2019-09-05] MEDS: Propofol 10 mg/ml 100 ML BTL 100 ML IV SCH ×2 (02:18→09:13)
[2019-09-05] MEDS: ZOSYN 3.375 GM Q8H per EXTENDED INFUSION IV SCH ×3 (02:18→18:21)
[2019-09-05 05:28] LABS: ABS Lymphocytes 0.3 10^3/ul (1.0-4.8); ABS Monocytes 0.3 10^3/ul (0-0.8); Hematocrit 29 % (35-47); Hemoglobin 9.3 g/dL (12.0-16.0); Lymphocyte % 1.8 %; Mean Corpuscular HGB Conc 32 g/dL (31-36); Mean Corpuscular Hemoglobin 27 pg (27-31); Mean Corpuscular Volume 84 fL (80-97); Mean Platelet Volume 7.7 fL (7.4-10.4); Platelet Count 288 10^3/uL (150-450); Red Blood Count 3.49 10^6 /uL (3.70-4.87); Red Cell Distribution Width 18 % (10-15); White Blood Count 16.1 10^3/uL (3.5-10.8)
[2019-09-05 05:38] LABS: Albumin 2.1 g/dL (3.2-5.2); Albumin/Globulin Ratio 1.2 (1-3); BUN/Creatinine Ratio 51.1 (8-20); EGFR African American 169.7 (>60); EGFR Non-African American 140.3 (>60); Globulin 1.7 g/dL (2-4); Magnesium 2.1 mg/dL (1.9-2.7); Phosphorus 2.7 mg/dL (2.5-5.0); Total Bilirubin 0.2 mg/dL (0.2-1.0); Total Protein 3.8 g/dL (6.4-8.9)
[2019-09-05 05:42] LABS: Potassium 5.1 mmol/L (3.5-5.0)
[2019-09-05] MEDS: Heparin 5000 UNITS/ML VIAL(*) 1 ml vial SUBCUT SCH ×3 (06:00→21:01)
[2019-09-05] MEDS: NS 0.9% 1000 ml BAG 1,000 ML IV SCH (06:01)
[2019-09-05] MEDS ORDERED: Furosemide 40 mg/4 ml IV VIAL IV ONE (09:54)
[2019-09-05] MEDS ORDERED: Calcium Gluconate 2 GM in NS 0.9% 100 ml BAG 100 ML IV ONE (11:30)
[2019-09-05] MEDS ORDERED: fentaNYL 100 mcg/2 ml 50 MCG/ML VIAL IV SLOW PU PRN (14:35)
[2019-09-05] MEDS: Levalbuterol 1.25MG/0.5ML NEB.SOL INH SCH ×2 (17:19→20:32)
[2019-09-05] MEDS: Pantoprazole VIAL 40 MG VIAL IV SCH (17:29)
[2019-09-05] MEDS ORDERED: NS 0.9% 500 ml BAG 500 ML IV ONE (23:24)
[2019-09-06] MEDS: Levalbuterol 1.25MG/0.5ML NEB.SOL INH SCH ×4 (01:28→20:08)
[2019-09-06] MEDS: ZOSYN 3.375 GM Q8H per EXTENDED INFUSION IV SCH ×3 (03:01→17:23)
[2019-09-06 05:06] LABS: ABS Eosinophils 0.3 10^3/ul (0-0.6); ABS Lymphocytes 1.1 10^3/ul (1.0-4.8); ABS Monocytes 0.8 10^3/ul (0-0.8); Eosinophil % 2.8 %; Hematocrit 33 % (35-47); Hemoglobin 9.9 g/dL (12.0-16.0); Lymphocyte % 10.2 %; Mean Corpuscular HGB Conc 30 g/dL (31-36); Mean Corpuscular Hemoglobin 27 pg (27-31); Mean Corpuscular Volume 88 fL (80-97); Mean Platelet Volume 8.8 fL (7.4-10.4); Nucleated Red Blood Cells % 0.1; Platelet Count 198 10^3/uL (150-450); Red Blood Count 3.73 10^6 /uL (3.70-4.87); Red Cell Distribution Width 19 % (10-15); White Blood Count 11.2 10^3/uL (3.5-10.8)
[2019-09-06 05:23] LABS: CO2 Carbon Dioxide 28 mmol/L (22-32); Chloride 107 mmol/L (101-111); Sodium 137 mmol/L (135-145)
[2019-09-06 05:29] LABS: ALT 7 U/L (7-52); Alkaline Phosphatase 47 U/L (34-104); BUN/Creatinine Ratio 48.7 (8-20); Blood Urea Nitrogen 19 mg/dL (6-24); EGFR African American 200.2 (>60); EGFR Non-African American 165.5 (>60); Glucose 76 mg/dL (70-100); Phosphorus 3.1 mg/dL (2.5-5.0)
[2019-09-06] MEDS: Insulin LISPRO 100 units/ml(*) SUBCUT SCH ×3 (05:40→17:18)
[2019-09-06] MEDS: Heparin 5000 UNITS/ML VIAL(*) 1 ml vial SUBCUT SCH ×3 (05:44→21:23)
[2019-09-06 06:01] LABS: Anion Gap 2 mmol/L (2-11)
[2019-09-06 08:25] LABS: Magnesium 1.8 mg/dL (1.9-2.7); Potassium Redraw 4.1 mmol/L (3.5-5.0)
[2019-09-06] MEDS: methylPREDNISolone 125 mg 2 ML VIAL IV SCH (09:36)
[2019-09-06] MEDS: Pantoprazole VIAL 40 MG VIAL IV SCH (17:16)
[2019-09-07] MEDS: Levalbuterol 1.25MG/0.5ML NEB.SOL INH SCH ×4 (01:59→19:19)
[2019-09-07] MEDS: ZOSYN 3.375 GM Q8H per EXTENDED INFUSION IV SCH ×3 (02:22→18:24)
[2019-09-07] MEDS: Heparin 5000 UNITS/ML VIAL(*) 1 ml vial SUBCUT SCH ×3 (06:03→21:11)
[2019-09-07] MEDS: Insulin LISPRO 100 units/ml(*) SUBCUT SCH ×2 (06:11)
[2019-09-07] MEDS: methylPREDNISolone 125 mg 2 ML VIAL IV SCH (10:12)
[2019-09-08] MEDS: Levalbuterol 1.25MG/0.5ML NEB.SOL INH SCH ×2 (02:01→09:00)
[2019-09-08] MEDS: ZOSYN 3.375 GM Q8H per EXTENDED INFUSION IV SCH ×3 (02:05→17:32)
[2019-09-08 04:55] LABS: ABS Eosinophils 0.1 10^3/ul (0-0.6); ABS Lymphocytes 0.9 10^3/ul (1.0-4.8); Eosinophil % 1.3 %; Hematocrit 31 % (35-47); Lymphocyte % 9.5 %; Mean Corpuscular HGB Conc 32 g/dL (31-36); Mean Corpuscular Hemoglobin 27 pg (27-31); Mean Corpuscular Volume 84 fL (80-97); Mean Platelet Volume 7.8 fL (7.4-10.4); Platelet Count 272 10^3/uL (150-450); Red Cell Distribution Width 18 % (10-15); White Blood Count 9.2 10^3/uL (3.5-10.8)
[2019-09-08 05:16] LABS: Calcium 7.8 mg/dL (8.6-10.3); EGFR African American 194.4 (>60); EGFR Non-African American 160.7 (>60)
[2019-09-08] MEDS: Heparin 5000 UNITS/ML VIAL(*) 1 ml vial SUBCUT SCH ×2 (05:57→12:37)
[2019-09-08] MEDS ORDERED: Levalbuterol 1.25MG/0.5ML NEB.SOL INH PRN (09:28)
[2019-09-08] MEDS: methylPREDNISolone 125 mg 2 ML VIAL IV SCH (09:40)
[2019-09-08] MEDS: Diphenoxylat/Atrop 2.5-0.025mg TAB PO SCH ×2 (12:36→17:29)
[2019-09-08] MEDS ORDERED: Enoxaparin 40 MG/0.4 ML SYR(*) SUBCUT SCH (14:00)
[2019-09-08] MEDS: Enoxaparin 40 MG/0.4 ML SYR(*) SUBCUT SCH (21:31)
[2019-09-09] MEDS: ZOSYN 3.375 GM Q8H per EXTENDED INFUSION IV SCH ×3 (03:11→17:35)
[2019-09-09] MEDS: Diphenoxylat/Atrop 2.5-0.025mg TAB PO SCH ×2 (09:22→17:35)
[2019-09-09] MEDS: Enoxaparin 40 MG/0.4 ML SYR(*) SUBCUT SCH (21:15)
[2019-09-10] MEDS: ZOSYN 3.375 GM Q8H per EXTENDED INFUSION IV SCH ×3 (02:10→17:40)
[2019-09-10] MEDS: Diphenoxylat/Atrop 2.5-0.025mg TAB PO SCH ×2 (09:21→17:40)
[2019-09-10] MEDS: Dextran 70/Hypromellose Tears Eye Drops 15 ml BTL (for Artificials Tears) BOTH EYES PRN ×3 (15:03→22:03)
[2019-09-10] MEDS: Enoxaparin 40 MG/0.4 ML SYR(*) SUBCUT SCH (22:01)
[2019-09-11] MEDS: ZOSYN 3.375 GM Q8H per EXTENDED INFUSION IV SCH ×3 (03:36→18:27)
[2019-09-11] MEDS: Dextran 70/Hypromellose Tears Eye Drops 15 ml BTL (for Artificials Tears) BOTH EYES PRN ×3 (06:27→21:15)
[2019-09-11] MEDS: Diphenoxylat/Atrop 2.5-0.025mg TAB PO SCH ×2 (10:15→18:31)
[2019-09-11] MEDS ORDERED: oxyCODONE/Acetamin 5/325 mg TAB PO ONE (19:55)
[2019-09-11] MEDS: Enoxaparin 40 MG/0.4 ML SYR(*) SUBCUT SCH (21:16)
[2019-09-12] MEDS: ZOSYN 3.375 GM Q8H per EXTENDED INFUSION IV SCH ×2 (02:14→09:53)
[2019-09-12] MEDS: Dextran 70/Hypromellose Tears Eye Drops 15 ml BTL (for Artificials Tears) BOTH EYES PRN (02:16)
[2019-09-12 07:25] VITALS: BP 127/68
[2019-09-12] MEDS: Diphenoxylat/Atrop 2.5-0.025mg TAB PO SCH (07:49)
[2019-09-12] MEDS ORDERED: Prochlorperazine 5 mg/ml 2 ml VIAL (10 mg) IV ONE (11:18)
== END 2019-09-12 14:10 | DRG 870 ==
LOC: ICU 11:57 → MED 09-06 16:02
PROVIDERS: ADMIT Internal Medicine; ATTEND Internal Medicine